=== PATIENT | male | born 1965 | race Caucasian/White ===

== ENCOUNTER → 2016-07-10 | Day surgery (SDC) | payer OTHER ==
[2016-07-04 08:53] VITALS: BMI 28.0
[~2016-07-10] VITALS: Ht 172.7 cm; Wt 84.1 kg
[~2016-07-10] MED LIST: ALBUAER2 INH; ALPR-411 PO; ATOR-22 PO; ATROPINE SULFATE 0.1 MG/ML 5ML SYR IV ONE; BACL10TA PO; BUPIVACAINE 0.5 % 5 MG/1 ML PF 10ML VIAL ONE; BUPIVACAINE/EPINEPHRINE 0.5% MPF 1:200,000 30 ML VIAL ONE; DEXAMETHASONE SOD INJ 4 MG/ML VIAL ONE; DROPERIDOL 2.5 MG/ML 2**ORM CHARTING ONLY ONE; EpHEDrine SULFATE INJ 50 MG/ML **ORM CHARTING ONLY ONE; FENTANYL CITRATE INJ 50 MCG**ORM CHARTING ONLY ONE; FENTANYL CITRATE INJ 50 MCG/1 ML 2 ML VIAL ONE; HYDROmorphone HCL 2 MG/ML **ORM CHARTING ONLY ONE; HydrALAZINE HCL **ORM CHARTING ONLY ONE; INSDGI SC; INSU100I SC; KETOROLAC 30 MG/ML **ORM CHARTING ONLY ONE; KPP/750 PO; LABETALOL HCL IV **ORM CHARTING ONLY IV ONE; LIDOCAINE 2% 20 MG/ML SYRINGE***ORM CHARTING ONLY IV ONE; LIDOCAINE HCL 2% 2 ML VIAL (20MG/ML) ONE; LISI-725 PO; MEPERIDINE HCL 50 MG/ML CARP**ORM CHARTING ONLY ONE; METOCLOPRAMIDE HCL INJ **ORM CHARTING ONLY ONE; MIDAZOLAM HCL 1 MG/ML 2ML VIAL ONE; MIDAZOLAM HCL 1 MG/ML 2ML**ORM CHARTING ONLY ONE; MoRPHine SULFATE 10 MG/ML **ORM CHARTING ONLY ONE; NALOXONE HCL 0.4 MG/1 ML **ORM CHARTING ONLY ONE; ONDANSETRON INJ 2 MG/ML **ORM CHARTING ONLY ONE; PROPOFOL IV EMULSION 10 MG/ML 20 ML VIAL IV ONE; PROPOFOL IV EMULSION 10 MG/ML 20 ML VIAL ONE; RANI150T3 PO; ROPIVACAINE 0.5% 5 MG/ML 30 ML VIAL ONE; SERT-234 PO; SODIUM CHLORIDE 0.9% 10ML **ORM CHARTING ONLY ONE; VITAMIN B12 SC
[2016-07-10 10:19] VITALS: Ht 172.7 cm; Wt 84.1 kg
== END | disposition home or self-care (01) ==
LOC: C.GI 09:50
PROVIDERS: ATTEND Internal Medicine Gastroenterology
DX: Z53.8 Procedure and treatment not carried out for other reasons (principal)

== ENCOUNTER 2017-06-19 06:31 | Inpatient (IN) | payer OTHER ==
[~2017-06-19] VITALS: Ht 172.7 cm; Wt 79.5 kg
[~2017-06-19 06:31] MED LIST changes: -ATROPINE SULFATE 0.1 MG/ML 5ML SYR IV ONE; -BUPIVACAINE 0.5 % 5 MG/1 ML PF 10ML VIAL ONE; -BUPIVACAINE/EPINEPHRINE 0.5% MPF 1:200,000 30 ML VIAL ONE; -DEXAMETHASONE SOD INJ 4 MG/ML VIAL ONE; -DROPERIDOL 2.5 MG/ML 2**ORM CHARTING ONLY ONE; -EpHEDrine SULFATE INJ 50 MG/ML **ORM CHARTING ONLY ONE; -FENTANYL CITRATE INJ 50 MCG**ORM CHARTING ONLY ONE; -FENTANYL CITRATE INJ 50 MCG/1 ML 2 ML VIAL ONE; -HYDROmorphone HCL 2 MG/ML **ORM CHARTING ONLY ONE; -HydrALAZINE HCL **ORM CHARTING ONLY ONE; -KETOROLAC 30 MG/ML **ORM CHARTING ONLY ONE; -LABETALOL HCL IV **ORM CHARTING ONLY IV ONE; -LIDOCAINE 2% 20 MG/ML SYRINGE***ORM CHARTING ONLY IV ONE; -LIDOCAINE HCL 2% 2 ML VIAL (20MG/ML) ONE; -MEPERIDINE HCL 50 MG/ML CARP**ORM CHARTING ONLY ONE; -METOCLOPRAMIDE HCL INJ **ORM CHARTING ONLY ONE; -MIDAZOLAM HCL 1 MG/ML 2ML VIAL ONE; -MIDAZOLAM HCL 1 MG/ML 2ML**ORM CHARTING ONLY ONE; -MoRPHine SULFATE 10 MG/ML **ORM CHARTING ONLY ONE; -NALOXONE HCL 0.4 MG/1 ML **ORM CHARTING ONLY ONE; -ONDANSETRON INJ 2 MG/ML **ORM CHARTING ONLY ONE; -PROPOFOL IV EMULSION 10 MG/ML 20 ML VIAL IV ONE; -PROPOFOL IV EMULSION 10 MG/ML 20 ML VIAL ONE; -ROPIVACAINE 0.5% 5 MG/ML 30 ML VIAL ONE; -SODIUM CHLORIDE 0.9% 10ML **ORM CHARTING ONLY ONE
[2017-06-19] MEDS ORDERED: SODIUM CHLORIDE 0.9% 1000ML 1,000 ML IV ONE (06:43)
[2017-06-19 06:52] LABS: BASO % 0.1 %; BASO ABS # 0.01 K/uL (0-0.2); EOS % 0.3 %; EOS ABS # 0.03 K/uL (0-0.5); HEMATOCRIT 37.7 % (42-52); HEMOGLOBIN 12.7 g/dL (14.0-18.0); IG# 0.06 K/uL (0.00-0.02); LYMPH % 8.1 %; LYMPH ABS # 0.83 K/uL (1.2-3.4); MEAN CELL VOLUME 90.6 fL (80-100); MEAN CORPUSCULAR HEMOGLOBIN 30.5 pg (25-34); MEAN CORPUSCULAR HGB CONC 33.7 g/dl (32-36); MEAN PLATELET VOLUME 10.1 fL (7.4-10.4); MONO % 7.9 %; MONO ABS # 0.81 K/uL (0.11-0.59); NEUT ABS # 8.55 K/uL (1.4-6.5); PLATELET COUNT 344 K/uL (130-400); RED CELL DISTRIBUTION WIDTH CV 13.5 % (11.5-14.5); RED CELL DISTRIBUTION WIDTH SD 44.4 fL (36.4-46.3); WHITE BLOOD COUNT 10.29 K/uL (4.8-10.8)
[2017-06-19] MEDS ORDERED: LPT40 PO (06:55)
[2017-06-19] MEDS ORDERED: INSU100I23 SQ (06:55)
[2017-06-19] MEDS ORDERED: ASPEC81 PO (06:57)
[2017-06-19] MEDS ORDERED: VNTHFA/IN INH (06:57)
[2017-06-19] MEDS ORDERED: CYNI1000 INJ (06:58)
--- NOTE | 2017-06-19 07:02 | EMERGENCY ROOM VISIT NOTE ---
History Report prepared by Janene: Don Oneal Under the Supervision of: Dr. Justin Tovar D.O. First contact with patient: 06:35 Stated Complaint: CARDIAC ASSESSMENT/HIP AND ELBOW PAIN History of Present Illness The patient is a 52 year old male who presents to the Emergency Room via [facility] with concerns over a rapid heart rate that began immediately prior to arrival. Per EMS, they were originally called to the patient's home for right hip pain and left arm pain. While en route to the hospital the patient went into rapid atrial flutter. EMS placed the patient on a critical care nurse practitioner and administered Cardizem at 0620, 15 minutes prior to arrival. He denies any chest pain. The patient is a diabetic and has a diabetic wound on the right foot. He follows with a wound clinic for the right foot. EMS states the patient's blood sugar was 512 on their testing. The patient has a history of CVAs, but denies any were the result of an irregular cardiac rhythm. Source of History: patient Onset: Immediately prior to arrival Position: other (Cardiac ) Quality: other (Rapid heart beat) Associated Symptoms: No chest pain Note: shoulder and hip pain Review of Systems See HPI for pertinent positives & negatives. A total of 10 systems reviewed and were otherwise negative. Past Medical & Surgical Medical Problems: (1) Asthma (2) Coronary artery disease (3) Depressive disorder (4) Diabetes mellitus type 2 (5) Hemiparesis (6) History of - deep vein thrombosis (7) Seizure (8) TBI (traumatic brain injury) Surgical Problems: (1) H/O hernia repair (2) History of appendectomy (3) Status post below knee amputation of left lower extremity Family History Cancer Diabetes mellitus Heart disease Hypertension Lung disease Seizures Social History Smoking Status: Former Smoker Drug Use: none Marital Status: single Housing Status: lives alone Occupation Status: disabled Current/Historical Medications Scheduled Alprazolam (Xanax), 0.5 MG PO BID Aspirin (Aspirin EC Low Dose), 81 MG PO DAILY Atorvastatin (Lipitor), 40 MG PO DAILY Cyanocobalamin (Cyanocobalamin), 1,000 MCG INJ q 3 months Insulin Glargine (Basaglar Kwikpen), 1 DOSE SQ DAILY Insulin Lispro (Human) (Humalog), SC TID Levetiracetam (Keppra), 2 TAB PO BID Ranitidine Hcl (Zantac), 150 MG PO BID Sertraline (Zoloft), 1.5 TAB PO QAM Scheduled PRN Albuterol Hfa (Ventolin Hfa), 2 PUFFS INH Q6H PRN for SOB/Wheezing Baclofen (Lioresal), 10 MG PO TID PRN for Pain Allergies Coded Allergies: No Known Allergies (Verified , 06/19/17) Physical Exam Vital Signs Date Time Temp Pulse Resp B/P (MAP) Pulse Ox O2 Delivery O2 Flow Rate FiO2 06/19/17 08:32 95 Room Air 06/19/17 08:20 143 16 128/80 99 Room Air 06/19/17 07:43 95 Room Air 06/19/17 07:42 147 20 104/77 98 Room Air 06/19/17 06:41 148 06/19/17 06:39 36.4 145 16 125/86 100 Room Air 06/19/17 06:39 100 Room Air Physical Exam GENERAL: Patient is awake, alert, anxious and uncomfortable appearing. EYES: The conjunctivae are clear. The pupils are round and reactive. EARS, NOSE, MOUTH AND THROAT: The nose is without any evidence of any deformity. Mucous membranes are dry. Tongue is midline NECK: The neck is nontender and supple. RESPIRATORY: Normal respiratory effort is noted there is no evidence of wheezing rhonchi or rales CARDIOVASCULAR: Tachycardic rate and normal rhythm noted there no murmurs rubs or gallops normal S1 normal S2 GASTROINTESTINAL: The abdomen is soft. Bowel sounds are present in all quadrants. Abdomen is nontender PELVIS: The Pelvis is stable. No tenderness to palpation is noted. BACK: No midline tenderness or or step-off noted range of motion in flexion extension as well as rotation no signs of muscle spasm noted MUSCULOSKELETAL/EXTREMITIES: There is pain present with ROM of the left elbow. There is no erythema or deformity appreciated. There is no pain with ROM of either hip. There was a left lower extremity amputation noted. SKIN: There is significant bread down and a pressure ulceration of the right greater trochanter. There is significant erythema and skin changes to the right foot. There are no petechiae, pallor or cyanosis noted. Skin was warm and dry. NEUROLOGIC: Patient is awake alert and oriented x3 Medical Decision & Procedures ER Provider Diagnostic Interpretation: Radiology results as stated below per my review and radiologist interpretation: CHEST ONE VIEW PORTABLE CLINICAL HISTORY: Sepsis dyspnea COMPARISON STUDY: 12/06/2015 FINDINGS: The bones soft tissues and hemidiaphragms are normal. The cardiomediastinal silhouette is normal. The lungs are clear. The pulmonary vasculature is normal. IMPRESSION: Negative chest. The above report was generated using voice recognition software. It may contain grammatical, syntax or spelling errors. Electronically signed by: Quinn Gray M.D. 06/19/2017 7:25 AM Dictated Date/Time: 06/19/2017 7:24 AM L ELBOW MIN 3 VIEWS ROUTINE CLINICAL HISTORY: pain pain COMPARISON: None. DISCUSSION: The bones and joint spaces appear intact. There is no evidence of fracture, dislocation or bony disease. Small joint effusion. Cortical margins are intact. IMPRESSION: Small joint effusion. Otherwise negative study. The above report was generated using voice recognition software. It may contain grammatical, syntax or spelling errors. Electronically signed by: Quinn Gray M.D. 06/19/2017 7:27 AM Dictated Date/Time: 06/19/2017 7:26 AM R HIP UNILATERAL 2 VIEWS CLINICAL HISTORY: pain and infection pain COMPARISON: None. DISCUSSION: Mild degenerative narrowing right hip joint space. No evidence for acetabular protrusion. Cortical margins are intact. There is no evidence for soft tissue swelling. IMPRESSION: Mild degenerative change. No acute process. The above report was generated using voice recognition software. It may contain grammatical, syntax or spelling errors. Electronically signed by: Quinn Gray M.D. 06/19/2017 7:26 AM Dictated Date/Time: 06/19/2017 7:25 AM Laboratory Results 06/19/17 06:00 Red Blood Count 4.16, Mean Corpuscular Volume 90.6, Mean Corpuscular Hemoglobin 30.5, Mean Corpuscular Hemoglobin Concent 33.7, Mean Platelet Volume 10.1, Neutrophils (%) (Auto) 83.0, Lymphocytes (%) (Auto) 8.1, Monocytes (%) (Auto) 7.9, Eosinophils (%) (Auto) 0.3, Basophils (%) (Auto) 0.1, Neutrophils # (Auto) 8.55, Lymphocytes # (Auto) 0.83, Monocytes # (Auto) 0.81, Eosinophils # (Auto) 0.03, Basophils # (Auto) 0.01 06/19/17 06:00 Test 06/19/17 06:00 06/19/17 07:00 06/19/17 07:01 06/19/17 07:45 White Blood Count 10.29 K/uL (4.8-10.8) Red Blood Count 4.16 M/uL (4.7-6.1) Hemoglobin 12.7 g/dL (14.0-18.0) Hematocrit 37.7 % (42-52) Mean Corpuscular Volume 90.6 fL (80-100) Mean Corpuscular Hemoglobin 30.5 pg (25-34) Mean Corpuscular Hemoglobin Concent 33.7 g/dl (32-36) Platelet Count 344 K/uL (130-400) Mean Platelet Volume 10.1 fL (7.4-10.4) Neutrophils (%) (Auto) 83.0 % Lymphocytes (%) (Auto) 8.1 % Monocytes (%) (Auto) 7.9 % Eosinophils (%) (Auto) 0.3 % Basophils (%) (Auto) 0.1 % Neutrophils # (Auto) 8.55 K/uL (1.4-6.5) Lymphocytes # (Auto) 0.83 K/uL (1.2-3.4) Monocytes # (Auto) 0.81 K/uL (0.11-0.59) Eosinophils # (Auto) 0.03 K/uL (0-0.5) Basophils # (Auto) 0.01 K/uL (0-0.2) RDW Standard Deviation 44.4 fL (36.4-46.3) RDW Coefficient of Variation 13.5 % (11.5-14.5) Immature Granulocyte % (Auto) 0.6 % Immature Granulocyte # (Auto) 0.06 K/uL (0.00-0.02) Erythrocyte Sedimentation Rate > 90 mm/hr (0-14) Prothrombin Time 12.4 SECONDS (9.0-12.0) Prothromb Time International Ratio 1.2 (0.9-1.1) Activated Partial Thromboplast Time 27.6 SECONDS (21.0-31.0) Partial Thromboplastin Ratio 1.1 Anion Gap 8.0 mmol/L (3-11) Est Creatinine Clear Calc Drug Dose 105.9 ml/min Estimated GFR () 119.4 Estimated GFR (Non- 103.1 BUN/Creatinine Ratio 14.7 (10-20) Calcium Level 9.1 mg/dl (8.5-10.1) Phosphorus Level 1.7 mg/dl (2.5-4.9) Magnesium Level 1.5 mg/dl (1.8-2.4) Total Bilirubin 0.5 mg/dl (0.2-1) Aspartate Amino Transf (AST/SGOT) 9 U/L (15-37) Alanine Aminotransferase (ALT/SGPT) 10 U/L (12-78) Alkaline Phosphatase 123 U/L (45-117) C-Reactive Protein 24.30 mg/dl (0-0.29) Total Protein 7.7 gm/dl (6.4-8.2) Albumin 2.4 gm/dl (3.4-5.0) Globulin 5.3 gm/dl (2.5-4.0) Albumin/Globulin Ratio 0.5 (0.9-2) Lipase 73 U/L (73-393) Beta-Hydroxybutyric Acid 17.67 mg/dL (0.2-2.81) Hepatitis C Antibody Screen NEG (NEG) Venous Blood pH 7.46 (7.36-7.41) Venous Blood Partial Pressure CO2 37 mmHg (38.0-50.0) Venous Blood Partial Pressure O2 24 mmHg Venous Blood HCO3 26 mmol/L Venous Blood Oxygen Saturation < 60.0 % Venous Blood Base Excess 1.8 mEq/L Bedside Lactic Acid Venous 1.38 mmol/L (0.90-1.70) Urine Color YELLOW Urine Appearance CLEAR (CLEAR) Urine pH 5.5 (4.5-7.5) Urine Specific [place] 1.034 (1.000-1.030) Urine Protein TRACE (NEG) Urine Glucose (UA) 3+ (NEG) Urine Ketones 2+ (NEG) Urine Occult Blood TRACE (NEG) Urine Nitrite NEG (NEG) Urine Bilirubin NEG (NEG) Urine Urobilinogen NEG (NEG) Urine Leukocyte Esterase TRACE (NEG) Urine WBC (Auto) >30 /hpf (0-5) Urine RBC (Auto) 0-4 /hpf (0-4) Urine Hyaline Casts (Auto) 0 /lpf (0-5) Urine Epithelial Cells (Auto) 5-10 /lpf (0-5) Urine Bacteria (Auto) NEG (NEG) Laboratory results per my review. Medications Administered Medications (Trade) Dose Ordered Sig/Niharika Route Start Time Stop Time Status Last Admin Dose Admin Sodium Chloride 1,000 ml @ 999 mls/hr Q1H1M ONCE IV 06/19/17 06:43 06/19/17 07:43 DC 06/19/17 07:39 999 MLS/HR Magnesium Sulfate (Magnesium Sulfate) 2 gm NOW STAT IV 06/19/17 07:30 06/19/17 07:31 DC 06/19/17 07:40 2 GM Sodium Chloride 1,000 ml @ 999 mls/hr Q1H1M STAT IV 06/19/17 07:30 06/19/17 08:30 DC 06/19/17 07:40 999 MLS/HR Diltiazem HCl (Cardizem Bolus / Drip) 1 ea NOW STAT IV 06/19/17 07:43 06/19/17 07:46 DC 06/19/17 08:17 1 EA Ceftriaxone Sodium (Rocephin Inj) 1 gm NOW STAT IV 06/19/17 07:43 06/19/17 07:46 DC 06/19/17 09:24 1 GM Diltiazem HCl (Cardizem Inj) 5 mg TODAY@0800 ONCE IV 06/19/17 08:00 06/19/17 08:01 DC 06/19/17 08:16 5 MG Diltiazem HCl 125 mg/Dextrose 125 ml @ 0 mls/hr Q0M PRN IV 06/19/17 08:00 06/19/17 13:50 DC 06/19/17 08:17 5 MLS/HR ECG Indication: tachycardia Rate (beats per minute): 147 Rhythm: atrial flutter Findings: no acute ischemic change, no ectopy Comparison ECG Date: 11/19/2015 Change: Atrial flutter is new. Patient's electrocardiogram per my interpretation. ED Course 0636: The patient was evaluated in room A2. A complete history and physical examination were performed. 0643: Ordered Sodium Chloride 1000 mL @ 999 mL/hr IV. 0729: The nursing staff has informed me that the patient's glucose level is 400+ . 0730: Ordered Sodium Chloride 1000 mL @ 999 mL/hr IV, Magnesium Sulfate 2 gm IV. 0743: Ordered Rocephin 1 gm IV, Diltiazem HCl 5 mg IV. 0752: I checked on the patient at this time. He is doing well. 0809: I discussed the case with Dr. Rachid Munson. He will evaluate the patient for further treatment. Medical Decision Differential diagnosis: Etiologies such as premature contractions, electrolyte abnormality, cardiac dysrhythmia, thyroid dysfunction, pulmonary embolism, infection, gastrointestinal, as well as others were entertained. Nursing notes reviewed. The patient is a 52-year-old male who presented to the emergency department for an evaluation of right hip pain and left elbow pain. I received a medical command phone call about this patient because he was in rapid atrial fibrillation. He was treated with IV fluids and IV Cardizem prior to arrival. He was also given IV Cardizem in the emergency department. He was further treated with IV antibiotics for presumed diabetic ulcers. I discussed the patient's laboratory and radiographic studies with him. I also discussed his case with the on-call [facility]. They have agreed to evaluate the patient in the emergency department for further management and disposition. Blood Pressure Screening Patient's blood pressure: Normal blood pressure rapid pulse. Consults Time Called: 08 Consulting Physician: Dr. Meenakshi Munson Returned Call: 08 I discussed the case with Dr. Rachid Munson. He will evaluate the patient for further treatment. Impression Primary Impression: Hyperglycemia Additional Impressions: Atrial fibrillation with RVR Pressure ulcer diabetic ulcer Cellulitis Hypomagnesemia Critical Care I have personally spent greater than 45 minutes of critical care time in the direct management of this patient. This includes bedside care, interpretation of diagnostic studies, and testing, discussion with consultants, patient, and family members, and other required patient management activities. This 45 minutes is in excess of all separately billable procedures. Scribe Attestation The scribe's documentation has been prepared under my direction and personally reviewed by me in its entirety. I confirm that the note above accurately reflects all work, treatment, procedures, and medical decision making performed by me. Departure Information Dispostion Being Evaluated By Hospitalist Frankie Becerra M.D. (PCP) Problem Qualifiers Additional Impressions: Pressure ulcer Pressure ulcer location: hip Pressure ulcer stage: unspecified pressure ulcer stage Laterality: right Qualified Codes: L89.219 - Pressure ulcer of right hip, unspecified stage Cellulitis Site of cellulitis: unspecified site Qualified Codes: L03.90 - Cellulitis, unspecified
[2017-06-19 07:03] LABS: INR 1.2 (0.9-1.1); PTT PATIENT 27.6 SECONDS (21.0-31.0)
--- NOTE | 2017-06-19 07:26 | DIAGNOSTIC IMAGING REPORT ---
CHEST ONE VIEW PORTABLE CLINICAL HISTORY: Sepsis dyspnea COMPARISON STUDY: 12/06/2015 FINDINGS: The bones soft tissues and hemidiaphragms are normal. The cardiomediastinal silhouette is normal. The lungs are clear. The pulmonary vasculature is normal. IMPRESSION: Negative chest. The above report was generated using voice recognition software. It may contain grammatical, syntax or spelling errors. Electronically signed by: Quinn Gray M.D. 06/19/2017 7:25 AM Dictated Date/Time: 06/19/2017 7:24 AM
--- NOTE | 2017-06-19 07:27 | DIAGNOSTIC IMAGING REPORT ---
R HIP UNILATERAL 2 VIEWS CLINICAL HISTORY: pain and infection pain COMPARISON: None. DISCUSSION: Mild degenerative narrowing right hip joint space. No evidence for acetabular protrusion. Cortical margins are intact. There is no evidence for soft tissue swelling. IMPRESSION: Mild degenerative change. No acute process. The above report was generated using voice recognition software. It may contain grammatical, syntax or spelling errors. Electronically signed by: Quinn Gray M.D. 06/19/2017 7:26 AM Dictated Date/Time: 06/19/2017 7:25 AM
[2017-06-19 07:29] LABS: ALBUMIN 2.4 gm/dl (3.4-5.0); ALKALINE PHOSPHATASE 123 U/L (45-117); ALT/SGPT 10 U/L (12-78); AST/SGOT 9 U/L (15-37); BLOOD UREA NITROGEN 11 mg/dl (7-18); CALCIUM 9.1 mg/dl (8.5-10.1); CARBON DIOXIDE 27 mmol/L (21-32); CKMB 0.8 ng/ml (0.5-3.6); CREATININE 0.78 mg/dl (0.60-1.40); GLUCOSE 404 mg/dl (70-99); LIPASE 73 U/L (73-393); PHOSPHORUS 1.7 mg/dl (2.5-4.9); SODIUM 126 mmol/L (136-145); TOTAL PROTEIN 7.7 gm/dl (6.4-8.2)
--- NOTE | 2017-06-19 07:29 | DIAGNOSTIC IMAGING REPORT ---
L ELBOW MIN 3 VIEWS ROUTINE CLINICAL HISTORY: pain pain COMPARISON: None. DISCUSSION: The bones and joint spaces appear intact. There is no evidence of fracture, dislocation or bony disease. Small joint effusion. Cortical margins are intact. IMPRESSION: Small joint effusion. Otherwise negative study. The above report was generated using voice recognition software. It may contain grammatical, syntax or spelling errors. Electronically signed by: Quinn Gray M.D. 06/19/2017 7:27 AM Dictated Date/Time: 06/19/2017 7:26 AM
[2017-06-19] MEDS ORDERED: MAGNESIUM SULFATE 1GM / D5W 1 GM BAG IV STA (07:30)
[2017-06-19] MEDS ORDERED: SODIUM CHLORIDE 0.9% 1000ML 1,000 ML IV STA (07:30)
[2017-06-19] MEDS ORDERED: CEFTRIAXONE SOD INJ 1 GM ADDVIAL IV STA (07:43)
[2017-06-19] MEDS ORDERED: DILTIAZEM BOLUS / DRIP IV STA ×2 (07:43→09:34)
[2017-06-19] MEDS ORDERED: DILTIAZEM HCL 5 MG/ML 5 ML VIAL BOLUS/OMNI IV ONE (08:00)
[2017-06-19] MEDS ORDERED: DILTIAZEM HCL INJ 125 MG in DEXTROSE 5% 100ML IV PRN ×2 (08:00→10:15)
[2017-06-19 08:32] VITALS: O2SAT 95; BMI 25.5
[2017-06-19] MEDS ORDERED: ACETAMINOPHEN 325 MG TAB PO PRN (09:30)
[2017-06-19] MEDS ORDERED: CONSULT PHARMACY STA (09:43)
[2017-06-19] MEDS ORDERED: LORAZEPAM 2 MG/ML 1 ML VIAL IV SCH (09:45)
[2017-06-19] MEDS ORDERED: OPTIRAY 320 IV PRN (10:00)
[2017-06-19 10:30] LABS: CKMB 0.7 ng/ml (0.5-3.6); URIC ACID 3.4 mg/dl (2.6-7.2)
[2017-06-19] MEDS ORDERED: PIPERACILL/TAZOBAC CONSULT ACTIVE PRN (10:30)
[2017-06-19] MEDS ORDERED: VANCOMYCIN INJ 2,000 MG in SODIUM CHLORIDE 0.9% 500ML 500 ML IV SCH (10:30)
[2017-06-19] MEDS ORDERED: VANCOMYCIN CONSULT ACTIVE PRN (10:30)
[2017-06-19] MEDS ORDERED: PIPERACILL/TAZOBAC IV 4.5 GM in DEXTROSE 5% 100ML IV SCH (10:45)
--- NOTE | 2017-06-19 11:32 | History and Physical ---
History & Physical Date & Time of Service: Jun 19, 2017 at 09:00 Chief Complaint: Cardiac Assessment/Hip And Elbow Pain Primary Care Physician: Frankie Garcia M.D. History of Present Illness Source: patient, clinic records, hospital records This is a 52yo M with uncontrolled DM II (hgb a1c of 13), CAD, ICH following injury in 2014, R hemiparesis 2/2 remote CVAs, 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 Patient states that he was lying on elbow watching football and believes to have injured it. States that pain is improved but that ROM is reduced 2/2 pain. Also has pain in R hip 2/2 chronic wound for which he has followed with [place] wound [facility] in the past. Also has presence of chronic wounds on R foot but denies any pain 2/2 diabetic neuropathy. Patient is a poor historian and it is unclear whether or not he is still receiving wound care. Was found to be in rapid A Flutter by EMS en route to hospital and was given cardizem prior to arrival. Patient is asymptomatic and denies any history of arrhythmias. Denies any lightheadedness, chest pain, palpitations or SOB. Per chart review, patient had fall in 2011 resulting in a TBI and hemorrhagic stroke with residual R leg weakness. Was on coumadin at that time and it was discontinued until 2014 when he was restarted on it for treatment of an upper DVT. Fell a few months later, while on coumadin, and had an ICH following and was hospitalized at [facility] but no additional intervention was required. Coumadin was stopped at this time. Had a CT head performed in 2016 that was normal, without evidence of bleeding. Patient lives alone but sister checks on him. States that he did have a home health service recently but due to insurance changes, they are no longer providing services. Is able to ambulate by wheelchair and has improved ability to transfer in recent months following L BKA 2/[address] Amezcua in 2016. Admits to using insulin infrequently. Past Medical/Surgical History Medical Problems: (1) Asthma Status: Chronic (2) Coronary artery disease Status: Chronic (3) Depressive disorder Status: Chronic (4) Diabetes mellitus type 2 Status: Chronic (5) Hemiparesis Permanent Comment: from TBI Status: Chronic (6) History of - deep vein thrombosis Status: Chronic (7) Seizure Status: Chronic (8) TBI (traumatic brain injury) Permanent Comment: left frontal lobe hematoma 2011 Status: Chronic Surgical Problems: (1) H/O hernia repair Status: Chronic (2) History of appendectomy Status: Chronic Family History Cancer Diabetes mellitus Heart disease Hypertension Lung disease Seizures Social History Smoking Status: Former Smoker Smokeless Tobacco Use: Yes (chewing tobacco daily ) Alcohol Use: socially Drug Use: none Marital Status: single Housing status: lives alone Occupational Status: disabled Immunizations History of Influenza Vaccine: Yes History of Tetanus Vaccine?: Yes History of Pneumococcal: Yes History of Hepatitis B Vaccine: No Multi-Drug Resistant Organisms History of MDRO: No Allergies Coded Allergies: No Known Allergies (Verified , 06/19/17) Home Medications Scheduled Alprazolam (Xanax), 0.5 MG PO BID Aspirin (Aspirin EC Low Dose), 81 MG PO DAILY Atorvastatin (Lipitor), 40 MG PO DAILY Cyanocobalamin (Cyanocobalamin), 1,000 MCG INJ q 3 months Insulin Glargine (Basaglar Kwikpen), 1 DOSE SQ DAILY Insulin Lispro (Human) (Humalog), SC TID Levetiracetam (Keppra), 2 TAB PO BID Ranitidine Hcl (Zantac), 150 MG PO BID Sertraline (Zoloft), 1.5 TAB PO QAM Scheduled PRN Albuterol Hfa (Ventolin Hfa), 2 PUFFS INH Q6H PRN for SOB/Wheezing Baclofen (Lioresal), 10 MG PO TID PRN for Pain Review of Systems Ten systems reviewed and negative except as noted in the HPI. Physical Exam Vital Signs Date Time Temp Pulse Resp B/P (MAP) Pulse Ox O2 Delivery O2 Flow Rate FiO2 06/19/17 11:29 123 16 126/90 97 Room Air 06/19/17 09:34 124 06/19/17 09:32 132 16 131/96 100 Room Air 06/19/17 09:01 137 16 122/89 100 Room Air 06/19/17 08:32 95 Room Air 06/19/17 08:20 143 16 128/80 99 Room Air 06/19/17 07:43 95 Room Air 06/19/17 07:42 147 20 104/77 98 Room Air 06/19/17 06:41 148 06/19/17 06:39 36.4 145 16 125/86 100 Room Air 06/19/17 06:39 100 Room Air General Appearance: no apparent distress, + pertinent finding ( Appears older than stated age. ) Head: normocephalic, atraumatic Eyes: normal inspection, PERRL, sclerae normal ENT: normal ENT inspection, hearing grossly normal, pharynx normal (moist mucous membranes ) Neck: supple, thyroid normal, trachea midline Respiratory/Chest: chest non-tender, lungs clear, normal breath sounds, no respiratory distress, no accessory muscle use Cardiovascular: no murmur, normal peripheral pulses, + tachycardia Abdomen/GI: non tender, soft, no organomegaly Extremities/Musculoskelatal: + pertinent finding (+ chronic wound on lateral R hip. + chronic R foot wound on great toe with erythema and edema extending to ankle. Limited sensation 2/2 neuropathy. Limited mobility 2/2 remote CVA deficits. L BKA ) Neurologic/Psych: no motor/sensory deficits (no acute changes), alert, normal mood/affect, oriented x 3, + pertinent finding (poor insight/judgement ) Skin: normal color, warm/dry Diagnostics Laboratory Results Results Past 24 Hours Test 06/19/17 06:00 06/19/17 07:00 06/19/17 07:01 06/19/17 07:45 Range/Units White Blood Count 10.29 4.8-10.8 K/uL Red Blood Count 4.16 4.7-6.1 M/uL Hemoglobin 12.7 14.0-18.0 g/dL Hematocrit 37.7 42-52 % Mean Corpuscular Volume 90.6 80-100 fL Mean Corpuscular Hemoglobin 30.5 25-34 pg Mean Corpuscular Hemoglobin Concent 33.7 32-36 g/dl Platelet Count 344 130-400 K/uL Mean Platelet Volume 10.1 7.4-10.4 fL Neutrophils (%) (Auto) 83.0 % Lymphocytes (%) (Auto) 8.1 % Monocytes (%) (Auto) 7.9 % Eosinophils (%) (Auto) 0.3 % Basophils (%) (Auto) 0.1 % Neutrophils # (Auto) 8.55 1.4-6.5 K/uL Lymphocytes # (Auto) 0.83 1.2-3.4 K/uL Monocytes # (Auto) 0.81 0.11-0.59 K/uL Eosinophils # (Auto) 0.03 0-0.5 K/uL Basophils # (Auto) 0.01 0-0.2 K/uL RDW Standard Deviation 44.4 36.4-46.3 fL RDW Coefficient of Variation 13.5 11.5-14.5 % Immature Granulocyte % (Auto) 0.6 % Immature Granulocyte # (Auto) 0.06 0.00-0.02 K/uL Erythrocyte Sedimentation Rate > 90 0-14 mm/hr Prothrombin Time 12.4 9.0-12.0 SECONDS Prothromb Time International Ratio 1.2 0.9-1.1 Activated Partial Thromboplast Time 27.6 21.0-31.0 SECONDS Partial Thromboplastin Ratio 1.1 Sodium Level 126 136-145 mmol/L Potassium Level 4.0 3.5-5.1 mmol/L Chloride Level 91 98-107 mmol/L Carbon Dioxide Level 27 21-32 mmol/L Anion Gap 8.0 3-11 mmol/L Blood Urea Nitrogen 11 7-18 mg/dl Creatinine 0.78 0.60-1.40 mg/dl Est Creatinine Clear Calc Drug Dose 105.9 ml/min Estimated GFR () 119.4 Estimated GFR (Non- 103.1 BUN/Creatinine Ratio 14.7 10-20 Random Glucose 404 70-99 mg/dl Calcium Level 9.1 8.5-10.1 mg/dl Phosphorus Level 1.7 2.5-4.9 mg/dl Magnesium Level 1.5 1.8-2.4 mg/dl Total Bilirubin 0.5 0.2-1 mg/dl Aspartate Amino Transf (AST/SGOT) 9 15-37 U/L Alanine Aminotransferase (ALT/SGPT) 10 12-78 U/L Alkaline Phosphatase 123 45-117 U/L Total Creatine Kinase 59 39-308 U/L Creatine Kinase MB 0.8 0.5-3.6 ng/ml Creatine Kinase MB Ratio 1.4 0-3.0 Troponin I < 0.015 0-0.045 ng/ml C-Reactive Protein 24.30 0-0.29 mg/dl Total Protein 7.7 6.4-8.2 gm/dl Albumin 2.4 3.4-5.0 gm/dl Globulin 5.3 2.5-4.0 gm/dl Albumin/Globulin Ratio 0.5 0.9-2 Lipase 73 73-393 U/L Beta-Hydroxybutyric Acid 17.67 0.2-2.81 mg/dL Hepatitis C Antibody Screen NEG NEG Venous Blood pH 7.46 7.36-7.41 Venous Blood Partial Pressure CO2 37 38.0-50.0 mmHg Venous Blood Partial Pressure O2 24 mmHg Venous Blood HCO3 26 mmol/L Venous Blood Oxygen Saturation < 60.0 % Venous Blood Base Excess 1.8 mEq/L Bedside Lactic Acid Venous 1.38 0.90-1.70 mmol/L Urine Color YELLOW Urine Appearance CLEAR CLEAR Urine pH 5.5 4.5-7.5 Urine Specific [place] 1.034 1.000-1.030 Urine Protein TRACE NEG Urine Glucose (UA) 3+ NEG Urine Ketones 2+ NEG Urine Occult Blood TRACE NEG Urine Nitrite NEG NEG Urine Bilirubin NEG NEG Urine Urobilinogen NEG NEG Urine Leukocyte Esterase TRACE NEG Urine WBC (Auto) >30 0-5 /hpf Urine RBC (Auto) 0-4 0-4 /hpf Urine Hyaline Casts (Auto) 0 0-5 /lpf Urine Epithelial Cells (Auto) 5-10 0-5 /lpf Urine Bacteria (Auto) NEG NEG Test 06/19/17 10:00 Range/Units Uric Acid 3.4 2.6-7.2 mg/dl Total Creatine Kinase 49 39-308 U/L Creatine Kinase MB 0.7 0.5-3.6 ng/ml Creatine Kinase MB Ratio 1.4 0-3.0 Troponin I < 0.015 0-0.045 ng/ml Microbiology Results 06/19/17 Blood Culture, Received Pending 06/19/17 Blood Culture, Received Pending 06/19/17 Urine Culture, Received Pending Diagnostic Radiology L elbow XR: IMPRESSION: Small joint effusion. Otherwise negative study. R hip XR: IMPRESSION: Mild degenerative change. No acute process. CXR normal EKG Sinus tachycardia at 147 bpm. Impression Assessment and Plan This is a 52yo M with uncontrolled DM II (hgb a1c of 13), CAD, ICH following injury in 2014, R hemiparesis 2/2 remote CVAs, TBI in 2011, seizure disorder, depression, s/p L BKA (in 2015) and h/o DVT (in 2011) who presents with elbow pain x 3 days and was incidentally found to have rapid A Flutter as well as R foot cellulitis. Rapid A Flutter: -New onset atrial flutter with 2:1 conduction -Cardizem bolus and drip initiated in ED -Continue drip and titrate until rate is controlled -CTA chest/thorax to r/o PE -Cardio consulted -Continue cardizem drip -Metoprolol tartrate 25mg PO Q6H -Discuss initiation of heparin with neuro in setting of previous ICH ICH following injuries: -Occurred in 2011 following fall while on coumadin -Residual R leg weakness -Happened again in 2014 following fall, admitted to [facility] -No further intervention was required. Coumadin discontinued -CT head in 2015 without evidence of bleed -Discussed with neuro. Recommend repeating CT head and if normal, okay to start heparin Hyperglycemia 2/2 DM II: uncontrolled -Historically non-compliant with medication, active infection -Last hgb a1c in Apr 2017 was 13 -BG 404 on arrival -Hold home agents -Glycemic control consult Pseudohyponatremia: -Corrected Na of 131-133 -Glycemic control -IVF resuscitation -Recheck Na this evening R foot cellulitis: -Presence of chronic wound of great toe -S/p L BKA in 2016 2/2 osteomyelitis -Significant diabetic neuropathy -Ceftriaxone given in ED -Initiated broader coverage with Zosyn, vanc due to concern for osteo -Blood cultures pending -MRI of R foot pending -Ortho consulted -Wound care consulted L elbow pain: -XR with small joint effusion -Without erythema, edema on exam -Ortho consulted for evaluation, possible joint aspiration Seizure disorder: -Stable -Cont home dose keppra Asthma: -Stable -Cont home meds Depression/anxiety: -Cont zoloft, xanax PRN DVT Ppx: Code status: FULL PCP: Radha Dispo: Admitted to telemetry. Discharge planning ordered for discharge (patient will need home health services). Patient seen in collaboration with Dr. Ricardo. Please see addendum. Dr. Ricardo, Attending Physician: I have seen and examined the patient at bedside with LUCAS Carbajal and agree with the assessment an plan and would like to add the following that the patient came in for left elbow pain and found to be in atrial fibrillation with RVR - on my exam in the emergency patient's heart rate in the 140s. The heart rate decreased to 70s with the diltiazem drip running. However repeat EKG still shows flutter. Patient has history of head injuries in the past. CT head on this admission is negative for bleed, and since arrhythmia still present will start heparin drip. Appreciate cardiology involvement in the case on further assistance with managing tachycardia and arrhythmia. There is no evidence of central pulmonary embolus in the main, lobar, or proximal segmental pulmonary arteries by CTA. Additional scan to be done for lower right extremity which has erythema and stages of healing from previous wounds/ulcers to rule out osteomyelitis. Patient has left below knee amputation in the past with clean stump. Patient has diabetes and hyperglycemia and require pharmacy glycemic control. Also appreciate orthopedic evaluation of right elbow whether there is effusion to aspirated for diagnostic purposes - rule out septic joint - as well as lower extremity evaluation Level of Care Telemetry Advanced Directives Existing Living Will: No Existing Power of Byproducts Maker: No Resuscitation Status FULL RESUSCITATION VTE Prophylaxis VTE Risk Assessment Done? Y/N: Yes Risk Level: Moderate Given or contraindicated: Other Anticoagulation Social Service Consult Receiving Home Health
--- NOTE | 2017-06-19 11:54 | CARDIOLOGY CONSULTATION ---
DATE OF CONSULTATION: 06/19/2017 INPATIENT CONSULTATION CONSULTATION REQUESTED BY: Phoenix Carbajal PA-C. REASON FOR CONSULTATION: New onset atrial flutter. HISTORY OF PRESENT ILLNESS: Mr. Hidalgo is a very pleasant, yet very medically complex 52-year-old gentleman who appears much older than his stated age. He presented to [facility] Emergency Department on 06/19/2017, via EMS with report of elbow pain and hip pain at the site of chronic wounds. When EMS arrived, he was placed on telemetry monitoring, he was found to be in atrial flutter with rapid ventricular response in the 150s. He was transported to [facility] Emergency Department, he was given a dose of IV Cardizem with transient improvement of rates; however, he then went back to the 150s. He also received IV antibiotics and IV fluids and decision was made to admit him to telemetry. Currently, the patient states that his only complaint is that of pain at his ulcer sites. He denies any cardiac complaints, specifically denying any chest pain, shortness of breath, palpitations, lightheadedness, dizziness, or syncope. He states that he has been compliant with his medications at home; however, his blood sugars are rarely uncontrolled and he does have a chart history of medication noncompliance. PAST SURGICAL HISTORY: 1. Left BKA secondary to osteomyelitis. 2. Wound debridements. 3. Appendectomy. 4. Hernia repair. MEDICAL ILLNESSES: 1. History of traumatic brain injury with left frontal lobe hematoma. 2. History of intracranial hemorrhage after an injury seen at [facility]. 3. Diabetes. 4. Chronic stasis wounds. 5. Depression. 6. History of medical noncompliance. FAMILY HISTORY: Noncontributory. SOCIAL HISTORY: Denies any cigarette use, but chews smokeless tobacco daily. Denies any alcohol or recreational drug use. He is not , no children. He lives at home by himself. He is on disability. He has a sister that visits him occasionally. REVIEW OF SYSTEMS: As per HPI, all other review of systems reviewed and negative at this time. ALLERGIES: No known drug allergies. MEDICATIONS AN OUTPATIENT: 1. Aspirin 81 mg daily. 2. Atorvastatin 40 mg daily. 3. Lisinopril 20 mg daily. 4. Insulin sliding scale. 5. Vitamin B12 shots. 6. Ranitidine b.i.d. 7. Baclofen as needed. 8. Zoloft daily. 9. Lantus insulin. PHYSICAL EXAMINATION: VITAL SIGNS: Temperature 36.4, pulse 133, respiratory rate 12, blood pressure 131/96. GENERAL: Awake, alert, oriented x3, no acute distress, appears older than stated age. HEENT: Normocephalic, atraumatic. Pupils equal, round, and reactive to light and accommodation. Extraocular muscles intact. Anicteric sclerae. Moist mucous membranes. Poor dentition. NECK: No JVD, no bruit. CARDIOVASCULAR: Irregularly irregular and fast. Unable to appreciate murmurs, rubs or gallops. PULMONARY: Poor air movement at bilateral bases, otherwise clear. ABDOMEN: Bowel sounds x4, soft. No rebound, guarding, tenderness. No organomegaly. EXTREMITIES: Left BKA. Significant erythema across the right mid foot. SKIN: Diffuse venous stasis ulcers. TEST RESULTS: A 12-lead EKG performed in the Emergency Department independently reviewed at this time shows atrial flutter at 2:1 conduction, poor R-wave progression across the precordium. IMPRESSION: 1. New onset asymptomatic atrial flutter with 2:1 conduction. 2. History of traumatic intracranial hemorrhage. 3. Chronic ulcers with concerns for osteomyelitis. 4. History of medical noncompliance. RECOMMENDATIONS: It was my pleasure to see Mr. Hidalgo in consultation today. From a cardiac standpoint, he does appear to be in atrial flutter with 2:1 conduction. So, I would advise that a Cardizem drip has been started and will up titrate for further rate control. At the same time, I will start him on metoprolol tartrate 25 mg p.o. q. 6 hours. Obviously, given the fact we do not know the duration of his arrhythmia, we do not want to attempt to cardiovert him immediately. Will follow him during his hospital stay and further recommendations will be made in regards to rate versus rhythm control strategies. Otherwise, I am a little concerned about his history of intracranial hemorrhage and will last for a neurologic opinion whether or not it is okay to anticoagulate this time. Heparin has been started, but will hold it for now.
[2017-06-19 13:00] VITALS: BP 124/68; PULSE 120; TEMP 36.5; O2SAT 99
[2017-06-19] MEDS ORDERED: PHARMACY GLYCEMIC MGMT CONSULT SCH (13:15)
[2017-06-19] MEDS: SODIUM CHLORIDE 0.9% 1000ML 1,000 ML IV SCH ×2 (13:17→17:17)
[2017-06-19] MEDS ORDERED: ALBUTEROL HFA 8 GM INHALER INH PRN (13:45)
[2017-06-19] MEDS ORDERED: BACLOFEN 10 MG TAB PO PRN (13:45)
[2017-06-19] MEDS: METOPROLOL TARTRATE 25 MG TAB PO SCH ×3 (14:26→23:47)
[2017-06-19] MEDS ORDERED: GLUCAGON FOR INJ 1 MG VIAL SQ PRN (14:30)
[2017-06-19] MEDS ORDERED: DEXTROSE 50% 50 ML SYR IV PRN (14:30)
[2017-06-19] MEDS ORDERED: GLUCOSE 10 TABS/TUBE PO PRN (14:30)
[2017-06-19] MEDS ORDERED: GLUCOSE 40% GEL 15 GM TUBE PO PRN (14:30)
[2017-06-19] MEDS ORDERED: INSULIN GLARGINE SOLOSTAR 100 UNITS/ML 3 ML PEN SC ONE (14:45)
--- NOTE | 2017-06-19 14:58 | Pharmacy Progress Note ---
Pharmacy Abx Dose Short Note Date of Service Jun 19, 2017. Assessment & Plan Pharmacy has been consulted for: * Glycemic Control * Vancomycin IV dosing * Zosyn IV dosing Assessment/Plan * 52 year old male admitted yesterday for R foot cellulitis r/o osteomyelitis, atrial flutter and c/o elbow pain * He does have a h/o R hemiparesis and L BKA secondary to osteo, current estimates of CrCl ~100-110cc/min Glycemic control * Patient has a h/o poor control, last A1c 13 per provider's note * Home regimen * Basaglar 50 units Q HS * Novolog TID w/ meals per scale (usually 10-15 units per dose) * Patient states he is compliant with his home regimen however he does fear hypoglycemia as he states he fell in his kitchen in the past secondary to hypoglycemia and this lead to a hemorrhagic stroke with R hemiparesis * Glu 404 on admission chemistry. Patient claims he took his Basaglar 50 units yesterday at 6 PM. He also claims he did not eat this AM prior to labs. BSG down to 262 just now. Will attempt control with basal/bolus SQ regimen. * He is currently NPO * The Glycemic Service has followed this patient in the past - last followed 2015. Will begin insulin doses similar to what was used during that admission. He is currently NPO, so will use a scale on the basal insulin order to provide a buffer against hypoglycemia. * Plan for insulin orders: * Lantus 22 units SQ x 1 now, then BID per the following scale: 11 units if BSG less than 120, 22 units if BSG 120 or greater * Novolog SQ Q 4 hrs * CF 18mg/dL/unit * CR 1:6gm CHO consumed when permitted to eat Vancomycin * Loading dose: 2000mg (~26mg/kg) x 1 * Maintenance dose: 1250mg (16.4mg/kg) IV Q 10 hours * Goal trough level for possible osteomyelitis : 15 to 20 mcg/mL * Trough level ordered for: 06/21/17 w/ 4th maintenance dose * [place] estimates: Vd 0.7L/kg; half-life ~8-10 hours Zosyn * eCrCl > 20cc/min, BMI 25.5; 3.375gm ext-infusion Q 8 hours indicated. Pharmacy will continue to follow and will adjust dose/frequency as necessary. Thank you.
--- NOTE | 2017-06-19 15:13 | Orthopedic Consultation ---
Orthopedic Consultation Date of Consultation: Jun 19, 2017. Attending Physician: Mynor Ricardo M.D. History of Present Illness C/o left elbow pain for 3 days, patient was watching the recent football playoffs and began to have the pain. Denies any injury/ trauma. Xrays show no fractures, no dislocation. Joint spaces in tact and preserved well. Small joint effusion. Past Medical/Surgical History Medical Problems: (1) Acute renal failure Status: Acute (2) Dehydration Status: Acute (3) Hyperglycemia Status: Acute (4) Hyponatremia Status: Acute (5) Hypotension Status: Acute (6) Left leg cellulitis Status: Acute (7) Pressure ulcer Permanent Comment: R hip Status: Acute Family History Cancer Diabetes mellitus Heart disease Hypertension Lung disease Seizures Social History Smoking Status: Former Smoker Smokeless Tobacco Use: Yes (chewing tobacco daily ) Alcohol Use: socially Drug Use: none Marital Status: single Housing Status: lives alone Occupation Status: disabled Allergies Coded Allergies: No Known Allergies (Verified , 06/19/17) Home Medications Scheduled Alprazolam (Xanax), 0.5 MG PO BID Aspirin (Aspirin EC Low Dose), 81 MG PO DAILY Atorvastatin (Lipitor), 40 MG PO DAILY Cyanocobalamin (Cyanocobalamin), 1,000 MCG INJ q 3 months Insulin Glargine (Basaglar Kwikpen), 1 DOSE SQ DAILY Insulin Lispro (Human) (Humalog), SC TID Levetiracetam (Keppra), 2 TAB PO BID Ranitidine Hcl (Zantac), 150 MG PO BID Sertraline (Zoloft), 1.5 TAB PO QAM Scheduled PRN Albuterol Hfa (Ventolin Hfa), 2 PUFFS INH Q6H PRN for SOB/Wheezing Baclofen (Lioresal), 10 MG PO TID PRN for Pain Current Inpatient Medications Current Inpatient Medications Medications (Trade) Dose Ordered Sig/Niharika Route Start Time Stop Time Status Last Admin Dose Admin Acetaminophen (Tylenol Tab) 650 mg Q4H PRN PO 06/19/17 09:30 07/19/17 09:29 Miscellaneous Information (Consult Glycemic Management Pharmacy) 1 ea UD N/A 06/19/17 13:15 07/19/17 13:14 Heparin Sodium/ Dextrose 1 ea Q10M N/A 06/19/17 10:02 2/23/18 10:01 Future Hold Lorazepam (Ativan Inj) 0.5 mg ONE IV 06/19/17 09:45 06/19/17 18:00 Sodium Chloride 1,000 ml @ 125 mls/hr Q8H IV 06/19/17 10:00 07/19/17 09:59 06/19/17 13:17 125 MLS/HR Ioversol (Optiray 320) 100 ml UD PRN IV 06/19/17 10:00 06/23/17 09:59 Diltiazem HCl 125 mg/Dextrose 125 ml @ 0 mls/hr Q0M PRN IV 06/19/17 10:15 07/19/17 10:14 Miscellaneous Information (Consult) 1 ea UD PRN N/A 06/19/17 10:30 07/19/17 10:29 Miscellaneous Information (Consult) 1 ea UD PRN N/A 06/19/17 10:30 07/19/17 10:29 Metoprolol Tartrate (Lopressor Tab) 25 mg Q6 PO 06/19/17 13:15 07/19/17 13:14 06/19/17 14:26 25 MG Piperacillin Sod/ Tazobactam Sod 3.375 gm/Dextrose 115 ml @ 28.75 mls/ hr Q8H IV 06/19/17 18:00 06/29/17 17:59 Albuterol (Ventolin Hfa Inhaler) 2 puffs Q6H PRN INH 06/19/17 13:45 07/19/17 13:44 Alprazolam (Xanax Tab) 0.5 mg BID PO 06/19/17 21:00 07/19/17 20:59 Aspirin (Ecotrin Tab) 81 mg DAILY PO 06/20/17 09:00 07/20/17 08:59 Atorvastatin Calcium (Lipitor Tab) 40 mg DAILY PO 06/20/17 09:00 07/20/17 08:59 Baclofen (Lioresal Tab) 10 mg TID PRN PO 06/19/17 13:45 07/19/17 13:44 Levetiracetam (Keppra Tab) 1,500 mg BID PO 06/19/17 21:00 07/19/17 20:59 Ranitidine HCl (zANTac TAB) 150 mg BID PO 06/19/17 21:00 07/19/17 20:59 Sertraline HCl (Zoloft Tab) 150 mg QAM PO 06/20/17 09:00 07/20/17 08:59 Glucose (Glucose 40% Gel) 15-30 GRAMS 15 GRAMS... UD PRN PO 06/19/17 14:30 07/19/17 14:29 Glucose (Glucose Chew Tab) 4-8 Tablets 4 Tabl... UD PRN PO 06/19/17 14:30 07/19/17 14:29 Dextrose (Dextrose 50% 50ML Syringe) 25-50ML OF 50% DW IV FOR... UD PRN IV 06/19/17 14:30 07/19/17 14:29 Glucagon (Glucagon Inj) 1 mg UD PRN SQ 06/19/17 14:30 07/19/17 14:29 Insulin Glargine (Lantus Solostar Pen) 22 units BID SC 06/19/17 21:00 07/19/17 20:59 Insulin Aspart (novoLOG ASPART) SLIDING SCALE Q4 SC 06/19/17 16:00 07/19/17 15:59 Vancomycin HCl 1250 mg/Sodium Chloride 275 ml @ 125 mls/hr Q10H IV 06/20/17 00:00 06/30/17 00:00 Review of Systems Musculoskeletal: + joint pain, + swelling (Left elbow) Physical Exam Date Time Temp Pulse Resp B/P (MAP) Pulse Ox O2 Delivery O2 Flow Rate FiO2 06/19/17 13:00 36.5 120 18 124/68 (86) 99 Room Air 06/19/17 12:01 115 16 121/92 96 Room Air 06/19/17 11:29 123 16 126/90 97 Room Air 06/19/17 09:34 124 06/19/17 09:32 132 16 131/96 100 Room Air 06/19/17 09:01 137 16 122/89 100 Room Air 06/19/17 08:32 95 Room Air 06/19/17 08:20 143 16 128/80 99 Room Air 06/19/17 07:43 95 Room Air 06/19/17 07:42 147 20 104/77 98 Room Air 06/19/17 06:41 148 06/19/17 06:39 36.4 145 16 125/86 100 Room Air 06/19/17 06:39 100 Room Air General Appearance: WD/WN, no apparent distress Head: normocephalic, atraumatic Extremities/Musculoskelatal: + swelling (Left elbow with mild swelling and tenderness lateral epicondyle area and towards olecranon process area. Non tender olecranon. Decreased ROM due to pain, no erythema, no drainage, skin in tact. Painful PROM.) Laboratory Results Last 24 Hours Test 06/19/17 06:00 06/19/17 07:00 06/19/17 07:01 06/19/17 07:45 White Blood Count 10.29 K/uL Red Blood Count 4.16 M/uL Hemoglobin 12.7 g/dL Hematocrit 37.7 % Mean Corpuscular Volume 90.6 fL Mean Corpuscular Hemoglobin 30.5 pg Mean Corpuscular Hemoglobin Concent 33.7 g/dl Platelet Count 344 K/uL Mean Platelet Volume 10.1 fL Neutrophils (%) (Auto) 83.0 % Lymphocytes (%) (Auto) 8.1 % Monocytes (%) (Auto) 7.9 % Eosinophils (%) (Auto) 0.3 % Basophils (%) (Auto) 0.1 % Neutrophils # (Auto) 8.55 K/uL Lymphocytes # (Auto) 0.83 K/uL Monocytes # (Auto) 0.81 K/uL Eosinophils # (Auto) 0.03 K/uL Basophils # (Auto) 0.01 K/uL RDW Standard Deviation 44.4 fL RDW Coefficient of Variation 13.5 % Immature Granulocyte % (Auto) 0.6 % Immature Granulocyte # (Auto) 0.06 K/uL Erythrocyte Sedimentation Rate > 90 mm/hr Prothrombin Time 12.4 SECONDS Prothromb Time International Ratio 1.2 Activated Partial Thromboplast Time 27.6 SECONDS Partial Thromboplastin Ratio 1.1 Sodium Level 126 mmol/L Potassium Level 4.0 mmol/L Chloride Level 91 mmol/L Carbon Dioxide Level 27 mmol/L Anion Gap 8.0 mmol/L Blood Urea Nitrogen 11 mg/dl Creatinine 0.78 mg/dl Est Creatinine Clear Calc Drug Dose 105.9 ml/min Estimated GFR () 119.4 Estimated GFR (Non- 103.1 BUN/Creatinine Ratio 14.7 Random Glucose 404 mg/dl Calcium Level 9.1 mg/dl Phosphorus Level 1.7 mg/dl Magnesium Level 1.5 mg/dl Total Bilirubin 0.5 mg/dl Aspartate Amino Transf (AST/SGOT) 9 U/L Alanine Aminotransferase (ALT/SGPT) 10 U/L Alkaline Phosphatase 123 U/L Total Creatine Kinase 59 U/L Creatine Kinase MB 0.8 ng/ml Creatine Kinase MB Ratio 1.4 Troponin I < 0.015 ng/ml C-Reactive Protein 24.30 mg/dl Total Protein 7.7 gm/dl Albumin 2.4 gm/dl Globulin 5.3 gm/dl Albumin/Globulin Ratio 0.5 Lipase 73 U/L Beta-Hydroxybutyric Acid 17.67 mg/dL Hepatitis C Antibody Screen NEG Venous Blood pH 7.46 Venous Blood Partial Pressure CO2 37 mmHg Venous Blood Partial Pressure O2 24 mmHg Venous Blood HCO3 26 mmol/L Venous Blood Oxygen Saturation < 60.0 % Venous Blood Base Excess 1.8 mEq/L Bedside Lactic Acid Venous 1.38 mmol/L Urine Color YELLOW Urine Appearance CLEAR Urine pH 5.5 Urine Specific [place] 1.034 Urine Protein TRACE Urine Glucose (UA) 3+ Urine Ketones 2+ Urine Occult Blood TRACE Urine Nitrite NEG Urine Bilirubin NEG Urine Urobilinogen NEG Urine Leukocyte Esterase TRACE Urine WBC (Auto) >30 /hpf Urine RBC (Auto) 0-4 /hpf Urine Hyaline Casts (Auto) 0 /lpf Urine Epithelial Cells (Auto) 5-10 /lpf Urine Bacteria (Auto) NEG Test 06/19/17 10:00 Uric Acid 3.4 mg/dl Total Creatine Kinase 49 U/L Creatine Kinase MB 0.7 ng/ml Creatine Kinase MB Ratio 1.4 Troponin I < 0.015 ng/ml Assessment & Plan Acute Left elbow pain with small effusion with no apparent injury. Will set up for joint aspiration per Dr. Soto, although minimal fluid appreciated. MRI may be useful to evaluate pain cause. Dr Soto to eval today.
[2017-06-19 16:00] VITALS: O2SAT 99
--- NOTE | 2017-06-19 16:01 | DIAGNOSTIC IMAGING REPORT ---
CT SCAN OF THE BRAIN WITHOUT IV CONTRAST CLINICAL HISTORY: Atrial fibrillation. History of intracranial hemorrhage. COMPARISON STUDY: CT of the brain dated 12/06/2015. TECHNIQUE: Unenhanced axial CT scan of the brain is performed from the vertex to the skull base. A dose lowering technique was utilized adhering to the principles of ALARA. CT DOSE: 638.56 mGycm FINDINGS: Brain parenchyma: There are age-related involutional changes noting mild subcortical and periventricular microangiopathic change. Left frontal encephalomalacia is consistent with a remote infarct. There is no hemorrhage, mass effect, or evidence of acute territorial ischemia by CT criteria. Orellana-white matter is preserved. No extra-axial fluid collection is seen. Ventricles, sulci, cisterns: Prominent secondary to involutional change. Intracranial vasculature: There is atherosclerotic calcification of the cavernous carotid and vertebral arteries. Calvarium: Unremarkable. Sinuses and mastoids: A retention cyst is seen in the right sphenoid sinus. The remaining visualized paranasal sinuses are clear. The mastoid air cells are well pneumatized. Orbits: The bony orbits are grossly intact. There is evidence of bilateral ocular lens surgery. IMPRESSION: There is no hemorrhage, mass effect, or evidence of acute territorial ischemia by CT criteria. Electronically signed by: Steve Wilks M.D. 06/19/2017 3:59 PM Dictated Date/Time: 06/19/2017 3:55 PM
[2017-06-19 16:02] VITALS: BP 110/71; PULSE 70; TEMP 36.8; O2SAT 100
--- NOTE | 2017-06-19 16:09 | DIAGNOSTIC IMAGING REPORT ---
CT ANGIOGRAM OF THE CHEST CLINICAL HISTORY: Atrial fibrillation. Sepsis. COMPARISON STUDY: Chest x-ray dated 06/19/2017. TECHNIQUE: Following the IV administration of 94 cc of Optiray 320, CT angiogram of the chest was performed from the upper abdomen to the thoracic inlet utilizing the pulmonary embolus protocol. Images are reviewed in the axial, sagittal, and coronal planes. 3-D MIPS images are created and assessed. IV contrast was administered without complication. A dose lowering technique was utilized adhering to the principles of ALARA. The examination is degraded by streak artifact from the patient's arms which could not be elevated above the chest. The examination is also degraded by motion artifact. CT DOSE: 881.56 mGycm FINDINGS: Thyroid: Imaged portions of the thyroid gland are normal in size and attenuation. Thoracic aorta: The thoracic aorta is normal in caliber and demonstrates standard 3-vessel arch anatomy. No dissection is seen. Pulmonary vasculature: The pulmonary trunk is dilated, measuring 4.2 cm in transverse diameter. This suggests pulmonary artery hypertension. There are no central filling defects identified in main, lobar, or proximal segmental pulmonary branches to suggest pulmonary embolus. Evaluation of the peripheral branches is degraded by streak and motion artifact. Heart: The heart is mildly enlarged and without pericardial effusion. The coronary arteries are densely calcified. Mild pericardial thickening is suggested. Lungs and pleural spaces: Evaluation of the lung parenchyma is degraded by motion artifact. No airspace consolidation or pleural effusion is identified. The trachea and central airways are clear. Mediastinum: There is no mediastinal lymphadenopathy. Sherron: Clear. Axillae: There is no axillary lymphadenopathy. Upper abdomen: There is a tiny hiatal hernia. The tip of an IVC filter is partially imaged in the upper abdomen. There is mild gynecomastia. Skeletal structures: There is moderate S-shaped thoracolumbar scoliosis. This distorts the thoracic cage. Arthritic change is seen in the shoulders. No lytic or blastic bony lesions are seen. IMPRESSION: 1. Streak and motion degraded examination. 2. There is no evidence of central pulmonary embolus in the main, lobar, or proximal segmental pulmonary arteries. Evaluation of the peripheral branches is degraded by streak and motion artifact. 3. There is no airspace consolidation or pleural effusion. 4. Cardiomegaly with evidence of pulmonary artery hypertension. 5. Additional findings as above. Electronically signed by: Steve Wilks M.D. 06/19/2017 4:07 PM Dictated Date/Time: 06/19/2017 3:59 PM
[2017-06-19] MEDS: INSULIN ASPART 100 UNITS/ML 3 ML PEN SC SCH ×2 (17:00→19:55)
[2017-06-19] MEDS: PIPERACILL/TAZOBAC IV 3.375 GM in DEXTROSE 5% 100ML IV SCH (17:23)
[2017-06-19 19:09] VITALS: BP 114/70; PULSE 72; TEMP 36.4; O2SAT 97
[2017-06-19] MEDS: INSULIN GLARGINE SOLOSTAR 100 UNITS/ML 3 ML PEN SC SCH (19:55)
[2017-06-19] MEDS: RANITIDINE HCL 150 MG TAB PO SCH (19:57)
[2017-06-19] MEDS: LEVETIRACETAM 500 MG TAB PO SCH (19:57)
[2017-06-19] MEDS: ALPRAZOLAM 0.5 MG TAB PO SCH (20:04)
[2017-06-19] MEDS ORDERED: INSULIN GLARGINE SOLOSTAR 100 UNITS/ML 3 ML PEN SC SCH (21:00)
--- NOTE | 2017-06-19 21:02 | ORTHOPEDIC CONSULTATION ---
DATE OF CONSULTATION: 06/19/2017 HISTORY OF PRESENT ILLNESS: This is a 51-year-old gentleman seen at the request of Dr. Ricardo and Dr. Garcia regarding left elbow cellulitis and right foot abscesses and ischemic ulcers. 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 The patient has had elbow pain x3 days in the left upper extremity. He was lying in his elbow watching football in his bed at home. He said that right hip has chronic pressure ulcer that he has been treated by [facility]. He has had ischemic ulcers on his right foot for anywhere from 4-6 weeks. The patient is a poor historian and he is unclear on the timeline. The patient was admitted to the hospital for multiple medical issues, please see the medical record. PAST MEDICAL HISTORY: Asthma, coronary artery disease, depressive disorder, diabetes mellitus type 2, hemiparesis, DVT, seizure, traumatic brain injury. SURGICAL HISTORY: Appendectomy, left below knee amputation in 2016, history of hernia repair. ALLERGIES: No known drug allergies. MEDICATIONS: Please note the list provided in the medical record. SOCIAL HISTORY: Former smoker, uses chewing tobacco daily. He drinks alcohol socially. No drug use. He is single, lives alone. He is disabled. PHYSICAL EXAMINATION: GENERAL: This is a 52-year-old gentleman who appears much older than stated age. HEENT: Normocephalic, atraumatic. He is wearing glasses. He has some difficulty hearing with normal conversational speech. NEUROLOGIC: The affect is appropriate. EXTREMITIES: Examination of the left elbow demonstrates erythema localized to the left elbow and olecranon bursal region. There is no obvious fluctuance or abscess present. He is markedly tender to palpation consistent with a contusion and possible inflammatory bursitis, no evidence of sepsis. Range of motion is spontaneous, 0-120 degrees of flexion. Examination of the right foot demonstrates what appears to be abscess of his great toe with partial skin slough. There is a small punctate ischemic ulcer of the great toe. He also has erythema surrounding the first MTP and extending into the mid foot. They fifth toe has ischemic ulcer laterally with purulence present. No significant fluctuance. Consistent with ischemic ulcer with central necrosis and a superficial abscess. Dorsalis pedis and posterior tip pulses are 2/4, palpable. Sensation is consistent with neuropathic changes. He is status post left below knee amputation. He has ulceration on the lateral right hip. This is covered with dressing. There are areas of wound breakdown into the dermis. LABORATORY DATA: Reviewed. Radiographs available for the right foot. Elbow radiographs reviewed, mild effusion, no fracture. IMPRESSION: 1. Right great toe superficial abscess, ischemic ulcer 2. Right fifth toe superficial abscess, ischemic ulcer. 3. Left elbow contusion and local bursitis without evidence of significant cellulitis or abscess. RECOMMENDATIONS: The patient will be scheduled for debridement of his right great toe and fifth toe ischemic ulcers and evacuation of any local abscesses present. Continue on IV antibiotics. Regarding the elbow, recommend an elbow pad 2 years for transfers and protect the bursa. Continue IV antibiotics. Regarding the lateral decubitus ulcer on the hip, would recommend wound care services. We will follow with you. Thank you for the opportunity to consult in the care of this patient.
[2017-06-19] MEDS: HEPARIN 25,000 UNIT/500ML D5W 500 ML IV PRN (21:05)
[2017-06-19] MEDS: VANCOMYCIN INJ 1,250 MG in SODIUM CHLORIDE 0.9% 250ML 250 ML IV SCH (23:51)
[2017-06-20] VITALS (10 sets, daily range): BP systolic 93–118; BP diastolic 58–75; PULSE 70–98; TEMP 36.5–37.5; O2SAT 95–100; BMI 24.5
[2017-06-20] MEDS: INSULIN ASPART 100 UNITS/ML 3 ML PEN SC SCH ×6 (00:12→20:19)
[2017-06-20] MEDS: PIPERACILL/TAZOBAC IV 3.375 GM in DEXTROSE 5% 100ML IV SCH ×3 (02:31→17:46)
[2017-06-20] MEDS: SODIUM CHLORIDE 0.9% 1000ML 1,000 ML IV SCH ×3 (02:32→14:57)
[2017-06-20 03:13] LABS: HEMATOCRIT 32.2 % (42-52); HEMOGLOBIN 10.7 g/dL (14.0-18.0); MEAN CELL VOLUME 90.2 fL (80-100); MEAN CORPUSCULAR HGB CONC 33.2 g/dl (32-36); MEAN PLATELET VOLUME 9.3 fL (7.4-10.4); PLATELET COUNT 272 K/uL (130-400); RED CELL DISTRIBUTION WIDTH CV 13.4 % (11.5-14.5); RED CELL DISTRIBUTION WIDTH SD 44.7 fL (36.4-46.3); WHITE BLOOD COUNT 7.94 K/uL (4.8-10.8)
[2017-06-20 03:32] LABS: CREATININE 0.53 mg/dl (0.60-1.40); POTASSIUM 3.4 mmol/L (3.5-5.1)
[2017-06-20] MEDS ORDERED: HEPARIN IV BOLUS 3,000 UNIT in SYRINGE 0 ML IV ONE (05:00)
[2017-06-20] MEDS: HEPARIN 25,000 UNIT/500ML D5W 500 ML IV PRN ×3 (05:06→16:20)
[2017-06-20] MEDS: METOPROLOL TARTRATE 25 MG TAB PO SCH ×3 (05:08→17:43)
[2017-06-20] MEDS ORDERED: POTASSIUM CHLORIDE 20 MEQ TABCR PO ONE (07:45)
[2017-06-20] MEDS: VANCOMYCIN INJ 1,250 MG in SODIUM CHLORIDE 0.9% 250ML 250 ML IV SCH ×2 (07:57→20:18)
[2017-06-20] MEDS: RANITIDINE HCL 150 MG TAB PO SCH ×2 (07:59→20:19)
[2017-06-20] MEDS: ASPIRIN 81 MG ECTAB PO SCH (07:59)
[2017-06-20] MEDS: ATORVASTATIN 40 MG TAB PO SCH (07:59)
[2017-06-20] MEDS: LEVETIRACETAM 500 MG TAB PO SCH ×2 (08:00→20:19)
[2017-06-20] MEDS: ALPRAZOLAM 0.5 MG TAB PO SCH ×2 (08:02→20:19)
[2017-06-20] MEDS: INSULIN GLARGINE SOLOSTAR 100 UNITS/ML 3 ML PEN SC SCH ×2 (08:11→20:22)
--- NOTE | 2017-06-20 08:53 | DIAGNOSTIC IMAGING REPORT ---
HEAD CT NONCONTRAST CT DOSE: 655.73 mGy.cm HISTORY: Stroke symptoms. TECHNIQUE: Multiaxial CT images of the head were performed without the use of intravenous contrast. Automated exposure control was utilized for this study. A dose lowering technique was utilized adhering to the principles of ALARA. Comparison: Head CT 06/19/2017. Findings: Small retention cyst within the right maxillary sinus. Soft tissue gas at the skull base is likely due to prior intravenous line insertion. The mastoid air cells are clear. The calvarium and skull base are intact. There is no mass, hematoma, midline shift, acute infarct. White matter hypodensity is nonspecific but suggestive of microvascular ischemic change. The ventricles and sulci demonstrate mild age-related involutional changes. Old small infarct within the left high convexity. Impression: No significant change compared to the prior study. No acute intracranial abnormality. Electronically signed by: Surjit Pizarro M.D. 06/20/2017 8:52 AM Dictated Date/Time: 06/20/2017 8:33 AM
[2017-06-20] MEDS ORDERED: SERTRALINE HCL 100 MG TAB PO SCH (09:00)
[2017-06-20 09:20] LABS: BASO % 0.1 %; BASO ABS # 0.01 K/uL (0-0.2); EOS % 0.5 %; EOS ABS # 0.04 K/uL (0-0.5); HEMATOCRIT 31.5 % (42-52); HEMOGLOBIN 10.5 g/dL (14.0-18.0); IG# 0.05 K/uL (0.00-0.02); LYMPH % 11.7 %; LYMPH ABS # 0.88 K/uL (1.2-3.4); MEAN CELL VOLUME 90.3 fL (80-100); MEAN CORPUSCULAR HEMOGLOBIN 30.1 pg (25-34); MEAN PLATELET VOLUME 9.7 fL (7.4-10.4); MONO % 7.7 %; MONO ABS # 0.58 K/uL (0.11-0.59); NEUT % 79.3 %; NEUT ABS # 5.94 K/uL (1.4-6.5); PLATELET COUNT 303 K/uL (130-400); RED CELL DISTRIBUTION WIDTH CV 13.4 % (11.5-14.5); RED CELL DISTRIBUTION WIDTH SD 44.4 fL (36.4-46.3)
[2017-06-20 09:22] LABS: MEAN CORPUSCULAR HGB CONC 33.3 g/dl (32-36)
[2017-06-20 09:26] LABS: INR 1.1 (0.9-1.1)
[2017-06-20 09:29] LABS: ALBUMIN 1.8 gm/dl (3.4-5.0); ALT/SGPT 8 U/L (12-78); BLOOD UREA NITROGEN 9 mg/dl (7-18); CALCIUM 8.1 mg/dl (8.5-10.1); CARBON DIOXIDE 26 mmol/L (21-32); CREATININE 0.47 mg/dl (0.60-1.40); GLUCOSE 163 mg/dl (70-99); POTASSIUM 3.1 mmol/L (3.5-5.1); SODIUM 133 mmol/L (136-145)
[2017-06-20 09:34] LABS: ALKALINE PHOSPHATASE 87 U/L (45-117); AST/SGOT 9 U/L (15-37)
--- NOTE | 2017-06-20 09:44 | DIAGNOSTIC IMAGING REPORT ---
ORBIT RADIOGRAPHS 3 VIEWS HISTORY: pre-MRI screening. COMPARISON: Head CT performed earlier today. FINDINGS: There are no radiopaque foreign bodies identified within the orbits. IMPRESSION: No radiopaque foreign bodies identified within the orbits. Electronically signed by: Amor Thornton M.D. 06/20/2017 9:43 AM Dictated Date/Time: 06/20/2017 9:42 AM
--- NOTE | 2017-06-20 09:59 | Pharmacy Progress Note ---
Glycemic Control Progress Note Date of Service Jun 20, 2017. Scope Glycemic Pharmacist consulted for glycemic control to write orders per [facility], [facility] within [facility] inpatient glycemic control protocol. Objective Accuchecks BSG (last 24hrs): Test 06/19/17 14:10 06/19/17 16:05 06/19/17 19:39 06/20/17 00:04 Bedside Glucose 262 mg/dl (70-99) 261 mg/dl (70-99) 194 mg/dl (70-99) 182 mg/dl (70-99) Test 06/20/17 03:03 06/20/17 03:49 06/20/17 08:40 06/20/17 08:52 Random Glucose 168 mg/dl (70-99) 163 mg/dl (70-99) Bedside Glucose 159 mg/dl (70-99) 158 mg/dl (70-99) HbA1c: 13% per provider's note Recent Pertinent Medications The patient is currently receiving: * Basal insulin: Lantus SQ BID; 11 units if BSG less than 120, 22 units if BSG 120 or greater * Correctional Insulin: Novolog Correction per scale Q 4 hours Goal Range: Low 120 mg/dL - High 160 mg/dL Correction Factor: 18 mg/dL/unit * Prandial insulin: Per carb ratio of 1 unit per 6 grams CHO consumed Outpatient Anti-Diabetic Meds Basaglar 50 units Q HS Humalog TID w/ meals per scale (reports using ~10-15 units per meal) Assessment & Plan ASSESSMENT: 06/20/17 * BSGs have trended down to goal range w/ current orders * Patient developed speech difficulties and trouble following commands this AM. A stroke alert was called and he was transferred to ICU * Fasting BSG 158 this AM w/ 44 units of Lantus on board - will continue the same for now as his fasting BSG may improve w/ repeat dosing, also there is uncertainty with his PO intake today * CF and CR have performed well - no change PLAN FOR INPATIENT GLYCEMIC CONTROL: * Continuing Lantus SQ BID: 11 units if BSG less than 120, 22 units if BSG above 120 * Continuing correction factor 18 mg/dl/unit * Continuing carb ratio 1 unit per 6 grams CHO consumed * Continuing goal range Low 120 mg/dL - High 160 mg/dL * Continue Q 4 hrs coverage with Novolog today given change in clinic status * Please note that the plan above was derived based on current level of insulin resistance and hospital stress. These recommendations are appropriate for inpatient admission only. Plan of care upon discharge will need to be reassessed to avoid potential outpatient hypo/hyperglycemia. Thank you.
[2017-06-20] MEDS ORDERED: NURSING VERBAL MED ORDER ONE (12:15)
[2017-06-20 12:20] LABS: PTT PATIENT 35.2 SECONDS (21.0-31.0)
[2017-06-20] MEDS ORDERED: DILTIAZEM HCL 120 MG CAPCR PO ONE (13:30)
[2017-06-20] MEDS ORDERED: HEPARIN IV BOLUS 6,000 UNIT in SYRINGE 0 ML IV ONE (13:30)
--- NOTE | 2017-06-20 14:15 | DIAGNOSTIC IMAGING REPORT ---
MRI OF THE BRAIN COMBO CLINICAL HISTORY: Strokelike symptoms. COMPARISON STUDY: CT of the brain dated 06/20/2017. TECHNIQUE: MRI of the brain was performed utilizing various T1 and T2-weighted sequences in the axial, sagittal, and coronal planes. Contrast-enhanced sequences were acquired following the administration of 7.5 cc of Gadavist. FINDINGS: Brain parenchyma: There are age-related involutional changes noting moderate subcortical and periventricular microangiopathic disease. There are punctate foci of restricted diffusion identified in the posterior left frontal lobe on image #18 and in the left occipital lobe on image #10. These likely represent acute to subacute infarcts. No additional foci of restricted diffusion are identified. There is no hemorrhage or mass effect. High left frontal encephalomalacia is consistent with a remote infarct. Small chronic lacunar infarcts are identified within both cerebellar hemispheres. No enhancing mass lesion is identified on the postcontrast images. Orellana-white matter differentiation is preserved. No extra-axial fluid collection is seen. The cerebellar tonsils are normal in configuration. Ventricles, sulci, and cisterns: Prominent secondary to involutional change. Pituitary and sella: Unremarkable. Intracranial vasculature: Normal flow voids are maintained at the skull base. Orbits: The bony orbits are grossly intact. Orbital contents are normal in appearance noting bilateral ocular lens implants. Sinuses and mastoids: There is fluid within the right sphenoid sinus. A tiny retention cyst is noted within a posterior ethmoid sinus. Remaining paranasal sinuses are clear. There are small bilateral mastoid effusions. Calvarium: Unremarkable. Cervical cord: Partially visualized cervical spinal cord is normal in morphology and signal intensity. IMPRESSION: 1. There are punctate foci of restricted diffusion identified in the left frontal and left parietal lobes consistent with acute to subacute infarcts. 2. No additional foci of acute ischemia are identified. There is no hemorrhage or mass effect. 3. Senescent changes and remote infarcts as above. Electronically signed by: Steve Wilks M.D. 06/20/2017 2:14 PM Dictated Date/Time: 06/20/2017 1:53 PM
--- NOTE | 2017-06-20 16:19 | Neurology Consultation ---
Neurology Consultation Date of Consultation: Jun 20, 2017. Attending Physician: Mynor Ricardo M.D. Primary Care Physician: Frankie Garcia M.D. Reason for Consultation: hx stroke, MRI with acute vs subacute findings History of Present Illness Source: patient, hospital records Kamron is a 52 year old male with uncontrolled DM II (hgb a1c of 13), CAD, ICH following injury in 2014, R hemiparesis 2/2 remote CVAs, TBI in 2011 with bleed , seizure disorder, depression, s/p L BKA in 2015 and h/o DVT (2011) who presents with elbow pain x 3 days. He states that he was lying on elbow watching football and believes to have injured it. Also has pain in R hip 2/2 chronic wound for which he has followed with [facility] in the past. He also has chronic wounds on R foot but denies any pain 2/2 diabetic neuropathy. He is a poor historian and the history is obtained from the chart. On route to the hospital he was found to have A flutter and was given cardizem prior to arriving at the ED. He lives alone but his sister checks on him. He no longer had home health services due to insurance issues. He ambulates with a wheelchair at baseline. His L BKA due to osteomyelitis was done [place] [address] Amezcua. denies headache, CP, SOB, abdominal pain, N, V, +hip pain Past Medical/Surgical History Medical Problems: (1) Acute renal failure Status: Acute (2) Dehydration Status: Acute (3) Hyperglycemia Status: Acute (4) Hyponatremia Status: Acute (5) Hypotension Status: Acute (6) Left leg cellulitis Status: Acute (7) Pressure ulcer Permanent Comment: R hip Status: Acute Social History Smoking Status: Former smoker Smokeless Tobacco Use: Yes (chewing tobacco daily ) Alcohol Use: socially Drug Use: none Marital Status: single Housing Status: lives alone Occupation Status: disabled Allergies Coded Allergies: No Known Allergies (Verified , 06/19/17) Current Inpatient Medications Current Inpatient Medications Medications (Trade) Dose Ordered Sig/Niharika Route Start Time Stop Time Status Last Admin Dose Admin Acetaminophen (Tylenol Tab) 650 mg Q4H PRN PO 06/19/17 09:30 07/19/17 09:29 Miscellaneous Information (Consult Glycemic Management Pharmacy) 1 ea UD N/A 06/19/17 13:15 07/19/17 13:14 Sodium Chloride 1,000 ml @ 125 mls/hr Q8H IV 06/19/17 10:00 07/19/17 09:59 06/20/17 14:57 125 MLS/HR Ioversol (Optiray 320) 100 ml UD PRN IV 06/19/17 10:00 06/23/17 09:59 Diltiazem HCl 125 mg/Dextrose 125 ml @ 0 mls/hr Q0M PRN IV 06/19/17 10:15 07/19/17 10:14 06/20/17 02:26 5 MLS/HR Miscellaneous Information (Consult) 1 ea UD PRN N/A 06/19/17 10:30 07/19/17 10:29 Miscellaneous Information (Consult) 1 ea UD PRN N/A 06/19/17 10:30 07/19/17 10:29 Metoprolol Tartrate (Lopressor Tab) 25 mg Q6 PO 06/19/17 13:15 07/19/17 13:14 06/20/17 12:37 25 MG Piperacillin Sod/ Tazobactam Sod 3.375 gm/Dextrose 115 ml @ 28.75 mls/ hr Q8H IV 06/19/17 18:00 06/29/17 17:59 06/20/17 11:38 28.75 MLS/HR Albuterol (Ventolin Hfa Inhaler) 2 puffs Q6H PRN INH 06/19/17 13:45 07/19/17 13:44 Alprazolam (Xanax Tab) 0.5 mg BID PO 06/19/17 21:00 07/19/17 20:59 06/20/17 08:02 0.5 MG Aspirin (Ecotrin Tab) 81 mg DAILY PO 06/20/17 09:00 07/20/17 08:59 06/20/17 07:59 81 MG Atorvastatin Calcium (Lipitor Tab) 40 mg DAILY PO 06/20/17 09:00 07/20/17 08:59 06/20/17 07:59 40 MG Baclofen (Lioresal Tab) 10 mg TID PRN PO 06/19/17 13:45 07/19/17 13:44 06/20/17 07:59 10 MG Levetiracetam (Keppra Tab) 1,500 mg BID PO 06/19/17 21:00 07/19/17 20:59 06/20/17 08:00 1,500 MG Ranitidine HCl (zANTac TAB) 150 mg BID PO 06/19/17 21:00 07/19/17 20:59 06/20/17 07:59 150 MG Sertraline HCl (Zoloft Tab) 150 mg QAM PO 06/20/17 09:00 07/20/17 08:59 06/20/17 08:00 150 MG Glucose (Glucose 40% Gel) 15-30 GRAMS 15 GRAMS... UD PRN PO 06/19/17 14:30 07/19/17 14:29 Glucose (Glucose Chew Tab) 4-8 Tablets 4 Tabl... UD PRN PO 06/19/17 14:30 07/19/17 14:29 Dextrose (Dextrose 50% 50ML Syringe) 25-50ML OF 50% DW IV FOR... UD PRN IV 06/19/17 14:30 07/19/17 14:29 Glucagon (Glucagon Inj) 1 mg UD PRN SQ 06/19/17 14:30 07/19/17 14:29 Vancomycin HCl 1250 mg/Sodium Chloride 275 ml @ 125 mls/hr Q10H IV 06/20/17 00:00 06/30/17 00:00 06/20/17 07:57 125 MLS/HR Insulin Glargine (Lantus Solostar Pen) SEE PROTOCOL TEXT BID SC 06/19/17 21:00 07/19/17 20:59 06/20/17 08:11 22 UNITS Heparin Sodium/ Dextrose 500 ml @ 35 mls/hr [id number] PRN IV 06/19/17 20:15 07/19/17 20:14 06/20/17 13:58 35 MLS/HR Insulin Aspart (novoLOG ASPART) SLIDING SCALE ACHS SC 06/20/17 16:15 07/20/17 16:14 Insulin Aspart (novoLOG ASPART) SLIDING SCALE TODAY@0200 ONCE SC 06/21/17 02:00 06/21/17 02:01 Physical Exam Vital Signs (Past 24 Hrs): Date Time Temp Pulse Resp B/P (MAP) Pulse Ox O2 Delivery O2 Flow Rate FiO2 06/20/17 14:29 95 06/20/17 12:00 36.5 80 20 98/72 (81) 98 Room Air 06/20/17 12:00 95 Room Air 06/20/17 12:00 37.0 72 14 96/67 (77) 98 Room Air 06/20/17 08:00 95 Room Air 06/20/17 07:58 36.6 70 14 118/75 (89) 95 06/20/17 07:58 36.9 72 22 112/68 (83) 96 Room Air 06/20/17 04:00 Room Air 06/20/17 03:51 37.3 73 17 112/71 (85) 96 Room Air 06/20/17 00:06 36.8 72 17 100/58 (72) 96 Room Air 06/20/17 00:01 Room Air 06/19/17 20:00 Room Air 06/19/17 19:09 36.4 72 20 114/70 (85) 97 Room Air 06/19/17 16:02 36.8 70 20 110/71 (84) 100 Room Air 06/19/17 16:00 99 Room Air Physical Exam: Constitutional: appearance ill appearing Ears, Nose, Mouth and Throat: mucous membranes moist, no injection and skin normal, eyes normal Cardiovascular: irregular Respiratory: course breath sounds Musculoskeletal: decreased distal pulses Skin: multiple areas of open wounds with erythema Eyes: extraocular muscles intact (EOMI) and pupils equal, round and reactive to light (PERRL), not clear gross vision field exam NEUROLOGIC EXAMINATION: Mental status: Alert and interactive Oriented hospital but does not know which one. Oriented to person Speech does not appear to understand some questions, verbalized need to use urinal Cranial Nerves asked to smile states he can't, structural asymmetric of face. Reflexes: decreased Sensory: intact to light touch Coordination: will not cooperate Gait/Stance: Posture lying in bed Strength: hand strength biceps triceps 5/5 bilaterally, hip flex 5/5 bilaterally LLE BKA Laboratory Results Past 24 Hours: 06/20/17 08:52 Red Blood Count 3.49, Mean Corpuscular Volume 90.3, Mean Corpuscular Hemoglobin 30.1, Mean Corpuscular Hemoglobin Concent 33.3, Mean Platelet Volume 9.7, Neutrophils (%) (Auto) 79.3, Lymphocytes (%) (Auto) 11.7, Monocytes (%) (Auto) 7.7, Eosinophils (%) (Auto) 0.5, Basophils (%) (Auto) 0.1, Neutrophils # (Auto) 5.94, Lymphocytes # (Auto) 0.88, Monocytes # (Auto) 0.58, Eosinophils # (Auto) 0.04, Basophils # (Auto) 0.01 06/20/17 08:52 Test 06/20/17 03:03 06/20/17 08:52 06/20/17 11:10 06/20/17 11:54 Erythrocyte Sedimentation Rate 86 mm/hr (0-14) C-Reactive Protein 18.30 mg/dl (0-0.29) White Blood Count 7.50 K/uL (4.8-10.8) Red Blood Count 3.49 M/uL (4.7-6.1) Hemoglobin 10.5 g/dL (14.0-18.0) Hematocrit 31.5 % (42-52) Mean Corpuscular Volume 90.3 fL (80-100) Mean Corpuscular Hemoglobin 30.1 pg (25-34) Mean Corpuscular Hemoglobin Concent 33.3 g/dl (32-36) Platelet Count 303 K/uL (130-400) Mean Platelet Volume 9.7 fL (7.4-10.4) Neutrophils (%) (Auto) 79.3 % Lymphocytes (%) (Auto) 11.7 % Monocytes (%) (Auto) 7.7 % Eosinophils (%) (Auto) 0.5 % Basophils (%) (Auto) 0.1 % Neutrophils # (Auto) 5.94 K/uL (1.4-6.5) Lymphocytes # (Auto) 0.88 K/uL (1.2-3.4) Monocytes # (Auto) 0.58 K/uL (0.11-0.59) Eosinophils # (Auto) 0.04 K/uL (0-0.5) Basophils # (Auto) 0.01 K/uL (0-0.2) RDW Standard Deviation 44.4 fL (36.4-46.3) RDW Coefficient of Variation 13.4 % (11.5-14.5) Immature Granulocyte % (Auto) 0.7 % Immature Granulocyte # (Auto) 0.05 K/uL (0.00-0.02) Prothrombin Time 12.0 SECONDS (9.0-12.0) Prothromb Time International Ratio 1.1 (0.9-1.1) Anion Gap 6.0 mmol/L (3-11) Est Creatinine Clear Calc Drug Dose 175.8 ml/min Estimated GFR () 147.1 Estimated GFR (Non- 126.9 BUN/Creatinine Ratio 19.0 (10-20) Calcium Level 8.1 mg/dl (8.5-10.1) Magnesium Level 1.7 mg/dl (1.8-2.4) Total Bilirubin 0.4 mg/dl (0.2-1) Aspartate Amino Transf (AST/SGOT) 9 U/L (15-37) Alanine Aminotransferase (ALT/SGPT) 8 U/L (12-78) Alkaline Phosphatase 87 U/L (45-117) Troponin I < 0.015 ng/ml (0-0.045) Total Protein 6.0 gm/dl (6.4-8.2) Albumin 1.8 gm/dl (3.4-5.0) Globulin 4.2 gm/dl (2.5-4.0) Albumin/Globulin Ratio 0.4 (0.9-2) Bedside Glucose 98 mg/dl (70-99) Activated Partial Thromboplast Time 35.2 SECONDS (21.0-31.0) Partial Thromboplastin Ratio 1.4 Imaging 06/19/2017- CT head- There is no hemorrhage, mass effect, or evidence of acute territorial ischemia by CT criteria. 06/20/2017 - CT head- No significant change compared to the prior study. No acute intracranial abnormality. MRI brain with and without contrast- There are punctate foci of restricted diffusion identified in the left frontal and left parietal lobes consistent with acute to subacute infarcts. No additional foci of acute ischemia are identified. There is no hemorrhage or mass effect. Senescent changes and remote infarcts as above. Impression 52 year old male with uncontrolled DM and multiple DM ulcers, remote history of TBI, and ICH found to have a flutter Plan 1. MRI with punctate areas of acute infarct 2. cardiology - started metoprolol and diltiazem for rate control and heparin for anticoag 3. wound management for open lesions 4. antibiotics - vanco and Zosyn currently given IV 5. history seizures currently on 1500 mg BID Keppra 6. aspirin 81 mg home medication 7. CT head with no acute bleed 8. carotid doppler ordered 9. TTE r/o septic emboli 10. neurology has no objection to heparin gtt 11. blood cultures if not done I have seen and discussed above patient with Dr Kamille Mills, neurology Discussed with LUCAS Bass. Did not examine today as pt was being attended to by multiple nurses for coughing up thick phlegm from mouth and nose. Hx reviewed. MRI done bc of pt hx of head injury, intracranial hem in anticipation of anticoagulation with heparin for atrial flutter. Tiny diffusion- weighted abnl in L parieto-occipital region. No evidence of acute hemorrhage on CT or MRI. Per LUCAS Bass exam nonfocal but pt confused, but not focal. No objection to AC with heparin. Echo rec to exclude vegetations. BC rec. Rec Carotid us, TONY Mills MD
--- NOTE | 2017-06-20 16:41 | Cardiology Follow-Up ---
Subjective Subjective Date of Service: Jun 20, 2017. Pt evaluation today including: conversation w/ patient, physical exam, chart review, lab review, review of studies, review of inpatient medication list Additional Details: Pt seen and examined, stroke alert called this AM but work up negative. Pt does seem a little lethargic during interview, still with hip and elbow pain. Denies cp, sob, palpitations, lightheadedness or dizziness. Tele reviewed: atrial flutter with 4:1 conduction at 75 bpm. Problem List Medical Problems: (1) Acute renal failure Status: Acute (2) Dehydration Status: Acute (3) Hyperglycemia Status: Acute (4) Hyponatremia Status: Acute (5) Hypotension Status: Acute (6) Left leg cellulitis Status: Acute (7) Pressure ulcer Permanent Comment: R hip Status: Acute Review of Systems Respiratory: No see HPI, No cough, No sputum, No wheezing, No shortness of breath, No dyspnea on exertion, No dyspnea at rest, No hemoptysis, No problem reported Cardiac: No see HPI, No chest pain, No orthopnea, No PND, No edema, No claudication, No palpitations, No problem reported Musculoskeletal: + joint pain Objective Vital Signs Last Vital Signs Documentation Date Time Temp Pulse Resp B/P (MAP) Pulse Ox O2 Delivery O2 Flow Rate FiO2 06/20/17 16:07 36.9 72 18 96/64 (75) 95 06/20/17 12:00 Room Air Physical Exam: General Appearance: WD/WN, no apparent distress Eyes: bilateral eyes normal inspection, bilateral eyes PERRL, bilateral eyes EOMI ENT: normal ENT inspection, hearing grossly normal, pharynx normal Neck: supple, no adenopathy, thyroid normal, no JVD, no carotid bruits, trachea midline Respiratory/Chest: chest non-tender, lungs clear, normal breath sounds, no respiratory distress, no accessory muscle use Cardiovascular: regular rate, rhythm, no edema, no JVD Abdomen: normal bowel sounds, non tender, soft, no organomegaly Extremities: + swelling, + pertinent finding (Left bka) Neurologic/Psychiatric: 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 atrial flutter new onset presumably asymptomatic and no clear timeline of duration given comorbidities not an ideal candidate for VITOR/CV asymptomatic so will pursue and rate control strategy rates improved with cardizem gtt, will transition to po will give cardizem cd 120 po daily and attempt to wean gtt also, does not appear to be a good anticoagulation candidate with medication noncompliance, falls and chronic ulcers would not be comfortable giving patient oral anticoagulants unless discharged to a skilled nursing setting
[2017-06-20] MEDS ORDERED: ONDANSETRON INJ 2 MG/ML 2 ML VIAL ONE (17:04)
[2017-06-20] MEDS ORDERED: ONDANSETRON INJ 2 MG/ML 2 ML VIAL IV PRN (17:15)
--- NOTE | 2017-06-20 17:52 | DIAGNOSTIC IMAGING REPORT ---
SINGLE VIEW CHEST CLINICAL HISTORY: Fluid overload. FINDINGS: 2 AP, portable, upright chest radiographs are compared to chest x-ray and chest CT dated 06/19/2017. The examination is degraded by portable technique and patient rotation. The heart is enlarged. The pulmonary vasculature is noncongested. There are increasing airspace opacities in the left lower lung. The right lung is grossly clear. No large pleural effusion or pneumothorax is seen. The bony thorax is grossly intact. There is moderate thoracic scoliosis. IMPRESSION: 1. Cardiomegaly without radiographic evidence of congestive failure. 2. Patchy airspace opacities are now seen in the left lower lung. Correlate clinically for evidence of developing pneumonia/aspiration pneumonitis. Electronically signed by: Steve Wilks M.D. 06/20/2017 5:51 PM Dictated Date/Time: 06/20/2017 5:49 PM
[2017-06-20] MEDS ORDERED: MAGNESIUM SULFATE 1GM / D5W 1 GM in PREMIXED IN D5W 100 ML IV ONE (18:45)
--- NOTE | 2017-06-20 19:33 | Progress Note ---
Progress Note Date of Service Jun 20, 2017. Progress Note Subjective: Patient has been seen multiple times today: in the morning when stroke code was called as patient's nursing staff concerned that patient appeared to be more confused with complaints of arm pain. Patient did not have focal deficits and eventually patient clarified that pain was of left arm and not of having extremity weakness. CT head obtained this AM was negative. Subsequently in the stroke consultation with teleconference with neurologist from [facility], brain MRI was recommended and pertinent for punctate foci of restricted diffusion identified in the left frontal and left parietal lobes consistent with acute to subacute infarcts. Later in evening, patient had vomiting episode. Could be from nausea on diltiazem drip. Chest X ray appears to show evidence of new infiltrates and aspiration pneumonia is another new concern at this time Physical Exam: General Appearance: verbal Head: normocephalic, atraumatic Eyes: normal inspection, EOMI Neck: supple, thyroid normal, trachea midline Respiratory/Chest: chest non-tender, lungs clear, normal breath sounds, no respiratory distress, no accessory muscle use Cardiovascular: no murmur, normal peripheral pulses, heart rate in the 70s Abdomen/GI: non tender, soft, no organomegaly Extremities/Musculoskelatal/Neuro: chronic wound on lateral R hip.chronic R foot wound on great toe with erythema and edema extending to ankle, able to move upper and lower extremities Plans Neuro -history of head injury/stroke in the past -06/20/17 Brain MRI was recommended and pertinent for punctate foci of restricted diffusion identified in the left frontal and left parietal lobes consistent with acute to subacute infarcts -continue heparin IV -as per further neurology service recommendations, have ordered carotid ultrasound and transthoracic echo -speech and swallow evaluation -PT/OT -Seizure disorder: Stable, continue home dose keppra -Depression/anxiety: continue zoloft, xanax PRN Heart -evaluated in the ED for afib RVR which improved with IV diltiazem -Hold Diltiazem drip for now as this could have exacerbated nausea/vomiting and patient has already received oral diltiazem today from cardiology service -resume IV diltiazem if tachycardic -continue telemetry Infectious Sources -Right foot cellulitis, started on vancomycin and Zosyn -MRI of right leg has not been performed yet, but there is possibility of osteomyelitis -Blood culture with gram positive cocci -Urine culture with Staph aureus -possible aspiration pneumonia as seen on CXR on 06/20/17 -wound care for ulcers, culture from right hip drainage pending results -for all these reasons, continue broad spectrum antibiotics Respiratory -Asthma:Stable , continue home meds -possible aspiration pneumonia Diabetes Type 2 -Pharmacy Glycemic control consult following , insulin Electrolytes -Hypokalemia - replete with IV potassium -Hypomagnesemia - replete with IV magnesium -Serum sodium corrected after hyperglycemia improved is normal limits L elbow pain: -XR with small joint effusion -Orthomedics recommending elbow pad -there is also left elbow MRI ordered to be competed
[2017-06-20] MEDS: POTASSIUM CHLR 10 MEQ / WTR 10 MEQ in PREMIXED WATER 100 ML IV SCH ×4 (20:18→22:29)
[2017-06-20 20:35] LABS: PTT PATIENT 59.2 SECONDS (21.0-31.0)
--- NOTE | 2017-06-20 23:05 | DIAGNOSTIC IMAGING REPORT ---
CAROTID DOPPLER NECK ART CLINICAL HISTORY: 52 years-old Male with history of stroke. Acute strokelike symptoms COMPARISON: Brain MRI 06/20/2017 TECHNIQUE: Multiple real time sonographic images of the carotid bifurcations were obtained assessing gar scale, color Doppler and spectral wave form appearance FINDINGS: RIGHT INTERNAL CAROTID: The peak systolic velocity measured 44 cm/sec. The end diastolic velocity measured 18 cm/sec. The ICA to CCA ratio measured 0.83 which correlates with a stenosis of 0-50%. Mild atherosclerosis of the carotid bulb and proximal right ICA. LEFT INTERNAL CAROTID: The peak systolic velocity measured 60 cm/sec. The end diastolic velocity measured 21 cm/sec. The ICA to CCA ratio measured 1.02 which correlates with a stenosis of 0-50%. Moderate mixed plaquing of the carotid bulb and proximal ICA. There is normal antegrade vertebral flow bilaterally. IMPRESSION: 1. Mild right and moderate left atherosclerotic plaquing of the carotid bulbs and proximal internal carotid arteries without hemodynamically significant stenosis identified. 2. Normal antegrade vertebral flow bilaterally. The above report was generated using voice recognition software. It may contain grammatical, syntax or spelling errors. Electronically signed by: Miguel Brooks M.D. 06/20/2017 11:04 PM Dictated Date/Time: 06/20/2017 11:01 PM
[2017-06-20] MEDS ORDERED: NURSING DECISION MEDICATION ORDER SCH (23:45)
[2017-06-21] MEDS: METOPROLOL TARTRATE 1 MG/ML VIAL IV. SCH ×5 (00:33→23:46)
[2017-06-21] MEDS ORDERED: INSULIN ASPART 100 UNITS/ML 3 ML PEN SC ONE (02:00)
[2017-06-21 02:07] LABS: BASO % 0.1 %; BASO ABS # 0.01 K/uL (0-0.2); HEMATOCRIT 33.2 % (42-52); HEMOGLOBIN 11.1 g/dL (14.0-18.0); IG# 0.04 K/uL (0.00-0.02); LYMPH % 7.1 %; LYMPH ABS # 0.74 K/uL (1.2-3.4); MEAN CELL VOLUME 91.5 fL (80-100); MEAN CORPUSCULAR HEMOGLOBIN 30.6 pg (25-34); MEAN CORPUSCULAR HGB CONC 33.4 g/dl (32-36); MEAN PLATELET VOLUME 9.8 fL (7.4-10.4); MONO % 4.9 %; MONO ABS # 0.51 K/uL (0.11-0.59); NEUT % 87.5 %; PLATELET COUNT 284 K/uL (130-400); RED CELL DISTRIBUTION WIDTH CV 13.6 % (11.5-14.5); RED CELL DISTRIBUTION WIDTH SD 45.9 fL (36.4-46.3)
[2017-06-21 02:33] LABS: ALBUMIN 1.8 gm/dl (3.4-5.0); CREATININE 0.65 mg/dl (0.60-1.40); POTASSIUM 4.2 mmol/L (3.5-5.1)
[2017-06-21 02:41] LABS: TOTAL PROTEIN 6.1 gm/dl (6.4-8.2)
[2017-06-21] MEDS ORDERED: GADAVIST IV PRN ×2 (04:10→17:15)
[2017-06-21] MEDS: PIPERACILL/TAZOBAC IV 3.375 GM in DEXTROSE 5% 100ML IV SCH ×2 (04:39→10:18)
[2017-06-21 04:42] VITALS: BP 107/54; PULSE 73; TEMP 36.8; O2SAT 95
[2017-06-21 05:20] LABS: PTT PATIENT 57.2 SECONDS (21.0-31.0)
[2017-06-21] MEDS ORDERED: VANCOMYCIN TROUGH ONE (05:30)
[2017-06-21] MEDS: VANCOMYCIN INJ 1,250 MG in SODIUM CHLORIDE 0.9% 250ML 250 ML IV SCH (06:02)
[2017-06-21] MEDS: HEPARIN 25,000 UNIT/500ML D5W 500 ML IV PRN ×2 (06:37→22:20)
[2017-06-21 06:40] LABS: HEMOGLOBIN A1C 14.5 % (4.5-5.6)
--- NOTE | 2017-06-21 07:29 | DIAGNOSTIC IMAGING REPORT ---
R LOWER EXTREMITY JOINT COM CLINICAL HISTORY: R/o osteomyelitis infection. Ulcer. TECHNIQUE: Multiaxial MRI acquisition COMPARISON STUDY: None FINDINGS: Signal characteristics of all major osseous structures are unremarkable. All major ligamentous and tendinous structures are intact. There is no evidence for abscess or collection. There is no bone marrow replacing process. There is no evidence for abnormal postcontrast enhancement. IMPRESSION: Normal study. No evidence for abscess, collection, or osteomyelitis. The above report was generated using voice recognition software. It may contain grammatical, syntax or spelling errors. Electronically signed by: Quinn Gray M.D. 06/21/2017 7:28 AM Dictated Date/Time: 06/21/2017 7:25 AM
--- NOTE | 2017-06-21 08:08 | Wound Consultation: Inpatient ---
Wound Consultation Date of Consultation: Jun 20, 2017. Attending Physician: Mynor Ricardo M.D. Reason for Consultation: Wound right hip History of Present Illness Patient was seen today for reevaluation of a wound/ulcer to the right hip region. Patient was recently admitted to [facility] for reevaluation treatment of atrial flutter with a rapid ventricular response. Patient currently is unable to give any active history due to his confusion. Patient is also being evaluated by Dr. Walters for ulcerations to the right foot and toe region. Further history is deferred at this time. Family History Cancer Diabetes mellitus Heart disease Hypertension Lung disease Seizures Social History Smoking Status: Former Smoker Smokeless Tobacco Use: Yes (chewing tobacco daily ) Alcohol Use: socially Drug Use: none Marital Status: single Housing Status: lives alone Occupation Status: disabled Allergies Coded Allergies: No Known Allergies (Verified , 06/19/17) Home Medications Scheduled Alprazolam (Xanax), 0.5 MG PO BID Aspirin (Aspirin EC Low Dose), 81 MG PO DAILY Atorvastatin (Lipitor), 40 MG PO DAILY Cyanocobalamin (Cyanocobalamin), 1,000 MCG INJ q 3 months Insulin Glargine (Basaglar Kwikpen), 1 DOSE SQ DAILY Insulin Lispro (Human) (Humalog), SC TID Levetiracetam (Keppra), 2 TAB PO BID Ranitidine Hcl (Zantac), 150 MG PO BID Sertraline (Zoloft), 1.5 TAB PO QAM Scheduled PRN Albuterol Hfa (Ventolin Hfa), 2 PUFFS INH Q6H PRN for SOB/Wheezing Baclofen (Lioresal), 10 MG PO TID PRN for Pain Inpatient Medications Current Inpatient Medications Medications (Trade) Dose Ordered Sig/Niharika Route Start Time Stop Time Status Last Admin Dose Admin Acetaminophen (Tylenol Tab) 650 mg Q4H PRN PO 06/19/17 09:30 07/19/17 09:29 Miscellaneous Information (Consult Glycemic Management Pharmacy) 1 ea UD N/A 06/19/17 13:15 07/19/17 13:14 Ioversol (Optiray 320) 100 ml UD PRN IV 06/19/17 10:00 06/23/17 09:59 Diltiazem HCl 125 mg/Dextrose 125 ml @ 0 mls/hr Q0M PRN IV 06/19/17 10:15 07/19/17 10:14 Future Hold 06/20/17 02:26 5 MLS/HR Miscellaneous Information (Consult) 1 ea UD PRN N/A 06/19/17 10:30 07/19/17 10:29 Miscellaneous Information (Consult) 1 ea UD PRN N/A 06/19/17 10:30 07/19/17 10:29 Piperacillin Sod/ Tazobactam Sod 3.375 gm/Dextrose 115 ml @ 28.75 mls/ hr Q8H IV 06/19/17 18:00 06/29/17 17:59 06/21/17 04:39 28.75 MLS/HR Albuterol (Ventolin Hfa Inhaler) 2 puffs Q6H PRN INH 06/19/17 13:45 07/19/17 13:44 Alprazolam (Xanax Tab) 0.5 mg BID PO 06/19/17 21:00 07/19/17 20:59 06/20/17 20:19 0.5 MG Aspirin (Ecotrin Tab) 81 mg DAILY PO 06/20/17 09:00 07/20/17 08:59 06/20/17 07:59 81 MG Atorvastatin Calcium (Lipitor Tab) 40 mg DAILY PO 06/20/17 09:00 07/20/17 08:59 06/20/17 07:59 40 MG Baclofen (Lioresal Tab) 10 mg TID PRN PO 06/19/17 13:45 07/19/17 13:44 06/20/17 07:59 10 MG Levetiracetam (Keppra Tab) 1,500 mg BID PO 06/19/17 21:00 07/19/17 20:59 06/20/17 20:19 1,500 MG Ranitidine HCl (zANTac TAB) 150 mg BID PO 06/19/17 21:00 07/19/17 20:59 06/20/17 20:19 150 MG Sertraline HCl (Zoloft Tab) 150 mg QAM PO 06/20/17 09:00 07/20/17 08:59 06/20/17 08:00 150 MG Glucose (Glucose 40% Gel) 15-30 GRAMS 15 GRAMS... UD PRN PO 06/19/17 14:30 07/19/17 14:29 Glucose (Glucose Chew Tab) 4-8 Tablets 4 Tabl... UD PRN PO 06/19/17 14:30 07/19/17 14:29 Dextrose (Dextrose 50% 50ML Syringe) 25-50ML OF 50% DW IV FOR... UD PRN IV 06/19/17 14:30 07/19/17 14:29 Glucagon (Glucagon Inj) 1 mg UD PRN SQ 06/19/17 14:30 07/19/17 14:29 Vancomycin HCl 1250 mg/Sodium Chloride 275 ml @ 125 mls/hr Q10H IV 06/20/17 00:00 06/30/17 00:00 06/21/17 06:02 125 MLS/HR Insulin Glargine (Lantus Solostar Pen) SEE PROTOCOL TEXT BID SC 06/19/17 21:00 07/19/17 20:59 06/20/17 20:22 22 UNITS Heparin Sodium/ Dextrose 500 ml @ 35 mls/hr [id number] PRN IV 06/19/17 20:15 07/19/17 20:14 06/21/17 06:37 35 MLS/HR Insulin Aspart (novoLOG ASPART) SLIDING SCALE ACHS SC 06/20/17 16:15 07/20/17 16:14 Diltiazem HCl (Cardizem Cd Cap) 120 mg QAM PO 06/21/17 09:00 07/21/17 08:59 Ondansetron HCl (Zofran Inj) 4 mg Q4H PRN IV 06/20/17 17:15 07/20/17 17:14 Metoprolol Tartrate (Lopressor Iv) 5 mg Q6 IV. 06/21/17 00:00 07/21/17 00:00 06/21/17 00:33 5 MG Gadobutrol (Gadavist) 7.2 mmol UD PRN IV 06/21/17 04:10 06/25/17 04:09 Physical Exam Date Time Temp Pulse Resp B/P (MAP) Pulse Ox O2 Delivery O2 Flow Rate FiO2 06/21/17 06:00 88/62 06/21/17 04:45 Room Air 06/21/17 04:42 36.8 73 17 107/54 (71) 95 Room Air 06/21/17 00:33 98 103/67 06/21/17 00:00 Room Air 06/20/17 23:01 36.9 98 18 101/65 (77) 100 Room Air 06/20/17 20:00 37.5 70 19 93/70 (78) 97 Room Air 06/20/17 20:00 95 Room Air 06/20/17 20:00 37.1 73 18 99/71 (80) 99 Room Air 06/20/17 16:37 95 Room Air 06/20/17 16:07 36.9 72 18 96/64 (75) 95 06/20/17 14:29 95 06/20/17 12:00 36.5 80 20 98/72 (81) 98 Room Air 06/20/17 12:00 95 Room Air 06/20/17 12:00 37.0 72 14 96/67 (77) 98 Room Air General: The patient is lying in a hospital bed in apparent distress. Alert with difficulty following commands. Neck: Supple, No JVD noted Chest: CTA in all reeves. No deformity Heart: RRR without murmurs, S3, S4, thrills, rubs or heaves Extremities: Large fluctuant mass with central necrosis is noted to the lateral aspect of the right hip. Fluctuance is present. There is drainage with palpation noted. Periwound erythema is present. Tenderness noted. No odor present. The site measures approximately 6 x 7 cm. Dressings are in place over the right foot region Neurological: Alert and confused. No apparent focal deficits noted. Skin: No rashes, papules, vesicles, excoriations Laboratory Results Last 24 Hours Test 06/20/17 08:40 06/20/17 08:52 06/20/17 11:10 06/20/17 11:54 Bedside Glucose 158 mg/dl 98 mg/dl White Blood Count 7.50 K/uL Red Blood Count 3.49 M/uL Hemoglobin 10.5 g/dL Hematocrit 31.5 % Mean Corpuscular Volume 90.3 fL Mean Corpuscular Hemoglobin 30.1 pg Mean Corpuscular Hemoglobin Concent 33.3 g/dl Platelet Count 303 K/uL Mean Platelet Volume 9.7 fL Neutrophils (%) (Auto) 79.3 % Lymphocytes (%) (Auto) 11.7 % Monocytes (%) (Auto) 7.7 % Eosinophils (%) (Auto) 0.5 % Basophils (%) (Auto) 0.1 % Neutrophils # (Auto) 5.94 K/uL Lymphocytes # (Auto) 0.88 K/uL Monocytes # (Auto) 0.58 K/uL Eosinophils # (Auto) 0.04 K/uL Basophils # (Auto) 0.01 K/uL RDW Standard Deviation 44.4 fL RDW Coefficient of Variation 13.4 % Immature Granulocyte % (Auto) 0.7 % Immature Granulocyte # (Auto) 0.05 K/uL Prothrombin Time 12.0 SECONDS Prothromb Time International Ratio 1.1 Sodium Level 133 mmol/L Potassium Level 3.1 mmol/L Chloride Level 100 mmol/L Carbon Dioxide Level 26 mmol/L Anion Gap 6.0 mmol/L Blood Urea Nitrogen 9 mg/dl Creatinine 0.47 mg/dl Est Creatinine Clear Calc Drug Dose 175.8 ml/min Estimated GFR () 147.1 Estimated GFR (Non- 126.9 BUN/Creatinine Ratio 19.0 Random Glucose 163 mg/dl Calcium Level 8.1 mg/dl Magnesium Level 1.7 mg/dl Total Bilirubin 0.4 mg/dl Aspartate Amino Transf (AST/SGOT) 9 U/L Alanine Aminotransferase (ALT/SGPT) 8 U/L Alkaline Phosphatase 87 U/L Troponin I < 0.015 ng/ml Total Protein 6.0 gm/dl Albumin 1.8 gm/dl Globulin 4.2 gm/dl Albumin/Globulin Ratio 0.4 Activated Partial Thromboplast Time 35.2 SECONDS Partial Thromboplastin Ratio 1.4 Test 06/20/17 16:03 06/20/17 20:01 06/20/17 20:11 06/21/17 01:49 Bedside Glucose 123 mg/dl 151 mg/dl Activated Partial Thromboplast Time 59.2 SECONDS Partial Thromboplastin Ratio 2.3 White Blood Count 10.40 K/uL Red Blood Count 3.63 M/uL Hemoglobin 11.1 g/dL Hematocrit 33.2 % Mean Corpuscular Volume 91.5 fL Mean Corpuscular Hemoglobin 30.6 pg Mean Corpuscular Hemoglobin Concent 33.4 g/dl Platelet Count 284 K/uL Mean Platelet Volume 9.8 fL Neutrophils (%) (Auto) 87.5 % Lymphocytes (%) (Auto) 7.1 % Monocytes (%) (Auto) 4.9 % Eosinophils (%) (Auto) 0.0 % Basophils (%) (Auto) 0.1 % Neutrophils # (Auto) 9.10 K/uL Lymphocytes # (Auto) 0.74 K/uL Monocytes # (Auto) 0.51 K/uL Eosinophils # (Auto) 0.00 K/uL Basophils # (Auto) 0.01 K/uL RDW Standard Deviation 45.9 fL RDW Coefficient of Variation 13.6 % Immature Granulocyte % (Auto) 0.4 % Immature Granulocyte # (Auto) 0.04 K/uL Sodium Level 134 mmol/L Potassium Level 4.2 mmol/L Chloride Level 103 mmol/L Carbon Dioxide Level 27 mmol/L Anion Gap 4.0 mmol/L Blood Urea Nitrogen 11 mg/dl Creatinine 0.65 mg/dl Est Creatinine Clear Calc Drug Dose 127.1 ml/min Estimated GFR () 128.7 Estimated GFR (Non- 111.1 BUN/Creatinine Ratio 17.1 Random Glucose 204 mg/dl Calcium Level 8.0 mg/dl Magnesium Level 1.9 mg/dl Total Bilirubin 0.3 mg/dl Aspartate Amino Transf (AST/SGOT) 7 U/L Alanine Aminotransferase (ALT/SGPT) 9 U/L Alkaline Phosphatase 84 U/L Total Protein 6.1 gm/dl Albumin 1.8 gm/dl Globulin 4.3 gm/dl Albumin/Globulin Ratio 0.4 Test 06/21/17 01:56 06/21/17 04:45 06/21/17 07:09 Bedside Glucose 195 mg/dl 199 mg/dl Activated Partial Thromboplast Time 57.2 SECONDS Partial Thromboplastin Ratio 2.2 Estimated Average Glucose 369 mg/dl Hemoglobin A1c 14.5 % Vancomycin Level Trough 4.7 mcg/ml Assessment & Plan Assessment: Abscess lateral aspect right hip Plan: The site did require incision and drainage. The area was prepped with Betadine. Local infiltration of lidocaine 1% was performed. Incision was made with a #11 blade. The area was opened with blunt dissection using a hemostat. Approximately 50 mL of light gar purulent odorous drainage was expressed. Minimal bleeding occurred which was easily controlled with direct pressure. The wound site was then packed with iodoform gauze. Culture was obtained even though the patient is currently on antibiotic therapy. Dressings applied. Patient tolerated the procedure without difficulty. Final measurements was 6 x 7 x 1.5 cm with undermining circumferentially of 4 cm. The site will be repacked tomorrow and daily thereafter. Probable wound VAC therapy will be initiated. This represented an incision and drainage of an abscess right hip region. Patient will continue to be monitored during his hospital course and followed up in the outpatient department as needed.
[2017-06-21 08:14] VITALS: BP 101/69; PULSE 72; TEMP 36.9; O2SAT 94
--- NOTE | 2017-06-21 08:31 | DIAGNOSTIC IMAGING REPORT ---
MRI OF THE RIGHT FOREFOOT WITH AND WITHOUT CONTRAST CLINICAL HISTORY: Right foot cellulitis. Evaluate for osteomyelitis. COMPARISON STUDY: Right foot radiographs June 10, 2015. TECHNIQUE: Utilizing 1.5 Kathrin magnet and dedicated coil, multiplanar, multi echo imaging of the right forefoot was performed pre and postcontrast administration. Injection of 7.2 cc of Gadavist IV was uneventful. Please note that the MRI of the right hindfoot/ankle will be reported separate. FINDINGS: There is marked marrow edema on the T2-weighted sequence with diminished T1 signal within the proximal phalanx and middle phalanx of the right fifth toe consistent with osteomyelitis. There is extensive bony destruction of the proximal phalanx with possible abnormal alignment which could reflect a pathologic fracture related to osteomyelitis. There is marrow edema within the distal phalanx of the right fifth toe as well as marrow edema within the right fifth metatarsal head as well as the right fourth metatarsal head. However, T1 signal is preserved within these osseous structures. No additional sites of marrow replacement are present. There is extensive edema and enhancement of the right fifth toe consistent with cellulitis. Ulcer is noted. A few tiny rim enhancing fluid collections along the dorsal aspect of the base of the right fifth toe reflect abscesses which measure up to 5 mm. There is mild edema within the musculature of the plantar aspect of the right foot. IMPRESSION: 1. Findings consistent with osteomyelitis of the proximal and middle phalanges of the right fifth toe. Possible associated pathologic fracture of the proximal phalanx which could be correlated with radiographs. Associated cellulitis with tiny abscesses along the dorsal aspect of the right fifth toe. Discussed with Dr. Ricardo at time of dictation. 2. Marrow edema with preserved T1 marrow signal signal within the distal phalanx of the right fifth toe and the fourth and fifth metatarsal heads. This favors osteitis however developing osteomyelitis could appear similar. Electronically signed by: Amor Thornton M.D. 06/21/2017 8:29 AM Dictated Date/Time: 06/21/2017 7:32 AM
[2017-06-21] MEDS: INSULIN GLARGINE SOLOSTAR 100 UNITS/ML 3 ML PEN SC SCH ×2 (10:06→21:44)
[2017-06-21] MEDS: INSULIN ASPART 100 UNITS/ML 3 ML PEN SC SCH ×4 (10:06→20:24)
--- NOTE | 2017-06-21 11:13 | Progress Note ---
Progress Note Date of Service Jun 21, 2017. Progress Note ID Consult Dictated #[id number] A/P: 1. S. aureus Septicemia 2. Right hip abscess - S. aureus 3. Right foot osteomyelitis with abscess 4. Uncontrolled DM -Will change to dapto -Repeat blood cultures, follow final sensitivities, suspect MRSA due to MRSA in urine (doubt uti, likely related to bsi) -Needs echo r/o veg -Would benefit from debridement multiple sites, pt reportedly refusing, palliative care and psych consults pending -Will follow, thank you
[2017-06-21] MEDS ORDERED: DAPTOmycin IV 400 MG in SODIUM CHLORIDE 0.9% 50ML 50 ML IV SCH (11:15)
--- NOTE | 2017-06-21 11:21 | ECHOCARDIOGRAM REPORT ---
*NOTICE TO RECEIVING REPUBLICAN AGENCY This information is strictly Confidential and protected under [place] law. [place] law prohibits you from making any further disclosure of this information unless further disclosure is expressly permitted by the written consent of the person to whom it pertains or is authorized by law. A general authorization for the release of medical or other information is not sufficient for this purpose. Hospital accepts no responsibility if the information is made available to any other person, INCLUDING THE PATIENT. Interpretation Summary * Name: LASHONDA PHELPS Study Date: 06/21/2017 07:13 AM BP: 88/62 mmHg * Patient Location: C.2E\S\E210\S\1 HR: 72 * : 1965 (M/d/yyyy) Gender: Male Height: 68 in * Age: 52 yrs Ethnicity: CA Weight: 161 lb * Ordering Physician: Kamille Dias * Referring Physician: Self, Referred * Performed By: Melani Hill RCS * * Reason For Study: A-FIB WITH RVR * BSA: 1.9 m2 * -- Conclusions -- * Normal LV chamber size with mild concentric LVH. * Normal LV systolic function, EF 55-60%. * No segmental left ventricular wall motion abnormalities are noted. * Trace mitral regurgitation. * Mild left atrial enlargement. Procedure Details * A complete two-dimensional transthoracic echocardiogram was performed (2D, M-mode, Doppler and color flow Doppler). Left Ventricle * The left ventricle is normal in size. * There is mild concentric left ventricular hypertrophy. * Left ventricular systolic function is normal. * No segmental left ventricular wall motion abnormalities are noted. * Ejection Fraction = 55-60%. * The left ventricular wall motion is normal. Right Ventricle * The right ventricular cavity size is normal (basal dimension <4.2 cm in right ventricular apical 4-chamber view). * The right ventricular systolic function is normal as assessed by tricuspid annular plane systolic excursion (TAPSE) (normal >1.5 cm). Atria * The left atrium is mildly dilated. * Right atrial size is normal. * No ASD detected; PFO is not assessed. Mitral Valve * The mitral valve anatomy is normal. * There is no mitral valve stenosis. * There is trace mitral regurgitation. Tricuspid Valve * The tricuspid valve is normal in structure and function. Aortic Valve * The aortic valve is normal in structure and function. Pulmonic Valve * The pulmonary valve is not well seen, but the Doppler examination is normal without significant regurgitation or stenosis. Great Vessels * The aortic root is normal size. Pericardium/Pleural * There is no pericardial effusion. MMode 2D Measurements and Calculations IVSd 1.3 cm IVSs 1.6 cm LVIDd 4.5 cm LVIDs 3.3 cm LVPWd 1.3 cm LVPWs 1.4 cm IVS/LVPW 1.0 FS 25.9 % EDV(Teich) 92.2 ml ESV(Teich) 45.2 ml EF(Teich) 51.0 % EDV(cubed) 90.8 ml ESV(cubed) 37.0 ml EF(cubed) 59.2 % % IVS thick 18.5 % % LVPW thick 3.3 % LV mass(C)d 229.0 grams LV mass(C)dI 122.9 grams/m\S\2 LV mass(C)s 175.5 grams LV mass(C)sI 94.2 grams/m\S\2 SV(Teich) 47.0 ml SI(Teich) 25.2 ml/m\S\2 SV(cubed) 53.8 ml SI(cubed) 28.9 ml/m\S\2 Ao root diam 3.1 cm Ao root area 7.5 cm\S\2 ACS 2.1 cm LA dimension 4.0 cm LA/Ao 1.3 LVOT diam 2.0 cm LVOT area 3.3 cm\S\2 LVAd ap4 28.5 cm\S\2 LVLd ap4 7.8 cm EDV(MOD-sp4) 87.1 ml EDV(sp4-el) 88.9 ml LVAs ap4 22.5 cm\S\2 LVLs ap4 7.9 cm ESV(MOD-sp4) 55.5 ml ESV(sp4-el) 54.4 ml EF(MOD-sp4) 36.3 % EF(sp4-el) 38.8 % LVAd ap2 34.9 cm\S\2 LVLd ap2 9.0 cm EDV(MOD-sp2) 111.8 ml EDV(sp2-el) 114.7 ml LVAs ap2 23.2 cm\S\2 LVLs ap2 7.6 cm ESV(MOD-sp2) 60.2 ml ESV(sp2-el) 60.3 ml EF(MOD-sp2) 46.2 % EF(sp2-el) 47.4 % LVLd %diff 13.7 % EDV(MOD-bp) 102.0 ml LVLs %diff -4.59 % ESV(MOD-bp) 59.1 ml EF(MOD-bp) 42.1 % SV(MOD-sp4) 31.6 ml SI(MOD-sp4) 17.0 ml/m\S\2 SV(MOD-sp2) 51.6 ml SI(MOD-sp2) 27.7 ml/m\S\2 SV(MOD-bp) 42.9 ml SI(MOD-bp) 23.0 ml/m\S\2 SV(sp4-el) 34.5 ml SI(sp4-el) 18.5 ml/m\S\2 SV(sp2-el) 54.4 ml SI(sp2-el) 29.2 ml/m\S\2 Doppler Measurements and Calculations MV E max greg 137.0 cm/sec MV P1/2t max greg 129.4 cm/sec MV P1/2t 88.0 msec MVA(P1/2t) 2.5 cm\S\2 MV dec slope 431.0 cm/sec\S\2 MV dec time 0.14 sec Ao V2 max 93.7 cm/sec Ao max PG 3.5 mmHg Ao max PG (full) 1.6 mmHg MONIKA(V,A) 2.4 cm\S\2 MONIKA(V,D) 2.4 cm\S\2 LV V1 max PG 1.9 mmHg LV V1 max 69.1 cm/sec MR max greg 396.8 cm/sec MR max PG 63.0 mmHg
--- NOTE | 2017-06-21 11:43 | INFECT. DISEASE CONSULTATION ---
DATE OF CONSULTATION: 06/21/2017 HISTORY OF PRESENT ILLNESS: This is a 52-year-old gentleman who was admitted secondary to elbow pain. He is being followed by orthopedic surgery for this. He was also noted to have uncontrolled diabetes with an A1c of 14.5. He was found to have a blood sugar of over 400 on admission to the hospital. His initial white blood cell count was normal, but his sed rate was elevated at greater than 90 and a CRP was elevated at 24. As part of his initial workup, blood cultures were obtained and are growing Staph aureus. Urine culture was also obtained, although his UA was negative and this is growing MRSA with a vanco OZZIE of 2. He has been afebrile since admission. He was started empirically on vancomycin and Zosyn and is tolerating antibiotics well. 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 He was found to have wounds on his foot for which he reportedly follows at a wound care center in [place] for treatment of this per the H&P. The patient cannot tell me if he has recently been on antibiotics. He did undergo an MRI of his right foot which showed osteomyelitis at the fifth toe with a 5 mm abscess. He is being followed by foot surgery for this. It was also noted that he had a large abscess and wound on the right hip. He believes this has been present for 2 weeks. Cultures were obtained from this and are pending. He did have a wound care evaluation earlier this morning and the wound was I&D'd at the bedside and packing was placed. He denies any fevers or chills at home. Per nursing, he is refusing additional surgical care at this time. A palliative care consult as well as a psych consult are pending. On my exam, he states he is feeling better. He denies any chest pain, cough or shortness of breath. He has no nausea, vomiting or diarrhea. He is tolerating his antibiotics well. His remaining review of systems is unremarkable. PAST MEDICAL HISTORY: Significant for asthma, coronary artery disease, depression, type 2 diabetes poorly controlled with an A1c of 14.5, traumatic brain injury with hemiparesis, intracerebral hemorrhage, seizure disorder, and history of DVT. PAST SURGICAL HISTORY: Significant for appendectomy, hernia repair and left BKA. FAMILY HISTORY: Noncontributory. SOCIAL HISTORY: Significant for history of tobacco use; however, a history of cigarette use. He does chew tobacco daily. He drinks on occasion. He lives alone, but does have family in the area. ALLERGIES: He denies any allergies to medication. CURRENT MEDICATIONS: Include Cardizem, Lopressor, Zofran, insulin, aspirin, Lipitor, Zoloft, vancomycin, Xanax, Keppra, Zantac, subQ heparin, Zosyn, albuterol and Tylenol. PHYSICAL EXAMINATION: VITAL SIGNS: He is afebrile, pulse 72, respiratory rate is 20, blood pressure is 101/69, oxygen saturation is 94-95% on room air. GENERAL: He is awake, alert and oriented. He is in no acute distress. HEENT: Mucous membranes are moist. Extraocular muscles are intact. HEART: Regular. I do not auscultate a murmur. LUNGS: Clear bilaterally. ABDOMEN: Soft and nondistended. EXTREMITIES: There is no right lower extremity edema, boot is in place. The left BKA stump is well healed. Examination of the right hip reveals a large abscess which is fluctuant, indurated, erythematous and warm. There is some necrotic tissue with packing in place. There is purulent drainage on the dressing. LABORATORY STUDIES: CBC today reveals a white blood cell count of 10.4, hemoglobin 11.1, and platelets are 284. Sed rate yesterday morning was 86. Chemistry panel today reveals a sodium of 134, potassium 4.2, chloride 103, bicarbonate 27, BUN 11, creatinine 0.6, glucose is 199. A1c is 14.5. LFTs are normal. Vancomycin level today is 15.4. His UA had no bacteria, hepatitis C screen is negative. Blood cultures from the 05/28 sets are growing Staph aureus. A right hip culture from the is also growing Staph aureus. Final sensitivities are pending. A urine culture from the is growing MRSA with resistance to oxacillin only. IMAGING DATA: MRI of the foot again, shows osteomyelitis of the fifth toe with a 5 mm abscess. He did have an MRI of the hip, which did not show any osteomyelitis. He did have a CTA in the Emergency Room, which was negative for PE or consolidation. ASSESSMENT AND PLAN: Staphylococcal aureus septicemia, likely methicillin-resistant staphylococcus aureus, related to either foot osteomyelitis or right hip abscess. He will be transitioned to daptomycin. His Zosyn will be discontinued. Repeat blood cultures will be obtained and echocardiogram should be obtained to rule out osteomyelitis. He currently is reportedly refusing any surgical intervention; however, he would greatly benefit from debridement and/or amputation of his toe and also debridement of the hip. I will follow along with you. Thank you for this consultation.
[2017-06-21 12:05] VITALS: BP 121/78; PULSE 73; TEMP 36.5; O2SAT 96
[2017-06-21] MEDS: ALPRAZOLAM 0.5 MG TAB PO SCH ×2 (12:27→20:19)
[2017-06-21] MEDS: DAPTOmycin IV 450 MG in SYRINGE 0 ML IV SCH (12:27)
[2017-06-21] MEDS: DILTIAZEM HCL 120 MG CAPCR PO SCH (12:27)
[2017-06-21] MEDS: ATORVASTATIN 40 MG TAB PO SCH (12:28)
[2017-06-21] MEDS: ASPIRIN 81 MG ECTAB PO SCH (12:28)
[2017-06-21] MEDS: RANITIDINE HCL 150 MG TAB PO SCH ×2 (12:28→20:14)
[2017-06-21] MEDS: LEVETIRACETAM 500 MG TAB PO SCH ×2 (12:28→20:14)
--- NOTE | 2017-06-21 12:37 | Psychiatric Consultation ---
Consultation Date of Consultation Jun 21, 2017. Identifying Data A 52-year-old gentleman with multiple chronic medical conditions as listed below , who presented to the emergency room by EMS due to complaints of persistent elbow pain. He was found to be in atrial flutter by EMS during transport. He is admitted medically. We are consulted to evaluate depression and refusing treatment. Information is gathered from the electronic medical record, and the patient, and considered to be reliable. Chief Complaint "Nobody cares about me since my parents .". 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 He presented to the emergency department via EMS with complaints of elbow pain that began 3 days prior to admission after leaning on it while watching football. He was found to be in atrial flutter with 4-1 ratio and has been admitted medically. Medical recommendations have been made including having a PICC line placed which the patient has refused resulting in a palliative care consult with Cathryn RENDON. At the time I presented to see the patient , Ms. Boothe is exiting the room and we collaborate. She indicates that the patient has been feeling extremely depressed since his parents and feels that no one cares about him. During her discussion she did manage to get him to agree to the medically recommended treatments and even to consider a personal mcfp placement. During my interview, the patient is quite talkative and forthcoming. He admits that he has been depressed at least since the of his parents 4 years ago. He has always lived with them, never having worked independently or lived on his own. Since there his sister Suma has looked in on him but with less and less frequency. He says that over the last 4-6 months she hasn't been checking on him very much. He does not drive, never has and relies on his [id number] and other people to drive him to appointments or the grocery store. He does his own cooking and says it varies wildly from cooking himself 3 hot dogs to cooking a meal including meat and vegetable and potato. He endorses depressed mood rated 4 out of 10 with 10 being the best mood ever. He denies any suicidal thinking. He reports generally good sleep although has had several bad nights of sleep in the last few weeks. His appetite is good and he denies any recent weight loss. He denies anxiety. He denies any auditory or visual hallucinations. He denies any discrete episodes of euphoric mood, sleeplessness or pleasure seeking behaviors that would be congruent with a bipolar disorder. Past Psychiatric History Current OP Treatment: no current treatment Prior OP Treatment: no prior treatment Prior Psych Hospitalizations: none Access to a Gun: No Suicide Attempts: No Past Medical/Surgical History History of Concussion/Seizure: Yes (1) History of - deep vein thrombosis (2) Diabetes mellitus type 2 (3) Coronary artery disease (4) Asthma (5) Seizure (6) TBI (traumatic brain injury) (7) Hemiparesis (8) Cellulitis of right foot (9) Status post below knee amputation of left lower extremity Allergies Allergies: Coded Allergies: No Known Allergies (Verified , 06/19/17) Home Medications Scheduled Alprazolam (Xanax), 0.5 MG PO BID Aspirin (Aspirin EC Low Dose), 81 MG PO DAILY Atorvastatin (Lipitor), 40 MG PO DAILY Cyanocobalamin (Cyanocobalamin), 1,000 MCG INJ q 3 months Insulin Glargine (Basaglar Kwikpen), 1 DOSE SQ DAILY Insulin Lispro (Human) (Humalog), SC TID Levetiracetam (Keppra), 2 TAB PO BID Ranitidine Hcl (Zantac), 150 MG PO BID Sertraline (Zoloft), 1.5 TAB PO QAM Scheduled PRN Albuterol Hfa (Ventolin Hfa), 2 PUFFS INH Q6H PRN for SOB/Wheezing Baclofen (Lioresal), 10 MG PO TID PRN for Pain Family History Cancer Diabetes mellitus Heart disease Hypertension Lung disease Seizures Smoking Use Smoking Status: Former Smoker Chews snuff Substance History Denies Personal History Lives in: the [place] area in an apartment by himself Childhood: Raised by both parents until their 4 years ago Education: started high school (dropped out of high school in 11th grade saying that he was unable to pass the requirements for physical education) Work History: Has never held a job Relationship History: never Children: none Legal History: none Psychological Trauma History: Denies Hx Traumatic Event Review of Systems Constitutional: denies no symptoms reported, denies see HPI, denies chills, denies diaphoresis, denies fever, denies malaise, denies weakness, denies other Eyes: denies: no symptoms, as stated in HPI, eye pain, tearing, itching, redness, discharge, double vision, visual changes, blurred vision, photophobia, other ENT: denies: no symptoms reported, see HPI, ear pain, ear discharge, loss of hearing, tinnitus, nasal pain, nasal congestion, rhinorrhea, epistaxis, sore throat, stidor, throat swelling, mouth pain, mouth swelling, dental pain, gum swelling, other Cardiovascular: denies: no symptoms reported, see HPI, chest pain, chest tightness, chest pressure, diaphoresis, palpitations, syncope, other Respiratory: denies: no symptoms reported, see HPI, cough, orthopnea, short of breath, stridor, wheezing, sputum production, cyanosis, MANCILLA, PND, other Gastrointestinal: other (hungry) Genitourinary - Male: denies: no symptoms, see HPI, rash, amenorrhea, penile itching, penile discharge, testicular pain, testicular swelling, impotence, other Musculoskeletal: other (pain in right foot) Integumentary: denies no symptoms reported, denies see HPI, denies change in color, denies change in hair/nails, denies dryness, denies lesions, denies lumps , denies rash, denies other Endocrine: denies: no symptoms, as stated in HPI, cold intolerance, heat intolerance, hair changes, goiter, polydipsia, polyuria, skin changes, other Hematologic / Lymphatic: denies: no symptoms, as stated in HPI, abnormal clotting, adenopathy, anemia, easy bleeding, easy bruising, gums bleeding, petechiae, other Examination Vital Signs Vital Signs Past 12 Hours Date Time Temp Pulse Resp B/P (MAP) Pulse Ox O2 Delivery O2 Flow Rate FiO2 06/21/17 12:05 36.5 73 20 121/78 (92) 96 Room Air 06/21/17 08:14 36.9 72 20 101/69 (80) 94 Room Air 06/21/17 08:00 Room Air 06/21/17 06:00 88/62 06/21/17 04:45 Room Air 06/21/17 04:42 36.8 73 17 107/54 (71) 95 Room Air 06/21/17 00:33 98 103/67 Laboratory Results Last 24 Hours Test 06/20/17 16:03 06/20/17 20:01 06/20/17 20:11 06/21/17 01:49 Bedside Glucose 123 mg/dl 151 mg/dl Activated Partial Thromboplast Time 59.2 SECONDS Partial Thromboplastin Ratio 2.3 White Blood Count 10.40 K/uL Red Blood Count 3.63 M/uL Hemoglobin 11.1 g/dL Hematocrit 33.2 % Mean Corpuscular Volume 91.5 fL Mean Corpuscular Hemoglobin 30.6 pg Mean Corpuscular Hemoglobin Concent 33.4 g/dl Platelet Count 284 K/uL Mean Platelet Volume 9.8 fL Neutrophils (%) (Auto) 87.5 % Lymphocytes (%) (Auto) 7.1 % Monocytes (%) (Auto) 4.9 % Eosinophils (%) (Auto) 0.0 % Basophils (%) (Auto) 0.1 % Neutrophils # (Auto) 9.10 K/uL Lymphocytes # (Auto) 0.74 K/uL Monocytes # (Auto) 0.51 K/uL Eosinophils # (Auto) 0.00 K/uL Basophils # (Auto) 0.01 K/uL RDW Standard Deviation 45.9 fL RDW Coefficient of Variation 13.6 % Immature Granulocyte % (Auto) 0.4 % Immature Granulocyte # (Auto) 0.04 K/uL Sodium Level 134 mmol/L Potassium Level 4.2 mmol/L Chloride Level 103 mmol/L Carbon Dioxide Level 27 mmol/L Anion Gap 4.0 mmol/L Blood Urea Nitrogen 11 mg/dl Creatinine 0.65 mg/dl Est Creatinine Clear Calc Drug Dose 127.1 ml/min Estimated GFR () 128.7 Estimated GFR (Non- 111.1 BUN/Creatinine Ratio 17.1 Random Glucose 204 mg/dl Calcium Level 8.0 mg/dl Magnesium Level 1.9 mg/dl Total Bilirubin 0.3 mg/dl Aspartate Amino Transf (AST/SGOT) 7 U/L Alanine Aminotransferase (ALT/SGPT) 9 U/L Alkaline Phosphatase 84 U/L Total Protein 6.1 gm/dl Albumin 1.8 gm/dl Globulin 4.3 gm/dl Albumin/Globulin Ratio 0.4 Test 06/21/17 01:56 06/21/17 04:45 06/21/17 07:09 06/21/17 09:19 Bedside Glucose 195 mg/dl 199 mg/dl Activated Partial Thromboplast Time 57.2 SECONDS Partial Thromboplastin Ratio 2.2 Estimated Average Glucose 369 mg/dl Hemoglobin A1c 14.5 % Vancomycin Level Trough 4.7 mcg/ml Random Vancomycin Level 15.4 mcg/ml Test 06/21/17 10:48 06/21/17 11:28 Bedside Glucose 196 mg/dl Total Creatine Kinase 29 U/L Mental Examination During interview pt is: alert and oriented, cooperative Appearance: disheveled (long unkept hair) Eye contact is: fair Motor behavior is: no abnormal motor movements Speech: normal in rate, rhythm & volume Affect: depressed, flat Mood is: depressed Thought process: circumstantial Thought content: reality based without delusions Suicidal thought are: denied Homicidal thoughts are: denied Hallucinations: denies auditory, denies visual Intelligence estimated to be: below average Insight: limited Judgement: limited Impression / Recommendations Impression 52-year-old gentleman with multiple chronic medical conditions, admitted to the hospital medically with atrial flutter. He had been refusing some medical recommendations and so we have been requested to evaluate depression. Palliative care saw him prior to my meeting and they got him to agree to proceed with the recommended treatments and even to consider a personal mcfp which I think would be a wonderful intervention. His primary complaint is that he lives alone, feels that nobody cares about him and in a personal mcfp he will have the opportunity to be with others. He was at [facility] in 2016 and although he enjoyed being around others, most of the people were quite elderly and he had nothing in common with them. He is as I said however willing to give it another try. He has some odd beliefs about medications and initially did not want me to increase his antidepressant, Zoloft , fearing he would become addicted but after some discussion did agree and so I will increase this to 200 mg daily. He is not suicidal, therefore not in need of one-to-one nor is he in need of inpatient mental health treatment at this time. Risk Factors Assessment Male: Yes : Yes /single/: Yes Higher / Fall in social status: No Access to guns: No Health problems: Yes Mental Health Diagnoses: Yes Substance use disorders: No Previous attempt: No Previous psychiatric stay: No Hopelessness: No Smoker: Yes (chews snuff) Protective Factors Assessment : No Responsible for young children: No Employed: No Stable relationships: No Recommendations (1) Major depressive disorder, single episode, moderate 06/21 - Will increase Zoloft to 200 mg daily. He did have a low sodium on admission but is trending upward. Would continue to monitor - Agree with Cathryn Boothe the personal care placement would be appropriate and patient is in agreement at this time - The patient meets no criteria for inpatient mental health treatment Dr. Tiffany Kidd has personally been involved in the review of this case and the development of the above recommendations.
--- NOTE | 2017-06-21 14:15 | Neurology Progress Notes ---
Neurology Progress Note Date of Service Jun 21, 2017. 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 He states that he was lying on elbow watching football and believes to have injured it. Also has pain in R hip 2/2 chronic wound for which he has followed with [facility] wound care in the past. He also has chronic wounds on R foot but denies any pain 2/2 diabetic neuropathy. He is a poor historian and the history is obtained from the chart. On route to the hospital he was found to have A flutter and was given cardizem prior to arriving at the ED. He lives alone but his sister checks on him. He no longer had home health services due to insurance issues. He ambulates with a wheelchair at baseline. His L BKA due to osteomyelitis [place] [address] Amezcua. He is much more alert today states he is feeling better today and not as confused. denies headache, CP, SOB, abdominal pain, N, V, +hip pain Objective Date Time Temp Pulse Resp B/P (MAP) Pulse Ox O2 Delivery O2 Flow Rate FiO2 06/21/17 12:29 141 121/78 06/21/17 12:05 36.5 73 20 121/78 (92) 96 Room Air 06/21/17 12:00 Room Air 06/21/17 08:14 36.9 72 20 101/69 (80) 94 Room Air 06/21/17 08:00 Room Air 06/21/17 06:00 88/62 06/21/17 04:45 Room Air 06/21/17 04:42 36.8 73 17 107/54 (71) 95 Room Air 06/21/17 00:33 98 103/67 06/21/17 00:00 Room Air 06/20/17 23:01 36.9 98 18 101/65 (77) 100 Room Air 06/20/17 20:00 37.5 70 19 93/70 (78) 97 Room Air 06/20/17 20:00 95 Room Air 06/20/17 20:00 37.1 73 18 99/71 (80) 99 Room Air 06/20/17 16:37 95 Room Air 06/20/17 16:07 36.9 72 18 96/64 (75) 95 06/20/17 14:29 95 Last 24 Hours Test 06/20/17 16:03 06/20/17 20:01 06/20/17 20:11 06/21/17 01:49 Bedside Glucose 123 mg/dl 151 mg/dl Activated Partial Thromboplast Time 59.2 SECONDS Partial Thromboplastin Ratio 2.3 White Blood Count 10.40 K/uL Red Blood Count 3.63 M/uL Hemoglobin 11.1 g/dL Hematocrit 33.2 % Mean Corpuscular Volume 91.5 fL Mean Corpuscular Hemoglobin 30.6 pg Mean Corpuscular Hemoglobin Concent 33.4 g/dl Platelet Count 284 K/uL Mean Platelet Volume 9.8 fL Neutrophils (%) (Auto) 87.5 % Lymphocytes (%) (Auto) 7.1 % Monocytes (%) (Auto) 4.9 % Eosinophils (%) (Auto) 0.0 % Basophils (%) (Auto) 0.1 % Neutrophils # (Auto) 9.10 K/uL Lymphocytes # (Auto) 0.74 K/uL Monocytes # (Auto) 0.51 K/uL Eosinophils # (Auto) 0.00 K/uL Basophils # (Auto) 0.01 K/uL RDW Standard Deviation 45.9 fL RDW Coefficient of Variation 13.6 % Immature Granulocyte % (Auto) 0.4 % Immature Granulocyte # (Auto) 0.04 K/uL Sodium Level 134 mmol/L Potassium Level 4.2 mmol/L Chloride Level 103 mmol/L Carbon Dioxide Level 27 mmol/L Anion Gap 4.0 mmol/L Blood Urea Nitrogen 11 mg/dl Creatinine 0.65 mg/dl Est Creatinine Clear Calc Drug Dose 127.1 ml/min Estimated GFR () 128.7 Estimated GFR (Non- 111.1 BUN/Creatinine Ratio 17.1 Random Glucose 204 mg/dl Calcium Level 8.0 mg/dl Magnesium Level 1.9 mg/dl Total Bilirubin 0.3 mg/dl Aspartate Amino Transf (AST/SGOT) 7 U/L Alanine Aminotransferase (ALT/SGPT) 9 U/L Alkaline Phosphatase 84 U/L Total Protein 6.1 gm/dl Albumin 1.8 gm/dl Globulin 4.3 gm/dl Albumin/Globulin Ratio 0.4 Test 06/21/17 01:56 06/21/17 04:45 06/21/17 07:09 06/21/17 09:19 Bedside Glucose 195 mg/dl 199 mg/dl Activated Partial Thromboplast Time 57.2 SECONDS Partial Thromboplastin Ratio 2.2 Estimated Average Glucose 369 mg/dl Hemoglobin A1c 14.5 % Vancomycin Level Trough 4.7 mcg/ml Random Vancomycin Level 15.4 mcg/ml Test 06/21/17 10:48 06/21/17 11:28 06/21/17 13:51 Bedside Glucose 196 mg/dl Total Creatine Kinase 29 U/L Imaging: carotid doppler- Mild right and moderate left atherosclerotic plaquing of the carotid bulbs and proximal internal carotid arteries without hemodynamically significant stenosis identified. Normal antegrade vertebral flow bilaterally. TTE- Normal LV chamber size with mild concentric LVH. * Normal LV systolic function, EF 55-60%. * No segmental left ventricular wall motion abnormalities are noted. * Trace mitral regurgitation. * Mild left atrial enlargement. * no ASD Exam: Physical Exam: Constitutional: appearance ill appearing Ears, Nose, Mouth and Throat: mucous membranes moist, no injection and skin normal, eyes normal Cardiovascular: normal S-1 and S-2 and regular rate and rhythm Respiratory: clear to auscultation (CTA) and no rales, rhonchi or wheeze Musculoskeletal: no peripheral edema decreased pulse in RLE Skin: multiple open wounds and right foot is wrapped, left elbow erythema Eyes: extraocular muscles intact (EOMI) and pupils equal, round and reactive to light (PERRL) NEUROLOGIC EXAMINATION: Mental status: Alert and interactive Oriented [facility], 2018, president Edd Oriented to person Speech fluent with no evidence of aphasia Cranial Nerves some structural asymmetry eye brow raise intact Reflexes: Deep tendon reflexes were symmetrical and graded 2/5 Sensory: intact to light touch Coordination: finger to nose no bipass Gait/Stance: biceps triceps 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 Strength: Normal - 5/5 all extremities Current Inpatient Medications Medications (Trade) Dose Ordered Sig/Niharika Route Start Time Stop Time Status Last Admin Dose Admin Acetaminophen (Tylenol Tab) 650 mg Q4H PRN PO 06/19/17 09:30 07/19/17 09:29 Miscellaneous Information (Consult Glycemic Management Pharmacy) 1 ea UD N/A 06/19/17 13:15 07/19/17 13:14 Ioversol (Optiray 320) 100 ml UD PRN IV 06/19/17 10:00 06/23/17 09:59 Diltiazem HCl 125 mg/Dextrose 125 ml @ 0 mls/hr Q0M PRN IV 06/19/17 10:15 07/19/17 10:14 Future Hold 06/20/17 02:26 5 MLS/HR Albuterol (Ventolin Hfa Inhaler) 2 puffs Q6H PRN INH 06/19/17 13:45 07/19/17 13:44 Alprazolam (Xanax Tab) 0.5 mg BID PO 06/19/17 21:00 07/19/17 20:59 06/21/17 12:27 0.5 MG Aspirin (Ecotrin Tab) 81 mg DAILY PO 06/20/17 09:00 07/20/17 08:59 06/21/17 12:28 81 MG Atorvastatin Calcium (Lipitor Tab) 40 mg DAILY PO 06/20/17 09:00 07/20/17 08:59 06/21/17 12:28 40 MG Baclofen (Lioresal Tab) 10 mg TID PRN PO 06/19/17 13:45 07/19/17 13:44 06/20/17 07:59 10 MG Levetiracetam (Keppra Tab) 1,500 mg BID PO 06/19/17 21:00 07/19/17 20:59 06/21/17 12:28 1,500 MG Ranitidine HCl (zANTac TAB) 150 mg BID PO 06/19/17 21:00 07/19/17 20:59 06/21/17 12:28 150 MG Glucose (Glucose 40% Gel) 15-30 GRAMS 15 GRAMS... UD PRN PO 06/19/17 14:30 07/19/17 14:29 Glucose (Glucose Chew Tab) 4-8 Tablets 4 Tabl... UD PRN PO 06/19/17 14:30 07/19/17 14:29 Dextrose (Dextrose 50% 50ML Syringe) 25-50ML OF 50% DW IV FOR... UD PRN IV 06/19/17 14:30 07/19/17 14:29 Glucagon (Glucagon Inj) 1 mg UD PRN SQ 06/19/17 14:30 07/19/17 14:29 Insulin Glargine (Lantus Solostar Pen) SEE PROTOCOL TEXT BID SC 06/19/17 21:00 07/19/17 20:59 06/21/17 10:06 22 UNITS Heparin Sodium/ Dextrose 500 ml @ 35 mls/hr [id number] PRN IV 06/19/17 20:15 07/19/17 20:14 06/21/17 06:37 35 MLS/HR Insulin Aspart (novoLOG ASPART) SLIDING SCALE ACHS SC 06/20/17 16:15 07/20/17 16:14 06/21/17 12:24 15 UNITS Diltiazem HCl (Cardizem Cd Cap) 120 mg QAM PO 06/21/17 09:00 07/21/17 08:59 06/21/17 12:27 120 MG Ondansetron HCl (Zofran Inj) 4 mg Q4H PRN IV 06/20/17 17:15 07/20/17 17:14 Metoprolol Tartrate (Lopressor Iv) 5 mg Q6 IV. 06/21/17 00:00 07/21/17 00:00 06/21/17 12:29 5 MG Gadobutrol (Gadavist) 7.2 mmol UD PRN IV 06/21/17 04:10 06/25/17 04:09 Daptomycin 450 mg/ Syringe 9 ml @ 4.5 mls/min Q24H IV 06/21/17 12:00 08/02/17 11:59 06/21/17 12:27 4.5 MLS/MIN Sertraline HCl (Zoloft Tab) 200 mg QAM PO 06/21/17 14:15 07/21/17 14:14 Impression 52 year old male with uncontrolled DM and multiple DM ulcers, remote history of TBI, and ICH found to have a flutter Plan 1. MRI with punctate areas of acute infarct 2. cardiology - started metoprolol and diltiazem for rate control and heparin for anti coag 3. wound management for open lesions 4. antibiotics - vanco and Zosyn currently given IV 5. history seizures currently on 1500 mg BID Keppra 6. aspirin 81 mg home medication 7. CT head with no acute bleed 8. carotid doppler no significant stenosis 9. TTE r/o septic emboli- no ASD 10. neurology has no objection to heparin gtt 11. blood cultures if not done I have seen and discussed above patient with Dr Kamille Mills, neurology PT not seen, down in MRI. Per Oziel Dias pt is much less confused today and without deficit. Carotid US, no gih grade stenosis. I have no objection to AC with heparin. Will see pt tomorrow. TONY Mills MD
--- NOTE | 2017-06-21 14:23 | Palliative Care Consultation ---
Consultation Date of Consultation: Jun 21, 2017. Requesting Physician: Dr. Ricardo Attending Physician: Dr. Ricardo Reason for Consultation: Goals of care History of Present Illness This 52 year old male patient with extensive PMH including uncontrolled DM with complications, left BKA, osteomyelitis, non-healing wound to right hip, CAD, CVA , TBI 2012 with hemorrhage, seizure disorder, depression, DVT, and others listed below, presented to the hospital two days ago with c/o left elbow and right hip pain, found to be in rapid Aflutter by EMS en route. Patient follows with wound center for his multiple issues, lives alone in an apartment and his sister looks after him. Patient was previously on Coumadin for DVT but this was stopped due to a fall with intracranial hemorrhage. He is being followed by cardiology and now infectious disease for his multiple complex medical issues. Patient has been refusing some treatments, being quite cantankerous with medical team and nursing staff, and stating that he just wants to . He aspirated yesterday, so was being kept NPO until speech eval which he was quite upset about. He was refusing to have PICC line placed this morning for abx for newly found site of osteomyelitis in right fifth toe; was also getting upset with lab techs for drawing his blood so much. Hospitalist has asked psych and palliative care to see patient and establish goals of care. I saw patient in room 210. He is awake, alert and oriented x4, sitting at side of bed eating lunch. Patient was quite talkative and cooperative during our conversation. Patient states he is quite depressed since the passing of his parents about 4-5 years ago; and feels that since then his brother and sister "don't want to help me out at all." He feels abandoned and feels he has poor quality of life. He was upset that we weren't allowing him to eat because he says he does not care if he aspirates. He is tired of being in the hospital and having so many needle sticks. As we delved deeper into patient's concerns, he does not truly want to right now. He is willing to do PICC line and receive abx. We even discussed him moving to a personal long term after SNF stay so he is with a community of people where there are also trained professionals who can help him with some healthcare needs. Patient is agreeable to this. We did discuss code status and patient stated, "If it's my time to go, it's my time to go," and confirmed that he wants to be DNR. He wants to continue with medical treatment at this time with a goal of getting well enough to do some of the things he used to do-- even just be able to go to the grocery store or enjoy some time outside. Past Medical/Surgical History Medical History: DM type 2, uncontrolled CAD ICH 2/2 fall CVA with residual right hemiparesis TBI 2011 with ICH Seizure disorder Depression DVT Osteomyelitis Non-healing wound Asthma Surgical History: Appendectomy Hernia repair Left BKA Family History Cancer DM heart disease htn Lung disease Seizures Social History Smoking Status: Former Smoker Drug Use: none Marital Status: single Housing Status: lives alone Occupation Status: disabled chews smokeless-tobacco Review of Systems Constitutional: No fever, No chills, No weakness ENT: No trouble swallowing (but did have aspiration event yesterday) Respiratory: No shortness of breath, No dyspnea on exertion Cardiac: No chest pain, No edema Abdomen: No pain, No nausea, No vomiting Male : No problem reported Psychiatric: + depression symptoms, + anxiety (sometimes) Allergies Coded Allergies: No Known Allergies (Verified , 06/19/17) Medications Current Inpatient Medications Medications (Trade) Dose Ordered Sig/Niharika Route Start Time Stop Time Status Last Admin Dose Admin Acetaminophen (Tylenol Tab) 650 mg Q4H PRN PO 06/19/17 09:30 07/19/17 09:29 Miscellaneous Information (Consult Glycemic Management Pharmacy) 1 ea UD N/A 06/19/17 13:15 07/19/17 13:14 Ioversol (Optiray 320) 100 ml UD PRN IV 06/19/17 10:00 06/23/17 09:59 Diltiazem HCl 125 mg/Dextrose 125 ml @ 0 mls/hr Q0M PRN IV 06/19/17 10:15 07/19/17 10:14 Future Hold 06/20/17 02:26 5 MLS/HR Albuterol (Ventolin Hfa Inhaler) 2 puffs Q6H PRN INH 06/19/17 13:45 07/19/17 13:44 Alprazolam (Xanax Tab) 0.5 mg BID PO 06/19/17 21:00 07/19/17 20:59 06/21/17 12:27 0.5 MG Aspirin (Ecotrin Tab) 81 mg DAILY PO 06/20/17 09:00 07/20/17 08:59 06/21/17 12:28 81 MG Atorvastatin Calcium (Lipitor Tab) 40 mg DAILY PO 06/20/17 09:00 07/20/17 08:59 06/21/17 12:28 40 MG Baclofen (Lioresal Tab) 10 mg TID PRN PO 06/19/17 13:45 07/19/17 13:44 06/20/17 07:59 10 MG Levetiracetam (Keppra Tab) 1,500 mg BID PO 06/19/17 21:00 07/19/17 20:59 06/21/17 12:28 1,500 MG Ranitidine HCl (zANTac TAB) 150 mg BID PO 06/19/17 21:00 07/19/17 20:59 06/21/17 12:28 150 MG Sertraline HCl (Zoloft Tab) 150 mg QAM PO 06/20/17 09:00 07/20/17 08:59 06/20/17 08:00 150 MG Glucose (Glucose 40% Gel) 15-30 GRAMS 15 GRAMS... UD PRN PO 06/19/17 14:30 07/19/17 14:29 Glucose (Glucose Chew Tab) 4-8 Tablets 4 Tabl... UD PRN PO 06/19/17 14:30 07/19/17 14:29 Dextrose (Dextrose 50% 50ML Syringe) 25-50ML OF 50% DW IV FOR... UD PRN IV 06/19/17 14:30 07/19/17 14:29 Glucagon (Glucagon Inj) 1 mg UD PRN SQ 06/19/17 14:30 07/19/17 14:29 Insulin Glargine (Lantus Solostar Pen) SEE PROTOCOL TEXT BID SC 06/19/17 21:00 07/19/17 20:59 06/21/17 10:06 22 UNITS Heparin Sodium/ Dextrose 500 ml @ 35 mls/hr [id number] PRN IV 06/19/17 20:15 07/19/17 20:14 06/21/17 06:37 35 MLS/HR Insulin Aspart (novoLOG ASPART) SLIDING SCALE ACHS SC 06/20/17 16:15 07/20/17 16:14 06/21/17 12:24 15 UNITS Diltiazem HCl (Cardizem Cd Cap) 120 mg QAM PO 06/21/17 09:00 07/21/17 08:59 06/21/17 12:27 120 MG Ondansetron HCl (Zofran Inj) 4 mg Q4H PRN IV 06/20/17 17:15 07/20/17 17:14 Metoprolol Tartrate (Lopressor Iv) 5 mg Q6 IV. 06/21/17 00:00 07/21/17 00:00 06/21/17 12:29 5 MG Gadobutrol (Gadavist) 7.2 mmol UD PRN IV 06/21/17 04:10 06/25/17 04:09 Daptomycin 450 mg/ Syringe 9 ml @ 4.5 mls/min Q24H IV 06/21/17 12:00 08/02/17 11:59 06/21/17 12:27 4.5 MLS/MIN Physical Exam Date Time Temp Pulse Resp B/P (MAP) Pulse Ox O2 Delivery O2 Flow Rate FiO2 06/21/17 12:29 141 121/78 06/21/17 12:05 36.5 73 20 121/78 (92) 96 Room Air 06/21/17 08:14 36.9 72 20 101/69 (80) 94 Room Air 06/21/17 08:00 Room Air 06/21/17 06:00 88/62 06/21/17 04:45 Room Air 06/21/17 04:42 36.8 73 17 107/54 (71) 95 Room Air 06/21/17 00:33 98 103/67 06/21/17 00:00 Room Air 06/20/17 23:01 36.9 98 18 101/65 (77) 100 Room Air 06/20/17 20:00 37.5 70 19 93/70 (78) 97 Room Air 06/20/17 20:00 95 Room Air 06/20/17 20:00 37.1 73 18 99/71 (80) 99 Room Air 06/20/17 16:37 95 Room Air 06/20/17 16:07 36.9 72 18 96/64 (75) 95 06/20/17 14:29 95 General Appearance: no apparent distress, + pertinent finding (chronically ill appearing. appears much older than stated age) ENT: hearing grossly normal Neck: supple, no JVD Respiratory: no respiratory distress, no accessory muscle use, + pertinent finding (nasal cannula) Cardiovascular: + tachycardia, + irregularly irregular Abdomen: normal bowel sounds, non tender, soft Neurologic/Psychiatric: alert, normal mood/affect Laboratory Results Last 24 Hours Test 06/20/17 16:03 06/20/17 20:01 06/20/17 20:11 06/21/17 01:49 Bedside Glucose 123 mg/dl 151 mg/dl Activated Partial Thromboplast Time 59.2 SECONDS Partial Thromboplastin Ratio 2.3 White Blood Count 10.40 K/uL Red Blood Count 3.63 M/uL Hemoglobin 11.1 g/dL Hematocrit 33.2 % Mean Corpuscular Volume 91.5 fL Mean Corpuscular Hemoglobin 30.6 pg Mean Corpuscular Hemoglobin Concent 33.4 g/dl Platelet Count 284 K/uL Mean Platelet Volume 9.8 fL Neutrophils (%) (Auto) 87.5 % Lymphocytes (%) (Auto) 7.1 % Monocytes (%) (Auto) 4.9 % Eosinophils (%) (Auto) 0.0 % Basophils (%) (Auto) 0.1 % Neutrophils # (Auto) 9.10 K/uL Lymphocytes # (Auto) 0.74 K/uL Monocytes # (Auto) 0.51 K/uL Eosinophils # (Auto) 0.00 K/uL Basophils # (Auto) 0.01 K/uL RDW Standard Deviation 45.9 fL RDW Coefficient of Variation 13.6 % Immature Granulocyte % (Auto) 0.4 % Immature Granulocyte # (Auto) 0.04 K/uL Sodium Level 134 mmol/L Potassium Level 4.2 mmol/L Chloride Level 103 mmol/L Carbon Dioxide Level 27 mmol/L Anion Gap 4.0 mmol/L Blood Urea Nitrogen 11 mg/dl Creatinine 0.65 mg/dl Est Creatinine Clear Calc Drug Dose 127.1 ml/min Estimated GFR () 128.7 Estimated GFR (Non- 111.1 BUN/Creatinine Ratio 17.1 Random Glucose 204 mg/dl Calcium Level 8.0 mg/dl Magnesium Level 1.9 mg/dl Total Bilirubin 0.3 mg/dl Aspartate Amino Transf (AST/SGOT) 7 U/L Alanine Aminotransferase (ALT/SGPT) 9 U/L Alkaline Phosphatase 84 U/L Total Protein 6.1 gm/dl Albumin 1.8 gm/dl Globulin 4.3 gm/dl Albumin/Globulin Ratio 0.4 Test 06/21/17 01:56 06/21/17 04:45 06/21/17 07:09 06/21/17 09:19 Bedside Glucose 195 mg/dl 199 mg/dl Activated Partial Thromboplast Time 57.2 SECONDS Partial Thromboplastin Ratio 2.2 Estimated Average Glucose 369 mg/dl Hemoglobin A1c 14.5 % Vancomycin Level Trough 4.7 mcg/ml Random Vancomycin Level 15.4 mcg/ml Test 06/21/17 10:48 06/21/17 11:28 Bedside Glucose 196 mg/dl Total Creatine Kinase 29 U/L Assessment & Plan Problem list: Depression Left elbow pain Non-healing right hip wound- cultured Afib/Aflutter with RVR Right foot cellulitis and osteomyelitis Ambulatory dysfunction S/P left BKA Asthma- stable Aspiration risk- speech eval Hx CVA and ICH- not oral anticoagulation candidate Goals of care Palliative care recs: discussed with patient, Dr. Ricardo and Kezia España, psychiatric INVESTOR RELATIONS ASSOCIATE. -Patient does want to be level 5/DNR. States, "When it's my time to go, it's my time." However, does still want full treatment otherwise. -After discussion, patient is frustrated and depressed, which is driving him to make poor decisions about his healthcare. He is not suicidal, he is competent to make decisions. He does not want to right now. -Patient would like to eat despite aspiration risk. -Patient is now agreeable to PICC line and abx treatment for osteomyelitis. -Patient will likely need skilled care following hospitalization for as long as he is on IV abx. After that, I recommended personal long term given that patient feels very alone. He would have a community of people possibly closer to his age than at a intermediate. He would also have some help, but not too much, with his healthcare needs. Patient was agreeable to this and I asked nurse case manager to follow up. -Renu España, psych INVESTOR RELATIONS ASSOCIATE, saw patient immediately following me and will be increasing antidepressant medication (Zoloft), which should hopefully be quite helpful. Thank you kindly for this consult. I will follow peripherally for now. Please contact me with any further palliative care needs.
[2017-06-21] MEDS ORDERED: NURSING VERBAL MED ORDER ONE (14:45)
--- NOTE | 2017-06-21 15:58 | Cardiology Follow-Up ---
Subjective Subjective Date of Service: Jun 21, 2017. Pt evaluation today including: conversation w/ patient, physical exam, chart review, lab review, review of studies, review of inpatient medication list Additional Details: Pt seen and examined, upset today that he is not able to eat after aspiration episode last PM. Otherwise, denies cp, sob, palpitations, lightheadedness or dizziness. Tele reviewed: atrial flutter rate controlled. Problem List Medical Problems: (1) Acute renal failure Status: Acute (2) Dehydration Status: Acute (3) Hyperglycemia Status: Acute (4) Hyponatremia Status: Acute (5) Hypotension Status: Acute (6) Left leg cellulitis Status: Acute (7) Pressure ulcer Permanent Comment: R hip Status: Acute Review of Systems Constitutional: No fever, No chills, No weakness ENT: No trouble swallowing (but did have aspiration event yesterday) Respiratory: No see HPI, No cough, No sputum, No wheezing, No shortness of breath, No dyspnea on exertion, No dyspnea at rest, No hemoptysis, No problem reported Cardiac: No see HPI, No chest pain, No orthopnea, No PND, No edema, No claudication, No palpitations, No problem reported Abdomen: No pain, No nausea, No vomiting Musculoskeletal: + joint pain Male : No problem reported Psychiatric: + depression symptoms, + anxiety (sometimes) Objective Vital Signs Last Vital Signs Documentation Date Time Temp Pulse Resp B/P (MAP) Pulse Ox O2 Delivery O2 Flow Rate FiO2 06/21/17 12:29 141 121/78 06/21/17 12:05 36.5 20 96 Room Air Physical Exam: General Appearance: no apparent distress, + pertinent finding (chronically ill appearing. appears much older than stated age) Eyes: bilateral eyes normal inspection, bilateral eyes PERRL, bilateral eyes EOMI ENT: normal ENT inspection, hearing grossly normal, pharynx normal Neck: supple, no JVD Respiratory/Chest: no respiratory distress, no accessory muscle use, + pertinent finding (nasal cannula) Cardiovascular: + irregularly irregular Abdomen: normal bowel sounds, non tender, soft Extremities: + swelling, + pertinent finding (Left bka) Neurologic/Psychiatric: alert, normal mood/affect Skin: normal color, no rash, + pertinent finding (multiple stasis ulcerations) Lymphatic: no adenopathy Assessment and Plan 1. 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
[2017-06-21 16:05] VITALS: Ht 172.7 cm; Wt 79.5 kg
[2017-06-21 17:13] VITALS: BP 92/58; PULSE 77; TEMP 36.4; O2SAT 97
[2017-06-21] MEDS: SERTRALINE HCL 100 MG TAB PO SCH (17:23)
--- NOTE | 2017-06-21 18:44 | Progress Note ---
Progress Note Date of Service Jun 21, 2017. Progress Note Physical Exam: General Appearance: verbal Head: normocephalic, atraumatic Eyes: normal inspection, EOMI Neck: supple, trachea midline Respiratory/Chest: chest non-tender, lungs clear, normal breath sounds, no respiratory distress, no accessory muscle use Cardiovascular: no murmur, normal peripheral pulses, heart rate in the 70s, telemetry/EKG still showing flutter Abdomen/GI: non tender, soft, no organomegaly Extremities/Musculoskelatal/Neuro: chronic wound on lateral R hip with dressing .chronic R foot wound on great toe with erythema and edema extending to ankle, able to move upper and lower extremities Hospitalist Progress Note This is a 52 year old patient who presented to the ED for left elbow pain - found to have multiple active medical problems - was in atrial fibrillation with RVR to the 140s which was controlled by diltiazem drip, was hyperglycemic to 400 secondary to uncontrolled diabetes with hbA1c of 14.5 with blood sugars now better controlled, history of left below knee amputation, chronic right leg cellulitis and skin ulcers subsequently with subsequent lower extremity MRI confirming as osteomyelitis, right hip ulcer/draiange, history of head inquiry in the past vs stroke and brain MRI was recommended and pertinent for punctate foci of restricted diffusion identified in the left frontal and left parietal lobes consistent with acute to subacute infarcts which was performed after patient had stroke code called as he was thought to have new onset confusion, and then evaluated for depression by psychiatry and palliative care consult with code status changed as per those discussions with the patient from Full code to DNR/DNI (Level 5) Plans Neuro -history of head injury/stroke in the past -06/20/17 Brain MRI was recommended and pertinent for punctate foci of restricted diffusion identified in the left frontal and left parietal lobes consistent with acute to subacute infarcts -continue heparin IV -Carotid Ultrasound 06/20/17 Mild right and moderate left atherosclerotic plaquing of the carotid bulbs and proximal internal carotid arteries without hemodynamically significant stenosis identified. Normal antegrade vertebral flow bilaterally. -Echocardiogram 06/21/17 without evidence of cardiac thrombus -speech and swallow evaluation -PT/OT evaluations -Seizure disorder: Stable, continue home dose keppra -Depression/anxiety: continue zoloft, xanax PRN Heart -evaluated in the ED for afib RVR which improved with IV diltiazem, also on IV heparin for anticoagulation -Echocardiogram 06/21/17: Normal LV chamber size with mild concentric LVH. Normal LV systolic function, EF 55-60%. No segmental left ventricular wall motion abnormalities are noted.Trace mitral regurgitation. Mild left atrial enlargement. -Cardiology service continues to recommend IV heparin and diltiazem Respiratory -Asthma:Stable , continue home meds -possible aspiration pneumonia as seen on CXR on 06/20/17 -patient breathing on room air -speech and swallow evaluation Infectious Sources -started on vancomycin and Zosyn empirically when admitted on 06/19/17 for right foot cellulitis vs osteomyelitis -possible aspiration pneumonia as seen on CXR on 06/20/17 -MRI of right lower extremity 06/21/17: Findings consistent with osteomyelitis of the proximal and middle phalanges of the right fifth toe. Possible associated pathologic fracture of the proximal phalanx which could be correlated with radiographs. Associated cellulitis with tiny abscesses along the dorsal aspect of the right fifth toe. Marrow edema with preserved T1 marrow signal signal within the distal phalanx of the right fifth toe and the fourth and fifth metatarsal heads. This favors osteitis however developing osteomyelitis could appear similar. -Vancomycin and Zosyn stopped on 06/21/17 and switched to Daptomycin for: Right foot osteomyelitis with abscess Abscess lateral aspect right hip with Staph - wound care physician then performed incision and drainage on 06/21/17 Staph septicemia MRSA in urine -scheduled for debridement of his right great toe and fifth toe ischemic ulcers by Orthopedic service Left elbow pain: -XR with small joint effusion -Orthopedics recommending elbow pad Diabetes Type 2 -Pharmacy Glycemic control consult following , insulin Electrolytes -Serum sodium corrected after hyperglycemia improved is normal limits -Hypokalemia / Hypomagnesemia on this admission has been repleted Depression Psychiatry consulted 06/21/17: increase Zoloft to 200 mg daily Palliative Care following patient Code Status: Level 5 (DNR/DNI)
--- NOTE | 2017-06-21 19:18 | DIAGNOSTIC IMAGING REPORT ---
LEFT ELBOW MRI HISTORY: Left elbow pain and effusion TECHNIQUE: Multiplanar multisequence MRI of the left elbow was performed both before and after the intravenous ministration of contrast. COMPARISON STUDY: None. FINDINGS: Suboptimal study due to motion artifact and decreased [id number] ratio. There is mild subcutaneous edema within the elbow posteriorly. There is a small elbow effusion with mild thickening and enhancement within the synovium. This is most pronounced within the posterior lateral aspect of the joint space adjacent to the olecranon. This is best seen on the axial T1 postcontrast sequences images 14 through 19. This focal area of joint fluid demonstrates thickened and irregular synovial lining. There is also trace fluid identified within the anterior joint space. Overall, this is represents a small elbow effusion. Intrinsic structures of the elbow are suboptimally evaluated due to the artifact but appear to be grossly intact. No fracture or dislocation. Small area of subchondral cystic change at the capitellum and olecranon which are likely due to degenerative change. Otherwise, there is normal marrow signal intensity seen throughout the visualized osseous structures. No definite areas of erosion to suggest osteomyelitis. No fracture or dislocation. IMPRESSION: 1. Small joint effusion with the majority of the fluid located within the posterior lateral aspect of the joint space adjacent to the olecranon. There is also thickening and enhancement of the synovium consistent with a nonspecific synovitis. This could be due to an inflammatory or infectious process. Clinical correlation recommended. 2. There is no abnormal marrow signal to suggest an osteomyelitis at this time. Electronically signed by: Surjit Pizarro M.D. 06/21/2017 7:16 PM Dictated Date/Time: 06/21/2017 7:08 PM
[2017-06-21 20:21] VITALS: BP 83/49; PULSE 72; TEMP 36.4; O2SAT 98
[2017-06-21 23:44] VITALS: BP 99/63; PULSE 71; TEMP 36.4; O2SAT 96
[2017-06-22] VITALS (8 sets, daily range): BP systolic 82–110; BP diastolic 59–73; PULSE 71–108; TEMP 36.3–36.8; O2SAT 90–97
[2017-06-22] MEDS: METOPROLOL TARTRATE 1 MG/ML VIAL IV. SCH ×3 (06:00→17:11)
[2017-06-22 06:14] LABS: HEMATOCRIT 32.7 % (42-52); HEMOGLOBIN 10.5 g/dL (14.0-18.0); MEAN CELL VOLUME 92.6 fL (80-100); MEAN CORPUSCULAR HEMOGLOBIN 29.7 pg (25-34); MEAN CORPUSCULAR HGB CONC 32.1 g/dl (32-36); MEAN PLATELET VOLUME 9.5 fL (7.4-10.4); PLATELET COUNT 312 K/uL (130-400); RED CELL DISTRIBUTION WIDTH CV 13.7 % (11.5-14.5); RED CELL DISTRIBUTION WIDTH SD 46.2 fL (36.4-46.3); WHITE BLOOD COUNT 6.79 K/uL (4.8-10.8)
[2017-06-22 06:24] LABS: PTT PATIENT 36.2 SECONDS (21.0-31.0)
[2017-06-22 07:07] LABS: ALBUMIN 1.7 gm/dl (3.4-5.0); CALCIUM 8.7 mg/dl (8.5-10.1); CREATININE 0.5 mg/dl (0.60-1.40); POTASSIUM 3.6 mmol/L (3.5-5.1)
[2017-06-22 07:10] LABS: TOTAL PROTEIN 6.2 gm/dl (6.4-8.2)
[2017-06-22] MEDS ORDERED: MIDAZOLAM HCL 1 MG/ML 2ML VIAL ONE (07:22)
[2017-06-22] MEDS ORDERED: FENTANYL CITRATE INJ 50 MCG/1 ML 2 ML VIAL ONE (07:22)
[2017-06-22] MEDS ORDERED: ONDANSETRON INJ 2 MG/ML 2 ML VIAL IV PRN (07:30)
[2017-06-22] MEDS ORDERED: EpHEDrine SULFATE INJ 50 MG/ML AMP IV PRN (07:30)
[2017-06-22] MEDS ORDERED: ATROPINE SULFATE 0.1 MG/ML 5ML SYR IV PRN (07:30)
[2017-06-22] MEDS ORDERED: FENTANYL CITRATE INJ 50 MCG/1 ML 2 ML VIAL IV PRN (07:30)
[2017-06-22] MEDS ORDERED: BUPIVACAINE 0.5 % 5 MG/1 ML MPF 30ML VIAL ONE (07:38)
[2017-06-22] MEDS ORDERED: BACITRACIN 50000 UNIT VIAL ONE (07:38)
--- NOTE | 2017-06-22 08:00 | History & Physical Bridge Note ---
H&P Re-Evaluation Bridge Note: I have examined the patient, reviewed the History & Physical and in the interval since the performance of the History & Physical I have noted the following changes of clinical significance: To OR for surgery right foot.
[2017-06-22] MEDS ORDERED: PROPOFOL IV EMULSION 10 MG/ML 20 ML VIAL IV ONE (09:03)
[2017-06-22] MEDS ORDERED: LIDOCAINE 2% 20 MG/ML 5ML SYR IV ONE (09:03)
--- NOTE | 2017-06-22 09:04 | [facility] Post Operative Brief Note ---
Immediate Operative Summary Operative Date Jun 22, 2017. Pre-Operative Diagnosis Right foot Osteomyelitis proximal phalanx fifth toe, Ischemic ulcers: first, third and fifth toes, Suppurative extensor tenosynovitis fifth toe, Abcesses fifth toe and first metatarsophalangeal joint Post-Operative Diagnosis Right foot Osteomyelitis proximal phalanx fifth toe, Ischemic ulcers: first, third and fifth toes, Suppurative extensor tenosynovitis fifth toe, Abcesses fifth toe and first metatarsophalangeal joint Procedure(s) Performed 1. Right foot Evacuation abscesses first metatarsophalangeal and fifth toe. 2. Right foot Debridement Extensor Tendon Right Fifth Toe, 3. Right foot Debridement Ischemic Ulcers: Fisrt, Third and Fifth Toes, 4. Right foot Debridement/ Excision Osteomyelitis of Bone Fifth Proximal Phalanx Surgeon Dr. Amezcua Greenhouse Florist Surgeon(s) None Estimated Blood Loss 1 ml Findings Consistent with Post-Op Diagnosis Specimens Microbiology 1. Right 5th Toe abcess, culture and sensitivity, gram stain, anerobic and aerobic Drains 1/2" iodoform gauze 1st and 5th toes Anesthesia Type General Regional Complication(s) none Disposition Accompanied Pt To Recover: no Disposition: Recovery Room / PACU
--- NOTE | 2017-06-22 09:42 | PROGRESS NOTE ---
DATE: 06/22/2017 SUBJECTIVE: Once again, Mr. Hidalgo is off the floor having an orthopedic surgery. My understanding from speaking to the nurses is that he has been doing well, that he was awake and alert without neurologic deficits. We have been asked to see him because of the history of a prior post-traumatic intracranial hemorrhage and a small radiographic infarct, and atrial fibrillation of unclear duration. We weighed in that the patient could be on anticoagulants at this point based on his imaging. I continued to think that is the case. The patient sounds like he is doing well. I will continue to try to see the patient. Please consult me urgently if there are any concerns. BLAIR
[2017-06-22] MEDS: SERTRALINE HCL 100 MG TAB PO SCH (10:16)
[2017-06-22] MEDS: RANITIDINE HCL 150 MG TAB PO SCH ×2 (10:17→22:03)
[2017-06-22] MEDS: ASPIRIN 81 MG ECTAB PO SCH (10:17)
[2017-06-22] MEDS: ATORVASTATIN 40 MG TAB PO SCH (10:17)
[2017-06-22] MEDS: LEVETIRACETAM 500 MG TAB PO SCH ×2 (10:17→22:03)
[2017-06-22] MEDS: ALPRAZOLAM 0.5 MG TAB PO SCH ×2 (10:17→22:03)
[2017-06-22] MEDS: DILTIAZEM HCL 120 MG CAPCR PO SCH (10:17)
[2017-06-22] MEDS: INSULIN GLARGINE SOLOSTAR 100 UNITS/ML 3 ML PEN SC SCH ×2 (10:19→22:04)
[2017-06-22] MEDS: INSULIN ASPART 100 UNITS/ML 3 ML PEN SC SCH ×4 (10:21→20:23)
--- NOTE | 2017-06-22 10:27 | Anesthesiology Progress Note ---
Anesthesia Post Op Note Date & Time Jun 22, 2017 at 10:26 Vital Signs Pain Intensity: 0 Vital Signs Past 12 Hours Date Time Temp Pulse Resp B/P (MAP) Pulse Ox O2 Delivery O2 Flow Rate FiO2 06/22/17 09:35 36.1 71 16 97/73 99 Nasal Cannula 2 06/22/17 09:25 72 16 109/73 100 Oxymask 10 06/22/17 09:15 71 16 106/76 100 Oxymask 10 06/22/17 09:08 36.1 71 16 92/71 100 Oxymask 10 06/22/17 08:00 Room Air 06/22/17 07:35 36.5 72 18 93/61 (72) 97 06/22/17 06:00 72 100/63 06/22/17 04:00 Room Air 06/22/17 04:00 36.3 71 20 97/69 (78) 95 Room Air 06/22/17 00:00 Room Air 06/21/17 23:46 72 99/63 06/21/17 23:44 36.4 71 20 99/63 (75) 96 Room Air Notes Mental Status: alert / awake / arousable, participated in evaluation Pt Amnestic to Procedure: Yes Nausea / Vomiting: adequately controlled Pain: adequately controlled Airway Patency, RR, SpO2: stable & adequate BP & HR: stable & adequate Hydration State: stable & adequate Anesthetic Complications: no major complications apparent
[2017-06-22] MEDS: DAPTOmycin IV 450 MG in SYRINGE 0 ML IV SCH (13:04)
--- NOTE | 2017-06-22 14:29 | Progress Note ---
Internal Med Progress Note Date of Service: Jun 22, 2017. Provider Documentation: SUBJECTIVE: Patient has declined anticoagulation. OBJECTIVE: Physical Exam: General Appearance: verbal Head: normocephalic, atraumatic Eyes: normal inspection, EOMI Neck: supple, trachea midline Respiratory/Chest: chest non-tender, lungs clear, normal breath sounds, no respiratory distress, no accessory muscle use Cardiovascular: heart rate in the 70s Abdomen/GI: non tender, soft, no organomegaly Extremities/Musculoskelatal/Neuro: chronic wound on lateral R hip with dressing , s/p debridement of areas of right foot ulcers ASSESSMENT & PLAN: Hospitalist Progress Note This is a 52 year old patient who presented to the ED for left elbow pain - found to have multiple active medical problems - was in atrial fibrillation with RVR to the 140s which was controlled by diltiazem drip, was hyperglycemic to 400 secondary to uncontrolled diabetes with hbA1c of 14.5 with blood sugars now better controlled, history of left below knee amputation, chronic right leg cellulitis and skin ulcers subsequently with subsequent lower extremity MRI confirming as osteomyelitis, right hip ulcer/draiange, history of head inquiry in the past vs stroke and brain MRI was recommended and pertinent for punctate foci of restricted diffusion identified in the left frontal and left parietal lobes consistent with acute to subacute infarcts which was performed after patient had stroke code called as he was thought to have new onset confusion, and then evaluated for depression by psychiatry and palliative care consult with code status changed as per those discussions with the patient from Full code to DNR/DNI (Level 5) Plans Neuro -history of head injury/stroke in the past -06/20/17 Brain MRI was recommended and pertinent for punctate foci of restricted diffusion identified in the left frontal and left parietal lobes consistent with acute to subacute infarcts -Carotid Ultrasound 06/20/17 Mild right and moderate left atherosclerotic plaquing of the carotid bulbs and proximal internal carotid arteries without hemodynamically significant stenosis identified. Normal antegrade vertebral flow bilaterally. -Echocardiogram 06/21/17 without evidence of cardiac thrombus -speech and swallow evaluation -PT/OT evaluations -Seizure disorder: Stable, continue home dose keppra -As of 06/22/17 patient has decline further anticoagulation at this time Heart -evaluated in the ED for afib RVR which improved with IV diltiazem, also had been on IV heparin for anticoagulation -Echocardiogram 06/21/17: Normal LV chamber size with mild concentric LVH. Normal LV systolic function, EF 55-60%. No segmental left ventricular wall motion abnormalities are noted.Trace mitral regurgitation. Mild left atrial enlargement. -As of 06/22/17 patient has decline further anticoagulation at this time Respiratory -Asthma:Stable , continue home meds -possible aspiration pneumonia as seen on CXR on 06/20/17 -patient breathing on room air -speech and swallow evaluation Infectious Sources -started on vancomycin and Zosyn empirically when admitted on 06/19/17 for right foot cellulitis vs osteomyelitis -possible aspiration pneumonia as seen on CXR on 06/20/17 -MRI of right lower extremity 06/21/17: Findings consistent with osteomyelitis of the proximal and middle phalanges of the right fifth toe. Possible associated pathologic fracture of the proximal phalanx which could be correlated with radiographs. Associated cellulitis with tiny abscesses along the dorsal aspect of the right fifth toe. Marrow edema with preserved T1 marrow signal signal within the distal phalanx of the right fifth toe and the fourth and fifth metatarsal heads. This favors osteitis however developing osteomyelitis could appear similar. -Vancomycin and Zosyn stopped on 06/21/17 and switched to Daptomycin for: Right foot osteomyelitis with abscess Abscess lateral aspect right hip with MRSA - wound care physician then performed incision and drainage on 06/21/17 MRSA septicemia MRSA in urine - Orthopedic service performed following procedures on 06/22/17 1. Right foot Evacuation abscesses first metatarsophalangeal and fifth toe. 2. Right foot Debridement Extensor Tendon Right Fifth Toe, 3. Right foot Debridement Ischemic Ulcers: Fisrt, Third and Fifth Toes, 4. Right foot Debridement/ Excision Osteomyelitis of Bone Fifth Proximal Phalanx -Patient is agreeable to PICC line for outpatient antibiotics for Osteomyelitis or MRSA bacteremia if indicated. Will need to discuss with case management about logistics for future discharge with PICC line Left elbow pain: -XR with small joint effusion -Orthopedics recommending elbow pad Diabetes Type 2 -Pharmacy Glycemic control consult following , insulin Electrolytes -Serum sodium corrected after hyperglycemia improved is normal limits -Hypokalemia / Hypomagnesemia on this admission has been repleted Depression Psychiatry consulted 06/21/17: increase Zoloft to 200 mg daily Palliative Care following patient Code Status: Level 5 (DNR/DNI) Vital Signs: Date Time Temp Pulse Resp B/P (MAP) Pulse Ox O2 Delivery O2 Flow Rate FiO2 06/22/17 16:02 36.6 72 17 96 Nasal Cannula 2.0 06/22/17 16:00 Room Air 06/22/17 12:00 Room Air 06/22/17 12:00 76 90/66 06/22/17 11:33 36.6 73 18 82/59 (67) 90 06/22/17 10:30 36.3 76 16 96/66 (76) 96 Nasal Cannula 2.0 06/22/17 10:00 36.3 77 16 93/62 (72) 96 Nasal Cannula 2.0 06/22/17 09:35 36.1 71 16 97/73 99 Nasal Cannula 2 06/22/17 09:25 72 16 109/73 100 Oxymask 10 06/22/17 09:15 71 16 106/76 100 Oxymask 10 06/22/17 09:08 36.1 71 16 92/71 100 Oxymask 10 06/22/17 08:00 Room Air 06/22/17 08:00 Room Air 06/22/17 07:35 36.5 72 18 93/61 (72) 97 06/22/17 06:00 72 100/63 06/22/17 04:00 Room Air 06/22/17 04:00 36.3 71 20 97/69 (78) 95 Room Air 06/22/17 00:00 Room Air 06/21/17 23:46 72 99/63 06/21/17 23:44 36.4 71 20 99/63 (75) 96 Room Air 06/21/17 20:21 36.4 72 20 83/49 (60) 98 Room Air 06/21/17 20:00 Room Air 06/21/17 17:26 Room Air 06/21/17 17:13 36.4 77 20 92/58 (69) 97 Room Air Lab Results: Results Past 24 Hours Test 06/21/17 17:14 06/21/17 20:24 06/22/17 06:00 06/22/17 07:11 Range/Units Bedside Glucose 178 127 79 70-99 mg/dl White Blood Count 6.79 4.8-10.8 K/uL Red Blood Count 3.53 4.7-6.1 M/uL Hemoglobin 10.5 14.0-18.0 g/dL Hematocrit 32.7 42-52 % Mean Corpuscular Volume 92.6 80-100 fL Mean Corpuscular Hemoglobin 29.7 25-34 pg Mean Corpuscular Hemoglobin Concent 32.1 32-36 g/dl RDW Standard Deviation 46.2 36.4-46.3 fL RDW Coefficient of Variation 13.7 11.5-14.5 % Platelet Count 312 130-400 K/uL Mean Platelet Volume 9.5 7.4-10.4 fL Activated Partial Thromboplast Time 36.2 21.0-31.0 SECONDS Partial Thromboplastin Ratio 1.4 Sodium Level 139 136-145 mmol/L Potassium Level 3.6 3.5-5.1 mmol/L Chloride Level 103 98-107 mmol/L Carbon Dioxide Level 31 21-32 mmol/L Anion Gap 4.0 3-11 mmol/L Blood Urea Nitrogen 9 7-18 mg/dl Creatinine 0.50 0.60-1.40 mg/dl Est Creatinine Clear Calc Drug Dose 165.3 ml/min Estimated GFR () 143.4 Estimated GFR (Non- 123.7 BUN/Creatinine Ratio 18.8 10-20 Random Glucose 84 70-99 mg/dl Calcium Level 8.7 8.5-10.1 mg/dl Total Bilirubin 0.3 0.2-1 mg/dl Aspartate Amino Transf (AST/SGOT) 10 15-37 U/L Alanine Aminotransferase (ALT/SGPT) 10 12-78 U/L Alkaline Phosphatase 77 45-117 U/L Total Creatine Kinase 21 39-308 U/L Total Protein 6.2 6.4-8.2 gm/dl Albumin 1.7 3.4-5.0 gm/dl Globulin 4.5 2.5-4.0 gm/dl Albumin/Globulin Ratio 0.4 0.9-2 Vitamin B12 Level 196 211-911 pg/mL Folate 12.64 >5.38 ng/mL Rapid Plasma Reagin NONREACTIVE NONREACT Test 06/22/17 09:12 06/22/17 11:22 Range/Units Bedside Glucose 74 116 70-99 mg/dl Microbiology Results 06/22/17 Gram Stain - Final, Resulted 06/22/17 Bacterial Culture, Resulted Pending
--- NOTE | 2017-06-22 15:21 | OPERATIVE REPORT ---
DATE OF OPERATION: 06/22/2017 PREOPERATIVE DIAGNOSES: 1. Right foot osteomyelitis of the proximal phalanx of the fifth toe. 2. Ischemic ulcers of the first, third, and fifth toes. 3. Suppurative extensor tenosynovitis of the fifth toe. 4. Abscess the first metatarsophalangeal joint. 5. Abscess of the fifth toe. POSTOPERATIVE DIAGNOSES: Same as noted above. PROCEDURES PERFORMED: 1. Right foot evacuation abscess, first metatarsophalangeal joint. 2. Right foot evacuation abscess, fifth toe. 3. Right foot debridement, extensor tendon of the fifth toe. 4. Debridement, ischemic ulcer of the first toe including skin, fascia, and subcutaneous tissue. 5. Debridement, ischemic ulcer of the third toe including skin, fascia, and subcutaneous tissue. 6. Debridement, ischemic ulcer of the fifth toe including skin, fascia, and subcutaneous tissue. 7. Debridement and excision osteomyelitis of the proximal phalanx of the fifth toe. SURGEON: Colt Amezcua DO. MARINE FIREMAN: None. ANESTHESIA: General LMA with local. SPECIMENS: 1. Aerobic, anaerobic, Gram stain from the 5th toe abscess. 2. Osteomyelitic bone from the proximal phalanx of the fifth toe. DRAINS: 1. A 1/2-inch iodoform gauze in the first metatarsophalangeal joint. 2. A 1/2-inch iodoform gauze in the fifth toe. COMPLICATIONS: None. BLOOD LOSS: 1 mL. PERTINENT HISTORY: This is a 52-year-old gentleman, who has had a complex medical history and developed ischemic changes of his distal right lower extremity. He had a prior left below-knee amputation for ulceration and ischemic changes approximately 2 years ago. The patient noted worsening ulcerations and redness and swelling of his right foot. He actually presented to the hospital for multiple issues including a right lateral decubitus ulcer of the hip region and then bursitis, possible cellulitis of the left elbow. The patient was seen in consultation at the request of the medical service and he was then scheduled for surgery as indicated for his right lower extremity issues including abscess, ischemic ulcers, suppurative tenosynovitis and presumed osteomyelitis of the fifth toe. The patient was scheduled for surgery as indicated. All potential risks, benefits, complications, alternatives, rehab, potential for incomplete relief of symptoms, need for further surgery, DVT, PE, , persistent pain, swelling, scarring, weakness, neurovascular injury, wound complications, need for further amputation was discussed with the patient. The patient decided to proceed with the procedure as indicated. DESCRIPTION OF PROCEDURE: The patient was taken to the operative suite, placed supine on the operating table. After review of the consent and identification of the proper operative site, the patient was then anesthetized. LMA was placed. Right lower extremity was then sterilely prepped and draped in the usual sterile fashion, elevated and partially exsanguinated with an Esmarch bandage placed at the level of the hindfoot and then Esmarch bandage was applied over a sterile surgical towel at the level of the ankle for tourniquet. Next, a 15 blade scalpel was then used to sharply debride the ischemic ulcer of the fifth toe including the skin, fascia, and subcutaneous tissue. After this was completed, there was noted to be exposed suppurative tenosynovitis of the fifth toe and an associated abscess. This abscess fluid collection was then cultured and sent for specimen, aerobic, anaerobic, and Gram stain. Next, the tendon was then carefully debrided with a 15 blade scalpel and then irrigated with sterile normal saline with bacitracin. Next, the remainder of the tendon which was severely macerated and partially attritionally ruptured was then retracted and protected. A 15 blade scalpel was then used to probe the distal aspect of the exposed fifth toe distal aspect of the proximal phalanx. The blade met very little resistance in the distal aspect of the proximal phalanx confirming osteomyelitis. Next, the rongeur was used to remove debride and resect the distal aspect of the proximal phalanx of the fifth toe. This markedly soft bone was then sent for pathological specimen. Next, the fifth toe was then carefully and gently debrided with the rongeur, and then attention was then directed to the third toe dorsal aspect at the DIP joint. There was noted to be an ischemic ulcer measuring approximately 4 mm in diameter. This was then sharply incised and debrided with a 15 blade scalpel. This included debridement of skin, fascia, and subQ tissue. There was a thin layer of interstitial tissue over the extensor protecting the extensor tendon. Next, this was irrigated with saline with bacitracin. Next, attention was then directed toward the first metatarsophalangeal joint region and the ischemic ulcer on the dorsal and dorsal medial aspect of the first toe. This ischemic ulcer was then sharply debrided with a 15 blade scalpel including skin, subcutaneous tissue, and fascia. After the necrotic tissue was then sharply debrided, the first metatarsophalangeal joint was then incised with a 15 blade scalpel along the medial aspect. There was noted to be a small abscess, which was then evacuated. After all abscess fluid was evacuated from the region, bulb syringe lavage was then performed along the fifth toe, the third toe, and the first MTP region with bacitracin and saline. After this was completed, 1/2-inch iodoform gauze packing was placed in the fifth toe and the first metatarsophalangeal region. New top gloves and top sheet were then applied to the operative field and then the first metatarsophalangeal region incision was then loosely closed with interrupted 4-0 nylon sutures. Two simple sutures were placed proximal and distal in the fifth toe to close the space and a sterile compressive forefoot dressing was then applied consisting of Xeroform gauze, sterile 4 x 4's, sterile cast padding, and an Rio wrap. The tourniquet was released. Local anesthetic was injected along the forefoot with 20 mL of 0.5% Marcaine plain. The patient was then awakened and taken to recovery in stable condition. I attest to the content of the Intraoperative Record and any orders documented therein. Any exception s are noted below.
[2017-06-23] VITALS (9 sets, daily range): BP systolic 99–118; BP diastolic 61–76; PULSE 69–94; TEMP 36.5–37; O2SAT 93–98
[2017-06-23] MEDS: METOPROLOL TARTRATE 1 MG/ML VIAL IV. SCH ×4 (00:06→18:29)
[2017-06-23 05:15] LABS: PTT PATIENT 27.3 SECONDS (21.0-31.0)
[2017-06-23 05:32] LABS: CREATININE 0.55 mg/dl (0.60-1.40)
[2017-06-23] MEDS: INSULIN ASPART 100 UNITS/ML 3 ML PEN SC SCH ×4 (09:14→20:36)
[2017-06-23] MEDS: INSULIN GLARGINE SOLOSTAR 100 UNITS/ML 3 ML PEN SC SCH ×2 (09:15→20:39)
[2017-06-23] MEDS: SERTRALINE HCL 100 MG TAB PO SCH (09:17)
[2017-06-23] MEDS: DILTIAZEM HCL 120 MG CAPCR PO SCH (09:17)
[2017-06-23] MEDS: ATORVASTATIN 40 MG TAB PO SCH (09:18)
[2017-06-23] MEDS: RANITIDINE HCL 150 MG TAB PO SCH ×2 (09:18→20:23)
[2017-06-23] MEDS: ASPIRIN 81 MG ECTAB PO SCH (09:18)
[2017-06-23] MEDS: LEVETIRACETAM 500 MG TAB PO SCH ×2 (09:18→20:23)
[2017-06-23] MEDS: ALPRAZOLAM 0.5 MG TAB PO SCH ×2 (09:18→20:34)
--- NOTE | 2017-06-23 09:55 | Orthopedic Progress Note ---
Orthopedic Progress Note Date of Service Jun 23, 2017. Subjective Post OP Day: 1 Reports: feeling well, pain controlled w PO medications, Denies: chest pain, SOB , nausea / vomiting, calf pain Objective calves soft nontender, N/V intact, capillary refill less than 2 sec., incision C /D/I, A&O x3, toes mobile Date Time Temp Pulse Resp B/P (MAP) Pulse Ox O2 Delivery O2 Flow Rate FiO2 06/23/17 07:49 37.0 94 20 118/73 (88) 96 06/23/17 06:20 94 100/64 06/23/17 03:55 Room Air 06/23/17 03:45 36.7 86 18 100/64 (76) 96 Room Air 06/23/17 00:06 116 110/73 06/22/17 23:55 Room Air 06/22/17 23:30 36.8 108 20 110/73 (85) 96 Room Air 06/22/17 20:30 Room Air 06/22/17 20:25 36.4 95 22 104/64 (77) 97 Room Air 06/22/17 17:11 75 89/61 06/22/17 16:02 36.6 72 17 89/69 (76) 96 Nasal Cannula 2.0 06/22/17 16:00 Room Air 06/22/17 12:00 Room Air 06/22/17 12:00 76 90/66 06/22/17 11:33 36.6 73 18 82/59 (67) 90 06/22/17 10:30 36.3 76 16 96/66 (76) 96 Nasal Cannula 2.0 06/22/17 10:00 36.3 77 16 93/62 (72) 96 Nasal Cannula 2.0 Assessment & Plan Assessment: POD #1 I&D right foot Plan: some packing pulled today. will plan to pull the rest tomorrow. continue abx Inhouse Planning Pain Management: PO Tylenol DVT Prophylaxis: ASA Discharge Planning Discharge Planning: uncertain
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
[2017-06-23] MEDS: DAPTOmycin IV 450 MG in SYRINGE 0 ML IV SCH (12:18)
--- NOTE | 2017-06-23 14:35 | Progress Note ---
Internal Med Progress Note Date of Service: Jun 23, 2017. Provider Documentation: SUBJECTIVE: Patient is verbal and cooperative on exam. He reports that his sister came to visit yesterday. Potato chips at bedside. Patient denies new concerns. OBJECTIVE: Physical Exam: General Appearance: verbal Head: normocephalic, atraumatic Eyes: normal inspection, EOMI Neck: supple, trachea midline Respiratory/Chest: chest non-tender, lungs clear, normal breath sounds, no respiratory distress, no accessory muscle use Cardiovascular: heart rate in the 70s, still in flutter Abdomen/GI: non tender, soft, no organomegaly Extremities/Musculoskelatal/Neuro: chronic wound on lateral R hip with dressing , s/p debridement of areas of right foot ulcers ASSESSMENT & PLAN: Hospitalist Progress Note This is a 52 year old patient who presented to the ED for left elbow pain - found to have multiple active medical problems - was in atrial fibrillation with RVR to the 140s which was controlled by diltiazem drip, was hyperglycemic to 400 secondary to uncontrolled diabetes with hbA1c of 14.5 with blood sugars now better controlled, history of left below knee amputation, chronic right leg cellulitis and skin ulcers subsequently with subsequent lower extremity MRI confirming as osteomyelitis, right hip ulcer/drainage, history of head injury in the past vs stroke and brain MRI was recommended and pertinent for punctate foci of restricted diffusion identified in the left frontal and left parietal lobes consistent with acute to subacute infarcts which was performed after patient had stroke code called as he was thought to have new onset confusion, and then evaluated for depression by psychiatry and palliative care consult with code status changed as per those discussions with the patient from Full code to DNR/DNI (Level 5) Plans Neuro -history of head injury/stroke in the past -06/20/17 Brain MRI was recommended and pertinent for punctate foci of restricted diffusion identified in the left frontal and left parietal lobes consistent with acute to subacute infarcts -Carotid Ultrasound 06/20/17 Mild right and moderate left atherosclerotic plaquing of the carotid bulbs and proximal internal carotid arteries without hemodynamically significant stenosis identified. Normal antegrade vertebral flow bilaterally. -Echocardiogram 06/21/17 without evidence of cardiac thrombus -speech and swallow evaluation -PT/OT evaluations -Seizure disorder: Stable, continue home dose keppra -As of 06/22/17 patient has decline further anticoagulation at this time -will continue aspirin Heart -evaluated in the ED for afib RVR which improved with IV diltiazem, also had been on IV heparin for anticoagulation -Echocardiogram 06/21/17: Normal LV chamber size with mild concentric LVH. Normal LV systolic function, EF 55-60%. No segmental left ventricular wall motion abnormalities are noted.Trace mitral regurgitation. Mild left atrial enlargement. -As of 06/22/17 patient has decline further anticoagulation at this time -will continue aspirin, heart rate in recent days consistent in the 70s but still atrial flutter seen on telemetry Respiratory -Asthma:Stable , continue home meds -possible aspiration pneumonia as seen on CXR on 06/20/17 -patient breathing on room air - no distress and is eating -follow up Chest X ray ordered Infectious Sources -started on vancomycin and Zosyn empirically when admitted on 06/19/17 for right foot cellulitis vs osteomyelitis -possible aspiration pneumonia as seen on CXR on 06/20/17 -MRI of right lower extremity 06/21/17: Findings consistent with osteomyelitis of the proximal and middle phalanges of the right fifth toe. Possible associated pathologic fracture of the proximal phalanx which could be correlated with radiographs. Associated cellulitis with tiny abscesses along the dorsal aspect of the right fifth toe. Marrow edema with preserved T1 marrow signal signal within the distal phalanx of the right fifth toe and the fourth and fifth metatarsal heads. This favors osteitis however developing osteomyelitis could appear similar. -Vancomycin and Zosyn stopped on 06/21/17 and switched to Daptomycin for: Right foot osteomyelitis with abscess Abscess lateral aspect right hip with MRSA - wound care physician then performed incision and drainage on 06/21/17 MRSA septicemia - positive MRSA blood culture on 06/19/17 MRSA in urine - Orthopedic service performed following procedures on 06/22/17 1. Right foot Evacuation abscesses first metatarsophalangeal and fifth toe. 2. Right foot Debridement Extensor Tendon Right Fifth Toe, 3. Right foot Debridement Ischemic Ulcers: Fisrt, Third and Fifth Toes, 4. Right foot Debridement/ Excision Osteomyelitis of Bone Fifth Proximal Phalanx -Patient is agreeable to PICC line for outpatient antibiotics for Osteomyelitis or MRSA bacteremia if indicated. Will need to discuss with case management about logistics for future discharge with PICC line -the blood cultures from 06/21/17 has shown no cultures to date, will send repeat blood cultures and repeat UA to see whether MRSA has cleared Left elbow pain: -XR with small joint effusion -Orthopedics recommending elbow pad Diabetes Type 2 -Pharmacy Glycemic control consult following , insulin Electrolytes -Serum sodium corrected after hyperglycemia improved is normal limits -Hypokalemia / Hypomagnesemia on this admission has been repleted Depression Psychiatry consulted 06/21/17: increase Zoloft to 200 mg daily Palliative Care following patient Code Status: Level 5 (DNR/DNI) Vital Signs: Date Time Temp Pulse Resp B/P (MAP) Pulse Ox O2 Delivery O2 Flow Rate FiO2 06/23/17 12:00 Room Air 06/23/17 12:00 70 97/63 06/23/17 11:46 36.5 69 18 99/66 (77) 98 06/23/17 07:49 37.0 94 20 118/73 (88) 96 06/23/17 07:30 Room Air 06/23/17 06:20 94 100/64 06/23/17 03:55 Room Air 06/23/17 03:45 36.7 86 18 100/64 (76) 96 Room Air 06/23/17 00:06 116 110/73 06/22/17 23:55 Room Air 06/22/17 23:30 36.8 108 20 110/73 (85) 96 Room Air 06/22/17 20:30 Room Air 06/22/17 20:25 36.4 95 22 104/64 (77) 97 Room Air 06/22/17 17:11 75 89/61 06/22/17 16:02 36.6 72 17 89/69 (76) 96 Nasal Cannula 2.0 06/22/17 16:00 Room Air Lab Results: Results Past 24 Hours Test 06/22/17 16:14 06/22/17 19:54 06/23/17 04:39 06/23/17 06:52 Range/Units Bedside Glucose 148 74 245 70-99 mg/dl Activated Partial Thromboplast Time 27.3 21.0-31.0 SECONDS Partial Thromboplastin Ratio 1.1 Creatinine 0.55 0.60-1.40 mg/dl Est Creatinine Clear Calc Drug Dose 150.2 ml/min Estimated GFR () 137.9 Estimated GFR (Non- 119.0 Test 06/23/17 11:25 Range/Units Bedside Glucose 242 70-99 mg/dl
--- NOTE | 2017-06-23 15:21 | Pharmacy Progress Note ---
Pharmacy Glycemic Short Note 2 Date of Service Jun 23, 2017. OUTPATIENT ANTIDIABETIC REGIMEN: * Basaglar 50 units Q HS * Humalog TID w/ meals per scale (reports using ~10-15 units per meal) ASSESSMENT: * Mr Hidalgo received a total of 51 units of insulin yesterday. This was decreased from 71 units on 06/21. * BSGs over the past 24 hours: 79 (fasting), 116, 148, 74, 245 (fasting) * Elevated fasting BSG of 245 mg/dL this am is due to 50% reduction in basal insulin yesterday (pt was NPO for a period of time for R foot debridement). I anticipate improvement in fasting with resumption of Lantus 22 units BID. * No change in bolus insulin per prandial BSGs at goal over the past 24 hours. PLAN FOR INPATIENT GLYCEMIC CONTROL: * Basal insulin * Lantus 22 units SQ BID (11 units if BSG is less than 110 mg/dL) * Bolus insulin * NovoLog per scale ACHS or Q6hrs while NPO * Goal Range: Low 120 mg/dL - High 160 mg/dL * Correction Factor: 18 mg/dL/unit * Nutritional / Prandial insulin per carb ratio of 1 unit per 6 grams CHO consumed thank you.
--- NOTE | 2017-06-23 21:44 | DIAGNOSTIC IMAGING REPORT ---
CHEST 2 VIEWS ROUTINE HISTORY: follow wu CXR to that of 06/20/17 COMPARISON: Chest 06/20/2017. FINDINGS: No pneumothorax. No pleural effusions. The heart remains stable in size. Dextroscoliosis of the thoracic spine. Old, healed right lower rib fractures. The right lung remains clear. Hazy appearance the left mid to lower lung zone. This remains unchanged. Question of a nodular density within the left upper lobe was not present on the prior study. This is likely due to the overlapping rib. IMPRESSION: No change in the hazy opacities within the left mid to lower lung zone. Continued one month chest x-ray follow-up is recommended to ensure complete resolution. Electronically signed by: Surjit Pizarro M.D. 06/23/2017 9:43 PM Dictated Date/Time: 06/23/2017 9:41 PM
[2017-06-24] VITALS (10 sets, daily range): BP systolic 91–120; BP diastolic 61–79; PULSE 71–82; TEMP 36.4–37; O2SAT 95–98
[2017-06-24] MEDS: METOPROLOL TARTRATE 1 MG/ML VIAL IV. SCH ×3 (00:58→13:42)
[2017-06-24 04:42] LABS: HEMATOCRIT 31.3 % (42-52); HEMOGLOBIN 10.2 g/dL (14.0-18.0); MEAN CELL VOLUME 92.9 fL (80-100); MEAN CORPUSCULAR HEMOGLOBIN 30.3 pg (25-34); MEAN CORPUSCULAR HGB CONC 32.6 g/dl (32-36); MEAN PLATELET VOLUME 9.4 fL (7.4-10.4); PLATELET COUNT 331 K/uL (130-400); RED CELL DISTRIBUTION WIDTH CV 13.7 % (11.5-14.5); RED CELL DISTRIBUTION WIDTH SD 45.8 fL (36.4-46.3); WHITE BLOOD COUNT 7.56 K/uL (4.8-10.8)
[2017-06-24 05:05] LABS: ALBUMIN 1.9 gm/dl (3.4-5.0); CALCIUM 8.5 mg/dl (8.5-10.1); CREATININE 0.53 mg/dl (0.60-1.40)
[2017-06-24 05:08] LABS: TOTAL PROTEIN 6.4 gm/dl (6.4-8.2)
--- NOTE | 2017-06-24 07:43 | Anesthesiology Progress Note ---
Anesthesia Post Op Note Date & Time Jun 24, 2017 at 07:42 Vital Signs Pain Intensity: 2.0 Vital Signs Past 12 Hours Date Time Temp Pulse Resp B/P (MAP) Pulse Ox O2 Delivery O2 Flow Rate FiO2 06/24/17 06:27 98/61 (73) 06/24/17 06:00 82 98/61 06/24/17 04:00 Room Air 06/24/17 03:48 36.4 82 17 91/62 (72) 98 Nasal Cannula 2.0 06/24/17 00:58 78 110/68 06/24/17 00:05 Room Air 06/23/17 23:43 36.7 78 16 110/68 (82) 97 Room Air 06/23/17 20:00 Room Air 06/23/17 19:50 36.9 70 20 102/66 (78) 93 Room Air Notes Mental Status: alert / awake / arousable, participated in evaluation Pt Amnestic to Procedure: Yes Nausea / Vomiting: adequately controlled Pain: adequately controlled Airway Patency, RR, SpO2: stable & adequate BP & HR: stable & adequate Hydration State: stable & adequate Anesthetic Complications: no major complications apparent
[2017-06-24] MEDS: ASPIRIN 81 MG ECTAB PO SCH (08:30)
[2017-06-24] MEDS: SERTRALINE HCL 100 MG TAB PO SCH (08:30)
[2017-06-24] MEDS: ATORVASTATIN 40 MG TAB PO SCH (08:30)
[2017-06-24] MEDS: DILTIAZEM HCL 120 MG CAPCR PO SCH (08:30)
[2017-06-24] MEDS: RANITIDINE HCL 150 MG TAB PO SCH ×2 (08:30→21:05)
[2017-06-24] MEDS: LEVETIRACETAM 500 MG TAB PO SCH ×2 (08:31→21:04)
[2017-06-24] MEDS: INSULIN ASPART 100 UNITS/ML 3 ML PEN SC SCH ×4 (08:38→21:00)
[2017-06-24] MEDS: INSULIN GLARGINE SOLOSTAR 100 UNITS/ML 3 ML PEN SC SCH ×2 (08:39→21:07)
[2017-06-24] MEDS: ALPRAZOLAM 0.5 MG TAB PO SCH ×2 (09:00→21:09)
--- NOTE | 2017-06-24 09:15 | Orthopedic Progress Note ---
Orthopedic Progress Note Date of Service Jun 24, 2017. Subjective Post OP Day: 2 Additional Notes: Pt lying in bed. No complaints currently with his right foot. Objective dressing removed. packing pulled from great toe and 5th toe. Erythema noted on great toe more than 5th toe. No purulent drainage note from either wound site. Redressed with adaptic, 4x4's, kerlix and ruchi wrap. Date Time Temp Pulse Resp B/P (MAP) Pulse Ox O2 Delivery O2 Flow Rate FiO2 06/24/17 07:52 36.8 71 18 109/65 (80) 95 06/24/17 06:27 98/61 (73) 06/24/17 06:00 82 98/61 06/24/17 04:00 Room Air 06/24/17 03:48 36.4 82 17 91/62 (72) 98 Nasal Cannula 2.0 06/24/17 00:58 78 110/68 06/24/17 00:05 Room Air 06/23/17 23:43 36.7 78 16 110/68 (82) 97 Room Air 06/23/17 20:00 Room Air 06/23/17 19:50 36.9 70 20 102/66 (78) 93 Room Air 06/23/17 18:29 70 100/61 06/23/17 18:25 70 100/61 (74) 06/23/17 16:00 98 Room Air 06/23/17 15:45 36.6 71 22 100/66 (77) 98 Room Air 06/23/17 14:08 73 98 06/23/17 12:00 Room Air 06/23/17 12:00 70 97/63 06/23/17 11:46 36.5 69 18 99/66 (77) 98 Laboratory Results 24 Hours: Test 06/24/17 04:32 Hematocrit 31.3 % Hemoglobin 10.2 g/dL Additional Notes: RUN DATE: 06/24/17 [facility] LAB PAGE 1 RUN TIME: 823 Specimen Inquiry PATIENT: LASHONDA PHELPS LOC: [place] # : [id number] AGE/SX: 52/M ROOM: E210 REG : 06/19/[address]: Mynor Ricardo M.D. : 1965 BED: 1 DIS : STATUS: ADM IN TLOC: SPEC #: [id number] MARY: 06/22/17-UNK STATUS: RES REQ #: [id number] RECD: 06/22/[address] [facility] [address]: Mynor Ricardo M.D. SOURCE: ABSCESS ENTR: 06/22/[address] [facility] [address]: Avtar Villanueva D.O. SPDESC: TOE R5 Colt Amezcua D.O. Hopkins, Jane E.,Frankie Conway M.D., Robin A., MD Patterson, Jennifer., D.O. Schaefer, Kathleen A., M.D. Shaw, Mark R., DO ORDERED: AER/JIMBO CULTSMR Procedure Result Verified Site GRAM STAIN Final 06/22/17-1039 RESULT MANY WBCs SEEN RARE GRAM POSITIVE COCCI OR AER/JIMBO CULT Preliminary 06/24/17-823 Organism 1 STAPH. AUREUS MRSA QUANITY MODERATE SENS SENSITIVITY TO FOLLOW Organism 2 GROUP B BETA STREP QUANITY MODERATE SENS SENSITIVITY TO FOLLOW SENSITIVITY RESULT INDICATES A METHICILLIN RESISTANT STAPH. AUREUS. PHONED TO CADE HODGSON ON 06/24/17 AT 0702 BY Meghna Ji. Results were verbalized back to [facility]. RESULTS WERE ALSO CALLED TO [facility] CONTROL ANSWERING MACHINE ON 06/24/17 BY [employer]. 1. STAPH. AUREUS MRSA Target Route Dose RX AB Cost M.I.C. IQ ------ ----- ------ -- ------ -------- - ------ TRIMET/SULFA S <=0.5/ 9.5 * OXACILLIN R >2 VANCOMYCIN S 2 ERYTHROMYCIN S <=0.5 TETRACYCLINE S <=4 CLINDAMYCIN S <=0.5 DAPTOMYCIN S 1 RIFAMPIN S <=1 CONTINUED ON NEXT PAGE --- Assessment & Plan Assessment: POD #2 I&D right great toe and 5th toe Plan: Continue daily dressing changes Continue IV antibx Inhouse Planning Pain Management: PO Tylenol DVT Prophylaxis: ASA Discharge Planning Discharge Planning: uncertain
--- NOTE | 2017-06-24 10:28 | Progress Note ---
Subjective Date of Service: Jun 24, 2017. Subjective Pt evaluation today including: conversation w/ patient, physical exam, chart review, lab review pt seen in followup, tolerating dapto. blood cultures on 06/19 + MRSA, 06/21 negative to date, 06/24 pending. 06/20 hip culture with MRSA and GBS. Foot culture with MRSA and GBS. s/p debridement foot in OR over weekend. MRI elbow, with fluid collection. hip with collection on MRI as well. wound care following for hip wound management. Denies pain, denies f/c. Echo negative for veg. Pt states he is to be d/c to snf but is currently refusing this as it will take money from his paycheck. He is focused on this and is difficult to redirect. refuses much of his exam. remaining ros is limited but negative. Problem List Medical Problems: (1) Acute renal failure Status: Acute (2) Dehydration Status: Acute (3) Hyperglycemia Status: Acute (4) Hyponatremia Status: Acute (5) Hypotension Status: Acute (6) Left leg cellulitis Status: Acute (7) Pressure ulcer Permanent Comment: R hip Status: Acute Objective Vital Signs Date Time Temp Pulse Resp B/P (MAP) Pulse Ox O2 Delivery O2 Flow Rate FiO2 06/24/17 07:52 36.8 71 18 109/65 (80) 95 06/24/17 06:27 98/61 (73) 06/24/17 06:00 82 98/61 06/24/17 04:00 Room Air 06/24/17 03:48 36.4 82 17 91/62 (72) 98 Nasal Cannula 2.0 06/24/17 00:58 78 110/68 06/24/17 00:05 Room Air 06/23/17 23:43 36.7 78 16 110/68 (82) 97 Room Air 06/23/17 20:00 Room Air 06/23/17 19:50 36.9 70 20 102/66 (78) 93 Room Air 06/23/17 18:29 70 100/61 06/23/17 18:25 70 100/61 (74) 06/23/17 16:00 98 Room Air 06/23/17 15:45 36.6 71 22 100/66 (77) 98 Room Air 06/23/17 14:08 73 98 06/23/17 12:00 Room Air 06/23/17 12:00 70 97/63 06/23/17 11:46 36.5 69 18 99/66 (59) 98 Physical Exam General Appearance: WD/WN, no apparent distress Eyes: normal inspection, EOMI Neck: supple Respiratory/Chest: lungs clear, normal breath sounds, no respiratory distress, + decreased breath sounds Cardiovascular: regular rate, rhythm Abdomen: soft Extremities: + pertinent finding (refuses exam of b/l le and left elbow) Neurologic/Psychiatric: alert Skin: normal color Comments: right hip essentially unchanged from last week. + induration, + fluctuance, + drainage, packing in place Laboratory Results Item Value Date Time Gram Stain - Final Resulted 06/22/17 0000 Abscess Toe Right 5 Blood Culture - Preliminary Resulted 06/21/17 1136 Blood NO GROWTH TO DATE. Blood Culture - Preliminary Resulted 06/21/17 1128 Blood NO GROWTH TO DATE. Gram Stain - Final Complete 06/20/17 1145 Drainage-Deep Hip , Right Blood Culture - Preliminary Resulted 06/19/17 0700 Blood Staph. Aureus Mrsa Last 24 Hours Test 06/23/17 11:25 06/23/17 15:57 06/23/17 20:35 06/24/17 04:07 Bedside Glucose 242 mg/dl 93 mg/dl 286 mg/dl 147 mg/dl Urine Color YELLOW Urine Appearance CLEAR Urine pH 7.5 Urine Specific [place] 1.005 Urine Protein NEG Urine Glucose (UA) NEG Urine Ketones NEG Urine Occult Blood NEG Urine Nitrite NEG Urine Bilirubin NEG Urine Urobilinogen NEG Urine Leukocyte Esterase LARGE Urine WBC (Auto) 10-30 /hpf Urine RBC (Auto) 0-4 /hpf Urine Hyaline Casts (Auto) 0 /lpf Urine Epithelial Cells (Auto) >30 /lpf Urine Bacteria (Auto) NEG Urine Renal Epithelial Cells /lpf Test 06/24/17 04:32 White Blood Count 7.56 K/uL Red Blood Count 3.37 M/uL Hemoglobin 10.2 g/dL Hematocrit 31.3 % Mean Corpuscular Volume 92.9 fL Mean Corpuscular Hemoglobin 30.3 pg Mean Corpuscular Hemoglobin Concent 32.6 g/dl RDW Standard Deviation 45.8 fL RDW Coefficient of Variation 13.7 % Platelet Count 331 K/uL Mean Platelet Volume 9.4 fL Sodium Level 137 mmol/L Potassium Level 4.0 mmol/L Chloride Level 102 mmol/L Carbon Dioxide Level 33 mmol/L Anion Gap 2.0 mmol/L Blood Urea Nitrogen 10 mg/dl Creatinine 0.53 mg/dl Est Creatinine Clear Calc Drug Dose 155.9 ml/min Estimated GFR () 140.0 Estimated GFR (Non- 120.8 BUN/Creatinine Ratio 18.7 Random Glucose 171 mg/dl Calcium Level 8.5 mg/dl Magnesium Level 1.8 mg/dl Total Bilirubin 0.3 mg/dl Aspartate Amino Transf (AST/SGOT) 11 U/L Alanine Aminotransferase (ALT/SGPT) 16 U/L Alkaline Phosphatase 99 U/L Total Protein 6.4 gm/dl Albumin 1.9 gm/dl Globulin 4.5 gm/dl Albumin/Globulin Ratio 0.4 Assessment and Plan (1) MRSA (methicillin resistant Staphylococcus aureus) septicemia Assessment & Plan: will need prolonged course of IV abx. min 6 weeks, suspect he will need additional debridement foot/hip/elbow. will follow. (2) Abscess of right hip (3) Cellulitis of right foot
[2017-06-24] MEDS: DAPTOmycin IV 450 MG in SYRINGE 0 ML IV SCH (13:40)
--- NOTE | 2017-06-24 13:42 | Pharmacy Progress Note ---
Glycemic: Assessment & Plan Date of Service Jun 24, 2017. Assessment & Plan The patient is currently receiving 78 units of insulin per day. BSGs ranging 93 - 286 mg/dl over the past 24hrs. * Basal insulin: Lantus 22 units every 12 hours (unless <110) * Correctional Insulin: Novolog Correction per scale ACHS Goal Range: Low 120 mg/dL - High 160 mg/dL Correction Factor: 18 mg/dL/unit * Prandial insulin: Per carb ratio of 1 unit per 6 grams CHO consumed BSGs continue to improve, no changes needed to inpatient regimen at this time. Pharmacy will continue to monitor patient daily and write orders per [facility] inpatient glycemic control protocol. Thanks. * Please note that the plan above was derived based on current level of insulin resistance and hospital stress. These recommendations are appropriate for inpatient admission only. Plan of care upon discharge will need to be reassessed to avoid potential outpatient hypo/hyperglycemia.
--- NOTE | 2017-06-24 14:57 | Progress Note ---
Internal Med Progress Note Date of Service: Jun 24, 2017. Provider Documentation: SUBJECTIVE: Patient denies acute pain. He agrees to PICC line placement today. Telemetry with heart rate continues to be in 70s with flutter OBJECTIVE: Physical Exam: General Appearance: verbal Head: normocephalic, atraumatic Eyes: normal inspection, EOMI Neck: supple, trachea midline Respiratory/Chest: chest non-tender, lungs clear, normal breath sounds, no respiratory distress, no accessory muscle use Cardiovascular: heart rate in the 70s, still in flutter Abdomen/GI: non tender, soft, no organomegaly Extremities/Musculoskelatal/Neuro: chronic wound on lateral R hip with dressing , s/p debridement of areas of right foot ulcers with right foot in dressing ASSESSMENT & PLAN: Hospitalist Progress Note This is a 52 year old patient who presented to the ED for left elbow pain - found to have multiple active medical problems - was in atrial fibrillation with RVR to the 140s which was controlled by diltiazem drip, was hyperglycemic to 400 secondary to uncontrolled diabetes with hbA1c of 14.5 with blood sugars now better controlled, history of left below knee amputation, chronic right leg cellulitis and skin ulcers subsequently with subsequent lower extremity MRI confirming as osteomyelitis, right hip ulcer/drainage, history of head injury in the past vs stroke and brain MRI was recommended and pertinent for punctate foci of restricted diffusion identified in the left frontal and left parietal lobes consistent with acute to subacute infarcts which was performed after patient had stroke code called as he was thought to have new onset confusion, and then evaluated for depression by psychiatry and palliative care consult with code status changed as per those discussions with the patient from Full code to DNR/DNI (Level 5) Plans Neuro -history of head injury/stroke in the past -06/20/17 Brain MRI was recommended and pertinent for punctate foci of restricted diffusion identified in the left frontal and left parietal lobes consistent with acute to subacute infarcts -Carotid Ultrasound 06/20/17 Mild right and moderate left atherosclerotic plaquing of the carotid bulbs and proximal internal carotid arteries without hemodynamically significant stenosis identified. Normal antegrade vertebral flow bilaterally. -Echocardiogram 06/21/17 without evidence of cardiac thrombus -speech and swallow evaluation -PT/OT evaluations -Seizure disorder: Stable, continue home dose keppra -As of 06/22/17 patient has decline further anticoagulation at this time -will continue aspirin Heart -evaluated in the ED for afib RVR which improved with IV diltiazem, also had been on IV heparin for anticoagulation -Echocardiogram 06/21/17: Normal LV chamber size with mild concentric LVH. Normal LV systolic function, EF 55-60%. No segmental left ventricular wall motion abnormalities are noted.Trace mitral regurgitation. Mild left atrial enlargement. -As of 06/22/17 patient has decline further anticoagulation at this time -will continue aspirin, heart rate in recent days consistent in the 70s but still atrial flutter seen on telemetry Respiratory -Asthma:Stable , continue home meds -possible aspiration pneumonia as seen on CXR on 06/20/17 -patient breathing on room air - no distress and is eating -follow up Chest X ray ordered Infectious Sources -started on vancomycin and Zosyn empirically when admitted on 06/19/17 for right foot cellulitis vs osteomyelitis -possible aspiration pneumonia as seen on CXR on 06/20/17 -MRI of right lower extremity 06/21/17: Findings consistent with osteomyelitis of the proximal and middle phalanges of the right fifth toe. Possible associated pathologic fracture of the proximal phalanx which could be correlated with radiographs. Associated cellulitis with tiny abscesses along the dorsal aspect of the right fifth toe. Marrow edema with preserved T1 marrow signal signal within the distal phalanx of the right fifth toe and the fourth and fifth metatarsal heads. This favors osteitis however developing osteomyelitis could appear similar. -Vancomycin and Zosyn stopped on 06/21/17 and switched to Daptomycin for: Right foot osteomyelitis with abscess Abscess lateral aspect right hip with MRSA - wound care physician then performed incision and drainage on 06/21/17 MRSA septicemia - positive MRSA blood culture on 06/19/17 MRSA in urine - Orthopedic service performed following procedures on 06/22/17 and cultures grew MRSA 1. Right foot Evacuation abscesses first metatarsophalangeal and fifth toe. 2. Right foot Debridement Extensor Tendon Right Fifth Toe, 3. Right foot Debridement Ischemic Ulcers: First, Third and Fifth Toes, 4. Right foot Debridement/ Excision Osteomyelitis of Bone Fifth Proximal Phalanx -Patient is agreeable to PICC line for outpatient antibiotics for Osteomyelitis or MRSA bacteremia if indicated. Will need to discuss with case management about logistics for future discharge with PICC line -the blood cultures from 06/21/17 has shown no cultures to date, will send repeat blood cultures and repeat UA and blood cultures repeat o 06/24/17 -as per Infectious disease consult 06/24/17: will need prolonged course of IV abx. min 6 weeks, suspect he will need additional debridement -patient agrees to PICC line 06/24/17 Left elbow pain: -XR with small joint effusion -Orthopedics recommending elbow pad Diabetes Type 2 -Pharmacy Glycemic control consult following , insulin Electrolytes -Serum sodium corrected after hyperglycemia improved is normal limits -Hypokalemia / Hypomagnesemia on this admission has been repleted Depression Psychiatry consulted 06/21/17: increase Zoloft to 200 mg daily Palliative Care following patient Code Status: Level 5 (DNR/DNI) Disposition: OT indicates rehab is needed. PT indicates pt is not safe to return home and requires rehab/ SNF. Vital Signs: Date Time Temp Pulse Resp B/P (MAP) Pulse Ox O2 Delivery O2 Flow Rate FiO2 06/24/17 13:42 71 06/24/17 12:00 Room Air 06/24/17 11:20 36.6 74 17 120/79 (93) 98 Room Air 06/24/17 08:00 Room Air 06/24/17 07:52 36.8 71 18 109/65 (80) 95 06/24/17 06:27 98/61 (73) 06/24/17 06:00 82 98/61 06/24/17 04:00 Room Air 06/24/17 03:48 36.4 82 17 91/62 (72) 98 Nasal Cannula 2.0 06/24/17 00:58 78 110/68 06/24/17 00:05 Room Air 06/23/17 23:43 36.7 78 16 110/68 (82) 97 Room Air 06/23/17 20:00 Room Air 06/23/17 19:50 36.9 70 20 102/66 (78) 93 Room Air 06/23/17 18:29 70 100/61 06/23/17 18:25 70 100/61 (74) 06/23/17 16:00 98 Room Air 06/23/17 15:45 36.6 71 22 100/66 (77) 98 Room Air Lab Results: Results Past 24 Hours Test 06/23/17 15:57 06/23/17 20:35 06/24/17 04:07 06/24/17 04:32 Range/Units Bedside Glucose 93 286 147 70-99 mg/dl Urine Color YELLOW Urine Appearance CLEAR CLEAR Urine pH 7.5 4.5-7.5 Urine Specific [place] 1.005 1.000-1.030 Urine Protein NEG NEG Urine Glucose (UA) NEG NEG Urine Ketones NEG NEG Urine Occult Blood NEG NEG Urine Nitrite NEG NEG Urine Bilirubin NEG NEG Urine Urobilinogen NEG NEG Urine Leukocyte Esterase LARGE NEG Urine WBC (Auto) 10-30 0-5 /hpf Urine RBC (Auto) 0-4 0-4 /hpf Urine Hyaline Casts (Auto) 0 0-5 /lpf Urine Epithelial Cells (Auto) >30 0-5 /lpf Urine Bacteria (Auto) NEG NEG Urine Renal Epithelial Cells 0-5 /lpf White Blood Count 7.56 4.8-10.8 K/uL Red Blood Count 3.37 4.7-6.1 M/uL Hemoglobin 10.2 14.0-18.0 g/dL Hematocrit 31.3 42-52 % Mean Corpuscular Volume 92.9 80-100 fL Mean Corpuscular Hemoglobin 30.3 25-34 pg Mean Corpuscular Hemoglobin Concent 32.6 32-36 g/dl RDW Standard Deviation 45.8 36.4-46.3 fL RDW Coefficient of Variation 13.7 11.5-14.5 % Platelet Count 331 130-400 K/uL Mean Platelet Volume 9.4 7.4-10.4 fL Sodium Level 137 136-145 mmol/L Potassium Level 4.0 3.5-5.1 mmol/L Chloride Level 102 98-107 mmol/L Carbon Dioxide Level 33 21-32 mmol/L Anion Gap 2.0 3-11 mmol/L Blood Urea Nitrogen 10 7-18 mg/dl Creatinine 0.53 0.60-1.40 mg/dl Est Creatinine Clear Calc Drug Dose 155.9 ml/min Estimated GFR () 140.0 Estimated GFR (Non- 120.8 BUN/Creatinine Ratio 18.7 10-20 Random Glucose 171 70-99 mg/dl Calcium Level 8.5 8.5-10.1 mg/dl Magnesium Level 1.8 1.8-2.4 mg/dl Total Bilirubin 0.3 0.2-1 mg/dl Aspartate Amino Transf (AST/SGOT) 11 15-37 U/L Alanine Aminotransferase (ALT/SGPT) 16 12-78 U/L Alkaline Phosphatase 99 45-117 U/L Total Protein 6.4 6.4-8.2 gm/dl Albumin 1.9 3.4-5.0 gm/dl Globulin 4.5 2.5-4.0 gm/dl Albumin/Globulin Ratio 0.4 0.9-2 Test 06/24/17 07:05 06/24/17 11:22 Range/Units Bedside Glucose 173 179 70-99 mg/dl Microbiology Results 06/24/17 Blood Culture, Received Pending 06/24/17 Blood Culture, Received Pending
--- NOTE | 2017-06-24 15:08 | Neurology Progress Notes ---
Neurology Progress Note Date of Service Jun 24, 2017. 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 He states that he was lying on elbow watching football and believes to have injured it. Also has pain in R hip 2/2 chronic wound for which he has followed with [place] wound care in the past. He also has chronic wounds on R foot but denies any pain 2/2 diabetic neuropathy. He is a poor historian and the history is obtained from the chart. On route to the hospital he was found to have A flutter and was given cardizem prior to arriving at the ED. He lives alone but his sister checks on him. He no longer had home health services due to insurance issues. He ambulates with a wheelchair at baseline. His L BKA due to osteomyelitis [place] [address] Amezcua. Currently he is getting a PICC line to go home to finish the antibiotics ordered. He states he was shown how to administer the last time and he states he can do it again. he is hoping he can get some home nursing to help. denies CP , SOB, abdominal pain weakness, numbness tingling N, V. Objective Date Time Temp Pulse Resp B/P (MAP) Pulse Ox O2 Delivery O2 Flow Rate FiO2 06/24/17 13:42 71 06/24/17 12:00 Room Air 06/24/17 11:20 36.6 74 17 120/79 (93) 98 Room Air 06/24/17 08:00 Room Air 06/24/17 07:52 36.8 71 18 109/65 (80) 95 06/24/17 06:27 98/61 (73) 06/24/17 06:00 82 98/61 06/24/17 04:00 Room Air 06/24/17 03:48 36.4 82 17 91/62 (72) 98 Nasal Cannula 2.0 06/24/17 00:58 78 110/68 06/24/17 00:05 Room Air 06/23/17 23:43 36.7 78 16 110/68 (82) 97 Room Air 06/23/17 20:00 Room Air 06/23/17 19:50 36.9 70 20 102/66 (78) 93 Room Air 06/23/17 18:29 70 100/61 06/23/17 18:25 70 100/61 (74) 06/23/17 16:00 98 Room Air 06/23/17 15:45 36.6 71 22 100/66 (77) 98 Room Air Last 24 Hours Test 06/23/17 15:57 06/23/17 20:35 06/24/17 04:07 06/24/17 04:32 Bedside Glucose 93 mg/dl 286 mg/dl 147 mg/dl Urine Color YELLOW Urine Appearance CLEAR Urine pH 7.5 Urine Specific [place] 1.005 Urine Protein NEG Urine Glucose (UA) NEG Urine Ketones NEG Urine Occult Blood NEG Urine Nitrite NEG Urine Bilirubin NEG Urine Urobilinogen NEG Urine Leukocyte Esterase LARGE Urine WBC (Auto) 10-30 /hpf Urine RBC (Auto) 0-4 /hpf Urine Hyaline Casts (Auto) 0 /lpf Urine Epithelial Cells (Auto) >30 /lpf Urine Bacteria (Auto) NEG Urine Renal Epithelial Cells /lpf White Blood Count 7.56 K/uL Red Blood Count 3.37 M/uL Hemoglobin 10.2 g/dL Hematocrit 31.3 % Mean Corpuscular Volume 92.9 fL Mean Corpuscular Hemoglobin 30.3 pg Mean Corpuscular Hemoglobin Concent 32.6 g/dl RDW Standard Deviation 45.8 fL RDW Coefficient of Variation 13.7 % Platelet Count 331 K/uL Mean Platelet Volume 9.4 fL Sodium Level 137 mmol/L Potassium Level 4.0 mmol/L Chloride Level 102 mmol/L Carbon Dioxide Level 33 mmol/L Anion Gap 2.0 mmol/L Blood Urea Nitrogen 10 mg/dl Creatinine 0.53 mg/dl Est Creatinine Clear Calc Drug Dose 155.9 ml/min Estimated GFR () 140.0 Estimated GFR (Non- 120.8 BUN/Creatinine Ratio 18.7 Random Glucose 171 mg/dl Calcium Level 8.5 mg/dl Magnesium Level 1.8 mg/dl Total Bilirubin 0.3 mg/dl Aspartate Amino Transf (AST/SGOT) 11 U/L Alanine Aminotransferase (ALT/SGPT) 16 U/L Alkaline Phosphatase 99 U/L Total Protein 6.4 gm/dl Albumin 1.9 gm/dl Globulin 4.5 gm/dl Albumin/Globulin Ratio 0.4 Test 06/24/17 07:05 06/24/17 11:22 Bedside Glucose 173 mg/dl 179 mg/dl Imaging: wound image in chart Exam: Physical Exam: Constitutional:appearance, older than stated age, pale Ears, Nose, Mouth and Throat: mucous membranes moist, no injection and skin normal, eyes normal Cardiovascular: irregular Respiratory: course breath sounds Musculoskeletal: no peripheral edema and decreased distal pulses in right Skin: right LE wrapped due to ulcerated wound Eyes: extraocular muscles intact (EOMI) and pupils equal, round and reactive to light (PERRL) NEUROLOGIC EXAMINATION: Mental status: Alert and interactive Oriented to [facility], president Edd, year 2017 Oriented to person Speech fluent with no evidence of aphasia Cranial Nerves some asymmetry with facial structures Sensory: intact to light touch Coordination: finger to nose no bipass Gait/Stance: Posture lying in bed 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 hip flex left 5/5, hip flex right 4/5 Current Inpatient Medications Medications (Trade) Dose Ordered Sig/Niharika Route Start Time Stop Time Status Last Admin Dose Admin Acetaminophen (Tylenol Tab) 650 mg Q4H PRN PO 06/19/17 09:30 07/19/17 09:29 Miscellaneous Information (Consult Glycemic Management Pharmacy) 1 ea UD N/A 06/19/17 13:15 07/19/17 13:14 Diltiazem HCl 125 mg/Dextrose 125 ml @ 0 mls/hr Q0M PRN IV 06/19/17 10:15 07/19/17 10:14 Future Hold 06/20/17 02:26 5 MLS/HR Albuterol (Ventolin Hfa Inhaler) 2 puffs Q6H PRN INH 06/19/17 13:45 07/19/17 13:44 Alprazolam (Xanax Tab) 0.5 mg BID PO 06/19/17 21:00 07/19/17 20:59 06/23/17 20:34 0.5 MG Aspirin (Ecotrin Tab) 81 mg DAILY PO 06/20/17 09:00 07/20/17 08:59 06/24/17 08:30 81 MG Atorvastatin Calcium (Lipitor Tab) 40 mg DAILY PO 06/20/17 09:00 07/20/17 08:59 06/24/17 08:30 40 MG Baclofen (Lioresal Tab) 10 mg TID PRN PO 06/19/17 13:45 07/19/17 13:44 06/20/17 07:59 10 MG Levetiracetam (Keppra Tab) 1,500 mg BID PO 06/19/17 21:00 07/19/17 20:59 06/24/17 08:31 1,500 MG Ranitidine HCl (zANTac TAB) 150 mg BID PO 06/19/17 21:00 07/19/17 20:59 06/24/17 08:30 150 MG Glucose (Glucose 40% Gel) 15-30 GRAMS 15 GRAMS... UD PRN PO 06/19/17 14:30 07/19/17 14:29 Glucose (Glucose Chew Tab) 4-8 Tablets 4 Tabl... UD PRN PO 06/19/17 14:30 07/19/17 14:29 Dextrose (Dextrose 50% 50ML Syringe) 25-50ML OF 50% DW IV FOR... UD PRN IV 06/19/17 14:30 07/19/17 14:29 Glucagon (Glucagon Inj) 1 mg UD PRN SQ 06/19/17 14:30 07/19/17 14:29 Insulin Glargine (Lantus Solostar Pen) SEE PROTOCOL TEXT BID SC 06/19/17 21:00 07/19/17 20:59 Future hold 06/24/17 08:39 22 UNITS Insulin Aspart (novoLOG ASPART) SLIDING SCALE ACHS SC 06/20/17 16:15 07/20/17 16:14 06/24/17 13:39 9 UNITS Diltiazem HCl (Cardizem Cd Cap) 120 mg QAM PO 06/21/17 09:00 07/21/17 08:59 06/24/17 08:30 120 MG Ondansetron HCl (Zofran Inj) 4 mg Q4H PRN IV 06/20/17 17:15 07/20/17 17:14 Metoprolol Tartrate (Lopressor Iv) 5 mg Q6 IV. 06/21/17 00:00 07/21/17 00:00 06/24/17 13:42 5 MG Gadobutrol (Gadavist) 7.2 mmol UD PRN IV 06/21/17 04:10 06/25/17 04:09 Daptomycin 450 mg/ Syringe 9 ml @ 4.5 mls/min Q24H IV 06/21/17 12:00 08/02/17 11:59 06/24/17 13:40 4.5 MLS/MIN Sertraline HCl (Zoloft Tab) 200 mg QAM PO 06/21/17 14:15 07/21/17 14:14 06/24/17 08:30 200 MG Gadobutrol (Gadavist) 7.5 mmol UD PRN IV 06/21/17 17:15 06/25/17 17:14 Impression 52 year old male with uncontrolled DM and multiple DM ulcers, remote history of TBI, and ICH found to have a flutter Plan 1. MRI with punctate areas of acute infarct 2. cardiology - started metoprolol and diltiazem for rate control and heparin for anti coag 3. wound management for open lesions 4. antibiotics - ID managing 5. history seizures currently on 1500 mg BID Keppra level 23.3 6. aspirin 81 mg home medication 7. CT head with no acute bleed 8. carotid doppler no significant stenosis 9. TTE r/o septic emboli- no ASD 10. neurology has no objection to heparin gtt 11. home eval for safety if goes home instead of nursing facility we will sign off at this time. He is not interested in anticoagulation due the risk benefits explained to him. call with questions concerns. PT not seen, but discussed. Will sign off. TONY Mills MD I have discussed above patient with Dr Kamille Mills, neurology
[2017-06-24] MEDS ORDERED: METOPROLOL SUCC 25MG EXT REL TAB PO ONE (16:00)
[2017-06-24] MEDS ORDERED: METOPROLOL TARTRATE 1 MG/ML VIAL IV PRN (18:00)
[2017-06-25] VITALS (8 sets, daily range): BP systolic 87–124; BP diastolic 48–75; PULSE 70–145; TEMP 36.4–36.8; O2SAT 93–98
[2017-06-25] MEDS: ASPIRIN 81 MG ECTAB PO SCH (08:25)
[2017-06-25] MEDS: LEVETIRACETAM 500 MG TAB PO SCH ×2 (08:27→21:04)
[2017-06-25] MEDS: ALPRAZOLAM 0.5 MG TAB PO SCH ×2 (08:28→21:03)
[2017-06-25] MEDS: ATORVASTATIN 40 MG TAB PO SCH (08:28)
[2017-06-25] MEDS: RANITIDINE HCL 150 MG TAB PO SCH ×2 (08:29→21:04)
[2017-06-25] MEDS: SERTRALINE HCL 100 MG TAB PO SCH (08:30)
[2017-06-25] MEDS: INSULIN GLARGINE SOLOSTAR 100 UNITS/ML 3 ML PEN SC SCH (08:32)
[2017-06-25] MEDS: INSULIN ASPART 100 UNITS/ML 3 ML PEN SC SCH ×4 (08:36→21:11)
[2017-06-25] MEDS: METOPROLOL SUCC 25MG EXT REL TAB PO SCH (08:37)
[2017-06-25] MEDS ORDERED: INSULIN GLARGINE SOLOSTAR 100 UNITS/ML 3 ML PEN SC SCH ×3 (09:00→17:00)
--- NOTE | 2017-06-25 09:38 | Orthopedic Progress Note ---
Orthopedic Progress Note Date of Service Jun 25, 2017. Subjective Post OP Day: 3 Reports: feeling well, Denies: complaints Objective dressings removed. Minimal to no drainage noted on great toe dressing. Scant drainage noted on 5th toe dressing. Great toe with mild erythema. No purulence noted. 5 toe with very small amount of sterling discharge at one corner of wound where packing was removed. No foul odor. Less erythema on the 5th toe. Redressed with adaptic and 4x4's. Date Time Temp Pulse Resp B/P (MAP) Pulse Ox O2 Delivery O2 Flow Rate FiO2 06/25/17 08:00 Room Air 06/25/17 07:53 36.4 102 24 91/48 (62) 97 Room Air 06/25/17 04:00 Room Air 06/25/17 03:30 36.6 71 20 107/71 (83) 93 Room Air 06/24/17 23:59 Room Air 06/24/17 22:48 37.0 71 21 100/63 (75) 97 Room Air 06/24/17 20:10 36.7 71 25 106/71 (83) 96 Room Air 06/24/17 20:00 96 Room Air 06/24/17 18:05 37.0 72 20 109/72 (84) 97 06/24/17 16:00 97 Room Air 06/24/17 13:42 71 06/24/17 12:00 Room Air 06/24/17 11:20 36.6 74 17 120/79 (93) 98 Room Air Assessment & Plan Assessment: POD #3 I&D right great toe and 5th toe Plan: Looking a bit better today. Continue daily dressing changes Continue IV antibx Inhouse Planning Pain Management: PO Tylenol DVT Prophylaxis: ASA Discharge Planning Discharge Planning: uncertain
[2017-06-25] MEDS: DILTIAZEM HCL 120 MG CAPCR PO SCH (10:00)
--- NOTE | 2017-06-25 11:51 | DIAGNOSTIC IMAGING REPORT ---
CHEST ONE VIEW PORTABLE CLINICAL HISTORY: PICC placement RIGHT COMPARISON STUDY: Chest radiograph June 23, 2017. FINDINGS: The tip of the right PICC projects over the distal SVC. Scoliosis is again noted. No pneumothorax or pleural effusion is present. There is no consolidation to suggest pneumonia. IMPRESSION: Tip of right PICC projects over the distal SVC. Electronically signed by: Amor Thornton M.D. 06/25/2017 11:50 AM Dictated Date/Time: 06/25/2017 11:49 AM
[2017-06-25] MEDS: DAPTOmycin IV 450 MG in SYRINGE 0 ML IV SCH (12:34)
--- NOTE | 2017-06-25 13:53 | Pharmacy Progress Note ---
Glycemic: Assessment & Plan Date of Service Jun 25, 2017. Assessment & Plan The patient is currently receiving 72 units of insulin per day. BSGs ranging 84 - 242 mg/dl over the past 24hrs. Given fluctuating levels, I will transition the patient closer to their outpatient regimen of lantus once nightly over the next two days. CF/CR was adjusted this morning, but was changed back after lunch blood sugar results. * Basal insulin: Lantus 13 units this morning, followed by 28 units at dinner time. * Correctional Insulin: Novolog Correction per scale ACHS Goal Range: Low 120 mg/dL - High 160 mg/dL Correction Factor: 18 mg/dL/unit * Prandial insulin: Per carb ratio of 1 unit per 6 grams CHO consumed Pharmacy will continue to monitor patient daily and write orders per [facility] inpatient glycemic control protocol. Thanks. * Please note that the plan above was derived based on current level of insulin resistance and hospital stress. These recommendations are appropriate for inpatient admission only. Plan of care upon discharge will need to be reassessed to avoid potential outpatient hypo/hyperglycemia.
--- NOTE | 2017-06-25 14:00 | Wound Progress Note: Inpatient ---
Wound Progress Note Date of Service Jun 25, 2017. Subjective Pt evaluation today including: conversation w/ patient, physical exam, chart review Patient seen today for follow-up evaluation of a right hip abscess which was incision and drained 2 days prior. Patient has no specific complaints today. Patient does state that the pain in the hip area has improved. Objective Vital Signs Date Time Temp Pulse Resp B/P (MAP) Pulse Ox O2 Delivery O2 Flow Rate FiO2 06/25/17 12:56 92/68 (76) 06/25/17 12:37 Room Air 06/25/17 12:04 145 15 87/70 (76) 93 Room Air 06/25/17 10:00 100 112/75 (87) 06/25/17 08:00 Room Air 06/25/17 07:53 36.4 102 24 91/48 (62) 97 Room Air 06/25/17 04:00 Room Air 06/25/17 03:30 36.6 71 20 107/71 (83) 93 Room Air 06/24/17 23:59 Room Air 06/24/17 22:48 37.0 71 21 100/63 (75) 97 Room Air 06/24/17 20:10 36.7 71 25 106/71 (83) 96 Room Air 06/24/17 20:00 96 Room Air 06/24/17 18:05 37.0 72 20 109/72 (84) 97 06/24/17 16:00 97 Room Air Physical Exam Notes: Patients vital signs were reviewed and found to be unremarkable patient is afebrile. The site today shows some Central slough and surrounding eschar and necrotic tissue in the periphery. The site following debridement of this area measures 4.8 x 4 x 1.5 cm with undermining present between 7 and 9:00 2.5 cm. There is beginning of the base of granulation tissue noted. Decreased periwound erythema is noted. No tenderness to palpation or additional fluctuance is present. Some drainage was noted which was yellowish nonodorous in character. Laboratory Results Last 24 Hours Test 06/24/17 16:26 06/24/17 21:01 06/25/17 06:37 06/25/17 11:26 Bedside Glucose 159 mg/dl 150 mg/dl 84 mg/dl 242 mg/dl Assessment and Plan Assessment: Abscess lateral aspect right hip Plan: The abscess site did require further debridement. With patient's permission the area was prepped with Betadine and infiltrated with lidocaine 2% N topical Xylocaine 4%. The surrounding margins necrotic skin and eschar as well as central slough and some subcutaneous tissue was removed with scissors and forceps. Bleeding did occur but was controlled with direct pressure. The site will now be maintained with an irrigating wound VAC set at 10 minutes of irrigation with normal saline followed by 2 hours with VAC therapy black foam 125 mm of negative pressure. This will be continued for the next 48 hours with consideration at that time conversion to a routine VAC for home therapy. Patient tolerated the procedure well. This represented an excisional debridement of less than 20 cm..
--- NOTE | 2017-06-25 17:01 | Progress Note ---
Internal Med Progress Note Date of Service: Jun 25, 2017. Provider Documentation: SUBJECTIVE: resting comfortably eating breakfast denies any pain no sob or chest pain afebrile failed picc line attempt yesterday OBJECTIVE: Vital Signs-as noted below Exam: General-alert and oriented. Not in distress ENT-Normal hearing Neck-no neck masses Lungs-cta b/l no wheezing or crackles Heart-S1 and S2 heard regular rate and rhythm, no murmurs Abdomen-soft bowel sounds present no tenderness no distension Extremities-rt hip dressing, right foot ulcers s/p debridement-in dressing Neuro-alert and awake moves extremities Lab data as noted below. ASSESSMENT & PLAN: As per :"This is a 52 year old patient who presented to the ED for left elbow pain - found to have multiple active medical problems - was in atrial fibrillation with RVR to the 140s which was controlled by diltiazem drip, was hyperglycemic to 400 secondary to uncontrolled diabetes with hbA1c of 14.5 with blood sugars now better controlled, history of left below knee amputation, chronic right leg cellulitis and skin ulcers subsequently with subsequent lower extremity MRI confirming as osteomyelitis, right hip ulcer/drainage, history of head injury in the past vs stroke and brain MRI was recommended and pertinent for punctate foci of restricted diffusion identified in the left frontal and left parietal lobes consistent with acute to subacute infarcts which was performed after patient had stroke alert code called as he was thought to have new onset confusion, and then evaluated for depression by psychiatry and palliative care consult with code status changed as per those discussions with the patient from Full code to DNR/DNI (Level 5)" Plans CVA history of head injury/stroke in the past 06/20/17 Brain MRI - Left frontal and parietal lobe acute/subacute infarcts Carotid Ultrasound 06/20/17 unremarkable Echocardiogram 06/21/17 un remarkable speech and swallow evaluation PT/OT evaluations As per patient decline further anticoagulation at this time On aspirin A fib Initially was on IV diltiazem, also had been on IV heparin for anticoagulation Echocardiogram 06/21/17:unremarkable currently rates controlled with Toprol xl and Diltiazem to continue aspirin Asthma stable on home emds. Infectious Sources right foot cellulitis and abscess and osteomyelitis MRI of right lower extremity 06/21/17: Findings consistent with osteomyelitis of the proximal and middle phalanges of the right fifth toe. Possible associated pathologic fracture of the proximal phalanx which could be correlated with radiographs. Associated cellulitis with tiny abscesses along the dorsal aspect of the right fifth toe. Marrow edema with preserved T1 marrow signal signal within the distal phalanx of the right fifth toe and the fourth and fifth metatarsal heads. This favors osteitis however Initially was on Vancomycin and Zosyn later switched to Daptomycin by ID: Right foot osteomyelitis with abscess s/p I and D by ortho. Abscess lateral aspect right hip with MRSA - wound care physician then performed incision and drainage on 06/21/17 MRSA septicemia - positive MRSA blood culture on 06/19/17 MRSA in urine s/p picc line plan for iv abx for 6 weeks Left elbow pain: XR with small joint effusion -Orthopedics recommending elbow pad Diabetes Type 2 Pharmacy Glycemic control consult following , insulin Will monitor Electrolytes will monitor. Depression Psychiatry consulted 06/21/17: increase Zoloft to 200 mg daily Palliative Care following patient Code Status: Level 5 (DNR/DNI) Disposition: OT indicates rehab is needed. PT indicates pt is not safe to return home and requires rehab/ SNF. Social service for d/c planning Vital Signs: Date Time Temp Pulse Resp B/P (MAP) Pulse Ox O2 Delivery O2 Flow Rate FiO2 06/25/17 16:38 36.7 97 23 124/67 (86) 98 Room Air 06/25/17 16:17 Room Air 06/25/17 12:56 92/68 (76) 06/25/17 12:37 Room Air 06/25/17 12:04 145 15 87/70 (76) 93 Room Air 06/25/17 10:00 100 112/75 (87) 06/25/17 08:00 Room Air 06/25/17 07:53 36.4 102 24 91/48 (62) 97 Room Air 06/25/17 04:00 Room Air 06/25/17 03:30 36.6 71 20 107/71 (83) 93 Room Air 06/24/17 23:59 Room Air 06/24/17 22:48 37.0 71 21 100/63 (75) 97 Room Air 06/24/17 20:10 36.7 71 25 106/71 (83) 96 Room Air 06/24/17 20:00 96 Room Air 06/24/17 18:05 37.0 72 20 109/72 (84) 97 Lab Results: Results Past 24 Hours Test 06/24/17 21:01 06/25/17 06:37 06/25/17 11:26 06/25/17 16:11 Range/Units Bedside Glucose 150 84 242 218 70-99 mg/dl
[2017-06-26 03:45] VITALS: BP 104/70; PULSE 71; TEMP 36.9; O2SAT 95
[2017-06-26] MEDS: INSULIN ASPART 100 UNITS/ML 3 ML PEN SC SCH ×6 (04:00→21:10)
[2017-06-26] MEDS: LEVETIRACETAM 500 MG TAB PO SCH ×2 (08:18→20:23)
[2017-06-26] MEDS: METOPROLOL SUCC 25MG EXT REL TAB PO SCH (08:18)
[2017-06-26] MEDS: ATORVASTATIN 40 MG TAB PO SCH (08:18)
[2017-06-26] MEDS: ASPIRIN 81 MG ECTAB PO SCH (08:18)
[2017-06-26] MEDS: RANITIDINE HCL 150 MG TAB PO SCH ×2 (08:18→20:22)
[2017-06-26] MEDS: SERTRALINE HCL 100 MG TAB PO SCH (08:19)
[2017-06-26] MEDS: DILTIAZEM HCL 120 MG CAPCR PO SCH (08:19)
[2017-06-26] MEDS: ALPRAZOLAM 0.5 MG TAB PO SCH ×2 (10:20→20:27)
[2017-06-26 10:45] VITALS: BP 102/62; PULSE 97; TEMP 36.6; O2SAT 99
[2017-06-26] MEDS: DAPTOmycin IV 450 MG in SYRINGE 0 ML IV SCH (13:03)
--- NOTE | 2017-06-26 15:20 | Progress Note ---
Subjective Date of Service: Jun 26, 2017. Subjective pt for wound vac to be continued post d/c. no plan for additional debridement hip, foot, elbow. repeat cutlures negative, remains on abx. no overnight events. Problem List Medical Problems: (1) Acute renal failure Status: Acute (2) Dehydration Status: Acute (3) Hyperglycemia Status: Acute (4) Hyponatremia Status: Acute (5) Hypotension Status: Acute (6) Left leg cellulitis Status: Acute (7) Pressure ulcer Permanent Comment: R hip Status: Acute Objective Vital Signs Date Time Temp Pulse Resp B/P (MAP) Pulse Ox O2 Delivery O2 Flow Rate FiO2 06/26/17 12:32 Room Air 06/26/17 10:45 36.6 97 20 102/62 (75) 99 Room Air 06/26/17 08:00 Room Air 06/26/17 04:00 Room Air 06/26/17 03:45 36.9 71 16 104/70 (81) 95 Room Air 06/25/17 23:59 Room Air 06/25/17 23:48 36.6 70 17 98/67 (77) 97 Room Air 06/25/17 20:18 36.8 70 20 100/66 (77) 95 Room Air 06/25/17 20:00 Room Air 06/25/17 16:38 36.7 97 23 124/67 (86) 98 Room Air 06/25/17 16:17 Room Air Laboratory Results Item Value Date Time Blood Culture - Preliminary Resulted 06/24/17 0432 Blood NO GROWTH TO DATE. Blood Culture - Preliminary Resulted 06/24/17 0432 Blood NO GROWTH TO DATE. Gram Stain - Final Resulted 06/22/17 0000 Abscess Toe Right 5 Blood Culture - Preliminary Resulted 06/21/17 1136 Blood NO GROWTH TO DATE. Blood Culture - Preliminary Resulted 06/21/17 1128 Blood NO GROWTH TO DATE. Gram Stain - Final Complete 06/20/17 1145 Drainage-Deep Hip , Right Blood Culture - Final Complete 06/19/17 0700 Blood Staph. Aureus Mrsa Gram Stain - Final Resulted 06/22/17 0000 Abscess Toe Right 5 Urine Culture - Final Complete 06/19/17 0745 Urine , Clean Catch Staph. Aureus Mrsa Last 24 Hours Test 06/25/17 16:11 06/25/17 21:01 06/25/17 23:59 06/26/17 03:57 Bedside Glucose 218 mg/dl 235 mg/dl 123 mg/dl 113 mg/dl Test 06/26/17 06:42 Bedside Glucose 154 mg/dl Assessment and Plan (1) MRSA (methicillin resistant Staphylococcus aureus) septicemia Assessment & Plan: will need prolonged course of IV abx. min 6 weeks, suspect he will need additional debridement foot/hip/elbow. will follow. will need weekly cbc,cmp, esr, cpk while on dapto. can follow with ID at wound center (2) Abscess of right hip (3) Cellulitis of right foot
--- NOTE | 2017-06-26 15:28 | Pharmacy Progress Note ---
Glycemic: Assessment & Plan Date of Service Jun 26, 2017. Assessment & Plan The patient is currently receiving 83 units of insulin per day. BSGs ranging 113 - 245 mg/dl over the past 24hrs. I will transition closer to patient's home dose of 50 units HS and slightly tighten carb ratio and lower goal range. * Basal insulin: Lantus 40 units every 24 hours * Correctional Insulin: Novolog Correction per scale ACHS Goal Range: Low 110 mg/dL - High 150 mg/dL Correction Factor: 18 mg/dL/unit * Prandial insulin: Per carb ratio of 1 unit per 5 grams CHO consumed BSGs continue to improve, no changes needed to inpatient regimen at this time. Pharmacy will continue to monitor patient daily and write orders per [facility] inpatient glycemic control protocol. Thanks. * Please note that the plan above was derived based on current level of insulin resistance and hospital stress. These recommendations are appropriate for inpatient admission only. Plan of care upon discharge will need to be reassessed to avoid potential outpatient hypo/hyperglycemia.
[2017-06-26 16:28] VITALS: BP 100/72; PULSE 70; TEMP 36.3; O2SAT 99
--- NOTE | 2017-06-26 16:53 | Progress Note ---
Internal Med Progress Note Date of Service: Jun 26, 2017. Provider Documentation: SUBJECTIVE: resting comfortably s/p wound vac on right hip afebrile no pain eating fine ok for rehab OBJECTIVE: Vital Signs-as noted below Exam: General-alert and oriented. Not in distress ENT-Normal hearing Neck-no neck masses Lungs-cta b/l no wheezing or crackles Heart-S1 and S2 heard regular rate and rhythm, no murmurs Abdomen-soft bowel sounds present no tenderness no distension Extremities-rt hip s/p wound vac, right foot ulcers s/p debridement-in dressing Neuro-alert and awake moves extremities Lab data as noted below. ASSESSMENT & PLAN: As per :"This is a 52 year old patient who presented to the ED for left elbow pain - found to have multiple active medical problems - was in atrial fibrillation with RVR to the 140s which was controlled by diltiazem drip, was hyperglycemic to 400 secondary to uncontrolled diabetes with hbA1c of 14.5 with blood sugars now better controlled, history of left below knee amputation, chronic right leg cellulitis and skin ulcers subsequently with subsequent lower extremity MRI confirming as osteomyelitis, right hip ulcer/drainage, history of head injury in the past vs stroke and brain MRI was recommended and pertinent for punctate foci of restricted diffusion identified in the left frontal and left parietal lobes consistent with acute to subacute infarcts which was performed after patient had stroke alert code called as he was thought to have new onset confusion, and then evaluated for depression by psychiatry and palliative care consult with code status changed as per those discussions with the patient from Full code to DNR/DNI (Level 5)" Plans CVA history of head injury/stroke in the past 06/20/17 Brain MRI - Left frontal and parietal lobe acute/subacute infarcts Carotid Ultrasound 06/20/17 unremarkable Echocardiogram 06/21/17 un remarkable speech and swallow evaluation PT/OT evaluations As per patient decline further anticoagulation at this time On aspirin stable A fib Initially was on IV diltiazem, also had been on IV heparin for anticoagulation Echocardiogram 06/21/17:unremarkable currently rates controlled with Toprol xl and Diltiazem to continue aspirin stable Asthma stable on home emds. Infectious Sources right foot cellulitis and abscess and osteomyelitis MRI of right lower extremity 06/21/17: Findings consistent with osteomyelitis of the proximal and middle phalanges of the right fifth toe. Possible associated pathologic fracture of the proximal phalanx which could be correlated with radiographs. Associated cellulitis with tiny abscesses along the dorsal aspect of the right fifth toe. Marrow edema with preserved T1 marrow signal signal within the distal phalanx of the right fifth toe and the fourth and fifth metatarsal heads. This favors osteitis however Initially was on Vancomycin and Zosyn later switched to Daptomycin by ID: Right foot osteomyelitis with abscess s/p I and D by ortho. Abscess lateral aspect right hip with MRSA - wound care physician then performed incision and drainage on 06/21/17 MRSA septicemia - positive MRSA blood culture on 06/19/17 MRSA in urine s/p picc line plan for iv abx for 6 weeks and followup with wound care Left elbow pain: XR with small joint effusion -Orthopedics recommending elbow pad Diabetes Type 2 Pharmacy Glycemic control consult following , insulin Will monitor Electrolytes will monitor. Depression Psychiatry consulted 06/21/17: increase Zoloft to 200 mg daily Palliative Care following patient Code Status: Level 5 (DNR/DNI) Disposition: OT indicates rehab is needed. PT indicates pt is not safe to return home and requires rehab/ SNF. Social service for d/c planning patient likes to go to [place] rehab Vital Signs: Date Time Temp Pulse Resp B/P (MAP) Pulse Ox O2 Delivery O2 Flow Rate FiO2 06/26/17 16:28 36.3 70 16 100/72 (81) 99 Room Air 06/26/17 16:00 Room Air 06/26/17 12:32 Room Air 06/26/17 10:45 36.6 97 20 102/62 (75) 99 Room Air 06/26/17 08:00 Room Air 06/26/17 04:00 Room Air 06/26/17 03:45 36.9 71 16 104/70 (81) 95 Room Air 06/25/17 23:59 Room Air 06/25/17 23:48 36.6 70 17 98/67 (77) 97 Room Air 06/25/17 20:18 36.8 70 20 100/66 (77) 95 Room Air 06/25/17 20:00 Room Air Lab Results: Results Past 24 Hours Test 06/25/17 21:01 06/25/17 23:59 06/26/17 03:57 06/26/17 06:42 Range/Units Bedside Glucose 235 123 113 154 70-99 mg/dl Test 06/26/17 10:51 06/26/17 16:14 Range/Units Bedside Glucose 232 222 70-99 mg/dl
[2017-06-26] MEDS ORDERED: INSULIN GLARGINE SOLOSTAR 100 UNITS/ML 3 ML PEN SC SCH (17:00)
[2017-06-26 20:54] VITALS: BP 93/69; PULSE 70; TEMP 36.6; O2SAT 99
[2017-06-27] VITALS (10 sets, daily range): BP systolic 75–118; BP diastolic 52–79; PULSE 60–115; TEMP 36.1–36.9; O2SAT 92–100
[2017-06-27] MEDS: INSULIN ASPART 100 UNITS/ML 3 ML PEN SC SCH ×6 (00:52→21:00)
[2017-06-27] MEDS: METOPROLOL SUCC 25MG EXT REL TAB PO SCH (08:47)
[2017-06-27] MEDS: ASPIRIN 81 MG ECTAB PO SCH (08:47)
[2017-06-27] MEDS: RANITIDINE HCL 150 MG TAB PO SCH ×2 (08:47→21:31)
[2017-06-27] MEDS: ATORVASTATIN 40 MG TAB PO SCH (08:47)
[2017-06-27] MEDS: SERTRALINE HCL 100 MG TAB PO SCH (08:47)
[2017-06-27] MEDS: DILTIAZEM HCL 120 MG CAPCR PO SCH (08:48)
[2017-06-27] MEDS: LEVETIRACETAM 500 MG TAB PO SCH ×2 (08:48→21:31)
[2017-06-27] MEDS: ALPRAZOLAM 0.5 MG TAB PO SCH ×2 (08:56→21:29)
[2017-06-27] MEDS: DAPTOmycin IV 450 MG in SYRINGE 0 ML IV SCH (12:08)
--- NOTE | 2017-06-27 12:51 | DIAGNOSTIC IMAGING REPORT ---
CT HEAD WITHOUT CONTRAST (CT) CLINICAL HISTORY: Stroke like symptoms COMPARISON STUDY: 06/20/2017 TECHNIQUE: Axial CT of the brain is performed from the vertex to the skull base. IV contrast was not administered for this examination. A dose lowering technique was utilized adhering to the principles of ALARA. CT DOSE: 614.27 mGy.cm FINDINGS: No intra or extra-axial mass lesions are visualized. There is no CT evidence of acute cortical infarction. There is no evidence of midline shift. There is no acute hemorrhage. No calvarial fractures are visualized. There are patchy white matter hypodensities likely on a small vessel basis. There is an old cortical infarct involving the high left parietal convexity There is no evidence of pathologic ventricular dilatation. There is no evidence of acute sinusitis IMPRESSION: No acute intracranial findings Electronically signed by: Rickey Dimas M.D. 06/27/2017 12:49 PM Dictated Date/Time: 06/27/2017 12:48 PM
--- NOTE | 2017-06-27 14:28 | Pharmacy Progress Note ---
Glycemic: Assessment & Plan Date of Service Jun 27, 2017. Assessment & Plan The patient is currently receiving 78 units of insulin per day. BSGs ranging 153 - 222 mg/dl over the past 24hrs. Blood sugars improving after transition to once daily regimen, with tighter carb ratio and lower goal range. I will slightly increase basal insulin from 40 to 42 units to improve fasting levels. * Basal insulin: Lantus 42 units every 24 hours at bedtime * Correctional Insulin: Novolog Correction per scale ACHS Goal Range: Low 110 mg/dL - High 150 mg/dL Correction Factor: 18 mg/dL/unit * Prandial insulin: Per carb ratio of 1 unit per 5 grams CHO consumed Pharmacy will continue to monitor patient daily and write orders per [facility] inpatient glycemic control protocol. Thanks. * Please note that the plan above was derived based on current level of insulin resistance and hospital stress. These recommendations are appropriate for inpatient admission only. Plan of care upon discharge will need to be reassessed to avoid potential outpatient hypo/hyperglycemia.
--- NOTE | 2017-06-27 17:21 | Progress Note ---
Internal Med Progress Note Date of Service: Jun 27, 2017. Provider Documentation: SUBJECTIVE: resting comfortably denies any pain eating fine moving bowels ok no complaints later there was question of slurred speech but patyinet did fine with neuro exam and ct head was negative OBJECTIVE: Vital Signs-as noted below Exam: General-alert and oriented. Not in distress ENT-Normal hearing Neck-no neck masses Lungs-cta b/l no wheezing or crackles Heart-S1 and S2 heard regular rate and rhythm, no murmurs Abdomen-soft bowel sounds present no tenderness no distension Extremities-rt hip s/p wound vac, right foot ulcers s/p debridement-in dressing Neuro-alert and awake and oriented x 3 non focal moves extremities Lab data as noted below. ASSESSMENT & PLAN: As per :"This is a 52 year old patient who presented to the ED for left elbow pain - found to have multiple active medical problems - was in atrial fibrillation with RVR to the 140s which was controlled by diltiazem drip, was hyperglycemic to 400 secondary to uncontrolled diabetes with hbA1c of 14.5 with blood sugars now better controlled, history of left below knee amputation, chronic right leg cellulitis and skin ulcers subsequently with subsequent lower extremity MRI confirming as osteomyelitis, right hip ulcer/drainage, history of head injury in the past vs stroke and brain MRI was recommended and pertinent for punctate foci of restricted diffusion identified in the left frontal and left parietal lobes consistent with acute to subacute infarcts which was performed after patient had stroke alert code called as he was thought to have new onset confusion, and then evaluated for depression by psychiatry and palliative care consult with code status changed as per those discussions with the patient from Full code to DNR/DNI (Level 5)" Plans CVA history of head injury/stroke in the past 06/20/17 Brain MRI - Left frontal and parietal lobe acute/subacute infarcts Carotid Ultrasound 06/20/17 unremarkable Echocardiogram 06/21/17 un remarkable speech and swallow evaluation PT/OT evaluations As per patient decline further anticoagulation at this time also discussed about anticoagulation today as there was question of slurred speech but exam and ct scan was unremarkable and he declines On aspirin A fib Initially was on IV diltiazem, also had been on IV heparin for anticoagulation Echocardiogram 06/21/17:unremarkable currently rates controlled with Toprol xl and Diltiazem declines anticoagulation to continue aspirin stable Asthma stable on home emds. Stable conditions: Infectious Sources right foot cellulitis and abscess and osteomyelitis MRI of right lower extremity 06/21/17: Findings consistent with osteomyelitis of the proximal and middle phalanges of the right fifth toe. Possible associated pathologic fracture of the proximal phalanx which could be correlated with radiographs. Associated cellulitis with tiny abscesses along the dorsal aspect of the right fifth toe. Marrow edema with preserved T1 marrow signal signal within the distal phalanx of the right fifth toe and the fourth and fifth metatarsal heads. This favors osteitis however Initially was on Vancomycin and Zosyn later switched to Daptomycin by ID: Right foot osteomyelitis with abscess s/p I and D by ortho. Abscess lateral aspect right hip with MRSA - wound care physician then performed incision and drainage on 06/21/17 MRSA septicemia - positive MRSA blood culture on 06/19/17 MRSA in urine s/p picc line plan for iv abx for 6 weeks and followup with wound care Left elbow pain: XR with small joint effusion -Orthopedics recommending elbow pad Diabetes Type 2 Pharmacy Glycemic control consult following , insulin Will monitor Electrolytes will monitor. Depression Psychiatry consulted 06/21/17: increase Zoloft to 200 mg daily Palliative Care following patient Code Status: Level 5 (DNR/DNI) Disposition: OT indicates rehab is needed. PT indicates pt is not safe to return home and requires rehab/ SNF. Social service for d/c planning patient likes to go to [place] rehab Vital Signs: Date Time Temp Pulse Resp B/P (MAP) Pulse Ox O2 Delivery O2 Flow Rate FiO2 06/27/17 16:00 Room Air 06/27/17 15:50 98 Room Air 06/27/17 15:40 36.6 75 15 98/65 (76) 98 Room Air 06/27/17 13:31 Room Air 06/27/17 12:00 36.3 72 20 99/77 (84) 100 Room Air 06/27/17 11:10 36.1 115 20 86/69 (75) 97 Room Air 06/27/17 07:30 36.7 70 20 103/72 (82) 98 Room Air 06/27/17 03:39 36.9 69 28 117/79 (92) 98 Room Air 06/27/17 00:00 36.9 70 14 118/72 (87) 96 Room Air 06/26/17 20:54 36.6 70 18 93/69 (77) 99 Room Air 06/26/17 19:25 Room Air Lab Results: Results Past 24 Hours Test 06/26/17 20:37 06/27/17 00:49 06/27/17 04:09 06/27/17 06:53 Range/Units Bedside Glucose 153 205 195 186 70-99 mg/dl Test 06/27/17 11:05 06/27/17 16:10 Range/Units Bedside Glucose 158 199 70-99 mg/dl
[2017-06-27] MEDS: SODIUM CHLORIDE 0.9% 1000ML 1,000 ML IV SCH (17:45)
[2017-06-27] MEDS: APIXABAN 2.5 MG TAB PO SCH (21:30)
[2017-06-27] MEDS: INSULIN GLARGINE SOLOSTAR 100 UNITS/ML 3 ML PEN SC SCH (21:51)
[2017-06-28] MEDS: INSULIN ASPART 100 UNITS/ML 3 ML PEN SC SCH ×6 (00:40→21:54)
[2017-06-28 04:35] VITALS: BP 96/62; PULSE 71; TEMP 36.8; O2SAT 98
[2017-06-28] MEDS: SODIUM CHLORIDE 0.9% 1000ML 1,000 ML IV SCH ×2 (06:15→19:46)
[2017-06-28 06:27] LABS: BASO % 0.3 %; BASO ABS # 0.02 K/uL (0-0.2); EOS % 1.8 %; EOS ABS # 0.14 K/uL (0-0.5); HEMATOCRIT 31.4 % (42-52); HEMOGLOBIN 10.2 g/dL (14.0-18.0); LYMPH % 20.4 %; LYMPH ABS # 1.56 K/uL (1.2-3.4); MEAN CELL VOLUME 93.5 fL (80-100); MEAN CORPUSCULAR HEMOGLOBIN 30.4 pg (25-34); MEAN CORPUSCULAR HGB CONC 32.5 g/dl (32-36); MEAN PLATELET VOLUME 8.9 fL (7.4-10.4); MONO % 5.7 %; MONO ABS # 0.44 K/uL (0.11-0.59); NEUT % 70.5 %; PLATELET COUNT 457 K/uL (130-400); RED CELL DISTRIBUTION WIDTH CV 13.7 % (11.5-14.5); RED CELL DISTRIBUTION WIDTH SD 46.6 fL (36.4-46.3); WHITE BLOOD COUNT 7.66 K/uL (4.8-10.8)
[2017-06-28 07:03] LABS: CALCIUM 8.2 mg/dl (8.5-10.1); CREATININE 0.61 mg/dl (0.60-1.40); POTASSIUM 3.5 mmol/L (3.5-5.1)
[2017-06-28 07:24] VITALS: BP 103/70; PULSE 104; TEMP 36.8; O2SAT 96
[2017-06-28] MEDS: DILTIAZEM HCL 120 MG CAPCR PO SCH (08:35)
[2017-06-28] MEDS: LEVETIRACETAM 500 MG TAB PO SCH ×2 (08:36→21:52)
[2017-06-28] MEDS: ASPIRIN 81 MG ECTAB PO SCH (08:36)
[2017-06-28] MEDS: APIXABAN 2.5 MG TAB PO SCH ×2 (08:36→21:52)
[2017-06-28] MEDS: METOPROLOL SUCC 25MG EXT REL TAB PO SCH (08:37)
[2017-06-28] MEDS: ATORVASTATIN 40 MG TAB PO SCH (08:37)
[2017-06-28] MEDS: ALPRAZOLAM 0.5 MG TAB PO SCH ×2 (08:37→21:52)
[2017-06-28] MEDS: RANITIDINE HCL 150 MG TAB PO SCH ×2 (08:38→21:52)
[2017-06-28] MEDS: SERTRALINE HCL 100 MG TAB PO SCH (08:39)
--- NOTE | 2017-06-28 11:17 | Orthopedic Progress Note ---
Orthopedic Progress Note Date of Service Jun 28, 2017. Subjective Post OP Day: 6 Reports: feeling well, Denies: complaints (No pain within the right foot. ) Objective calves soft nontender, N/V intact, capillary refill less than 2 sec., A&O x3, toes mobile Right foot: 5th toe without drainage. Sutures intact. Minimal erythema. Mild sloughing. The great toe sutures are intact and the incision is well approximated. Minimal erythema. No drainage. Date Time Temp Pulse Resp B/P (MAP) Pulse Ox O2 Delivery O2 Flow Rate FiO2 06/28/17 08:00 Room Air 06/28/17 07:24 36.8 104 20 103/70 (81) 96 Room Air 06/28/17 04:40 Room Air 06/28/17 04:35 36.8 71 15 96/62 (73) 98 Nasal Cannula 06/28/17 00:16 Room Air 06/27/17 23:56 36.8 69 15 112/69 (83) 98 Room Air 06/27/17 21:15 Room Air 06/27/17 20:43 36.9 69 15 109/74 (86) 99 Room Air 06/27/17 16:00 Room Air 06/27/17 15:50 98 Room Air 06/27/17 15:40 36.6 75 15 98/65 (76) 98 Room Air 06/27/17 13:31 Room Air 06/27/17 12:00 36.3 72 20 99/77 (84) 100 Room Air Laboratory Results 24 Hours: Test 06/28/17 05:38 White Blood Count 7.66 K/uL Red Blood Count 3.36 M/uL Hemoglobin 10.2 g/dL Hematocrit 31.4 % Mean Corpuscular Volume 93.5 fL Mean Corpuscular Hemoglobin 30.4 pg Mean Corpuscular Hemoglobin Concent 32.5 g/dl Platelet Count 457 K/uL Mean Platelet Volume 8.9 fL Neutrophils (%) (Auto) 70.5 % Lymphocytes (%) (Auto) 20.4 % Monocytes (%) (Auto) 5.7 % Eosinophils (%) (Auto) 1.8 % Basophils (%) (Auto) 0.3 % Neutrophils # (Auto) 5.40 K/uL Lymphocytes # (Auto) 1.56 K/uL Monocytes # (Auto) 0.44 K/uL Eosinophils # (Auto) 0.14 K/uL Basophils # (Auto) 0.02 K/uL Assessment & Plan Assessment: POD #6 1. Right foot evacuation abscess, first metatarsophalangeal joint. 2. Right foot evacuation abscess, fifth toe. 3. Right foot debridement, extensor tendon of the fifth toe. 4. Debridement, ischemic ulcer of the first toe including skin, fascia, and subcutaneous tissue. 5. Debridement, ischemic ulcer of the third toe including skin, fascia, and subcutaneous tissue. 6. Debridement, ischemic ulcer of the fifth toe including skin, fascia, and subcutaneous tissue. 7. Debridement and excision osteomyelitis of the proximal phalanx of the fifth toe. Plan: Doing well. Continue daily dressing changes--update to order to cut adaptic to prevent maceration around wounds. Continue IV antibx Ortho to sign off. Will follow up with Dr. Amezcua's clinic 1 week after discharge. Inhouse Planning Pain Management: PO Tylenol DVT Prophylaxis: ASA Discharge Planning Discharge Planning: uncertain
--- NOTE | 2017-06-28 11:18 | Consultant Recommendations ---
Canoe Maker Recommendations Date of Service Jun 28, 2017. Canoe Maker Recommendations ACTIVITY RECOMMENDATIONS: Limitations: Heel weight bearing only if able to tolerate. SPECIAL CARE INSTRUCTIONS: * Some drainage onto the dressing is normal and is no cause for alarm. * Some swelling is natural especially after walking. * When resting, keep your foot elevated above the level of your heart. * Call [facility] if you notice: -Increased drainage -Fever over 101 degrees F -Severe constant pain BANDAGE: * Daily dressing changes with adaptic cut to the size of the wounds. Gauze and kerlix wrap. * Keep bandage/cast dry at all times. FOLLOW UP VISIT WITH DR. MATSON If appointment is not already scheduled: Please call [facility] after you get home today to schedule a follow-up appointment for [address] Matson at .
[2017-06-28] MEDS: DAPTOmycin IV 450 MG in SYRINGE 0 ML IV SCH (11:55)
[2017-06-28 11:56] VITALS: BP 91/69; PULSE 116; TEMP 36.8; O2SAT 96
--- NOTE | 2017-06-28 12:39 | Pharmacy Progress Note ---
Glycemic: Assessment & Plan Date of Service Jun 28, 2017. Assessment & Plan The patient is currently receiving 81 units of insulin per day. BSGs ranging 148 - 212 mg/dl over the past 24hrs. * Basal insulin: Lantus 42 units every 24 hours at bedtime * Correctional Insulin: Novolog Correction per scale ACHS Goal Range: Low 110 mg/dL - High 150 mg/dL Correction Factor: 18 mg/dL/unit * Prandial insulin: Per carb ratio of 1 unit per 5 grams CHO consumed I will slightly tighten goal range for 0000,0400 checks. BSGs continue to improve, no other changes needed to inpatient regimen at this time. Pharmacy will continue to monitor patient daily and write orders per [facility] inpatient glycemic control protocol. Thanks. * Please note that the plan above was derived based on current level of insulin resistance and hospital stress. These recommendations are appropriate for inpatient admission only. Plan of care upon discharge will need to be reassessed to avoid potential outpatient hypo/hyperglycemia.
[2017-06-28 16:11] VITALS: BP 100/68; PULSE 70; TEMP 36.9; O2SAT 97
--- NOTE | 2017-06-28 17:12 | Progress Note ---
Internal Med Progress Note Date of Service: Jun 28, 2017. Provider Documentation: SUBJECTIVE: resting comfortably denies any pain afebrile eating fine moved bowels waiting for placement OBJECTIVE: Vital Signs-as noted below Exam: General-alert and oriented. Not in distress ENT-Normal hearing Neck-no neck masses Lungs-cta b/l no wheezing or crackles Heart-S1 and S2 heard regular rate and rhythm, no murmurs Abdomen-soft bowel sounds present no tenderness no distension Extremities-rt hip s/p wound vac, right foot ulcers s/p debridement-in dressing Neuro-alert and awake and oriented x 3 non focal moves extremities Lab data as noted below. ASSESSMENT & PLAN: As per :"This is a 52 year old patient who presented to the ED for left elbow pain - found to have multiple active medical problems - was in atrial fibrillation with RVR to the 140s which was controlled by diltiazem drip, was hyperglycemic to 400 secondary to uncontrolled diabetes with hbA1c of 14.5 with blood sugars now better controlled, history of left below knee amputation, chronic right leg cellulitis and skin ulcers subsequently with subsequent lower extremity MRI confirming as osteomyelitis, right hip ulcer/drainage, history of head injury in the past vs stroke and brain MRI was recommended and pertinent for punctate foci of restricted diffusion identified in the left frontal and left parietal lobes consistent with acute to subacute infarcts which was performed after patient had stroke alert code called as he was thought to have new onset confusion, and then evaluated for depression by psychiatry and palliative care consult with code status changed as per those discussions with the patient from Full code to DNR/DNI (Level 5)" Plans CVA history of head injury/stroke in the past 06/20/17 Brain MRI - Left frontal and parietal lobe acute/subacute infarcts Carotid Ultrasound 06/20/17 unremarkable Echocardiogram 06/21/17 un remarkable speech and swallow evaluation PT/OT evaluations As per patient decline further anticoagulation at this time also discussed about anticoagulation on jun 27 2017 as there was question of slurred speech but exam and ct scan was unremarkable and he is ow agreeable for eliquis but does not want to be on coumadin On aspirin and eliquis now A fib Initially was on IV diltiazem, also had been on IV heparin for anticoagulation Echocardiogram 06/21/17:unremarkable currently rates controlled with Toprol xl and Diltiazem declines anticoagulation to continue aspirin started on eliquis stable Asthma stable on home emds. Stable conditions: Infectious Sources right foot cellulitis and abscess and osteomyelitis MRI of right lower extremity 06/21/17: Findings consistent with osteomyelitis of the proximal and middle phalanges of the right fifth toe. Possible associated pathologic fracture of the proximal phalanx which could be correlated with radiographs. Associated cellulitis with tiny abscesses along the dorsal aspect of the right fifth toe. Marrow edema with preserved T1 marrow signal signal within the distal phalanx of the right fifth toe and the fourth and fifth metatarsal heads. This favors osteitis however Initially was on Vancomycin and Zosyn later switched to Daptomycin by ID: Right foot osteomyelitis with abscess s/p I and D by ortho. Abscess lateral aspect right hip with MRSA - wound care physician then performed incision and drainage on 06/21/17 MRSA septicemia - positive MRSA blood culture on 06/19/17 MRSA in urine s/p picc line plan for iv abx for 6 weeks and followup with wound care Left elbow pain: XR with small joint effusion -Orthopedics recommending elbow pad Diabetes Type 2 Pharmacy Glycemic control consult following , insulin Will monitor Electrolytes will monitor. Depression Psychiatry consulted 06/21/17: increase Zoloft to 200 mg daily Palliative Care following patient Code Status: Level 5 (DNR/DNI) Disposition: OT indicates rehab is needed. PT indicates pt is not safe to return home and requires rehab/ SNF. Social service for d/c planning patient likes to go to [place] rehab Await placement Vital Signs: Date Time Temp Pulse Resp B/P (MAP) Pulse Ox O2 Delivery O2 Flow Rate FiO2 06/28/17 16:11 36.9 70 20 100/68 (79) 97 Room Air 06/28/17 12:00 Room Air 06/28/17 11:56 36.8 116 20 91/69 (76) 96 Room Air 06/28/17 08:00 Room Air 06/28/17 07:24 36.8 104 20 103/70 (81) 96 Room Air 06/28/17 04:40 Room Air 06/28/17 04:35 36.8 71 15 96/62 (73) 98 Nasal Cannula 06/28/17 00:16 Room Air 06/27/17 23:56 36.8 69 15 112/69 (83) 98 Room Air 06/27/17 21:15 Room Air 06/27/17 20:43 36.9 69 15 109/74 (86) 99 Room Air Lab Results: Results Past 24 Hours Test 06/27/17 21:26 06/28/17 00:31 06/28/17 04:24 06/28/17 05:38 Range/Units Bedside Glucose 148 212 191 70-99 mg/dl White Blood Count 7.66 4.8-10.8 K/uL Red Blood Count 3.36 4.7-6.1 M/uL Hemoglobin 10.2 14.0-18.0 g/dL Hematocrit 31.4 42-52 % Mean Corpuscular Volume 93.5 80-100 fL Mean Corpuscular Hemoglobin 30.4 25-34 pg Mean Corpuscular Hemoglobin Concent 32.5 32-36 g/dl Platelet Count 457 130-400 K/uL Mean Platelet Volume 8.9 7.4-10.4 fL Neutrophils (%) (Auto) 70.5 % Lymphocytes (%) (Auto) 20.4 % Monocytes (%) (Auto) 5.7 % Eosinophils (%) (Auto) 1.8 % Basophils (%) (Auto) 0.3 % Neutrophils # (Auto) 5.40 1.4-6.5 K/uL Lymphocytes # (Auto) 1.56 1.2-3.4 K/uL Monocytes # (Auto) 0.44 0.11-0.59 K/uL Eosinophils # (Auto) 0.14 0-0.5 K/uL Basophils # (Auto) 0.02 0-0.2 K/uL RDW Standard Deviation 46.6 36.4-46.3 fL RDW Coefficient of Variation 13.7 11.5-14.5 % Immature Granulocyte % (Auto) 1.3 % Immature Granulocyte # (Auto) 0.10 0.00-0.02 K/uL Sodium Level 138 136-145 mmol/L Potassium Level 3.5 3.5-5.1 mmol/L Chloride Level 102 98-107 mmol/L Carbon Dioxide Level 32 21-32 mmol/L Anion Gap 4.0 3-11 mmol/L Blood Urea Nitrogen 13 7-18 mg/dl Creatinine 0.61 0.60-1.40 mg/dl Est Creatinine Clear Calc Drug Dose 135.5 ml/min Estimated GFR () 132.1 Estimated GFR (Non- 114.0 BUN/Creatinine Ratio 20.9 10-20 Random Glucose 207 70-99 mg/dl Calcium Level 8.2 8.5-10.1 mg/dl Magnesium Level 1.8 1.8-2.4 mg/dl Test 06/28/17 06:33 06/28/17 11:38 06/28/17 16:34 Range/Units Bedside Glucose 209 145 153 70-99 mg/dl
[2017-06-28 20:09] VITALS: BP 97/66; PULSE 70; TEMP 36.6; O2SAT 97
[2017-06-28] MEDS: INSULIN GLARGINE SOLOSTAR 100 UNITS/ML 3 ML PEN SC SCH (21:53)
[2017-06-29] VITALS: BP 111/74; PULSE 69; TEMP 36.6; O2SAT 100
[2017-06-29 03:41] VITALS: BP 107/69; PULSE 69; TEMP 36.8; O2SAT 98
[2017-06-29] MEDS: INSULIN ASPART 100 UNITS/ML 3 ML PEN SC SCH ×6 (04:00→21:42)
[2017-06-29 05:10] LABS: BASO % 0.3 %; BASO ABS # 0.02 K/uL (0-0.2); EOS % 1.5 %; EOS ABS # 0.11 K/uL (0-0.5); HEMATOCRIT 32.2 % (42-52); HEMOGLOBIN 10.3 g/dL (14.0-18.0); IG# 0.08 K/uL (0.00-0.02); LYMPH % 24.6 %; LYMPH ABS # 1.78 K/uL (1.2-3.4); MEAN CELL VOLUME 94.2 fL (80-100); MEAN CORPUSCULAR HEMOGLOBIN 30.1 pg (25-34); MEAN PLATELET VOLUME 8.5 fL (7.4-10.4); MONO % 7.5 %; MONO ABS # 0.54 K/uL (0.11-0.59); PLATELET COUNT 435 K/uL (130-400); RED CELL DISTRIBUTION WIDTH CV 13.9 % (11.5-14.5); RED CELL DISTRIBUTION WIDTH SD 47.8 fL (36.4-46.3); WHITE BLOOD COUNT 7.23 K/uL (4.8-10.8)
[2017-06-29 05:41] LABS: CALCIUM 8.4 mg/dl (8.5-10.1); CREATININE 0.6 mg/dl (0.60-1.40); POTASSIUM 3.8 mmol/L (3.5-5.1)
[2017-06-29 07:06] VITALS: BP 111/74; PULSE 68; TEMP 36.4; O2SAT 97
[2017-06-29] MEDS: SODIUM CHLORIDE 0.9% 1000ML 1,000 ML IV SCH (08:28)
[2017-06-29] MEDS: DILTIAZEM HCL 120 MG CAPCR PO SCH (08:29)
[2017-06-29] MEDS: ASPIRIN 81 MG ECTAB PO SCH (08:29)
[2017-06-29] MEDS: LEVETIRACETAM 500 MG TAB PO SCH ×2 (08:30→21:39)
[2017-06-29] MEDS: RANITIDINE HCL 150 MG TAB PO SCH ×2 (08:30→21:38)
[2017-06-29] MEDS: METOPROLOL SUCC 25MG EXT REL TAB PO SCH (08:30)
[2017-06-29] MEDS: ATORVASTATIN 40 MG TAB PO SCH (08:30)
[2017-06-29] MEDS: SERTRALINE HCL 100 MG TAB PO SCH (08:31)
[2017-06-29] MEDS: APIXABAN 2.5 MG TAB PO SCH ×2 (08:33→21:39)
[2017-06-29] MEDS: ALPRAZOLAM 0.5 MG TAB PO SCH ×2 (08:38→21:37)
[2017-06-29] MEDS ORDERED: MAGNESIUM SULFATE 1GM / D5W 1 GM in PREMIXED IN D5W 100 ML IV ONE (10:00)
[2017-06-29 11:25] VITALS: BP 110/78; PULSE 93; TEMP 36.5; O2SAT 100
[2017-06-29] MEDS: DAPTOmycin IV 450 MG in SYRINGE 0 ML IV SCH (12:23)
[2017-06-29 16:57] VITALS: BP 111/71; PULSE 69; TEMP 36.5; O2SAT 98
--- NOTE | 2017-06-29 18:33 | Progress Note ---
Internal Med Progress Note Date of Service: Jun 29, 2017. Provider Documentation: SUBJECTIVE: resting comfortably no pain moved bowels last night afebrile awaiting placement OBJECTIVE: Vital Signs-as noted below Exam: General-alert and oriented. Not in distress ENT-Normal hearing Neck-no neck masses Lungs-cta b/l no wheezing or crackles Heart-S1 and S2 heard regular rate and rhythm, no murmurs Abdomen-soft bowel sounds present no tenderness no distension Extremities-rt hip s/p wound vac, right foot ulcers s/p debridement-in dressing Neuro-alert and awake and oriented x 3 non focal moves extremities Lab data as noted below. ASSESSMENT & PLAN: As per :"This is a 52 year old patient who presented to the ED for left elbow pain - found to have multiple active medical problems - was in atrial fibrillation with RVR to the 140s which was controlled by diltiazem drip, was hyperglycemic to 400 secondary to uncontrolled diabetes with hbA1c of 14.5 with blood sugars now better controlled, history of left below knee amputation, chronic right leg cellulitis and skin ulcers subsequently with subsequent lower extremity MRI confirming as osteomyelitis, right hip ulcer/drainage, history of head injury in the past vs stroke and brain MRI was recommended and pertinent for punctate foci of restricted diffusion identified in the left frontal and left parietal lobes consistent with acute to subacute infarcts which was performed after patient had stroke alert code called as he was thought to have new onset confusion, and then evaluated for depression by psychiatry and palliative care consult with code status changed as per those discussions with the patient from Full code to DNR/DNI (Level 5)" Plans CVA history of head injury/stroke in the past 06/20/17 Brain MRI - Left frontal and parietal lobe acute/subacute infarcts Carotid Ultrasound 06/20/17 unremarkable Echocardiogram 06/21/17 un remarkable speech and swallow evaluation PT/OT evaluations As per patient decline further anticoagulation at this time also discussed about anticoagulation on jun 27 2017 as there was question of slurred speech but exam and ct scan was unremarkable and he is ow agreeable for eliquis but does not want to be on coumadin On aspirin and eliquis now stable A fib Initially was on IV diltiazem, also had been on IV heparin for anticoagulation Echocardiogram 06/21/17:unremarkable currently rates controlled with Toprol xl and Diltiazem declines anticoagulation to continue aspirin started on eliquis will monitor Asthma stable on home emds. Stable conditions: Infectious Sources right foot cellulitis and abscess and osteomyelitis MRI of right lower extremity 06/21/17: Findings consistent with osteomyelitis of the proximal and middle phalanges of the right fifth toe. Possible associated pathologic fracture of the proximal phalanx which could be correlated with radiographs. Associated cellulitis with tiny abscesses along the dorsal aspect of the right fifth toe. Marrow edema with preserved T1 marrow signal signal within the distal phalanx of the right fifth toe and the fourth and fifth metatarsal heads. This favors osteitis however Initially was on Vancomycin and Zosyn later switched to Daptomycin by ID: Right foot osteomyelitis with abscess s/p I and D by ortho. Abscess lateral aspect right hip with MRSA - wound care physician then performed incision and drainage on 06/21/17 MRSA septicemia - positive MRSA blood culture on 06/19/17 MRSA in urine s/p picc line plan for iv abx for 6 weeks and followup with wound care Left elbow pain: XR with small joint effusion -Orthopedics recommending elbow pad Diabetes Type 2 Pharmacy Glycemic control consult following , insulin Will monitor Electrolytes will monitor. Depression Psychiatry consulted 06/21/17: increase Zoloft to 200 mg daily Palliative Care following patient Code Status: Level 5 (DNR/DNI) Disposition: OT indicates rehab is needed. PT indicates pt is not safe to return home and requires rehab/ SNF. Social service for d/c planning patient likes to go to [place] rehab Await placement Vital Signs: Date Time Temp Pulse Resp B/P (MAP) Pulse Ox O2 Delivery O2 Flow Rate FiO2 06/29/17 16:57 36.5 69 20 111/71 (84) 98 Room Air 06/29/17 16:00 Room Air 06/29/17 12:00 Room Air 06/29/17 11:25 36.5 93 20 110/78 (89) 100 Room Air 06/29/17 08:00 Room Air 06/29/17 07:06 36.4 68 20 111/74 (86) 97 Room Air 06/29/17 04:00 Room Air 06/29/17 03:41 36.8 69 16 107/69 (82) 98 Room Air 06/29/17 00:00 36.6 69 17 111/74 (86) 100 Room Air 06/28/17 23:59 Room Air 06/28/17 20:09 36.6 70 15 97/66 (76) 97 Room Air 06/28/17 20:00 Room Air Lab Results: Results Past 24 Hours Test 06/28/17 20:24 06/28/17 23:56 06/29/17 04:38 06/29/17 04:50 Range/Units Bedside Glucose 160 143 92 70-99 mg/dl White Blood Count 7.23 4.8-10.8 K/uL Red Blood Count 3.42 4.7-6.1 M/uL Hemoglobin 10.3 14.0-18.0 g/dL Hematocrit 32.2 42-52 % Mean Corpuscular Volume 94.2 80-100 fL Mean Corpuscular Hemoglobin 30.1 25-34 pg Mean Corpuscular Hemoglobin Concent 32.0 32-36 g/dl Platelet Count 435 130-400 K/uL Mean Platelet Volume 8.5 7.4-10.4 fL Neutrophils (%) (Auto) 65.0 % Lymphocytes (%) (Auto) 24.6 % Monocytes (%) (Auto) 7.5 % Eosinophils (%) (Auto) 1.5 % Basophils (%) (Auto) 0.3 % Neutrophils # (Auto) 4.70 1.4-6.5 K/uL Lymphocytes # (Auto) 1.78 1.2-3.4 K/uL Monocytes # (Auto) 0.54 0.11-0.59 K/uL Eosinophils # (Auto) 0.11 0-0.5 K/uL Basophils # (Auto) 0.02 0-0.2 K/uL RDW Standard Deviation 47.8 36.4-46.3 fL RDW Coefficient of Variation 13.9 11.5-14.5 % Immature Granulocyte % (Auto) 1.1 % Immature Granulocyte # (Auto) 0.08 0.00-0.02 K/uL Sodium Level 142 136-145 mmol/L Potassium Level 3.8 3.5-5.1 mmol/L Chloride Level 107 98-107 mmol/L Carbon Dioxide Level 30 21-32 mmol/L Anion Gap 5.0 3-11 mmol/L Blood Urea Nitrogen 11 7-18 mg/dl Creatinine 0.60 0.60-1.40 mg/dl Est Creatinine Clear Calc Drug Dose 137.8 ml/min Estimated GFR () 133.0 Estimated GFR (Non- 114.8 BUN/Creatinine Ratio 18.1 10-20 Random Glucose 92 70-99 mg/dl Calcium Level 8.4 8.5-10.1 mg/dl Magnesium Level 1.6 1.8-2.4 mg/dl Total Creatine Kinase 29 39-308 U/L Test 06/29/17 06:32 06/29/17 11:21 Range/Units Bedside Glucose 103 161 70-99 mg/dl
[2017-06-29 19:52] VITALS: BP 93/64; PULSE 70; TEMP 36.6; O2SAT 97
[2017-06-29] MEDS: MAGNESIUM OXIDE 400 MG TAB PO SCH (21:37)
[2017-06-29] MEDS: INSULIN GLARGINE SOLOSTAR 100 UNITS/ML 3 ML PEN SC SCH (21:41)
[2017-06-30] VITALS (7 sets, daily range): BP systolic 88–104; BP diastolic 61–70; PULSE 68–92; TEMP 36.4–36.8; O2SAT 95–99
[2017-06-30 05:46] LABS: BASO % 0.1 %; BASO ABS # 0.01 K/uL (0-0.2); EOS % 2.1 %; EOS ABS # 0.16 K/uL (0-0.5); HEMATOCRIT 32.1 % (42-52); HEMOGLOBIN 10.3 g/dL (14.0-18.0); IG# 0.05 K/uL (0.00-0.02); LYMPH % 22.1 %; LYMPH ABS # 1.67 K/uL (1.2-3.4); MEAN CELL VOLUME 94.1 fL (80-100); MEAN CORPUSCULAR HEMOGLOBIN 30.2 pg (25-34); MEAN CORPUSCULAR HGB CONC 32.1 g/dl (32-36); MEAN PLATELET VOLUME 8.6 fL (7.4-10.4); MONO % 4.5 %; MONO ABS # 0.34 K/uL (0.11-0.59); NEUT % 70.5 %; NEUT ABS # 5.33 K/uL (1.4-6.5); PLATELET COUNT 442 K/uL (130-400); RED CELL DISTRIBUTION WIDTH CV 13.9 % (11.5-14.5); RED CELL DISTRIBUTION WIDTH SD 47.7 fL (36.4-46.3); WHITE BLOOD COUNT 7.56 K/uL (4.8-10.8)
[2017-06-30 06:12] LABS: CALCIUM 8.2 mg/dl (8.5-10.1); CREATININE 0.73 mg/dl (0.60-1.40)
[2017-06-30] MEDS ORDERED: INSULIN ASPART 100 UNITS/ML 3 ML PEN SC ONE (06:42)
[2017-06-30] MEDS ORDERED: MAGNESIUM SULFATE 1GM / D5W 1 GM in PREMIXED IN D5W 100 ML IV ONE (07:30)
[2017-06-30] MEDS: LEVETIRACETAM 500 MG TAB PO SCH ×2 (08:28→20:16)
[2017-06-30] MEDS: APIXABAN 2.5 MG TAB PO SCH ×2 (08:28→20:16)
[2017-06-30] MEDS: DILTIAZEM HCL 120 MG CAPCR PO SCH (08:28)
[2017-06-30] MEDS: ASPIRIN 81 MG ECTAB PO SCH (08:28)
[2017-06-30] MEDS: ATORVASTATIN 40 MG TAB PO SCH (08:29)
[2017-06-30] MEDS: METOPROLOL SUCC 25MG EXT REL TAB PO SCH (08:29)
[2017-06-30] MEDS: RANITIDINE HCL 150 MG TAB PO SCH ×2 (08:29→20:17)
[2017-06-30] MEDS: MAGNESIUM OXIDE 400 MG TAB PO SCH ×2 (08:29→20:17)
[2017-06-30] MEDS ORDERED: INSULIN GLARGINE SOLOSTAR 100 UNITS/ML 3 ML PEN SC ONE (08:30)
[2017-06-30] MEDS: SERTRALINE HCL 100 MG TAB PO SCH (08:30)
[2017-06-30] MEDS: ALPRAZOLAM 0.5 MG TAB PO SCH ×2 (08:32→20:17)
--- NOTE | 2017-06-30 11:15 | Pharmacy Progress Note ---
Pharmacy Glycemic Short Note 2 Date of Service Jun 30, 2017. OUTPATIENT ANTIDIABETIC REGIMEN: * Basaglar 50 units Q HS * Humalog TID w/ meals per scale (reports using ~10-15 units per meal) Test 06/29/17 11:21 06/29/17 16:39 06/29/17 20:57 06/30/17 05:28 Bedside Glucose 161 mg/dl (70-99) 90 mg/dl (70-99) 214 mg/dl (70-99) Random Glucose 276 mg/dl (70-99) Test 06/30/17 06:41 Bedside Glucose 258 mg/dl (70-99) ASSESSMENT: * Mr Hidalgo received a total of 78 units of insulin yesterday. * Blood sugar urvashi at bedtime and remained elevated this morning, despite correctional insulin last night, pt requires more Lantus and tighter CF and CR * Supplemental dose of Lantus this morning then increase TDD this evening PLAN FOR INPATIENT GLYCEMIC CONTROL: * Basal insulin * Lantus 10 units x 1 dose this morning then increase to * Lantus 50 units SQ HS * Bolus insulin - TIGHTEN * NovoLog per scale ACHS or Q6hrs while NPO * Goal Range: Low 110 mg/dL - High 140 mg/dL * Correction Factor: 15 mg/dL/unit * Nutritional / Prandial insulin per carb ratio of 1 unit per 4 grams CHO consumed thank you.
[2017-06-30] MEDS: DAPTOmycin IV 450 MG in SYRINGE 0 ML IV SCH (12:40)
[2017-06-30] MEDS: INSULIN ASPART 100 UNITS/ML 3 ML PEN SC SCH ×3 (12:43→21:26)
[2017-06-30] MEDS ORDERED: THIAMINE HCL 50 MG TAB PO ONE (14:00)
--- NOTE | 2017-06-30 15:55 | Progress Note ---
Internal Med Progress Note Date of Service: Jun 30, 2017. Provider Documentation: SUBJECTIVE: resting comfortably denies pain slept ok eating ok awaiting placement OBJECTIVE: Vital Signs-as noted below Exam: General-alert and oriented. Not in distress ENT-Normal hearing Neck-no neck masses Lungs-cta b/l no wheezing or crackles Heart-S1 and S2 heard regular rate and rhythm, no murmurs Abdomen-soft bowel sounds present no tenderness no distension Extremities-rt hip s/p wound vac, right foot ulcers s/p debridement-in dressing Neuro-alert and awake and oriented x 3 non focal moves extremities Lab data as noted below. ASSESSMENT & PLAN: As per :"This is a 52 year old patient who presented to the ED for left elbow pain - found to have multiple active medical problems - was in atrial fibrillation with RVR to the 140s which was controlled by diltiazem drip, was hyperglycemic to 400 secondary to uncontrolled diabetes with hbA1c of 14.5 with blood sugars now better controlled, history of left below knee amputation, chronic right leg cellulitis and skin ulcers subsequently with subsequent lower extremity MRI confirming as osteomyelitis, right hip ulcer/drainage, history of head injury in the past vs stroke and brain MRI was recommended and pertinent for punctate foci of restricted diffusion identified in the left frontal and left parietal lobes consistent with acute to subacute infarcts which was performed after patient had stroke alert code called as he was thought to have new onset confusion, and then evaluated for depression by psychiatry and palliative care consult with code status changed as per those discussions with the patient from Full code to DNR/DNI (Level 5)" Plans CVA history of head injury/stroke in the past 06/20/17 Brain MRI - Left frontal and parietal lobe acute/subacute infarcts Carotid Ultrasound 06/20/17 unremarkable Echocardiogram 06/21/17 un remarkable speech and swallow evaluation PT/OT evaluations As per patient decline further anticoagulation at this time also discussed about anticoagulation on jun 27 2017 as there was question of slurred speech but exam and ct scan was unremarkable and he is ow agreeable for eliquis but does not want to be on coumadin On aspirin and eliquis now stable A fib Initially was on IV diltiazem, also had been on IV heparin for anticoagulation Echocardiogram 06/21/17:unremarkable currently rates controlled with Toprol xl and Diltiazem declines anticoagulation to continue aspirin started on eliquis will monitor stable Asthma stable on home emds. Stable conditions: Infectious Sources right foot cellulitis and abscess and osteomyelitis MRI of right lower extremity 06/21/17: Findings consistent with osteomyelitis of the proximal and middle phalanges of the right fifth toe. Possible associated pathologic fracture of the proximal phalanx which could be correlated with radiographs. Associated cellulitis with tiny abscesses along the dorsal aspect of the right fifth toe. Marrow edema with preserved T1 marrow signal signal within the distal phalanx of the right fifth toe and the fourth and fifth metatarsal heads. This favors osteitis however Initially was on Vancomycin and Zosyn later switched to Daptomycin by ID: Right foot osteomyelitis with abscess s/p I and D by ortho. Abscess lateral aspect right hip with MRSA - wound care physician then performed incision and drainage on 06/21/17 MRSA septicemia - positive MRSA blood culture on 06/19/17 MRSA in urine s/p picc line plan for iv abx for 6 weeks and followup with wound care Left elbow pain: XR with small joint effusion -Orthopedics recommending elbow pad Diabetes Type 2 Pharmacy Glycemic control consult following , insulin Will monitor Electrolytes will monitor. Depression Psychiatry consulted 06/21/17: increase Zoloft to 200 mg daily Palliative Care following patient Code Status: Level 5 (DNR/DNI) Disposition: Transfer to medical floor OT indicates rehab is needed. PT indicates pt is not safe to return home and requires rehab/ SNF. Social service for d/c planning patient likes to go to [place] rehab Await placement Vital Signs: Date Time Temp Pulse Resp B/P (MAP) Pulse Ox O2 Delivery O2 Flow Rate FiO2 06/30/17 15:05 36.8 92 16 96 2.0 06/30/17 12:45 104/70 (81) 06/30/17 12:06 36.8 92 16 88/67 (74) 96 Room Air 06/30/17 12:00 Room Air 06/30/17 08:00 Room Air 06/30/17 04:00 Room Air 06/30/17 03:46 36.7 68 17 101/69 (80) 95 Room Air 06/30/17 00:21 36.6 70 18 93/61 (72) 98 Room Air 06/29/17 23:59 Room Air 06/29/17 20:00 Room Air 06/29/17 19:52 36.6 70 17 93/64 (74) 97 Room Air 06/29/17 16:57 36.5 69 20 111/71 (84) 98 Room Air 06/29/17 16:00 Room Air Lab Results: Results Past 24 Hours Test 06/29/17 16:39 06/29/17 20:57 06/30/17 05:28 06/30/17 06:41 Range/Units Bedside Glucose 90 214 258 70-99 mg/dl White Blood Count 7.56 4.8-10.8 K/uL Red Blood Count 3.41 4.7-6.1 M/uL Hemoglobin 10.3 14.0-18.0 g/dL Hematocrit 32.1 42-52 % Mean Corpuscular Volume 94.1 80-100 fL Mean Corpuscular Hemoglobin 30.2 25-34 pg Mean Corpuscular Hemoglobin Concent 32.1 32-36 g/dl Platelet Count 442 130-400 K/uL Mean Platelet Volume 8.6 7.4-10.4 fL Neutrophils (%) (Auto) 70.5 % Lymphocytes (%) (Auto) 22.1 % Monocytes (%) (Auto) 4.5 % Eosinophils (%) (Auto) 2.1 % Basophils (%) (Auto) 0.1 % Neutrophils # (Auto) 5.33 1.4-6.5 K/uL Lymphocytes # (Auto) 1.67 1.2-3.4 K/uL Monocytes # (Auto) 0.34 0.11-0.59 K/uL Eosinophils # (Auto) 0.16 0-0.5 K/uL Basophils # (Auto) 0.01 0-0.2 K/uL RDW Standard Deviation 47.7 36.4-46.3 fL RDW Coefficient of Variation 13.9 11.5-14.5 % Immature Granulocyte % (Auto) 0.7 % Immature Granulocyte # (Auto) 0.05 0.00-0.02 K/uL Sodium Level 139 136-145 mmol/L Potassium Level 4.0 3.5-5.1 mmol/L Chloride Level 103 98-107 mmol/L Carbon Dioxide Level 32 21-32 mmol/L Anion Gap 4.0 3-11 mmol/L Blood Urea Nitrogen 12 7-18 mg/dl Creatinine 0.73 0.60-1.40 mg/dl Est Creatinine Clear Calc Drug Dose 113.2 ml/min Estimated GFR () 122.7 Estimated GFR (Non- 105.9 BUN/Creatinine Ratio 16.7 10-20 Random Glucose 276 70-99 mg/dl Calcium Level 8.2 8.5-10.1 mg/dl Magnesium Level 1.7 1.8-2.4 mg/dl Test 06/30/17 11:23 Range/Units Bedside Glucose 172 70-99 mg/dl
[2017-06-30] MEDS: INSULIN GLARGINE SOLOSTAR 100 UNITS/ML 3 ML PEN SC SCH (21:27)
[2017-07-01] VITALS (7 sets, daily range): BP systolic 90–110; BP diastolic 45–82; PULSE 42–142; TEMP 36.4–36.8; O2SAT 97–99
[2017-07-01] MEDS: ALPRAZOLAM 0.5 MG TAB PO SCH ×2 (08:26→19:29)
[2017-07-01] MEDS: LEVETIRACETAM 500 MG TAB PO SCH ×2 (08:26→19:30)
[2017-07-01] MEDS: RANITIDINE HCL 150 MG TAB PO SCH ×2 (08:26→19:30)
[2017-07-01] MEDS: APIXABAN 2.5 MG TAB PO SCH ×2 (08:27→19:31)
[2017-07-01] MEDS: ATORVASTATIN 40 MG TAB PO SCH (08:27)
[2017-07-01] MEDS: ASPIRIN 81 MG ECTAB PO SCH (08:27)
[2017-07-01] MEDS: SERTRALINE HCL 100 MG TAB PO SCH (08:28)
[2017-07-01] MEDS: CEROVITE ADV FORMULA TAB PO SCH (08:29)
[2017-07-01] MEDS: THIAMINE HCL 100 MG TAB PO SCH (08:29)
[2017-07-01] MEDS: DILTIAZEM HCL 120 MG CAPCR PO SCH ×2 (08:32→18:03)
[2017-07-01] MEDS: METOPROLOL SUCC 25MG EXT REL TAB PO SCH (08:33)
[2017-07-01] MEDS: INSULIN ASPART 100 UNITS/ML 3 ML PEN SC SCH ×4 (08:43→21:00)
[2017-07-01] MEDS: MAGNESIUM OXIDE 400 MG TAB PO SCH ×2 (08:49→19:30)
[2017-07-01] MEDS: DAPTOmycin IV 450 MG in SYRINGE 0 ML IV SCH (11:46)
[2017-07-01] MEDS ORDERED: METOPROLOL SUCC 25MG EXT REL TAB PO STA (16:42)
[2017-07-01] MEDS ORDERED: NURSING VERBAL MED ORDER ONE (16:45)
[2017-07-01] MEDS ORDERED: DILTIAZEM HCL 120 MG CAPCR PO ONE (18:15)
--- NOTE | 2017-07-01 18:56 | Progress Note ---
Internal Med Progress Note Date of Service: Jul 01, 2017. Provider Documentation: SUBJECTIVE: resting comfortably says he is doing fine denies chest pain no sob eating ok sleeping fine moving bowels fine await placement OBJECTIVE: Vital Signs-as noted below Exam: General-alert and oriented. Not in distress ENT-Normal hearing Neck-no neck masses Lungs-cta b/l no wheezing or crackles Heart-S1 and S2 heard irregular rate and rhythm, no murmurs Abdomen-soft bowel sounds present no tenderness no distension Extremities-rt hip s/p wound vac, right foot ulcers s/p debridement-in dressing Neuro-alert and awake and oriented x 3 non focal moves extremities Lab data as noted below. ASSESSMENT & PLAN: As per :"This is a 52 year old patient who presented to the ED for left elbow pain - found to have multiple active medical problems - was in atrial fibrillation with RVR to the 140s which was controlled by diltiazem drip, was hyperglycemic to 400 secondary to uncontrolled diabetes with hbA1c of 14.5 with blood sugars now better controlled, history of left below knee amputation, chronic right leg cellulitis and skin ulcers subsequently with subsequent lower extremity MRI confirming as osteomyelitis, right hip ulcer/drainage, history of head injury in the past vs stroke and brain MRI was recommended and pertinent for punctate foci of restricted diffusion identified in the left frontal and left parietal lobes consistent with acute to subacute infarcts which was performed after patient had stroke alert code called as he was thought to have new onset confusion, and then evaluated for depression by psychiatry and palliative care consult with code status changed as per those discussions with the patient from Full code to DNR/DNI (Level 5)" currently s/p picc line. ID recommended 6 weeks of iv daptomycin for right foot osteomyelitis. s/p wound vac on right hip. needs to follow up with ortho Aamir.also agreed to be on eliquis for a fib ( doesnot want to be on Coumadin. Needs authorization for eliquis when getting discharged form rehab) Awaiting rehab placement Plans CVA history of head injury/stroke in the past 06/20/17 Brain MRI - Left frontal and parietal lobe acute/subacute infarcts Carotid Ultrasound 06/20/17 unremarkable Echocardiogram 06/21/17 un remarkable speech and swallow evaluation PT/OT evaluations As per patient decline further anticoagulation at that time also discussed about anticoagulation on jun 27 2017 as there was question of slurred speech but exam and ct scan was unremarkable and he is now agreeable for eliquis but does not want to be on Coumadin On aspirin and eliquis now stable A fib Initially was on IV diltiazem, also had been on IV heparin for anticoagulation Echocardiogram 06/21/17:unremarkable currently rates controlled with Toprol xl and Diltiazem declines anticoagulation to continue aspirin started on eliquis today 07/01/17 his metoprolol and diltiazem were held for bradycardia but later in day HR's were elevated his meds were given if any issues with BP may switch to digoxin Asthma stable on home meds Infectious Sources right foot cellulitis and abscess and osteomyelitis MRI of right lower extremity 06/21/17: Findings consistent with osteomyelitis of the proximal and middle phalanges of the right fifth toe. Possible associated pathologic fracture of the proximal phalanx which could be correlated with radiographs. Associated cellulitis with tiny abscesses along the dorsal aspect of the right fifth toe. Marrow edema with preserved T1 marrow signal signal within the distal phalanx of the right fifth toe and the fourth and fifth metatarsal heads. This favors osteitis however Initially was on Vancomycin and Zosyn later switched to Daptomycin by ID: Right foot osteomyelitis with abscess s/p I and D by ortho. Abscess lateral aspect right hip with MRSA - wound care physician then performed incision and drainage on 06/21/17. on wound vac now MRSA septicemia - positive MRSA blood culture on 06/19/17 MRSA in urine s/p picc line plan for iv abx for 6 weeks and followup with wound care Left elbow pain: XR with small joint effusion -Orthopedics recommending elbow pad Diabetes Type 2 Pharmacy Glycemic control consult following , insulin Will monitor Electrolytes will monitor. Depression Psychiatry consulted 06/21/17: increase Zoloft to 200 mg daily Palliative Care following patient Code Status: Level 5 (DNR/DNI) Disposition: Transfered to medical floor OT indicates rehab is needed. PT indicates pt is not safe to return home and requires rehab/ SNF. Social service for d/c planning patient likes to go to [facility] Awaiting placement Vital Signs: Date Time Temp Pulse Resp B/P (MAP) Pulse Ox O2 Delivery O2 Flow Rate FiO2 07/01/17 17:50 142 100/64 (76) 07/01/17 16:40 137 07/01/17 16:18 36.5 120 17 110/82 (91) 99 Room Air 07/01/17 16:00 Room Air 07/01/17 10:00 Room Air 07/01/17 08:35 42 94/45 (61) 07/01/17 08:30 36.4 69 16 96/55 (69) 97 Room Air 07/01/17 00:00 Room Air 06/30/17 23:00 36.7 68 18 93/63 (73) 99 Room Air 06/30/17 20:00 Room Air Lab Results: Results Past 24 Hours Test 06/30/17 20:55 07/01/17 08:09 07/01/17 11:58 07/01/17 17:04 Range/Units Bedside Glucose 203 167 127 146 70-99 mg/dl
[2017-07-01] MEDS: INSULIN GLARGINE SOLOSTAR 100 UNITS/ML 3 ML PEN SC SCH (21:34)
[2017-07-02] VITALS: O2SAT 99
[2017-07-02 07:56] VITALS: BP 96/63; PULSE 67; TEMP 36.5; O2SAT 99
[2017-07-02] MEDS: DILTIAZEM HCL 120 MG CAPCR PO SCH (08:00)
[2017-07-02] MEDS: METOPROLOL SUCC 25MG EXT REL TAB PO SCH ×2 (08:00→10:49)
[2017-07-02] MEDS: APIXABAN 2.5 MG TAB PO SCH ×2 (08:09→20:32)
[2017-07-02] MEDS: LEVETIRACETAM 500 MG TAB PO SCH ×2 (08:09→20:32)
[2017-07-02] MEDS: CEROVITE ADV FORMULA TAB PO SCH (08:09)
[2017-07-02] MEDS: ATORVASTATIN 40 MG TAB PO SCH (08:10)
[2017-07-02] MEDS: ASPIRIN 81 MG ECTAB PO SCH (08:10)
[2017-07-02] MEDS: RANITIDINE HCL 150 MG TAB PO SCH ×2 (08:11→20:31)
[2017-07-02] MEDS: MAGNESIUM OXIDE 400 MG TAB PO SCH ×2 (08:12→20:31)
[2017-07-02] MEDS: SERTRALINE HCL 100 MG TAB PO SCH (08:12)
[2017-07-02] MEDS: THIAMINE HCL 100 MG TAB PO SCH (08:13)
[2017-07-02] MEDS: ALPRAZOLAM 0.5 MG TAB PO SCH ×2 (08:18→20:30)
[2017-07-02] MEDS: INSULIN ASPART 100 UNITS/ML 3 ML PEN SC SCH ×4 (08:46→20:37)
[2017-07-02] MEDS: DAPTOmycin IV 450 MG in SYRINGE 0 ML IV SCH (11:36)
--- NOTE | 2017-07-02 14:08 | Pharmacy Progress Note ---
Pharmacy Glycemic Short Note 2 Date of Service Jul 02, 2017. OUTPATIENT ANTIDIABETIC REGIMEN: * Basaglar 50 units Q HS * Humalog TID w/ meals per scale (reports using ~10-15 units per meal) Test 06/29/17 11:21 06/29/17 16:39 06/29/17 20:57 06/30/17 05:28 Bedside Glucose 161 mg/dl (70-99) 90 mg/dl (70-99) 214 mg/dl (70-99) Random Glucose 276 mg/dl (70-99) Test 06/30/17 06:41 Bedside Glucose 258 mg/dl (70-99) ASSESSMENT: * Mr Hidalgo received a total of 108 units of insulin yesterday * BSGs have ranged from 104-146 mg/dL in the past 24 hours * No changes to stressors PLAN FOR INPATIENT GLYCEMIC CONTROL: * Basal insulin * Continue Lantus 50 units qHS * Bolus insulin * Continue NovoLog per scale ACHS or Q6hrs while NPO * Goal Range: Low 110 mg/dL - High 140 mg/dL * Correction Factor: 15 mg/dL/unit * Nutritional / Prandial insulin per carb ratio of 1 unit per 4 grams CHO consumed Outpatient recommendations: * Patient's A1c is elevated due to non-compliance as an outpatient. Currently waiting on rehab placement on discharge so that will ensure BSGs remain stable. * Okay to continue outpatient regimen upon discharge
[2017-07-02 16:00] VITALS: O2SAT 99
[2017-07-02 17:17] VITALS: BP 102/64; PULSE 48; TEMP 36.8; O2SAT 99
[2017-07-02 17:56] VITALS: PULSE 75
--- NOTE | 2017-07-02 19:07 | Progress Note ---
Medicine Progress Note Date & Time of Visit: Jul 02, 2017 at 19:02. Subjective patient seen resting in bed, comfortable states he feels fine overall denies chest pain, dyspnea, palpitations, dizziness no foot pain denies other symptoms eager for discharge Objective Last 8 Hrs Date Time Temp Pulse Resp B/P (MAP) Pulse Ox O2 Delivery O2 Flow Rate FiO2 07/02/17 17:56 75 07/02/17 17:17 36.8 48 20 102/64 (77) 99 Room Air 07/02/17 16:00 99 Room Air Physical Exam: General- oriented x 3, not in distress, speaks in sentences with no effort Head- atraumatic Eyes- PERRL, EOMI, anicteric ENT- oropharynx clear Neck- supple, no JVD, no adenopathy, no thyromegaly Lungs- clear to auscultation bilaterally Heart- normal rate, irregularly irregular rhythm Abdomen- normal bowel sounds, soft, nontender Extremities- no pretibial edema, no calf tenderness; peripheral pulses intact Neuro- alert, oriented x 3; no gross focal deficits Skin- warm & dry Laboratory Results: Last 24 Hours Test 07/01/17 20:51 07/02/17 07:43 07/02/17 11:56 07/02/17 16:54 Bedside Glucose 107 mg/dl 146 mg/dl 104 mg/dl 173 mg/dl Assessment & Plan currently s/p picc line. ID recommended 6 weeks of iv daptomycin for right foot osteomyelitis. s/p wound vac on right hip. needs to follow up with ortho Aamir.also agreed to be on eliquis for a fib ( doesnot want to be on Coumadin. Needs authorization for eliquis when getting discharged form rehab) Awaiting rehab placement Plans CVA history of head injury/stroke in the past 06/20/17 Brain MRI - Left frontal and parietal lobe acute/subacute infarcts Carotid Ultrasound 06/20/17 unremarkable Echocardiogram 06/21/17 un remarkable -- continue ASA and Eliquis A fib Initially was on IV diltiazem, also had been on IV heparin for anticoagulation Echocardiogram 06/21/17:unremarkable currently rates controlled with Toprol xl and Diltiazem declines anticoagulation -- on Diltiazem and Metoprolol on ASA and Eliquis Asthma -- stable Infectious Sources Right foot cellulitis and abscess and osteomyelitis MRSA Bacteremia s/p picc line plan for iv abx for 6 weeks and followup with wound care Left elbow pain: XR with small joint effusion -Orthopedics recommending elbow pad Diabetes Type 2 Pharmacy Glycemic control consulted Depression Psychiatry consulted 06/21/17: increase Zoloft to 200 mg daily Palliative Care following patient Code Status: Level 5 (DNR/DNI) Disposition: Transfered to medical floor OT indicates rehab is needed. PT indicates pt is not safe to return home and requires rehab/ SNF. Social service for d/c planning patient likes to go to [facility] re[facility] Awaiting placement Current Inpatient Medications: Current Inpatient Medications Medications (Trade) Dose Ordered Sig/Niharika Route Start Time Stop Time Status Last Admin Dose Admin Acetaminophen (Tylenol Tab) 650 mg Q4H PRN PO 06/19/17 09:30 07/19/17 09:29 Miscellaneous Information (Consult Glycemic Management Pharmacy) 1 ea UD N/A 06/19/17 13:15 07/19/17 13:14 Diltiazem HCl 125 mg/Dextrose 125 ml @ 0 mls/hr Q0M PRN IV 06/19/17 10:15 07/19/17 10:14 Future Hold 06/20/17 02:26 5 MLS/HR Albuterol (Ventolin Hfa Inhaler) 2 puffs Q6H PRN INH 06/19/17 13:45 07/19/17 13:44 Alprazolam (Xanax Tab) 0.5 mg BID PO 06/19/17 21:00 07/19/17 20:59 07/02/17 08:18 0.5 MG Aspirin (Ecotrin Tab) 81 mg DAILY PO 06/20/17 09:00 07/20/17 08:59 07/02/17 08:10 81 MG Atorvastatin Calcium (Lipitor Tab) 40 mg DAILY PO 06/20/17 09:00 07/20/17 08:59 07/02/17 08:10 40 MG Baclofen (Lioresal Tab) 10 mg TID PRN PO 06/19/17 13:45 07/19/17 13:44 06/20/17 07:59 10 MG Levetiracetam (Keppra Tab) 1,500 mg BID PO 06/19/17 21:00 07/19/17 20:59 07/02/17 08:09 1,500 MG Ranitidine HCl (zANTac TAB) 150 mg BID PO 06/19/17 21:00 07/19/17 20:59 07/02/17 08:11 150 MG Glucose (Glucose 40% Gel) 15-30 GRAMS 15 GRAMS... UD PRN PO 06/19/17 14:30 07/19/17 14:29 Glucose (Glucose Chew Tab) 4-8 Tablets 4 Tabl... UD PRN PO 06/19/17 14:30 07/19/17 14:29 Dextrose (Dextrose 50% 50ML Syringe) 25-50ML OF 50% DW IV FOR... UD PRN IV 06/19/17 14:30 07/19/17 14:29 Glucagon (Glucagon Inj) 1 mg UD PRN SQ 06/19/17 14:30 07/19/17 14:29 Diltiazem HCl (Cardizem Cd Cap) 120 mg QAM PO 06/21/17 09:00 07/21/17 08:59 07/01/17 18:03 120 MG Ondansetron HCl (Zofran Inj) 4 mg Q4H PRN IV 06/20/17 17:15 07/20/17 17:14 Daptomycin 450 mg/ Syringe 9 ml @ 4.5 mls/min Q24H IV 06/21/17 12:00 08/02/17 11:59 07/02/17 11:36 4.5 MLS/MIN Sertraline HCl (Zoloft Tab) 200 mg QAM PO 06/21/17 14:15 07/21/17 14:14 07/02/17 08:12 200 MG Metoprolol Tartrate (Lopressor Iv) 5 mg Q6 PRN IV 06/24/17 18:00 07/21/17 00:00 Metoprolol Succinate (Toprol Xl Tab) 25 mg QAM PO 06/25/17 09:00 07/25/17 08:59 07/02/17 10:49 25 MG Apixaban (Eliquis Tab) 5 mg BID PO 06/27/17 21:00 07/27/17 20:59 07/02/17 08:09 5 MG Magnesium Oxide (Mag-Ox Tab) 400 mg BID PO 06/29/17 21:00 07/29/17 20:59 2/6/18 08:12 400 MG Insulin Aspart (novoLOG ASPART) SLIDING SCALE ACHS SC 06/30/17 11:00 07/20/17 16:14 07/02/17 17:26 28 UNITS Insulin Glargine (Lantus Solostar Pen) 50 units HS SC 06/30/17 21:00 07/30/17 20:59 07/01/17 21:34 50 UNITS Thiamine HCl (Vitamin B-1 Tab) 100 mg QAM PO 07/01/17 08:00 07/31/17 08:59 07/02/17 08:13 100 MG Multivitamins/ Minerals (Multivitamin W/ Minerals Tab) 1 tab QAM PO 07/01/17 08:00 07/31/17 08:59 07/02/17 08:09 1 TAB Heparin Sodium (Porcine) (Heparin 10 Unit/ ml 5 ml Flush) 5 ml PRN PRN FLUSH 07/01/17 08:30 07/31/17 08:29 07/02/17 08:11 5 ML
[2017-07-02] MEDS: INSULIN GLARGINE SOLOSTAR 100 UNITS/ML 3 ML PEN SC SCH (20:37)
[2017-07-02 23:08] VITALS: BP 95/65; PULSE 115; TEMP 36.8; O2SAT 99
[2017-07-03 07:59] VITALS: BP 93/60; PULSE 111; TEMP 36.6; O2SAT 98
[2017-07-03] MEDS: METOPROLOL SUCC 25MG EXT REL TAB PO SCH (09:12)
[2017-07-03] MEDS: DILTIAZEM HCL 120 MG CAPCR PO SCH (09:12)
[2017-07-03] MEDS: LEVETIRACETAM 500 MG TAB PO SCH ×2 (09:14→20:03)
[2017-07-03] MEDS: ATORVASTATIN 40 MG TAB PO SCH (09:14)
[2017-07-03] MEDS: APIXABAN 2.5 MG TAB PO SCH ×2 (09:14→20:03)
[2017-07-03] MEDS: MAGNESIUM OXIDE 400 MG TAB PO SCH ×2 (09:14→20:05)
[2017-07-03] MEDS: ASPIRIN 81 MG ECTAB PO SCH (09:14)
[2017-07-03] MEDS: CEROVITE ADV FORMULA TAB PO SCH (09:15)
[2017-07-03] MEDS: THIAMINE HCL 100 MG TAB PO SCH (09:15)
[2017-07-03] MEDS: SERTRALINE HCL 100 MG TAB PO SCH (09:15)
[2017-07-03] MEDS: ALPRAZOLAM 0.5 MG TAB PO SCH ×2 (09:15→20:05)
[2017-07-03] MEDS: RANITIDINE HCL 150 MG TAB PO SCH ×2 (09:15→20:05)
[2017-07-03] MEDS: INSULIN ASPART 100 UNITS/ML 3 ML PEN SC SCH ×4 (09:21→19:59)
[2017-07-03] MEDS: DAPTOmycin IV 450 MG in SYRINGE 0 ML IV SCH (11:54)
[2017-07-03] MEDS ORDERED: METOPROLOL SUCC 25MG EXT REL TAB PO ONE (14:45)
--- NOTE | 2017-07-03 14:45 | Progress Note ---
Medicine Progress Note Date & Time of Visit: Jul 03, 2017 at 14:12. Subjective seen resting in bed, comfortable Metoprolol and Diltiazem held again today for marginal BP patient denies palpitations, dizziness, chest pain, dyspnea denies foot pain no other symptoms Objective Last 8 Hrs Date Time Temp Pulse Resp B/P (MAP) Pulse Ox O2 Delivery O2 Flow Rate FiO2 07/03/17 10:39 Room Air 07/03/17 07:59 36.6 111 16 93/60 (71) 98 Room Air Physical Exam: General- oriented x 3, not in distress, speaks in sentences with no effort Eyes-anicteric Neck- supple, no JVD Lungs- clear breath sounds bilaterally Heart- mild tachycardic rate, irregularly irregular rhythm Abdomen- normal bowel sounds, soft, nontender Extremities- no pretibial edema, no calf tenderness; peripheral pulses intact right foot: mild erythema on forefoot, no active discharge/tenderness/edema/ warmth Neuro- alert, oriented x 3; no gross focal deficits Skin- warm & dry Laboratory Results: Last 24 Hours Test 07/02/17 16:54 07/02/17 20:18 07/03/17 07:27 07/03/17 11:31 Bedside Glucose 173 mg/dl 155 mg/dl 105 mg/dl 115 mg/dl Assessment & Plan CVA history of head injury/stroke in the past 06/20/17 Brain MRI - Left frontal and parietal lobe acute/subacute infarcts Carotid Ultrasound 06/20/17 unremarkable Echocardiogram 06/21/17 un remarkable -- continue ASA and Eliquis A fib Initially was on IV diltiazem, also had been on IV heparin for anticoagulation Echocardiogram 06/21/17:unremarkable currently rates controlled with Toprol xl and Diltiazem declines anticoagulation -- on Diltiazem and Metoprolol BP marginal, will give IV fluids, discussed with Dr. Green, will lower stop parameter to HR < 90 on ASA and Eliquis asymptomatic, monitor Asthma -- stable Infectious Sources Right foot cellulitis and abscess and osteomyelitis MRSA Bacteremia s/p picc line plan for iv Dapto for 6 weeks and followup with wound care Left elbow pain: XR with small joint effusion -Orthopedics recommending elbow pad Diabetes Type 2 Pharmacy Glycemic control consulted on Lantus and Aspart Depression Psychiatry consulted 06/21/17: increase Zoloft to 200 mg daily mood stable Palliative Care following patient Code Status: Level 5 (DNR/DNI) Disposition: Transfered to medical floor OT indicates rehab is needed. PT indicates pt is not safe to return home and requires rehab/ SNF. Social service for d/c planning patient likes to go to [facility] Awaiting placement Current Inpatient Medications: Current Inpatient Medications Medications (Trade) Dose Ordered Sig/Niharika Route Start Time Stop Time Status Last Admin Dose Admin Acetaminophen (Tylenol Tab) 650 mg Q4H PRN PO 06/19/17 09:30 07/19/17 09:29 Miscellaneous Information (Consult Glycemic Management Pharmacy) 1 ea UD N/A 06/19/17 13:15 07/19/17 13:14 Diltiazem HCl 125 mg/Dextrose 125 ml @ 0 mls/hr Q0M PRN IV 06/19/17 10:15 07/19/17 10:14 Future Hold 06/20/17 02:26 5 MLS/HR Albuterol (Ventolin Hfa Inhaler) 2 puffs Q6H PRN INH 06/19/17 13:45 07/19/17 13:44 Alprazolam (Xanax Tab) 0.5 mg BID PO 06/19/17 21:00 07/19/17 20:59 07/03/17 09:15 0.5 MG Aspirin (Ecotrin Tab) 81 mg DAILY PO 06/20/17 09:00 07/20/17 08:59 07/03/17 09:14 81 MG Atorvastatin Calcium (Lipitor Tab) 40 mg DAILY PO 06/20/17 09:00 07/20/17 08:59 07/03/17 09:14 40 MG Baclofen (Lioresal Tab) 10 mg TID PRN PO 06/19/17 13:45 07/19/17 13:44 06/20/17 07:59 10 MG Levetiracetam (Keppra Tab) 1,500 mg BID PO 06/19/17 21:00 07/19/17 20:59 07/03/17 09:14 1,500 MG Ranitidine HCl (zANTac TAB) 150 mg BID PO 06/19/17 21:00 07/19/17 20:59 07/03/17 09:15 150 MG Glucose (Glucose 40% Gel) 15-30 GRAMS 15 GRAMS... UD PRN PO 06/19/17 14:30 07/19/17 14:29 Glucose (Glucose Chew Tab) 4-8 Tablets 4 Tabl... UD PRN PO 06/19/17 14:30 07/19/17 14:29 Dextrose (Dextrose 50% 50ML Syringe) 25-50ML OF 50% DW IV FOR... UD PRN IV 06/19/17 14:30 07/19/17 14:29 Glucagon (Glucagon Inj) 1 mg UD PRN SQ 06/19/17 14:30 07/19/17 14:29 Diltiazem HCl (Cardizem Cd Cap) 120 mg QAM PO 06/21/17 09:00 07/21/17 08:59 07/01/17 18:03 120 MG Ondansetron HCl (Zofran Inj) 4 mg Q4H PRN IV 06/20/17 17:15 07/20/17 17:14 Daptomycin 450 mg/ Syringe 9 ml @ 4.5 mls/min Q24H IV 06/21/17 12:00 08/02/17 11:59 07/03/17 11:54 4.5 MLS/MIN Sertraline HCl (Zoloft Tab) 200 mg QAM PO 06/21/17 14:15 07/21/17 14:14 07/03/17 09:15 200 MG Metoprolol Tartrate (Lopressor Iv) 5 mg Q6 PRN IV 06/24/17 18:00 07/21/17 00:00 Apixaban (Eliquis Tab) 5 mg BID PO 06/27/17 21:00 07/27/17 20:59 07/03/17 09:14 5 MG Magnesium Oxide (Mag-Ox Tab) 400 mg BID PO 06/29/17 21:00 07/29/17 20:59 07/03/17 09:14 400 MG Insulin Aspart (novoLOG ASPART) SLIDING SCALE ACHS SC 06/30/17 11:00 07/20/17 16:14 07/03/17 12:33 19 UNITS Insulin Glargine (Lantus Solostar Pen) 50 units HS SC 06/30/17 21:00 07/30/17 20:59 07/02/17 20:37 50 UNITS Thiamine HCl (Vitamin B-1 Tab) 100 mg QAM PO 07/01/17 08:00 07/31/17 08:59 07/03/17 09:15 100 MG Multivitamins/ Minerals (Multivitamin W/ Minerals Tab) 1 tab QAM PO 07/01/17 08:00 07/31/17 08:59 07/03/17 09:15 1 TAB Heparin Sodium (Porcine) (Heparin 10 Unit/ ml 5 ml Flush) 5 ml PRN PRN FLUSH 07/01/17 08:30 07/31/17 08:29 07/03/17 11:54 5 ML Metoprolol Succinate (Toprol Xl Tab) 12.5 mg QAM PO 07/04/17 08:00 07/25/17 08:59 Sodium Chloride 1,000 ml @ 100 mls/hr Q10H IV 07/03/17 14:15 08/02/17 14:14
[2017-07-03 15:09] VITALS: BP 96/70; PULSE 140; TEMP 36.8; O2SAT 100
[2017-07-03 15:12] LABS: BASO % 0.2 %; BASO ABS # 0.02 K/uL (0-0.2); EOS % 2.2 %; HEMATOCRIT 33.6 % (42-52); IG# 0.04 K/uL (0.00-0.02); LYMPH % 19.1 %; LYMPH ABS # 1.71 K/uL (1.2-3.4); MEAN CELL VOLUME 93.6 fL (80-100); MEAN CORPUSCULAR HEMOGLOBIN 30.6 pg (25-34); MEAN CORPUSCULAR HGB CONC 32.7 g/dl (32-36); MEAN PLATELET VOLUME 8.7 fL (7.4-10.4); MONO % 5.8 %; MONO ABS # 0.52 K/uL (0.11-0.59); NEUT % 72.3 %; NEUT ABS # 6.44 K/uL (1.4-6.5); PLATELET COUNT 399 K/uL (130-400); RED CELL DISTRIBUTION WIDTH CV 13.8 % (11.5-14.5); RED CELL DISTRIBUTION WIDTH SD 47.2 fL (36.4-46.3); WHITE BLOOD COUNT 8.93 K/uL (4.8-10.8)
[2017-07-03] MEDS: SODIUM CHLORIDE 0.9% 1000ML 1,000 ML IV SCH (15:23)
[2017-07-03 15:29] LABS: CALCIUM 8.7 mg/dl (8.5-10.1); CREATININE 0.75 mg/dl (0.60-1.40); POTASSIUM 4.2 mmol/L (3.5-5.1)
[2017-07-03] MEDS: INSULIN GLARGINE SOLOSTAR 100 UNITS/ML 3 ML PEN SC SCH (20:00)
[2017-07-03 23:43] VITALS: BP 90/59; PULSE 126; TEMP 36.4; O2SAT 99
[2017-07-04] MEDS: SODIUM CHLORIDE 0.9% 1000ML 1,000 ML IV SCH ×3 (01:10→21:00)
[2017-07-04 07:51] VITALS: BP 91/62; PULSE 113; TEMP 36.5; O2SAT 100
[2017-07-04] MEDS: DILTIAZEM HCL 120 MG CAPCR PO SCH ×2 (08:41→18:04)
[2017-07-04] MEDS: METOPROLOL SUCC 25MG EXT REL TAB PO SCH ×2 (08:42→18:04)
[2017-07-04] MEDS: APIXABAN 2.5 MG TAB PO SCH ×2 (08:42→20:58)
[2017-07-04] MEDS: ASPIRIN 81 MG ECTAB PO SCH (08:42)
[2017-07-04] MEDS: SERTRALINE HCL 100 MG TAB PO SCH (08:43)
[2017-07-04] MEDS: RANITIDINE HCL 150 MG TAB PO SCH ×2 (08:43→20:57)
[2017-07-04] MEDS: LEVETIRACETAM 500 MG TAB PO SCH ×2 (08:43→20:58)
[2017-07-04] MEDS: MAGNESIUM OXIDE 400 MG TAB PO SCH ×2 (08:43→20:58)
[2017-07-04] MEDS: ALPRAZOLAM 0.5 MG TAB PO SCH ×2 (08:43→21:01)
[2017-07-04] MEDS: CEROVITE ADV FORMULA TAB PO SCH (08:44)
[2017-07-04] MEDS: ATORVASTATIN 40 MG TAB PO SCH (08:44)
[2017-07-04] MEDS: THIAMINE HCL 100 MG TAB PO SCH (08:44)
[2017-07-04] MEDS: INSULIN ASPART 100 UNITS/ML 3 ML PEN SC SCH ×4 (08:52→21:04)
--- NOTE | 2017-07-04 09:44 | Pharmacy Progress Note ---
Pharmacy Glycemic Short Note 2 Date of Service Jul 04, 2017. OUTPATIENT ANTIDIABETIC REGIMEN: * Basaglar 50 units Q HS * Humalog TID w/ meals per scale (reports using ~10-15 units per meal) ASSESSMENT: * Mr Hidalgo received a total of 109 units of insulin yesterday * BSGs have ranged from 105-155 mg/dL in the past 24 hours * No changes to stressors PLAN FOR INPATIENT GLYCEMIC CONTROL: * Basal insulin * Continue Lantus 50 units qHS * Bolus insulin * Continue NovoLog per scale ACHS or Q6hrs while NPO * Goal Range: Low 110 mg/dL - High 140 mg/dL * Correction Factor: 15 mg/dL/unit * Nutritional / Prandial insulin per carb ratio of 1 unit per 4 grams CHO consumed Outpatient recommendations: * Patient's A1c is elevated due to non-compliance as an outpatient. Currently waiting on rehab placement on discharge so that will ensure BSGs remain stable. * Okay to continue outpatient regimen upon discharge
[2017-07-04] MEDS: DAPTOmycin IV 450 MG in SYRINGE 0 ML IV SCH (12:03)
[2017-07-04 15:33] VITALS: BP 105/74; PULSE 142; TEMP 36.5; O2SAT 100
[2017-07-04 16:00] VITALS: O2SAT 100
--- NOTE | 2017-07-04 19:28 | Progress Note ---
Medicine Progress Note Date & Time of Visit: Jul 04, 2017 at 19:22. Subjective seen resting in bed, talking on the phone allowed me to evaluate him states he feels fine denies chest pain, dyspnea, palpitations, dizziness no new symptoms eager for discharge Objective Last 8 Hrs Date Time Temp Pulse Resp B/P (MAP) Pulse Ox O2 Delivery O2 Flow Rate FiO2 07/04/17 15:33 36.5 142 18 105/74 (84) 100 Room Air Physical Exam: General- oriented x 3, not in distress, speaks in sentences with no effort Eyes-anicteric Neck- no JVD Lungs- clear breath sounds bilaterally, no rales,no wheezes Heart- mild tachycardic rate, irregularly irregular rhythm Abdomen- normal bowel sounds, soft, nontender Extremities- no pretibial edema, no calf tenderness; peripheral pulses intact right foot: mild erythema on forefoot, no active discharge/tenderness/edema/ warmth Neuro- alert, oriented x 3; no gross focal deficits Skin- warm & dry Laboratory Results: Last 24 Hours Test 07/03/17 19:40 07/04/17 08:04 07/04/17 11:52 07/04/17 16:15 Bedside Glucose 155 mg/dl 121 mg/dl 158 mg/dl 92 mg/dl Assessment & Plan CVA history of 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 Green, lowered stop parameter to HR < 90 on ASA and Eliquis asymptomatic, monitor Asthma -- stable Infectious Sources Right foot cellulitis and abscess and osteomyelitis MRSA Bacteremia s/p picc line plan for iv Dapto for 6 weeks and followup with wound care Left elbow pain: XR with small joint effusion -Orthopedics recommending elbow pad Diabetes Type 2 Pharmacy Glycemic control consulted on Lantus and Aspart Depression Psychiatry consulted 06/21/17: increase Zoloft to 200 mg daily mood stable Palliative Care following patient Code Status: Level 5 (DNR/DNI) Disposition: Transfered to medical floor OT indicates rehab is needed. PT indicates pt is not safe to return home and requires rehab/ SNF. Social service for d/c planning Awaiting placement Current Inpatient Medications: Current Inpatient Medications Medications (Trade) Dose Ordered Sig/Niharika Route Start Time Stop Time Status Last Admin Dose Admin Acetaminophen (Tylenol Tab) 650 mg Q4H PRN PO 06/19/17 09:30 07/19/17 09:29 Miscellaneous Information (Consult Glycemic Management Pharmacy) 1 ea UD N/A 06/19/17 13:15 07/19/17 13:14 Diltiazem HCl 125 mg/Dextrose 125 ml @ 0 mls/hr Q0M PRN IV 06/19/17 10:15 07/19/17 10:14 Future Hold 06/20/17 02:26 5 MLS/HR Albuterol (Ventolin Hfa Inhaler) 2 puffs Q6H PRN INH 06/19/17 13:45 07/19/17 13:44 Alprazolam (Xanax Tab) 0.5 mg BID PO 06/19/17 21:00 07/19/17 20:59 07/04/17 08:43 0.5 MG Aspirin (Ecotrin Tab) 81 mg DAILY PO 06/20/17 09:00 07/20/17 08:59 07/04/17 08:42 81 MG Atorvastatin Calcium (Lipitor Tab) 40 mg DAILY PO 06/20/17 09:00 07/20/17 08:59 07/04/17 08:44 40 MG Baclofen (Lioresal Tab) 10 mg TID PRN PO 06/19/17 13:45 07/19/17 13:44 06/20/17 07:59 10 MG Levetiracetam (Keppra Tab) 1,500 mg BID PO 06/19/17 21:00 07/19/17 20:59 07/04/17 08:43 1,500 MG Ranitidine HCl (zANTac TAB) 150 mg BID PO 06/19/17 21:00 07/19/17 20:59 07/04/17 08:43 150 MG Glucose (Glucose 40% Gel) 15-30 GRAMS 15 GRAMS... UD PRN PO 06/19/17 14:30 07/19/17 14:29 Glucose (Glucose Chew Tab) 4-8 Tablets 4 Tabl... UD PRN PO 06/19/17 14:30 07/19/17 14:29 Dextrose (Dextrose 50% 50ML Syringe) 25-50ML OF 50% DW IV FOR... UD PRN IV 06/19/17 14:30 07/19/17 14:29 Glucagon (Glucagon Inj) 1 mg UD PRN SQ 06/19/17 14:30 07/19/17 14:29 Diltiazem HCl (Cardizem Cd Cap) 120 mg QAM PO 06/21/17 09:00 07/21/17 08:59 07/04/17 18:04 120 MG Ondansetron HCl (Zofran Inj) 4 mg Q4H PRN IV 06/20/17 17:15 07/20/17 17:14 Daptomycin 450 mg/ Syringe 9 ml @ 4.5 mls/min Q24H IV 06/21/17 12:00 08/02/17 11:59 07/04/17 12:03 4.5 MLS/MIN Sertraline HCl (Zoloft Tab) 200 mg QAM PO 06/21/17 14:15 07/21/17 14:14 07/04/17 08:43 200 MG Apixaban (Eliquis Tab) 5 mg BID PO 06/27/17 21:00 07/27/17 20:59 07/04/17 08:42 5 MG Magnesium Oxide (Mag-Ox Tab) 400 mg BID PO 06/29/17 21:00 07/29/17 20:59 07/04/17 08:43 400 MG Insulin Aspart (novoLOG ASPART) SLIDING SCALE ACHS SC 06/30/17 11:00 07/20/17 16:14 07/04/17 18:08 12 UNITS Insulin Glargine (Lantus Solostar Pen) 50 units HS SC 06/30/17 21:00 07/30/17 20:59 07/03/17 20:00 50 UNITS Thiamine HCl (Vitamin B-1 Tab) 100 mg QAM PO 07/01/17 08:00 07/31/17 08:59 07/04/17 08:44 100 MG Multivitamins/ Minerals (Multivitamin W/ Minerals Tab) 1 tab QAM PO 07/01/17 08:00 07/31/17 08:59 07/04/17 08:44 1 TAB Heparin Sodium (Porcine) (Heparin 10 Unit/ ml 5 ml Flush) 5 ml PRN PRN FLUSH 07/01/17 08:30 07/31/17 08:29 07/03/17 11:54 5 ML Metoprolol Succinate (Toprol Xl Tab) 12.5 mg QAM PO 07/04/17 08:00 07/25/17 08:59 07/04/17 18:04 12.5 MG Sodium Chloride 1,000 ml @ 100 mls/hr Q10H IV 07/03/17 14:15 08/02/17 14:14 07/04/17 11:04 100 MLS/HR
[2017-07-04 19:43] VITALS: BP 87/60; PULSE 141; TEMP 36.7; O2SAT 99
[2017-07-04] MEDS: INSULIN GLARGINE SOLOSTAR 100 UNITS/ML 3 ML PEN SC SCH (21:05)
[2017-07-04 21:55] VITALS: PULSE 116
[2017-07-05] VITALS (8 sets, daily range): BP systolic 83–114; BP diastolic 48–80; PULSE 75–109; TEMP 36.5–36.8; O2SAT 95–98
[2017-07-05] MEDS: ASPIRIN 81 MG ECTAB PO SCH (08:12)
[2017-07-05] MEDS: APIXABAN 2.5 MG TAB PO SCH ×2 (08:13→20:36)
[2017-07-05] MEDS: LEVETIRACETAM 500 MG TAB PO SCH ×2 (08:15→20:37)
[2017-07-05] MEDS: ATORVASTATIN 40 MG TAB PO SCH (08:15)
[2017-07-05] MEDS: MAGNESIUM OXIDE 400 MG TAB PO SCH ×2 (08:16→20:38)
[2017-07-05] MEDS: CEROVITE ADV FORMULA TAB PO SCH (08:17)
[2017-07-05] MEDS: THIAMINE HCL 100 MG TAB PO SCH (08:19)
[2017-07-05] MEDS: SERTRALINE HCL 100 MG TAB PO SCH (08:20)
[2017-07-05] MEDS: RANITIDINE HCL 150 MG TAB PO SCH ×2 (08:20→20:37)
[2017-07-05] MEDS: ALPRAZOLAM 0.5 MG TAB PO SCH ×2 (08:32→20:36)
[2017-07-05] MEDS: INSULIN ASPART 100 UNITS/ML 3 ML PEN SC SCH ×4 (08:51→21:00)
[2017-07-05] MEDS: DILTIAZEM HCL 120 MG CAPCR PO SCH (09:58)
[2017-07-05] MEDS: METOPROLOL SUCC 25MG EXT REL TAB PO SCH (10:02)
[2017-07-05] MEDS: SODIUM CHLORIDE 0.9% 1000ML 1,000 ML IV SCH ×2 (10:05→23:44)
[2017-07-05] MEDS: DAPTOmycin IV 450 MG in SYRINGE 0 ML IV SCH (11:38)
--- NOTE | 2017-07-05 20:30 | Progress Note ---
Medicine Progress Note Date & Time of Visit: Jul 05, 2017 at 20:28. Subjective sitting in bed, watching TV states he feels fine overall comfortable denies chest pain, dyspnea, palpitations, dizziness no other symptoms Objective Last 8 Hrs Date Time Temp Pulse Resp B/P (MAP) Pulse Ox O2 Delivery O2 Flow Rate FiO2 07/05/17 16:00 97 Room Air 07/05/17 15:09 36.7 92 18 83/48 (60) 97 Room Air Physical Exam: General- oriented x 3, not in distress, speaks in sentences with no effort Eyes-anicteric Neck- no JVD Lungs- clear BS BL Heart-normal rate, irregularly irregular rhythm Abdomen- normal bowel sounds, soft, nontender Extremities- no pretibial edema, no calf tenderness; peripheral pulses intact right foot: mild erythema on forefoot, no active discharge/tenderness/edema/ warmth Neuro- alert, oriented x 3; no gross focal deficits Skin- warm & dry Laboratory Results: Last 24 Hours Test 07/05/17 07:52 07/05/17 11:50 07/05/17 16:51 Bedside Glucose 101 mg/dl 82 mg/dl 243 mg/dl Assessment & Plan CVA history of 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 Green, lowered stop parameter to HR < 90 on ASA and Eliquis -- HR improving monitor BP Asthma -- stable Right foot cellulitis and abscess and osteomyelitis MRSA Bacteremia s/p picc line plan for iv Dapto for 6 weeks and followup with wound care Left elbow pain: XR with small joint effusion -Orthopedics recommending elbow pad Diabetes Type 2 Pharmacy Glycemic control consulted on Lantus and Aspart Depression Psychiatry consulted 06/21/17: increase Zoloft to 200 mg daily mood stable Palliative Care following patient Code Status: Level 5 (DNR/DNI) Disposition: Transfered to medical floor OT indicates rehab is needed. PT indicates pt is not safe to return home and requires rehab/ SNF. Social service for d/c planning Awaiting placement Current Inpatient Medications: Current Inpatient Medications Medications (Trade) Dose Ordered Sig/Niharika Route Start Time Stop Time Status Last Admin Dose Admin Acetaminophen (Tylenol Tab) 650 mg Q4H PRN PO 06/19/17 09:30 07/19/17 09:29 Miscellaneous Information (Consult Glycemic Management Pharmacy) 1 ea UD N/A 06/19/17 13:15 07/19/17 13:14 Diltiazem HCl 125 mg/Dextrose 125 ml @ 0 mls/hr Q0M PRN IV 06/19/17 10:15 07/19/17 10:14 Future Hold 06/20/17 02:26 5 MLS/HR Albuterol (Ventolin Hfa Inhaler) 2 puffs Q6H PRN INH 06/19/17 13:45 07/19/17 13:44 Alprazolam (Xanax Tab) 0.5 mg BID PO 06/19/17 21:00 07/19/17 20:59 07/05/17 08:32 0.5 MG Aspirin (Ecotrin Tab) 81 mg DAILY PO 06/20/17 09:00 07/20/17 08:59 07/05/17 08:12 81 MG Atorvastatin Calcium (Lipitor Tab) 40 mg DAILY PO 06/20/17 09:00 07/20/17 08:59 07/05/17 08:15 40 MG Baclofen (Lioresal Tab) 10 mg TID PRN PO 06/19/17 13:45 07/19/17 13:44 06/20/17 07:59 10 MG Levetiracetam (Keppra Tab) 1,500 mg BID PO 06/19/17 21:00 07/19/17 20:59 07/05/17 08:15 1,500 MG Ranitidine HCl (zANTac TAB) 150 mg BID PO 06/19/17 21:00 07/19/17 20:59 07/05/17 08:20 150 MG Glucose (Glucose 40% Gel) 15-30 GRAMS 15 GRAMS... UD PRN PO 06/19/17 14:30 07/19/17 14:29 Glucose (Glucose Chew Tab) 4-8 Tablets 4 Tabl... UD PRN PO 06/19/17 14:30 07/19/17 14:29 Dextrose (Dextrose 50% 50ML Syringe) 25-50ML OF 50% DW IV FOR... UD PRN IV 06/19/17 14:30 07/19/17 14:29 Glucagon (Glucagon Inj) 1 mg UD PRN SQ 06/19/17 14:30 07/19/17 14:29 Diltiazem HCl (Cardizem Cd Cap) 120 mg QAM PO 06/21/17 09:00 07/21/17 08:59 07/05/17 09:58 120 MG Ondansetron HCl (Zofran Inj) 4 mg Q4H PRN IV 06/20/17 17:15 07/20/17 17:14 Daptomycin 450 mg/ Syringe 9 ml @ 4.5 mls/min Q24H IV 06/21/17 12:00 08/02/17 11:59 07/05/17 11:38 4.5 MLS/MIN Sertraline HCl (Zoloft Tab) 200 mg QAM PO 06/21/17 14:15 07/21/17 14:14 07/05/17 08:20 200 MG Apixaban (Eliquis Tab) 5 mg BID PO 06/27/17 21:00 07/27/17 20:59 07/05/17 08:13 5 MG Magnesium Oxide (Mag-Ox Tab) 400 mg BID PO 06/29/17 21:00 07/29/17 20:59 07/05/17 08:16 400 MG Insulin Aspart (novoLOG ASPART) SLIDING SCALE ACHS SC 06/30/17 11:00 07/20/17 16:14 07/05/17 17:36 29 UNITS Insulin Glargine (Lantus Solostar Pen) 50 units HS SC 06/30/17 21:00 07/30/17 20:59 07/04/17 21:05 50 UNITS Thiamine HCl (Vitamin B-1 Tab) 100 mg QAM PO 07/01/17 08:00 07/31/17 08:59 07/05/17 08:19 100 MG Multivitamins/ Minerals (Multivitamin W/ Minerals Tab) 1 tab QAM PO 07/01/17 08:00 07/31/17 08:59 07/05/17 08:17 1 TAB Heparin Sodium (Porcine) (Heparin 10 Unit/ ml 5 ml Flush) 5 ml PRN PRN FLUSH 07/01/17 08:30 07/31/17 08:29 07/03/17 11:54 5 ML Metoprolol Succinate (Toprol Xl Tab) 12.5 mg QAM PO 07/04/17 08:00 07/25/17 08:59 07/05/17 10:02 12.5 MG Sodium Chloride 1,000 ml @ 75 mls/hr [id number] IV 07/03/17 14:15 08/02/17 14:14 07/05/17 10:05 75 MLS/HR
[2017-07-05] MEDS ORDERED: INSULIN GLARGINE SOLOSTAR 100 UNITS/ML 3 ML PEN SC SCH (21:00)
[2017-07-06] MEDS ORDERED: INSULIN ASPART 100 UNITS/ML 3 ML PEN SC SCH (02:00)
[2017-07-06 07:23] VITALS: BP 88/55; PULSE 102; TEMP 36.5; O2SAT 99
[2017-07-06] MEDS: ATORVASTATIN 40 MG TAB PO SCH (08:46)
[2017-07-06] MEDS: ASPIRIN 81 MG ECTAB PO SCH (08:46)
[2017-07-06] MEDS: RANITIDINE HCL 150 MG TAB PO SCH ×2 (08:47→20:44)
[2017-07-06] MEDS: CEROVITE ADV FORMULA TAB PO SCH (08:47)
[2017-07-06] MEDS: METOPROLOL SUCC 25MG EXT REL TAB PO SCH (08:47)
[2017-07-06] MEDS: SERTRALINE HCL 100 MG TAB PO SCH (08:48)
[2017-07-06] MEDS: THIAMINE HCL 100 MG TAB PO SCH (08:48)
[2017-07-06] MEDS: APIXABAN 2.5 MG TAB PO SCH ×2 (08:49→20:45)
[2017-07-06] MEDS: DILTIAZEM HCL 120 MG CAPCR PO SCH (08:49)
[2017-07-06] MEDS: MAGNESIUM OXIDE 400 MG TAB PO SCH ×2 (08:49→20:45)
[2017-07-06] MEDS: LEVETIRACETAM 500 MG TAB PO SCH ×2 (08:50→20:45)
[2017-07-06] MEDS: ALPRAZOLAM 0.5 MG TAB PO SCH ×2 (08:53→20:52)
[2017-07-06] MEDS ORDERED: INSULIN GLARGINE SOLOSTAR 100 UNITS/ML 3 ML PEN SC ONE (09:00)
[2017-07-06] MEDS: INSULIN ASPART 100 UNITS/ML 3 ML PEN SC SCH ×4 (09:02→20:48)
[2017-07-06 09:06] VITALS: BP 94/61
[2017-07-06] MEDS: SODIUM CHLORIDE 0.9% 1000ML 1,000 ML IV SCH (13:12)
[2017-07-06] MEDS: DAPTOmycin IV 450 MG in SYRINGE 0 ML IV SCH (13:13)
--- NOTE | 2017-07-06 13:31 | Pharmacy Progress Note ---
Pharmacy Glycemic Short Note 2 Date of Service Jul 06, 2017. OUTPATIENT ANTIDIABETIC REGIMEN: * Basaglar 50 units Q HS * Humalog TID w/ meals per scale (reports using ~10-15 units per meal) ASSESSMENT: * Mr Hidalgo received a total of 100 units of insulin yesterday (patient only received Lantus 25 units last night due to blood sugar of 98 mg/dL. This was secondary to the 29 units of Novolog given at dinner and was artificially decreased). Since a lower Lantus dose was given last night, the patient's fasting blood sugar was 251 mg/dL this morning. A small dose of 15 units of Lantus was given at breakfast to "make up" for lower dose last night. Lantus 40 units will be given tonight (to make total dose today of 55) then the 50 units will start again tomorrow evening. * BSGs have ranged from 82-243 mg/dL in the past 24 hours * No change to Novolog. Spoke with nurse about how to make maximum dose of 20 units of Novolog visible so changed its location in the order set. PLAN FOR INPATIENT GLYCEMIC CONTROL: * Basal insulin * Continue Lantus 50 units qHS (for today utilize 15 units this morning and then 40 units this evening) * Bolus insulin * Continue NovoLog per scale ACHS or Q6hrs while NPO --> maximum of 20 units per dose * Goal Range: Low 110 mg/dL - High 140 mg/dL * Correction Factor: 15 mg/dL/unit * Nutritional / Prandial insulin per carb ratio of 1 unit per 4 grams CHO consumed Outpatient recommendations: * Patient's A1c is elevated due to non-compliance as an outpatient. Currently waiting on rehab placement on discharge so that will ensure BSGs remain stable. * Okay to continue outpatient regimen upon discharge
[2017-07-06 14:53] VITALS: BP 92/60; PULSE 90; TEMP 36.6; O2SAT 98
[2017-07-06] MEDS ORDERED: INSULIN GLARGINE SOLOSTAR 100 UNITS/ML 3 ML PEN SC SCH ×2 (17:00→21:00)
--- NOTE | 2017-07-06 18:50 | Progress Note ---
Medicine Progress Note Date & Time of Visit: Jul 06, 2017 at 18:47. Subjective patient seen resting in bed, comfortable states he feels fine no palpitations, dizziness, chest pain no leg pain denies other symptoms Objective Last 8 Hrs Date Time Temp Pulse Resp B/P (MAP) Pulse Ox O2 Delivery O2 Flow Rate FiO2 07/06/17 16:24 Room Air 07/06/17 14:53 36.6 90 18 92/60 (71) 98 Physical Exam: General- oriented x 3, not in distress, speaks in sentences with no effort Eyes-anicteric Neck- no JVD Lungs- clear BS BL Heart-normal rate, irregularly irregular rhythm Abdomen- normal bowel sounds, soft, nontender Extremities- no pretibial edema, no calf tenderness; peripheral pulses intact right foot: mild erythema on forefoot, no active discharge/tenderness/edema/ warmth Neuro- alert, oriented x 3; no gross focal deficits Skin- warm & dry Laboratory Results: Last 24 Hours Test 07/05/17 20:47 07/06/17 02:10 07/06/17 07:52 07/06/17 12:03 Bedside Glucose 98 mg/dl 208 mg/dl 251 mg/dl 101 mg/dl Test 07/06/17 16:50 07/06/17 17:13 Bedside Glucose 67 mg/dl 85 mg/dl Assessment & Plan CVA history of head injury/stroke in the past 06/20/17 Brain MRI - Left frontal and parietal lobe acute/subacute infarcts Carotid Ultrasound 06/20/17 unremarkable Echocardiogram 06/21/17 un remarkable -- no new neuro symptoms -- continue ASA and Eliquis A fib Initially was on IV diltiazem, also had been on IV heparin for anticoagulation Echocardiogram 06/21/17:unremarkable currently rates controlled with Toprol xl and Diltiazem declines anticoagulation -- on Diltiazem and Metoprolol BP marginal, IV fluids, discussed with Dr. Green, lowered stop parameter to HR < 90 on ASA and Eliquis -- HR improved monitor BP Asthma -- stable Right foot cellulitis and abscess and osteomyelitis MRSA Bacteremia s/p picc line -- iv Dapto for 6 weeks and followup with wound care Left elbow pain: XR with small joint effusion -Orthopedics recommending elbow pad Diabetes Type 2 Pharmacy Glycemic control consulted on Lantus and Aspart Depression Psychiatry consulted 06/21/17: increase Zoloft to 200 mg daily mood stable Palliative Care following patient Code Status: Level 5 (DNR/DNI) Disposition: Transfered to medical floor OT indicates rehab is needed. PT indicates pt is not safe to return home and requires rehab/ SNF. Social service for d/c planning -- patient declining placement to SNF/Rehab will have catalytic case operator speak with patient tomorrow again Current Inpatient Medications: Current Inpatient Medications Medications (Trade) Dose Ordered Sig/Niharika Route Start Time Stop Time Status Last Admin Dose Admin Acetaminophen (Tylenol Tab) 650 mg Q4H PRN PO 06/19/17 09:30 07/19/17 09:29 Miscellaneous Information (Consult Glycemic Management Pharmacy) 1 ea UD N/A 06/19/17 13:15 07/19/17 13:14 Diltiazem HCl 125 mg/Dextrose 125 ml @ 0 mls/hr Q0M PRN IV 06/19/17 10:15 07/19/17 10:14 Future Hold 06/20/17 02:26 5 MLS/HR Albuterol (Ventolin Hfa Inhaler) 2 puffs Q6H PRN INH 06/19/17 13:45 07/19/17 13:44 Alprazolam (Xanax Tab) 0.5 mg BID PO 06/19/17 21:00 07/19/17 20:59 07/06/17 08:53 0.5 MG Aspirin (Ecotrin Tab) 81 mg DAILY PO 06/20/17 09:00 07/20/17 08:59 07/06/17 08:46 81 MG Atorvastatin Calcium (Lipitor Tab) 40 mg DAILY PO 06/20/17 09:00 07/20/17 08:59 07/06/17 08:46 40 MG Baclofen (Lioresal Tab) 10 mg TID PRN PO 06/19/17 13:45 07/19/17 13:44 06/20/17 07:59 10 MG Levetiracetam (Keppra Tab) 1,500 mg BID PO 06/19/17 21:00 07/19/17 20:59 07/06/17 08:50 1,500 MG Ranitidine HCl (zANTac TAB) 150 mg BID PO 06/19/17 21:00 07/19/17 20:59 07/06/17 08:47 150 MG Glucose (Glucose 40% Gel) 15-30 GRAMS 15 GRAMS... UD PRN PO 06/19/17 14:30 07/19/17 14:29 Glucose (Glucose Chew Tab) 4-8 Tablets 4 Tabl... UD PRN PO 06/19/17 14:30 07/19/17 14:29 Dextrose (Dextrose 50% 50ML Syringe) 25-50ML OF 50% DW IV FOR... UD PRN IV 06/19/17 14:30 07/19/17 14:29 Glucagon (Glucagon Inj) 1 mg UD PRN SQ 06/19/17 14:30 07/19/17 14:29 Diltiazem HCl (Cardizem Cd Cap) 120 mg QAM PO 06/21/17 09:00 07/21/17 08:59 07/06/17 08:49 120 MG Ondansetron HCl (Zofran Inj) 4 mg Q4H PRN IV 06/20/17 17:15 07/20/17 17:14 Daptomycin 450 mg/ Syringe 9 ml @ 4.5 mls/min Q24H IV 06/21/17 12:00 08/02/17 11:59 07/06/17 13:13 4.5 MLS/MIN Sertraline HCl (Zoloft Tab) 200 mg QAM PO 06/21/17 14:15 07/21/17 14:14 07/06/17 08:48 200 MG Apixaban (Eliquis Tab) 5 mg BID PO 06/27/17 21:00 07/27/17 20:59 07/06/17 08:49 5 MG Magnesium Oxide (Mag-Ox Tab) 400 mg BID PO 06/29/17 21:00 07/29/17 20:59 07/06/17 08:49 400 MG Insulin Aspart (novoLOG ASPART) SLIDING SCALE ACHS SC 06/30/17 11:00 07/20/17 16:14 07/06/17 18:36 20 UNITS Thiamine HCl (Vitamin B-1 Tab) 100 mg QAM PO 07/01/17 08:00 07/31/17 08:59 07/06/17 08:48 100 MG Multivitamins/ Minerals (Multivitamin W/ Minerals Tab) 1 tab QAM PO 07/01/17 08:00 07/31/17 08:59 07/06/17 08:47 1 TAB Heparin Sodium (Porcine) (Heparin 10 Unit/ ml 5 ml Flush) 5 ml PRN PRN FLUSH 07/01/17 08:30 07/31/17 08:29 07/03/17 11:54 5 ML Metoprolol Succinate (Toprol Xl Tab) 12.5 mg QAM PO 07/04/17 08:00 07/25/17 08:59 07/06/17 08:47 12.5 MG Sodium Chloride 1,000 ml @ 75 mls/hr [id number] IV 07/03/17 14:15 08/02/17 14:14 07/06/17 13:12 75 MLS/HR Insulin Glargine (Lantus Solostar Pen) 40 units QPM SC 07/06/17 21:00 07/06/17 21:01 Insulin Glargine (Lantus Solostar Pen) 50 units HS SC 07/07/17 17:00 08/06/17 16:59
[2017-07-07] MEDS: SODIUM CHLORIDE 0.9% 1000ML 1,000 ML IV SCH ×2 (02:24→15:00)
[2017-07-07 06:41] VITALS: BP 120/84; PULSE 106; TEMP 36.3; O2SAT 95
[2017-07-07] MEDS: ATORVASTATIN 40 MG TAB PO SCH (08:13)
[2017-07-07] MEDS: ALPRAZOLAM 0.5 MG TAB PO SCH ×2 (08:13→20:28)
[2017-07-07] MEDS: ASPIRIN 81 MG ECTAB PO SCH (08:13)
[2017-07-07] MEDS: CEROVITE ADV FORMULA TAB PO SCH (08:14)
[2017-07-07] MEDS: APIXABAN 2.5 MG TAB PO SCH ×2 (08:14→20:29)
[2017-07-07] MEDS: METOPROLOL SUCC 25MG EXT REL TAB PO SCH (08:14)
[2017-07-07] MEDS: DILTIAZEM HCL 120 MG CAPCR PO SCH (08:15)
[2017-07-07] MEDS: LEVETIRACETAM 500 MG TAB PO SCH ×2 (08:15→20:30)
[2017-07-07] MEDS: THIAMINE HCL 100 MG TAB PO SCH (08:15)
[2017-07-07] MEDS: SERTRALINE HCL 100 MG TAB PO SCH (08:15)
[2017-07-07] MEDS: RANITIDINE HCL 150 MG TAB PO SCH ×2 (08:15→20:29)
[2017-07-07] MEDS: MAGNESIUM OXIDE 400 MG TAB PO SCH ×2 (08:15→20:29)
[2017-07-07] MEDS: INSULIN ASPART 100 UNITS/ML 3 ML PEN SC SCH ×4 (08:23→20:32)
[2017-07-07] MEDS: DAPTOmycin IV 450 MG in SYRINGE 0 ML IV SCH (12:34)
[2017-07-07 14:45] VITALS: BP_SYST 86; BP_DIAS 46; BP_DIAS 86; PULSE 108; TEMP 36.9; O2SAT 97
[2017-07-07] MEDS ORDERED: INSULIN GLARGINE SOLOSTAR 100 UNITS/ML 3 ML PEN SC SCH (17:00)
[2017-07-07 17:53] VITALS: BP 116/85
[2017-07-07] MEDS: INSULIN GLARGINE SOLOSTAR 100 UNITS/ML 3 ML PEN SC SCH (20:33)
[2017-07-07 23:42] VITALS: BP 130/86; PULSE 82; TEMP 36.8; O2SAT 96
[2017-07-08] VITALS (10 sets, daily range): BP systolic 101–122; BP diastolic 62–85; PULSE 90–135; TEMP 36.6–37.2; O2SAT 94–100
[2017-07-08] MEDS: SODIUM CHLORIDE 0.9% 1000ML 1,000 ML IV SCH ×2 (04:24→17:00)
--- NOTE | 2017-07-08 08:03 | Progress Note ---
Medicine Progress Note Date & Time of Visit: Jul 08, 2017 at 07:57. Subjective delayed entry date of service Objective Last 8 Hrs Date Time Temp Pulse Resp B/P (MAP) Pulse Ox O2 Delivery O2 Flow Rate FiO2 07/08/17 06:58 37.0 107 16 101/69 (80) 94 Room Air 07/08/17 00:10 Room Air Physical Exam: General- oriented x 3, not in distress, speaks in sentences with no effort Lungs- clear breath sounds Heart-normal rate, irregularly irregular rhythm Abdomen- normal bowel sounds, soft, nontender Extremities- no pretibial edema, no calf tenderness right foot: dressing in place, no discharge/bleeding Neuro- alert, oriented x 3; no gross focal deficits Skin- warm & dry Laboratory Results: Last 24 Hours Test 07/07/17 08:04 07/07/17 11:41 07/07/17 16:51 07/07/17 20:15 Bedside Glucose 158 mg/dl 121 mg/dl 185 mg/dl 279 mg/dl Assessment & Plan CVA history of head injury/stroke in the past 06/20/17 Brain MRI - Left frontal and parietal lobe acute/subacute infarcts Carotid Ultrasound 06/20/17 unremarkable Echocardiogram 06/21/17 un remarkable -- no new neuro symptoms -- continue ASA and Eliquis -- PT: still recommends to be transitioned to inpatient Rehab, not safe to go home A fib Initially was on IV diltiazem, also had been on IV heparin for anticoagulation Echocardiogram 06/21/17:unremarkable currently rates controlled with Toprol xl and Diltiazem declines anticoagulation -- on Diltiazem and Metoprolol on ASA and Eliquis -- HR improved monitor BP Asthma -- stable Right foot cellulitis and abscess and osteomyelitis MRSA Bacteremia s/p picc line -- iv Dapto for 6 weeks and followup with wound care -- will consult wound care if patient still needs Wound Vac Left elbow pain: XR with small joint effusion -Orthopedics recommending elbow pad Diabetes Type 2 Pharmacy Glycemic control consulted on Lantus and Aspart Depression Psychiatry consulted 06/21/17: increase Zoloft to 200 mg daily mood stable Palliative Care following patient Code Status: Level 5 (DNR/DNI) Disposition: OT indicates rehab is needed. PT not safe to return home and requires rehab/ SNF. Social service for d/c planning -- patient declining placement to SNF/Rehab states he is fully capable of managing himself at home, does not want to stay in Rehab/SNF setting, concerned about prolonged length of stay over there, concerned about costs i explained to him everyday that he is not safe to go home by himself, as he requires additional support given his multiple medical conditions patient still declined, upset that he is being advised to go to Rehab accepting of risks including worsening of medical condition, falls, injuries , paralysis, even if he goes home directly patient is oriented x 3, answers questions appropriately Current Inpatient Medications: Current Inpatient Medications Medications (Trade) Dose Ordered Sig/Niharika Route Start Time Stop Time Status Last Admin Dose Admin Acetaminophen (Tylenol Tab) 650 mg Q4H PRN PO 06/19/17 09:30 07/19/17 09:29 Miscellaneous Information (Consult Glycemic Management Pharmacy) 1 ea UD N/A 06/19/17 13:15 07/19/17 13:14 Diltiazem HCl 125 mg/Dextrose 125 ml @ 0 mls/hr Q0M PRN IV 06/19/17 10:15 07/19/17 10:14 Future Hold 06/20/17 02:26 5 MLS/HR Albuterol (Ventolin Hfa Inhaler) 2 puffs Q6H PRN INH 06/19/17 13:45 07/19/17 13:44 Alprazolam (Xanax Tab) 0.5 mg BID PO 06/19/17 21:00 07/19/17 20:59 07/07/17 20:28 0.5 MG Aspirin (Ecotrin Tab) 81 mg DAILY PO 06/20/17 09:00 07/20/17 08:59 07/07/17 08:13 81 MG Atorvastatin Calcium (Lipitor Tab) 40 mg DAILY PO 06/20/17 09:00 07/20/17 08:59 07/07/17 08:13 40 MG Baclofen (Lioresal Tab) 10 mg TID PRN PO 06/19/17 13:45 07/19/17 13:44 06/20/17 07:59 10 MG Levetiracetam (Keppra Tab) 1,500 mg BID PO 06/19/17 21:00 07/19/17 20:59 07/07/17 20:30 1,500 MG Ranitidine HCl (zANTac TAB) 150 mg BID PO 06/19/17 21:00 07/19/17 20:59 07/07/17 20:29 150 MG Glucose (Glucose 40% Gel) 15-30 GRAMS 15 GRAMS... UD PRN PO 06/19/17 14:30 07/19/17 14:29 Glucose (Glucose Chew Tab) 4-8 Tablets 4 Tabl... UD PRN PO 06/19/17 14:30 07/19/17 14:29 Dextrose (Dextrose 50% 50ML Syringe) 25-50ML OF 50% DW IV FOR... UD PRN IV 06/19/17 14:30 07/19/17 14:29 Glucagon (Glucagon Inj) 1 mg UD PRN SQ 06/19/17 14:30 07/19/17 14:29 Diltiazem HCl (Cardizem Cd Cap) 120 mg QAM PO 06/21/17 09:00 07/21/17 08:59 07/07/17 08:15 120 MG Ondansetron HCl (Zofran Inj) 4 mg Q4H PRN IV 06/20/17 17:15 07/20/17 17:14 Daptomycin 450 mg/ Syringe 9 ml @ 4.5 mls/min Q24H IV 06/21/17 12:00 08/02/17 11:59 07/07/17 12:34 4.5 MLS/MIN Sertraline HCl (Zoloft Tab) 200 mg QAM PO 06/21/17 14:15 07/21/17 14:14 07/07/17 08:15 200 MG Apixaban (Eliquis Tab) 5 mg BID PO 06/27/17 21:00 07/27/17 20:59 07/07/17 20:29 5 MG Magnesium Oxide (Mag-Ox Tab) 400 mg BID PO 06/29/17 21:00 07/29/17 20:59 07/07/17 20:29 400 MG Insulin Aspart (novoLOG ASPART) SLIDING SCALE ACHS SC 06/30/17 11:00 07/20/17 16:14 07/07/17 20:32 10 UNITS Thiamine HCl (Vitamin B-1 Tab) 100 mg QAM PO 07/01/17 08:00 07/31/17 08:59 07/07/17 08:15 100 MG Multivitamins/ Minerals (Multivitamin W/ Minerals Tab) 1 tab QAM PO 07/01/17 08:00 07/31/17 08:59 07/07/17 08:14 1 TAB Heparin Sodium (Porcine) (Heparin 10 Unit/ ml 5 ml Flush) 5 ml PRN PRN FLUSH 07/01/17 08:30 07/31/17 08:29 07/07/17 12:35 5 ML Metoprolol Succinate (Toprol Xl Tab) 12.5 mg QAM PO 07/04/17 08:00 07/25/17 08:59 07/07/17 08:14 12.5 MG Sodium Chloride 1,000 ml @ 75 mls/hr [id number] IV 07/03/17 14:15 08/02/17 14:14 07/08/17 04:24 75 MLS/HR Insulin Glargine (Lantus Solostar Pen) 50 units HS SC 07/07/17 21:00 08/06/17 20:59 07/07/17 20:33 50 UNITS
[2017-07-08] MEDS: ASPIRIN 81 MG ECTAB PO SCH (08:21)
[2017-07-08] MEDS: DILTIAZEM HCL 120 MG CAPCR PO SCH (08:21)
[2017-07-08] MEDS: APIXABAN 2.5 MG TAB PO SCH ×2 (08:22→21:07)
[2017-07-08] MEDS: ATORVASTATIN 40 MG TAB PO SCH (08:23)
[2017-07-08] MEDS: LEVETIRACETAM 500 MG TAB PO SCH ×2 (08:23→21:06)
[2017-07-08] MEDS: MAGNESIUM OXIDE 400 MG TAB PO SCH ×2 (08:24→21:07)
[2017-07-08] MEDS: CEROVITE ADV FORMULA TAB PO SCH (08:24)
[2017-07-08] MEDS: METOPROLOL SUCC 25MG EXT REL TAB PO SCH (08:25)
[2017-07-08] MEDS: THIAMINE HCL 100 MG TAB PO SCH (08:26)
[2017-07-08] MEDS: RANITIDINE HCL 150 MG TAB PO SCH ×2 (08:29→21:06)
[2017-07-08] MEDS: ALPRAZOLAM 0.5 MG TAB PO SCH ×2 (08:29→20:26)
[2017-07-08] MEDS: SERTRALINE HCL 100 MG TAB PO SCH (08:30)
[2017-07-08] MEDS: INSULIN ASPART 100 UNITS/ML 3 ML PEN SC SCH ×4 (08:51→21:00)
[2017-07-08] MEDS: DAPTOmycin IV 450 MG in SYRINGE 0 ML IV SCH (12:14)
[2017-07-08] MEDS ORDERED: METOPROLOL TARTRATE 1 MG/ML VIAL IV STA (12:33)
[2017-07-08] MEDS ORDERED: METOPROLOL TARTRATE 1 MG/ML VIAL IV. STA (12:45)
[2017-07-08 12:57] LABS: BASO % 0.2 %; BASO ABS # 0.02 K/uL (0-0.2); EOS % 2.4 %; EOS ABS # 0.23 K/uL (0-0.5); HEMATOCRIT 34.2 % (42-52); HEMOGLOBIN 11.1 g/dL (14.0-18.0); IG# 0.02 K/uL (0.00-0.02); LYMPH % 12.6 %; MEAN CELL VOLUME 93.2 fL (80-100); MEAN CORPUSCULAR HEMOGLOBIN 30.2 pg (25-34); MEAN CORPUSCULAR HGB CONC 32.5 g/dl (32-36); MEAN PLATELET VOLUME 9.2 fL (7.4-10.4); MONO % 7.3 %; NEUT % 77.3 %; NEUT ABS # 7.39 K/uL (1.4-6.5); PLATELET COUNT 253 K/uL (130-400); RED CELL DISTRIBUTION WIDTH CV 13.8 % (11.5-14.5); RED CELL DISTRIBUTION WIDTH SD 46.9 fL (36.4-46.3); WHITE BLOOD COUNT 9.56 K/uL (4.8-10.8)
[2017-07-08 13:15] LABS: CALCIUM 8.8 mg/dl (8.5-10.1); CREATININE 0.68 mg/dl (0.60-1.40); POTASSIUM 3.7 mmol/L (3.5-5.1)
[2017-07-08] MEDS ORDERED: POTASSIUM CHLORIDE 10 MEQ TABCR PO ONE (14:00)
[2017-07-08] MEDS ORDERED: METOPROLOL TARTRATE 25 MG TAB PO ONE (15:30)
[2017-07-08] MEDS: INSULIN GLARGINE SOLOSTAR 100 UNITS/ML 3 ML PEN SC SCH (21:09)
[2017-07-09] VITALS (9 sets, daily range): BP systolic 91–105; BP diastolic 60–72; PULSE 90–114; TEMP 36.6–37; O2SAT 93–99
[2017-07-09] MEDS: SODIUM CHLORIDE 0.9% 1000ML 1,000 ML IV SCH (06:32)
[2017-07-09] MEDS: INSULIN ASPART 100 UNITS/ML 3 ML PEN SC SCH ×4 (07:00→21:00)
--- NOTE | 2017-07-09 07:19 | Progress Note ---
Medicine Progress Note Date & Time of Visit: Jul 09, 2017 at 07:05. 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 manager no other symptoms Objective Last 8 Hrs Date Time Temp Pulse Resp B/P (MAP) Pulse Ox O2 Delivery O2 Flow Rate FiO2 07/09/17 04:00 Room Air 07/09/17 03:50 36.7 90 20 101/72 (82) 97 Room Air 07/08/17 23:59 98 Room Air 07/08/17 23:50 37.2 90 20 101/62 (75) 98 Room Air Physical Exam: General- oriented x 3, not in distress, speaks in sentences with no effort Lungs- clear breath sounds bilaterally, no rales/wheezes Heart- tachycardic, irregularly irregular rhythm Abdomen- normal bowel sounds, soft, nontender Extremities- no pretibial edema, no calf tenderness Right foot: dressing in place, no discharge/bleeding Neuro- alert, oriented x 3; no gross focal deficits Skin- warm & dry Laboratory Results: Last 24 Hours Test 07/08/17 07:53 07/08/17 11:16 07/08/17 12:46 07/08/17 16:31 Bedside Glucose 242 mg/dl 204 mg/dl 89 mg/dl White Blood Count 9.56 K/uL Red Blood Count 3.67 M/uL Hemoglobin 11.1 g/dL Hematocrit 34.2 % Mean Corpuscular Volume 93.2 fL Mean Corpuscular Hemoglobin 30.2 pg Mean Corpuscular Hemoglobin Concent 32.5 g/dl Platelet Count 253 K/uL Mean Platelet Volume 9.2 fL Neutrophils (%) (Auto) 77.3 % Lymphocytes (%) (Auto) 12.6 % Monocytes (%) (Auto) 7.3 % Eosinophils (%) (Auto) 2.4 % Basophils (%) (Auto) 0.2 % Neutrophils # (Auto) 7.39 K/uL Lymphocytes # (Auto) 1.20 K/uL Monocytes # (Auto) 0.70 K/uL Eosinophils # (Auto) 0.23 K/uL Basophils # (Auto) 0.02 K/uL RDW Standard Deviation 46.9 fL RDW Coefficient of Variation 13.8 % Immature Granulocyte % (Auto) 0.2 % Immature Granulocyte # (Auto) 0.02 K/uL Sodium Level 135 mmol/L Potassium Level 3.7 mmol/L Chloride Level 98 mmol/L Carbon Dioxide Level 28 mmol/L Anion Gap 8.0 mmol/L Blood Urea Nitrogen 9 mg/dl Creatinine 0.68 mg/dl Est Creatinine Clear Calc Drug Dose 121.5 ml/min Estimated GFR () 126.4 Estimated GFR (Non- 109.0 BUN/Creatinine Ratio 13.7 Random Glucose 198 mg/dl Calcium Level 8.8 mg/dl Magnesium Level 1.8 mg/dl Test 07/08/17 20:54 Bedside Glucose 86 mg/dl Assessment & Plan CVA history of head injury/stroke in the past 06/20/17 Brain MRI - Left frontal and parietal lobe acute/subacute infarcts Carotid Ultrasound 06/20/17 unremarkable Echocardiogram 06/21/17 un remarkable -- no new neuro symptoms -- continue ASA and Eliquis -- PT: still recommends to be transitioned to inpatient Rehab, not safe to go home A fib Initially was on IV diltiazem, also had been on IV heparin for anticoagulation Echocardiogram 06/21/17:unremarkable rate was controlled with Toprol xl and Diltiazem patient also agred on Eliquis -- 07/08/17: (+) RVR given IV Lopressor and additional Metoprolol XL -- increase Metoprolol XL to 25mg po daily monitor HR and BP continue Eliquis Asthma -- stable Right foot cellulitis and abscess and osteomyelitis MRSA Bacteremia s/p picc line -- iv Dapto for 6 weeks and followup with wound care -- wound care following Left elbow pain: XR with small joint effusion -Orthopedics recommending elbow pad Diabetes Type 2 Pharmacy Glycemic control consulted on Lantus and Aspart Depression Psychiatry consulted 06/21/17: increase Zoloft to 200 mg daily mood stable Palliative Care following patient Code Status: Level 5 (DNR/DNI) Disposition: OT indicates rehab is needed. PT not safe to return home and requires rehab/ SNF. Social service for d/c planning -- patient declining placement to SNF/Rehab discussed with Director of Case Mgt Guerita Correa case management working on disposition Current Inpatient Medications: Current Inpatient Medications Medications (Trade) Dose Ordered Sig/Niharika Route Start Time Stop Time Status Last Admin Dose Admin Acetaminophen (Tylenol Tab) 650 mg Q4H PRN PO 06/19/17 09:30 07/19/17 09:29 Miscellaneous Information (Consult Glycemic Management Pharmacy) 1 ea UD N/A 06/19/17 13:15 07/19/17 13:14 Diltiazem HCl 125 mg/Dextrose 125 ml @ 0 mls/hr Q0M PRN IV 06/19/17 10:15 07/19/17 10:14 Future Hold 06/20/17 02:26 5 MLS/HR Albuterol (Ventolin Hfa Inhaler) 2 puffs Q6H PRN INH 06/19/17 13:45 07/19/17 13:44 Alprazolam (Xanax Tab) 0.5 mg BID PO 06/19/17 21:00 07/19/17 20:59 07/08/17 20:26 0.5 MG Aspirin (Ecotrin Tab) 81 mg DAILY PO 06/20/17 09:00 07/20/17 08:59 07/08/17 08:21 81 MG Atorvastatin Calcium (Lipitor Tab) 40 mg DAILY PO 06/20/17 09:00 07/20/17 08:59 07/08/17 08:23 40 MG Baclofen (Lioresal Tab) 10 mg TID PRN PO 06/19/17 13:45 07/19/17 13:44 06/20/17 07:59 10 MG Levetiracetam (Keppra Tab) 1,500 mg BID PO 06/19/17 21:00 07/19/17 20:59 07/08/17 21:06 1,500 MG Ranitidine HCl (zANTac TAB) 150 mg BID PO 06/19/17 21:00 07/19/17 20:59 07/08/17 21:06 150 MG Glucose (Glucose 40% Gel) 15-30 GRAMS 15 GRAMS... UD PRN PO 06/19/17 14:30 07/19/17 14:29 Glucose (Glucose Chew Tab) 4-8 Tablets 4 Tabl... UD PRN PO 06/19/17 14:30 07/19/17 14:29 Dextrose (Dextrose 50% 50ML Syringe) 25-50ML OF 50% DW IV FOR... UD PRN IV 06/19/17 14:30 07/19/17 14:29 Glucagon (Glucagon Inj) 1 mg UD PRN SQ 06/19/17 14:30 07/19/17 14:29 Diltiazem HCl (Cardizem Cd Cap) 120 mg QAM PO 06/21/17 09:00 07/21/17 08:59 07/08/17 08:21 120 MG Ondansetron HCl (Zofran Inj) 4 mg Q4H PRN IV 06/20/17 17:15 07/20/17 17:14 Daptomycin 450 mg/ Syringe 9 ml @ 4.5 mls/min Q24H IV 06/21/17 12:00 08/02/17 11:59 07/08/17 12:14 4.5 MLS/MIN Sertraline HCl (Zoloft Tab) 200 mg QAM PO 06/21/17 14:15 07/21/17 14:14 07/08/17 08:30 200 MG Apixaban (Eliquis Tab) 5 mg BID PO 06/27/17 21:00 07/27/17 20:59 07/08/17 21:07 5 MG Magnesium Oxide (Mag-Ox Tab) 400 mg BID PO 06/29/17 21:00 07/29/17 20:59 07/08/17 21:07 400 MG Insulin Aspart (novoLOG ASPART) SLIDING SCALE ACHS SC 06/30/17 11:00 07/20/17 16:14 07/08/17 18:33 23 UNITS Thiamine HCl (Vitamin B-1 Tab) 100 mg QAM PO 07/01/17 08:00 07/31/17 08:59 07/08/17 08:26 100 MG Multivitamins/ Minerals (Multivitamin W/ Minerals Tab) 1 tab QAM PO 07/01/17 08:00 07/31/17 08:59 07/08/17 08:24 1 TAB Heparin Sodium (Porcine) (Heparin 10 Unit/ ml 5 ml Flush) 5 ml PRN PRN FLUSH 07/01/17 08:30 07/31/17 08:29 07/07/17 12:35 5 ML Sodium Chloride 1,000 ml @ 75 mls/hr [id number] IV 07/03/17 14:15 3/9/18 14:14 07/09/17 06:32 75 MLS/HR Insulin Glargine (Lantus Solostar Pen) 50 units HS SC 07/07/17 21:00 08/06/17 20:59 07/08/17 21:09 50 UNITS Metoprolol Succinate (Toprol Xl Tab) 25 mg QAM PO 07/09/17 08:00 07/25/17 08:59 Metoprolol Tartrate (Lopressor Iv) 2.5 mg Q6 PRN IV 07/08/17 14:15 08/07/17 14:14
[2017-07-09] MEDS: SERTRALINE HCL 100 MG TAB PO SCH (08:12)
[2017-07-09] MEDS: LEVETIRACETAM 500 MG TAB PO SCH ×2 (08:12→20:51)
[2017-07-09] MEDS: THIAMINE HCL 100 MG TAB PO SCH (08:13)
[2017-07-09] MEDS: ATORVASTATIN 40 MG TAB PO SCH (08:13)
[2017-07-09] MEDS: ALPRAZOLAM 0.5 MG TAB PO SCH ×2 (08:13→21:00)
[2017-07-09] MEDS: APIXABAN 2.5 MG TAB PO SCH ×2 (08:13→20:52)
[2017-07-09] MEDS: RANITIDINE HCL 150 MG TAB PO SCH ×2 (08:13→20:50)
[2017-07-09] MEDS: CEROVITE ADV FORMULA TAB PO SCH (08:14)
[2017-07-09] MEDS: METOPROLOL SUCC 25MG EXT REL TAB PO SCH (08:14)
[2017-07-09] MEDS: ASPIRIN 81 MG ECTAB PO SCH (08:14)
--- NOTE | 2017-07-09 09:42 | Progress Note ---
Internal Med Progress Note Date of Service: Jul 09, 2017. Provider Documentation: SUBJECTIVE: Seen and examined at bedside Denies chest pain, SOB, dizziness, abd pain Prefers to be discharged home rather than SNF No other complaints OBJECTIVE: Vital Signs-as noted below Physical Exam: General Appearance:Moderately built and nourished, no apparent distress Head: normocephalic, Atraumatic Eyes: normal inspection, EOMI, PERRL Neck: supple, Trachea midline Respiratory/Chest: Normal breath sounds, CTA Cardiovascular: Irregularly irregular, No murmur Abdomen/GI:Soft, Non tender, Bowel sounds present Extremities/Musculoskelatal:normal inspection, no edema, Right LE +wound Vac, Left AKA Neurologic/Psych:grossly no focal neurological deficits Skin: normal color, warm Lab data as noted below. ASSESSMENT & PLAN: CVA H/O head injury/stroke in the past Brain MRI (06/20/17):Left frontal and parietal lobe acute/subacute infarcts Carotid Ultrasound (06/20/17):unremarkable Echocardiogram (06/21/17): unremarkable No new Neurological symptoms Continue ASA and Eliquis Needs to be transitioned to inpatient Rehab, not safe to go home A fib Initially IV diltiazem, also had been on IV heparin for anticoagulation Echocardiogram(06/21/17): unremarkable Continue metoprolol and Diltiazem for rate control On Eliquis for anticoagulation (Patient agreed given risks Vs benefits) Metoprolol XL [id number] to 25mg po daily monitor Asthma stable Right foot cellulitis and abscess and osteomyelitis MRSA Bacteremia s/p picc line Continue IV Dapto for 6 weeks and followup with wound care wound care Left elbow pain: XR with small joint effusion Orthopedics recommending elbow pad DM II Pharmacy Glycemic control consulted on Lantus and ISS Depression Psychiatry consulted 06/21/17: Increased Zoloft to 200 mg daily mood stable Palliative Care following patient Code Status: Level 5 (DNR/DNI) Disposition: OT indicates rehab is needed. PT not safe to return home and requires rehab/ SNF. Social service for d/c planning patient declines placement to SNF/Rehab Case being discussed with Director of Case Mgt Guerita Correa Visual C Developer on board Vital Signs: Date Time Temp Pulse Resp B/P (MAP) Pulse Ox O2 Delivery O2 Flow Rate FiO2 2/13/18 08:29 37.0 112 20 105/62 (76) 95 07/09/17 04:00 Room Air 07/09/17 03:50 36.7 90 20 101/72 (82) 97 Room Air 07/08/17 23:59 98 Room Air 07/08/17 23:50 37.2 90 20 101/62 (75) 98 Room Air 07/08/17 20:00 Room Air 07/08/17 19:54 36.9 109 18 106/74 (85) 97 Room Air 07/08/17 16:00 Room Air 07/08/17 15:14 37.0 114 22 120/79 (93) 99 Room Air 07/08/17 14:37 133 114/88 07/08/17 13:04 36.6 130 18 100 07/08/17 12:08 36.6 130 18 122/85 (97) 100 Room Air Lab Results: Results Past 24 Hours Test 07/08/17 11:16 07/08/17 12:46 07/08/17 16:31 07/08/17 20:54 Range/Units Bedside Glucose 204 89 86 70-99 mg/dl White Blood Count 9.56 4.8-10.8 K/uL Red Blood Count 3.67 4.7-6.1 M/uL Hemoglobin 11.1 14.0-18.0 g/dL Hematocrit 34.2 42-52 % Mean Corpuscular Volume 93.2 80-100 fL Mean Corpuscular Hemoglobin 30.2 25-34 pg Mean Corpuscular Hemoglobin Concent 32.5 32-36 g/dl Platelet Count 253 130-400 K/uL Mean Platelet Volume 9.2 7.4-10.4 fL Neutrophils (%) (Auto) 77.3 % Lymphocytes (%) (Auto) 12.6 % Monocytes (%) (Auto) 7.3 % Eosinophils (%) (Auto) 2.4 % Basophils (%) (Auto) 0.2 % Neutrophils # (Auto) 7.39 1.4-6.5 K/uL Lymphocytes # (Auto) 1.20 1.2-3.4 K/uL Monocytes # (Auto) 0.70 0.11-0.59 K/uL Eosinophils # (Auto) 0.23 0-0.5 K/uL Basophils # (Auto) 0.02 0-0.2 K/uL RDW Standard Deviation 46.9 36.4-46.3 fL RDW Coefficient of Variation 13.8 11.5-14.5 % Immature Granulocyte % (Auto) 0.2 % Immature Granulocyte # (Auto) 0.02 0.00-0.02 K/uL Sodium Level 135 136-145 mmol/L Potassium Level 3.7 3.5-5.1 mmol/L Chloride Level 98 98-107 mmol/L Carbon Dioxide Level 28 21-32 mmol/L Anion Gap 8.0 3-11 mmol/L Blood Urea Nitrogen 9 7-18 mg/dl Creatinine 0.68 0.60-1.40 mg/dl Est Creatinine Clear Calc Drug Dose 121.5 ml/min Estimated GFR () 126.4 Estimated GFR (Non- 109.0 BUN/Creatinine Ratio 13.7 10-20 Random Glucose 198 70-99 mg/dl Calcium Level 8.8 8.5-10.1 mg/dl Magnesium Level 1.8 1.8-2.4 mg/dl Test 07/09/17 06:50 Range/Units Bedside Glucose 137 70-99 mg/dl
--- NOTE | 2017-07-09 10:35 | Pharmacy Progress Note ---
Pharmacy Glycemic Sign Off Nt Date of Service Jul 09, 2017. Assessment & Plan ASSESSMENT: * Pharmacy was consulted by Caty Carbajal PA-C on 06/19/17 for glycemic control and to write orders per [facility] inpatient glycemic control protocol. * Major changes made by pharmacy to antidiabetic regimen include: * Adjusting NovoLog bolus insulin/SSI from outpatient fixed dosing to dosing per CF/CR while admitted * Current basal insulin/Lantus is the same as outpatient dosing * Patient has been receiving/requiring ~120 units of insulin per day for adequate glycemic control * BSGs ranging 86 - 242 mg/dl * Regimen has only required minor adjustments over the past 48hrs to achieve this level of control * Do not anticipate further changes in patient status that would quickly deteriorate glycemic control (i.e. patient to be NPO for upcoming procedure, steroids tapering, starting tube feedings, etc). PLAN FOR INPATIENT GLYCEMIC CONTROL: No changes needed to current regimen. * Continue basal insulin with Lantus 50 units SQ HS * Continue NovoLog per scale ACHS/Q6hrs while NPO * Goal range = 120 - 140 mg/dl * CF = 15 mg/dl/unit * CR = 1 unit for ever 4 g CHO consumed * MAX dose of 25 units to prevent hypoglycemia * Pharmacy is signing off of glycemic consult and will no longer be making adjustments to inpatient regimen. Please feel free to re-consult if needed. Thank you.
[2017-07-09] MEDS: MAGNESIUM OXIDE 400 MG TAB PO SCH ×2 (10:37→20:52)
[2017-07-09] MEDS: DILTIAZEM HCL 120 MG CAPCR PO SCH (10:37)
--- NOTE | 2017-07-09 11:34 | Psychiatric Progress Notes ---
Psychiatric Progress Note Date of Service Jul 09, 2017. Notes 52-year-old gentleman with multiple chronic medical conditions who presented to the emergency room by EMS due to complaints of persistent elbow pain. Psychiatry was consulted to evaluate depression and refusal of treatment, and initial consult was performed by JUSTICE Wyman, on 06/21/2017. He is being seen today in follow-up. Chief complaint: "I'm doing all right, but I be doing a lot better if they let me go home." Interval history: At the time of the initial consult, the patient reported feeling alone, that nobody cares about him, and had some odd beliefs about medications, fearing that he would become addicted to sertraline if his dose was increased. After some discussion and education, he agreed to increase the dose to 200 mg daily. At the time, he was agreeable to placement in a personal fdc. Since that time, he has had continued problems with arrhythmia, right leg cellulitis and ulcers, osteomyelitis, had I&D of 2 of his toes, has been placed on IV antibiotics for 6 weeks and has a wound VAC, and multiple services have been consulted, including neurology, palliative care, OT and PT, orthopedic surgery, cardiology, infectious disease, diabetic pharmacist, and wound care. The recommendations have been for him to go to a care home or rehabilitation, but he has consistently declined this, stating he prefers to return home. Case management has been following, and multiple discussions have been held about possible rehabilitation facilities. He became upset when speaking to the wound care nurse yesterday, stating that he was frustrated and wanted to go home, would not come back to the hospital and would "take a gun to himself or slit his throat with a knife." He spoke to the psychiatric liaison nurse afterwards, stated that he was not suicidal, and made the statements out of frustration. He said he was tired of having to rely on other people to take care of him, and wanted to be allowed to go home so that he could eat what he wanted and watch what he wanted on TV. He denied concerns that he would try to harm himself, and apologized for "causing trouble," stating that he was just sick and tired of being in the hospital. He completed a PHQ 9 depression scale , and scored a 5 (indicative of mild depression). He continued to state states his unwillingness to go to a care home or rehabilitation facility, stating that he had a bad experience with Sande[facility] Lim and that other family members had had bad experiences as well. He did say that he would still consider the recommendations to go to rehabilitation, but preferred to go back home. Case management has involved his sister, who apparently helped care for him in the past, and she agrees with discharge to home. My assessment today, the patient states that he remains frustrated with his prolonged hospitalization and multiple medical problems, stating he is bored, doesn't like being "bothered" by staff, having his sleep disrupted at night by the noises of the hospital, and is hopeful that he will be discharged home. He is able to review his various medical problems, expresses a good understanding of the potential outcomes of the various conditions, including , and is aware of the recommendations that he go to a care home or rehabilitation facility, which she continues to decline. He was under the impression that his sister was going to be talking to his primary attending about the option of him going home with in-home services, but states he does not know what the outcome of this discussion was. He admits to irritable mood, but feels that his mood would improve if he were at home where he is more comfortable. He denies suicidal thoughts, stating that he was just frustrated when he made those comments yesterday, and denies that he has any plan or intent to harm himself. He denies any history of suicide attempts, does not have access to guns, and endorses hopefulness future. ROS: + Wound with wound VAC, weakness, denies AVH, anxiety. Elderly white male, appearing significantly older than his stated age. Wearing a hospital gown, and lying on his side in bed in no acute distress, chewing tobacco and spitting in a bottle. Irritable but cooperative. Fair eye contact and decreased movements. Speech is normal rate, volume, and tone. Mood is "frustrated," and affect is irritable, stable and congruent. Thoughts are goal directed. The patient denied suicidal and homicidal ideation. No paranoia, delusions, or hallucinations, and did not appear to be responding to internal stimuli. Cognition was grossly intact. Alert and oriented to person, place and time. Intelligence is consistent with level of education. Insight and and judgment are fair. Assessment and plan: 1. Major depressive disorder: Continue sertraline 200 mg daily, which was increased about 2 weeks ago. Sodium levels have been followed, and hyponatremia has improved. He willing to follow-up with his outpatient physician after discharge. 2. Suicidal statements: The patient made statements about going home and shooting himself or cutting his throat with a knife yesterday in the context of frustration over ongoing hospitalization. He denies any plan or intent to harm himself, and has been encouraged to discuss his frustration with staff, to direct his questions about discharge options to his primary team, and involve his supports (sister) as needed. He denies access to guns at home, and has no history of suicide attempts. 3. Refusal of treatment recommendations for care home/rehabilitation facility: The patient has capacity at this time to refuse recommendations for rehabilitation/care home placement, as he understands the recommendations, understands his medical conditions and the potential risks of noncompliance with treatment, and is able to explain his choice, which has been consistent throughout his hospital stay. Would encourage a family meeting including the patient and his sister to discuss other potential options, such as home with home health, or other facilities that he may be willing to consider.
[2017-07-09] MEDS: DAPTOmycin IV 450 MG in SYRINGE 0 ML IV SCH (12:11)
[2017-07-09] MEDS: INSULIN GLARGINE SOLOSTAR 100 UNITS/ML 3 ML PEN SC SCH (21:00)
[2017-07-10] VITALS (8 sets, daily range): BP systolic 103–118; BP diastolic 62–88; PULSE 112–140; TEMP 36.6–37.1; O2SAT 94–98
[2017-07-10] MEDS: SODIUM CHLORIDE 0.9% 1000ML 1,000 ML IV SCH (01:00)
[2017-07-10] MEDS: METOPROLOL TARTRATE 1 MG/ML VIAL IV PRN ×2 (03:33→12:01)
[2017-07-10 04:54] LABS: CALCIUM 8.4 mg/dl (8.5-10.1); CREATININE 0.64 mg/dl (0.60-1.40)
[2017-07-10] MEDS: CEROVITE ADV FORMULA TAB PO SCH (08:50)
[2017-07-10] MEDS: SERTRALINE HCL 100 MG TAB PO SCH (08:51)
[2017-07-10] MEDS: RANITIDINE HCL 150 MG TAB PO SCH ×2 (08:51→21:25)
[2017-07-10] MEDS: THIAMINE HCL 100 MG TAB PO SCH (08:51)
[2017-07-10] MEDS: APIXABAN 2.5 MG TAB PO SCH ×2 (08:51→21:24)
[2017-07-10] MEDS: ATORVASTATIN 40 MG TAB PO SCH (08:51)
[2017-07-10] MEDS: ASPIRIN 81 MG ECTAB PO SCH (08:51)
[2017-07-10] MEDS: LEVETIRACETAM 500 MG TAB PO SCH ×2 (08:52→21:24)
[2017-07-10] MEDS: METOPROLOL SUCC 25MG EXT REL TAB PO SCH (08:52)
[2017-07-10] MEDS: DILTIAZEM HCL 120 MG CAPCR PO SCH (08:52)
[2017-07-10] MEDS: ALPRAZOLAM 0.5 MG TAB PO SCH ×2 (08:52→21:29)
[2017-07-10] MEDS: MAGNESIUM OXIDE 400 MG TAB PO SCH ×2 (08:52→21:25)
[2017-07-10] MEDS: INSULIN ASPART 100 UNITS/ML 3 ML PEN SC SCH ×4 (08:58→21:00)
--- NOTE | 2017-07-10 09:14 | Progress Note ---
Internal Med Progress Note Date of Service: Jul 10, 2017. Provider Documentation: SUBJECTIVE: Seen and examined at bedside Reports palpitations Denies chest pain, SOB, dizziness, abd pain States he is frustrated with prolonged hospitalization Offered to talk to his sister but patient not interested currently No other complaints Had wound Vac changed yesterday Heart rate in 110s, has not received his morning meds yet OBJECTIVE: Vital Signs-as noted below Physical Exam: General Appearance:Moderately built and nourished, no apparent distress Head: normocephalic, Atraumatic Eyes: normal inspection, EOMI, PERRL Neck: supple, Trachea midline Respiratory/Chest: Decreased breath sounds, CTA Cardiovascular: Irregularly irregular, No murmur Abdomen/GI:Soft, Non tender, Bowel sounds present Extremities/Musculoskelatal:normal inspection, no edema, Right LE +wound Vac, Left AKA Neurologic/Psych:grossly no focal neurological deficits Skin: normal color, warm Lab data as noted below. ASSESSMENT & PLAN: CVA H/O head injury/stroke in the past Brain MRI (06/20/17):Left frontal and parietal lobe acute/subacute infarcts Carotid Ultrasound (06/20/17):unremarkable Echocardiogram (06/21/17): unremarkable No new Neurological symptoms Continue ASA and Eliquis Needs to be transitioned to inpatient Rehab, not safe to go home A fib Initially IV diltiazem, also had been on IV heparin for anticoagulation Echocardiogram(06/21/17): unremarkable Continue metoprolol and Diltiazem for rate control On Eliquis for anticoagulation (Patient agreed given risks Vs benefits) Metoprolol XL increased to 25mg po daily monitor Will request cardiology to re-evaluate for medication adjustment Asthma stable Right foot cellulitis and abscess and osteomyelitis MRSA Bacteremia s/p PICC line Continue IV Dapto for 6 weeks and followup with wound care continue wound care Left elbow pain: XR with small joint effusion Orthopedics recommending elbow pad DM II Pharmacy Glycemic control consulted on Lantus and ISS Depression Psychiatry consulted 06/21/17: Increased Zoloft to 200 mg daily mood stable Palliative Care following patient States he is frustrated with prolonged hospitalization Reports making statements to harm himself only out of frustration from prolonged hospitalization Offered to talk to his sister but patient not interested currently Psychiatry following Code Status: Level 5 (DNR/DNI) Disposition: OT indicates rehab is needed. PT not safe to return home and requires rehab/ SNF. Social service for d/c planning patient currently agreeable to go to [facility] if approved Case being discussed with Director of Case Mgt Guerita Correa Bioinformatics Team Member 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 * Normal LV systolic function, EF 55-60%. * No segmental left ventricular wall motion abnormalities are noted. * Trace mitral regurgitation. * Mild left atrial enlargement. Vital Signs: Date Time Temp Pulse Resp B/P (MAP) Pulse Ox O2 Delivery O2 Flow Rate FiO2 07/10/17 08:21 36.6 112 18 111/62 (78) 97 07/10/17 04:00 98 Room Air 07/10/17 03:33 116 110/69 07/10/17 03:27 37.0 116 19 110/69 (83) 95 Room Air 07/09/17 23:59 96 Room Air 07/09/17 23:50 36.6 95 24 99/65 (76) 96 Room Air 07/09/17 20:00 98 Room Air 07/09/17 18:46 36.7 95 19 93/60 (71) 98 Room Air 07/09/17 16:08 36.7 92 23 100/72 (81) 93 Room Air 07/09/17 16:00 Room Air 07/09/17 15:30 Room Air 07/09/17 12:36 36.8 114 19 91/69 (76) 99 Room Air 07/09/17 11:30 Room Air 07/09/17 10:23 95 Room Air Lab Results: Results Past 24 Hours Test 07/09/17 16:06 07/09/17 20:45 07/10/17 04:21 07/10/17 06:47 Range/Units Bedside Glucose 83 132 161 70-99 mg/dl Sodium Level 138 136-145 mmol/L Potassium Level 4.0 3.5-5.1 mmol/L Chloride Level 104 98-107 mmol/L Carbon Dioxide Level 29 21-32 mmol/L Anion Gap 5.0 3-11 mmol/L Blood Urea Nitrogen 16 7-18 mg/dl Creatinine 0.64 0.60-1.40 mg/dl Est Creatinine Clear Calc Drug Dose 129.1 ml/min Estimated GFR () 129.6 Estimated GFR (Non- 111.8 BUN/Creatinine Ratio 24.7 10-20 Random Glucose 175 70-99 mg/dl Calcium Level 8.4 8.5-10.1 mg/dl Magnesium Level 2.0 1.8-2.4 mg/dl
--- NOTE | 2017-07-10 10:18 | PROGRESS NOTE ---
DATE: 07/10/2017 REFERRING PHYSICIAN: Larry Duenas MD. INDICATIONS: Atrial fibrillation with elevated ventricular response rate. SUBJECTIVE: The patient denies any complaints today other than pain in association with wound VAC and cellulitis, chronic arthritis complaints. He is not aware of tachypalpitations and notes a prior history of asthma. Notes no chest pains. Notes no dizziness or lightheadedness. He is appropriately anticoagulated with Eliquis due to prior history of stroke and elevated CHADS2-VASc score. EXAMINATION: VITAL SIGNS: Heart rate is 112, blood pressure is 111/62. NECK: Thin. There is no jugular venous distention. LUNGS: Reveal diminished breath sounds but are predominantly clear. CARDIOVASCULAR: Irregularly irregular. There is no S3 gallop. ABDOMEN: Soft. EXTREMITIES: Without edema. LABORATORY DATA: Reviewed, telemetry reveals atrial fibrillation with elevated ventricular response rate. No bradyarrhythmias. Echocardiogram done earlier this admission revealed preserved LV systolic function, trace mitral insufficiency. MEDICATIONS: Reviewed. For rate control, the patient is currently on low dose metoprolol succinate at 25 mg per day and low dose diltiazem at 120 mg per day. IMPRESSION: A 52-year-old male admitted with complex history as well outlined in the chart with course notable for atrial fibrillation with rapid ventricular response. He is appropriately anticoagulated. He is asymptomatic from a cardiac standpoint. Notes no sense of tachypalpitations though rates are poorly controlled. Currently no indications for proceeding with synchronized cardioversion. RECOMMENDATIONS: Titration of beta tang and diltiazem for rate control. Does note history of asthma, diltiazem may be optimal as initial titration dose.
[2017-07-10] MEDS: DAPTOmycin IV 450 MG in SYRINGE 0 ML IV SCH (12:01)
[2017-07-10] MEDS ORDERED: METOPROLOL SUCC 25MG EXT REL TAB PO SCH (21:00)
[2017-07-10] MEDS: INSULIN GLARGINE SOLOSTAR 100 UNITS/ML 3 ML PEN SC SCH (21:34)
[2017-07-11] MEDS ORDERED: DIGOXIN IV 250 MCG in SYRINGE 9 ML IV ONE (01:00)
[2017-07-11] MEDS ORDERED: SODIUM CHLORIDE 0.9% 500ML 500 ML IV ONE (01:00)
[2017-07-11 01:15] LABS: BASO % 0.3 %; BASO ABS # 0.02 K/uL (0-0.2); EOS % 5.8 %; EOS ABS # 0.43 K/uL (0-0.5); HEMATOCRIT 30.2 % (42-52); HEMOGLOBIN 9.6 g/dL (14.0-18.0); IG# 0.01 K/uL (0.00-0.02); LYMPH % 20.5 %; LYMPH ABS # 1.51 K/uL (1.2-3.4); MEAN CELL VOLUME 93.2 fL (80-100); MEAN CORPUSCULAR HEMOGLOBIN 29.6 pg (25-34); MEAN CORPUSCULAR HGB CONC 31.8 g/dl (32-36); MEAN PLATELET VOLUME 9.2 fL (7.4-10.4); MONO ABS # 0.52 K/uL (0.11-0.59); NEUT % 66.3 %; NEUT ABS # 4.89 K/uL (1.4-6.5); PLATELET COUNT 239 K/uL (130-400); RED CELL DISTRIBUTION WIDTH CV 13.8 % (11.5-14.5); RED CELL DISTRIBUTION WIDTH SD 47.3 fL (36.4-46.3); WHITE BLOOD COUNT 7.38 K/uL (4.8-10.8)
[2017-07-11 01:36] LABS: CALCIUM 8.7 mg/dl (8.5-10.1); CREATININE 0.64 mg/dl (0.60-1.40); POTASSIUM 3.7 mmol/L (3.5-5.1)
[2017-07-11] MEDS ORDERED: DILTIAZEM HCL 180 MG CAPCR PO ONE (02:00)
[2017-07-11] MEDS ORDERED: POTASSIUM CHLORIDE 20 MEQ TABCR PO STA (02:07)
[2017-07-11] MEDS ORDERED: MAGNESIUM SULFATE 1GM / D5W 1 GM in PREMIXED IN D5W 100 ML IV ONE (02:45)
[2017-07-11 04:18] VITALS: PULSE 121; TEMP 36.7; O2SAT 95
[2017-07-11 04:41] VITALS: BP 101/78
[2017-07-11] MEDS ORDERED: METOPROLOL SUCC 25MG EXT REL TAB PO ONE (06:30)
[2017-07-11 07:15] VITALS: BP 99/74; PULSE 105; TEMP 36.8; O2SAT 94
[2017-07-11] MEDS: ALPRAZOLAM 0.5 MG TAB PO SCH ×2 (07:21→21:48)
[2017-07-11] MEDS: RANITIDINE HCL 150 MG TAB PO SCH ×2 (07:21→21:36)
[2017-07-11] MEDS: ATORVASTATIN 40 MG TAB PO SCH (07:22)
[2017-07-11] MEDS: SERTRALINE HCL 100 MG TAB PO SCH (07:22)
[2017-07-11] MEDS: ASPIRIN 81 MG ECTAB PO SCH (07:22)
[2017-07-11] MEDS: THIAMINE HCL 100 MG TAB PO SCH (07:22)
[2017-07-11] MEDS: CEROVITE ADV FORMULA TAB PO SCH (07:22)
[2017-07-11] MEDS: APIXABAN 2.5 MG TAB PO SCH ×2 (07:23→21:37)
[2017-07-11] MEDS: MAGNESIUM OXIDE 400 MG TAB PO SCH ×2 (07:23→21:38)
[2017-07-11] MEDS: LEVETIRACETAM 500 MG TAB PO SCH ×2 (07:23→21:37)
[2017-07-11] MEDS: INSULIN ASPART 100 UNITS/ML 3 ML PEN SC SCH ×4 (08:39→21:00)
--- NOTE | 2017-07-11 09:40 | Progress Note ---
Internal Med Progress Note Date of Service: Jul 11, 2017. Provider Documentation: SUBJECTIVE: Seen and examined at bedside States feeling tired Denies chest pain, SOB, dizziness, abd pain He is agreeable to go to [facility] if accepted No other complaints OBJECTIVE: Vital Signs-as noted below Physical Exam: General Appearance:Moderately built and nourished, no apparent distress Head: normocephalic, Atraumatic Eyes: normal inspection, EOMI, PERRL Neck: supple, Trachea midline Respiratory/Chest: Decreased breath sounds, CTA Cardiovascular: Irregularly irregular, No murmur Abdomen/GI:Soft, Non tender, Bowel sounds present Extremities/Musculoskelatal:normal inspection, no edema, Right LE +wound Vac, Left AKA Neurologic/Psych:grossly no focal neurological deficits Skin: normal color, warm Lab data as noted below. ASSESSMENT & PLAN: CVA H/O head injury/stroke in the past Brain MRI (06/20/17):Left frontal and parietal lobe acute/subacute infarcts Carotid Ultrasound (06/20/17):unremarkable Echocardiogram (06/21/17): unremarkable No new Neurological symptoms Continue ASA and Eliquis Needs to be transitioned to inpatient Rehab, not safe to go home A fib Initially IV diltiazem, also had been on IV heparin for anticoagulation Echocardiogram(06/21/17): unremarkable Continue metoprolol and Diltiazem for rate control (Metoprolol increased to 25mg BID, Diltiazem increased to 180mg) On Eliquis for anticoagulation (Patient agreed given risks Vs benefits) monitor Appreciate cardiology Input Asthma stable Right foot cellulitis and abscess and osteomyelitis MRSA Bacteremia s/p PICC line Continue IV Dapto for 6 weeks and followup with wound care continue wound care Left elbow pain: XR with small joint effusion Orthopedics recommending elbow pad DM II Pharmacy Glycemic control consulted on Lantus and ISS Depression Psychiatry consulted 06/21/17: Increased Zoloft to 200 mg daily mood stable Palliative Care following patient States he is frustrated with prolonged hospitalization Reports making statements to harm himself only out of frustration from prolonged hospitalization Offered to talk to his sister but patient not interested currently Psychiatry following Code Status: Level 5 (DNR/DNI) Disposition: Needs rehab placement Plan to discharge to [facility] if approved Oil Filters Inspector 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 * Normal LV systolic function, EF 55-60%. * No segmental left ventricular wall motion abnormalities are noted. * Trace mitral regurgitation. * Mild left atrial enlargement. Vital Signs: Date Time Temp Pulse Resp B/P (MAP) Pulse Ox O2 Delivery O2 Flow Rate FiO2 07/11/17 07:15 36.8 105 16 99/74 (82) 94 Room Air 07/11/17 04:41 101/78 (86) 07/11/17 04:18 36.7 121 14 95 Room Air 07/11/17 04:00 Room Air 07/11/17 01:09 116 07/11/17 00:01 Room Air 07/10/17 23:58 37.1 128 22 106/84 (91) 97 Room Air 07/10/17 20:00 Room Air 07/10/17 19:01 36.7 128 24 113/88 (96) 98 Room Air 07/10/17 16:11 36.9 127 21 103/72 (82) 96 Room Air 07/10/17 16:00 Room Air 07/10/17 12:01 140 118/68 07/10/17 12:00 Room Air 07/10/17 11:52 36.8 140 22 118/68 (85) 96 07/10/17 10:33 94 Room Air Lab Results: Results Past 24 Hours Test 07/10/17 11:21 07/10/17 16:37 07/10/17 19:51 07/11/17 00:45 Range/Units Bedside Glucose 145 291 136 108 70-99 mg/dl Test 07/11/17 01:02 07/11/17 06:39 Range/Units White Blood Count 7.38 4.8-10.8 K/uL Red Blood Count 3.24 4.7-6.1 M/uL Hemoglobin 9.6 14.0-18.0 g/dL Hematocrit 30.2 42-52 % Mean Corpuscular Volume 93.2 80-100 fL Mean Corpuscular Hemoglobin 29.6 25-34 pg Mean Corpuscular Hemoglobin Concent 31.8 32-36 g/dl Platelet Count 239 130-400 K/uL Mean Platelet Volume 9.2 7.4-10.4 fL Neutrophils (%) (Auto) 66.3 % Lymphocytes (%) (Auto) 20.5 % Monocytes (%) (Auto) 7.0 % Eosinophils (%) (Auto) 5.8 % Basophils (%) (Auto) 0.3 % Neutrophils # (Auto) 4.89 1.4-6.5 K/uL Lymphocytes # (Auto) 1.51 1.2-3.4 K/uL Monocytes # (Auto) 0.52 0.11-0.59 K/uL Eosinophils # (Auto) 0.43 0-0.5 K/uL Basophils # (Auto) 0.02 0-0.2 K/uL RDW Standard Deviation 47.3 36.4-46.3 fL RDW Coefficient of Variation 13.8 11.5-14.5 % Immature Granulocyte % (Auto) 0.1 % Immature Granulocyte # (Auto) 0.01 0.00-0.02 K/uL Sodium Level 137 136-145 mmol/L Potassium Level 3.7 3.5-5.1 mmol/L Chloride Level 101 98-107 mmol/L Carbon Dioxide Level 31 21-32 mmol/L Anion Gap 5.0 3-11 mmol/L Blood Urea Nitrogen 15 7-18 mg/dl Creatinine 0.64 0.60-1.40 mg/dl Est Creatinine Clear Calc Drug Dose 129.1 ml/min Estimated GFR () 129.6 Estimated GFR (Non- 111.8 BUN/Creatinine Ratio 22.7 10-20 Random Glucose 93 70-99 mg/dl Calcium Level 8.7 8.5-10.1 mg/dl Magnesium Level 1.8 1.8-2.4 mg/dl Bedside Glucose 90 70-99 mg/dl
[2017-07-11 12:13] VITALS: BP 99/69; PULSE 99; TEMP 36.5; O2SAT 94
[2017-07-11] MEDS: DAPTOmycin IV 450 MG in SYRINGE 0 ML IV SCH (12:26)
[2017-07-11 15:56] VITALS: BP 92/59; PULSE 74; TEMP 36.9; O2SAT 97
[2017-07-11 20:30] VITALS: BP 106/64; PULSE 89; TEMP 36.7; O2SAT 98
[2017-07-11] MEDS: METOPROLOL SUCC 25MG EXT REL TAB PO SCH (21:36)
[2017-07-11] MEDS: INSULIN GLARGINE SOLOSTAR 100 UNITS/ML 3 ML PEN SC SCH (21:47)
[2017-07-12 00:26] VITALS: BP 101/65; PULSE 89; TEMP 36.5; O2SAT 94
[2017-07-12 04:16] VITALS: BP 100/75; PULSE 99; TEMP 36.8; O2SAT 96
[2017-07-12] MEDS: MAGNESIUM OXIDE 400 MG TAB PO SCH ×2 (07:44→21:30)
[2017-07-12] MEDS: LEVETIRACETAM 500 MG TAB PO SCH ×2 (07:44→21:31)
[2017-07-12] MEDS: ALPRAZOLAM 0.5 MG TAB PO SCH ×2 (07:44→21:30)
[2017-07-12] MEDS: THIAMINE HCL 100 MG TAB PO SCH (07:45)
[2017-07-12] MEDS: RANITIDINE HCL 150 MG TAB PO SCH ×2 (07:45→21:32)
[2017-07-12] MEDS: ASPIRIN 81 MG ECTAB PO SCH (07:45)
[2017-07-12] MEDS: METOPROLOL SUCC 25MG EXT REL TAB PO SCH (07:45)
[2017-07-12] MEDS: APIXABAN 2.5 MG TAB PO SCH ×2 (07:45→21:30)
[2017-07-12] MEDS: CEROVITE ADV FORMULA TAB PO SCH (07:45)
[2017-07-12] MEDS: ATORVASTATIN 40 MG TAB PO SCH (07:45)
[2017-07-12] MEDS: SERTRALINE HCL 100 MG TAB PO SCH (07:46)
[2017-07-12] MEDS: INSULIN ASPART 100 UNITS/ML 3 ML PEN SC SCH ×4 (07:48→21:35)
[2017-07-12 07:54] VITALS: BP 105/68; PULSE 118; TEMP 36.9; O2SAT 96
--- NOTE | 2017-07-12 08:19 | Progress Note ---
Internal Med Progress Note Date of Service: Jul 12, 2017. Provider Documentation: SUBJECTIVE: Seen and examined at bedside Heart rate still high but patient asymptomatic Denies chest pain, SOB, dizziness, abd pain Eager to get discharged No other complaints OBJECTIVE: Vital Signs-as noted below Physical Exam: General Appearance:Moderately built and nourished, no apparent distress Head: normocephalic, Atraumatic Eyes: normal inspection, EOMI, PERRL Neck: supple, Trachea midline Respiratory/Chest: Decreased breath sounds, CTA Cardiovascular: Irregularly irregular, No murmur Abdomen/GI:Soft, Non tender, Bowel sounds present Extremities/Musculoskelatal:normal inspection, no edema, Right LE +wound Vac, Left AKA Neurologic/Psych:grossly no focal neurological deficits Skin: normal color, warm Lab data as noted below. ASSESSMENT & PLAN: CVA H/O head injury/stroke in the past Brain MRI (06/20/17):Left frontal and parietal lobe acute/subacute infarcts Carotid Ultrasound (06/20/17):unremarkable Echocardiogram (06/21/17): unremarkable No new Neurological symptoms Continue ASA and Eliquis Needs to be transitioned to inpatient Rehab, not safe to go home A fib Initially IV diltiazem, also had been on IV heparin for anticoagulation Echocardiogram(06/21/17): unremarkable Will increase Cardizem to 240mg for better rate control Continue metoprolol and Diltiazem for rate control (Metoprolol increased to 25mg BID, Diltiazem increased to 240mg) On Eliquis for anticoagulation (Patient agreed given risks Vs benefits) monitor Appreciate cardiology Input Asthma Usually well controlled per patient stable No wheezes on exam Right foot cellulitis and abscess and osteomyelitis MRSA Bacteremia s/p PICC line Continue IV Dapto for 6 weeks and followup with wound care continue wound care Left elbow pain: XR with small joint effusion Orthopedics recommended elbow pad DM II Pharmacy Glycemic control consulted on Lantus and ISS Depression Psychiatry consulted 06/21/17: Increased Zoloft to 200 mg daily mood stable Palliative Care following patient States he is frustrated with prolonged hospitalization Reports making statements to harm himself only out of frustration from prolonged hospitalization Offered to talk to his sister but patient not interested currently Psychiatry following Code Status: Level 5 (DNR/DNI) Disposition: Needs rehab placement Plan to discharge to [facility] when if approved Equipment Installer 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 * Normal LV systolic function, EF 55-60%. * No segmental left ventricular wall motion abnormalities are noted. * Trace mitral regurgitation. * Mild left atrial enlargement. Vital Signs: Date Time Temp Pulse Resp B/P (MAP) Pulse Ox O2 Delivery O2 Flow Rate FiO2 07/13/17 08:00 37.0 89 18 99/68 (78) 96 07/13/17 04:17 37.0 65 17 95/65 (75) 94 Room Air 07/13/17 04:00 Room Air 07/13/17 00:28 37.1 65 17 101/66 (78) 97 Room Air 07/12/17 23:59 Room Air 07/12/17 20:00 Room Air 07/12/17 19:47 36.6 67 29 89/61 (70) 95 Room Air 07/12/17 15:50 Room Air 07/12/17 15:44 36.8 100 22 107/75 (86) 97 Room Air 07/12/17 12:00 Room Air 07/12/17 11:55 36.6 108 18 99/60 (73) 98 Lab Results: Results Past 24 Hours Test 07/12/17 11:31 07/12/17 16:24 07/12/17 20:25 07/13/17 04:27 Range/Units Bedside Glucose 213 95 203 70-99 mg/dl White Blood Count 7.90 4.8-10.8 K/uL Red Blood Count 3.28 4.7-6.1 M/uL Hemoglobin 9.8 14.0-18.0 g/dL Hematocrit 30.5 42-52 % Mean Corpuscular Volume 93.0 80-100 fL Mean Corpuscular Hemoglobin 29.9 25-34 pg Mean Corpuscular Hemoglobin Concent 32.1 32-36 g/dl RDW Standard Deviation 48.0 36.4-46.3 fL RDW Coefficient of Variation 14.1 11.5-14.5 % Platelet Count 246 130-400 K/uL Mean Platelet Volume 9.1 7.4-10.4 fL Sodium Level 136 136-145 mmol/L Potassium Level 4.3 3.5-5.1 mmol/L Chloride Level 102 98-107 mmol/L Carbon Dioxide Level 27 21-32 mmol/L Anion Gap 7.0 3-11 mmol/L Blood Urea Nitrogen 19 7-18 mg/dl Creatinine 0.73 0.60-1.40 mg/dl Est Creatinine Clear Calc Drug Dose 113.2 ml/min Estimated GFR () 122.7 Estimated GFR (Non- 105.9 BUN/Creatinine Ratio 26.5 10-20 Random Glucose 200 70-99 mg/dl Calcium Level 8.6 8.5-10.1 mg/dl Magnesium Level 2.1 1.8-2.4 mg/dl Total Creatine Kinase 35 39-308 U/L Test 07/13/17 07:11 Range/Units Bedside Glucose 177 70-99 mg/dl
[2017-07-12] MEDS ORDERED: METOPROLOL SUCC 25MG EXT REL TAB PO ONE (08:45)
[2017-07-12] MEDS ORDERED: DILTIAZEM HCL 180 MG CAPCR PO SCH (09:00)
[2017-07-12] MEDS ORDERED: DILTIAZEM SR 60 MG CAP PO ONE (09:00)
[2017-07-12] MEDS: DAPTOmycin IV 450 MG in SYRINGE 0 ML IV SCH (11:48)
[2017-07-12 11:55] VITALS: BP 99/60; PULSE 108; TEMP 36.6; O2SAT 98
[2017-07-12 15:44] VITALS: BP 107/75; PULSE 100; TEMP 36.8; O2SAT 97
[2017-07-12] MEDS ORDERED: NURSING VERBAL MED ORDER ONE (18:30)
[2017-07-12 19:47] VITALS: BP 89/61; PULSE 67; TEMP 36.6; O2SAT 95
[2017-07-12] MEDS ORDERED: METOPROLOL SUCC 25MG EXT REL TAB PO SCH (21:00)
[2017-07-12] MEDS ORDERED: METOPROLOL SUCC 50MG EXT REL TAB PO SCH (21:00)
[2017-07-12] MEDS: INSULIN GLARGINE SOLOSTAR 100 UNITS/ML 3 ML PEN SC SCH (21:36)
[2017-07-13 00:28] VITALS: BP 101/66; PULSE 65; TEMP 37.1; O2SAT 97
[2017-07-13 04:17] VITALS: BP 95/65; PULSE 65; TEMP 37; O2SAT 94
[2017-07-13 04:47] LABS: HEMATOCRIT 30.5 % (42-52); HEMOGLOBIN 9.8 g/dL (14.0-18.0); MEAN CORPUSCULAR HEMOGLOBIN 29.9 pg (25-34); MEAN CORPUSCULAR HGB CONC 32.1 g/dl (32-36); MEAN PLATELET VOLUME 9.1 fL (7.4-10.4); PLATELET COUNT 246 K/uL (130-400); RED CELL DISTRIBUTION WIDTH CV 14.1 % (11.5-14.5)
[2017-07-13 05:10] LABS: CALCIUM 8.6 mg/dl (8.5-10.1); CREATININE 0.73 mg/dl (0.60-1.40); POTASSIUM 4.3 mmol/L (3.5-5.1)
[2017-07-13 08:00] VITALS: BP 99/68; PULSE 89; TEMP 37; O2SAT 96
[2017-07-13] MEDS: RANITIDINE HCL 150 MG TAB PO SCH (08:44)
[2017-07-13] MEDS: THIAMINE HCL 100 MG TAB PO SCH (08:44)
[2017-07-13] MEDS: ASPIRIN 81 MG ECTAB PO SCH (08:44)
[2017-07-13] MEDS: SERTRALINE HCL 100 MG TAB PO SCH (08:44)
[2017-07-13] MEDS: CEROVITE ADV FORMULA TAB PO SCH (08:44)
[2017-07-13] MEDS: ATORVASTATIN 40 MG TAB PO SCH (08:44)
[2017-07-13] MEDS: MAGNESIUM OXIDE 400 MG TAB PO SCH (08:47)
[2017-07-13] MEDS: LEVETIRACETAM 500 MG TAB PO SCH (08:47)
[2017-07-13] MEDS: APIXABAN 2.5 MG TAB PO SCH (08:47)
[2017-07-13] MEDS: INSULIN ASPART 100 UNITS/ML 3 ML PEN SC SCH ×2 (08:49→13:00)
--- NOTE | 2017-07-13 08:56 | Progress Note ---
Internal Med Progress Note Date of Service: Jul 13, 2017. Provider Documentation: SUBJECTIVE: Seen and examined at bedside Doing well today and feels frustrated waiting for discharge Heart rate controlled with medications Reports chronic arthritic pain Denies chest pain, SOB, dizziness, abd pain Eager to get discharged No other complaints OBJECTIVE: Vital Signs-as noted below Physical Exam: General Appearance:Moderately built and nourished, no apparent distress Head: normocephalic, Atraumatic Eyes: normal inspection, EOMI, PERRL Neck: supple, Trachea midline Respiratory/Chest: Decreased breath sounds, CTA Cardiovascular: Irregularly irregular, No murmur Abdomen/GI:Soft, Non tender, Bowel sounds present Extremities/Musculoskelatal:normal inspection, no edema, Right LE +wound Vac, Left AKA Neurologic/Psych:grossly no focal neurological deficits Skin: normal color, warm Lab data as noted below. ASSESSMENT & PLAN: CVA H/O head injury/stroke in the past Brain MRI (06/20/17):Left frontal and parietal lobe acute/subacute infarcts Carotid Ultrasound (06/20/17):unremarkable Echocardiogram (06/21/17): unremarkable No new Neurological symptoms Continue ASA and Eliquis Needs to be transitioned to inpatient Rehab, not safe to go home A fib Initially IV diltiazem, also had been on IV heparin for anticoagulation Echocardiogram(06/21/17): unremarkable Continue metoprolol and Diltiazem for rate control (Metoprolol 25mg daily, Diltiazem 240mg daily) On Eliquis for anticoagulation (Patient agreed given risks Vs benefits) monitor Appreciate cardiology Input Asthma Usually well controlled per patient stable No wheezes on exam Right foot cellulitis and abscess and osteomyelitis MRSA Bacteremia s/p PICC line Continue IV Dapto for 6 weeks and followup with wound care continue wound care, Wound Vac Left elbow pain: XR with small joint effusion Orthopedics recommended elbow pad DM II Pharmacy Glycemic control consulted on Lantus and ISS Patient is on 14 units Aspart TID and 50 units lantus QHS at home Monitor Depression Psychiatry consulted 06/21/17: Increased Zoloft to 200 mg daily mood stable Palliative Care following patient States he is frustrated with prolonged hospitalization Reports making statements to harm himself only out of frustration from prolonged hospitalization Offered to talk to his sister but patient not interested currently Psychiatry following Code Status: Level 5 (DNR/DNI) Disposition: Plan to discharge to [facility] Follow up with your PCP in 1 week after being discharged from Rehab facility Follow up with your Orthopedic surgeon in 1 week Follow up with your Psychiatrist in 2 weeks as outpatient Follow up with your Head Of Housekeeping in 2-4 weeks Follow up with your Infectious disease in 2 weeks Follow up with wound clinic in 2 weeks Follow up with your Neurologist as needed Complete the antibiotic course as prescribed to complete 6 weeks course (20 days more) Get weekly CBC, CMP, ESR, CPK levels checked weekly while on Daptomycin Seek immediate medical attention if your symptoms reoccur or worsen [employer] Recommendations Date of Service Jun 28, 2017. [employer] Recommendations ACTIVITY RECOMMENDATIONS: Limitations: Heel weight bearing only if able to tolerate. SPECIAL CARE INSTRUCTIONS: * Some drainage onto the dressing is normal and is no cause for alarm. * Some swelling is natural especially after walking. * When resting, keep your foot elevated above the level of your heart. * Call [facility] if you notice: -Increased drainage -Fever over 101 degrees F -Severe constant pain BANDAGE: * Daily dressing changes with adaptic cut to the size of the wounds. Gauze and kerlix wrap. * Keep bandage/cast dry at all times. FOLLOW UP VISIT WITH DR. MATSON If appointment is not already scheduled: Please call [facility] after you get home today to schedule a follow-up appointment for [address] Matson at . PROCEDURES: ECHO: * Normal LV chamber size with mild concentric LVH. * Normal LV systolic function, EF 55-60%. * No segmental left ventricular wall motion abnormalities are noted. * Trace mitral regurgitation. * Mild left atrial enlargement. Vital Signs: Date Time Temp Pulse Resp B/P (MAP) Pulse Ox O2 Delivery O2 Flow Rate FiO2 07/13/17 08:00 Room Air 07/13/17 08:00 37.0 89 18 99/68 (78) 96 07/13/17 04:17 37.0 65 17 95/65 (75) 94 Room Air 07/13/17 04:00 Room Air 07/13/17 00:28 37.1 65 17 101/66 (78) 97 Room Air 07/12/17 23:59 Room Air 07/12/17 20:00 Room Air 07/12/17 19:47 36.6 67 29 89/61 (70) 95 Room Air 07/12/17 15:50 Room Air 07/12/17 15:44 36.8 100 22 107/75 (86) 97 Room Air 07/12/17 12:00 Room Air 07/12/17 11:55 36.6 108 18 99/60 (73) 98 Lab Results: Results Past 24 Hours Test 07/12/17 11:31 07/12/17 16:24 07/12/17 20:25 07/13/17 04:27 Range/Units Bedside Glucose 213 95 203 70-99 mg/dl White Blood Count 7.90 4.8-10.8 K/uL Red Blood Count 3.28 4.7-6.1 M/uL Hemoglobin 9.8 14.0-18.0 g/dL Hematocrit 30.5 42-52 % Mean Corpuscular Volume 93.0 80-100 fL Mean Corpuscular Hemoglobin 29.9 25-34 pg Mean Corpuscular Hemoglobin Concent 32.1 32-36 g/dl RDW Standard Deviation 48.0 36.4-46.3 fL RDW Coefficient of Variation 14.1 11.5-14.5 % Platelet Count 246 130-400 K/uL Mean Platelet Volume 9.1 7.4-10.4 fL Sodium Level 136 136-145 mmol/L Potassium Level 4.3 3.5-5.1 mmol/L Chloride Level 102 98-107 mmol/L Carbon Dioxide Level 27 21-32 mmol/L Anion Gap 7.0 3-11 mmol/L Blood Urea Nitrogen 19 7-18 mg/dl Creatinine 0.73 0.60-1.40 mg/dl Est Creatinine Clear Calc Drug Dose 113.2 ml/min Estimated GFR () 122.7 Estimated GFR (Non- 105.9 BUN/Creatinine Ratio 26.5 10-20 Random Glucose 200 70-99 mg/dl Calcium Level 8.6 8.5-10.1 mg/dl Magnesium Level 2.1 1.8-2.4 mg/dl Total Creatine Kinase 35 39-308 U/L Test 07/13/17 07:11 Range/Units Bedside Glucose 177 70-99 mg/dl
[2017-07-13] MEDS ORDERED: METOPROLOL SUCC 25MG EXT REL TAB PO SCH (09:00)
[2017-07-13] MEDS: ALPRAZOLAM 0.5 MG TAB PO SCH (09:00)
[2017-07-13] MEDS ORDERED: DILTIAZEM HCL 240 MG CAPCR PO SCH (09:00)
[2017-07-13 10:40] VITALS: BP 120/74; PULSE 100; TEMP 36.6; O2SAT 97
[2017-07-13] MEDS ORDERED: INSDGIPEN SC (10:40)
[2017-07-13] MEDS ORDERED: CNT PO (10:40)
[2017-07-13] MEDS ORDERED: MGNO400 PO (10:40)
[2017-07-13] MEDS ORDERED: TPRSR25 PO (10:40)
[2017-07-13] MEDS ORDERED: ELQ25 PO (10:40)
[2017-07-13] MEDS ORDERED: INSU100I SC (10:40)
[2017-07-13] MEDS ORDERED: DLTCD/240 PO (10:40)
[2017-07-13] MEDS ORDERED: SERT-234 PO (10:40)
[2017-07-13] MEDS ORDERED: THM100 PO (10:40)
--- NOTE | 2017-07-13 10:44 | Discharge Summary ---
Discharge Summary Date of Service Jul 13, 2017. Discharge Summary Admission Date: Jun 19, 2017 at 08:50 Discharge Date: Jul 13, 2017 Discharge Disposition: Rehab Principal Diagnosis: Atrial Fibrillation, CVA, Right foot cellulitis, osteomyelitis, MRSA bacteremia Procedures: MRI brain: 1. There are punctate foci of restricted diffusion identified in the left frontal and left parietal lobes consistent with acute to subacute infarcts. 2. No additional foci of acute ischemia are identified. There is no hemorrhage or mass effect. 3. Senescent changes and remote infarcts as above. CTA: 1. Streak and motion degraded examination. 2. There is no evidence of central pulmonary embolus in the main, lobar, or proximal segmental pulmonary arteries. Evaluation of the peripheral branches is degraded by streak and motion artifact. 3. There is no airspace consolidation or pleural effusion. 4. Cardiomegaly with evidence of pulmonary artery hypertension. 5. Additional findings as above. Carotid USD: 1. Mild right and moderate left atherosclerotic plaquing of the carotid bulbs and proximal internal carotid arteries without hemodynamically significant stenosis identified. 2. Normal antegrade vertebral flow bilaterally. Consultations: Neurology, Psychiatry, Orthopedics, Cardiology, Wound Pending Studies/Follow-Up: Follow up with your PCP in 1 week after being discharged from Rehab facility Follow up with your Orthopedic surgeon in 1 week Follow up with your Psychiatrist in 2 weeks as outpatient Follow up with your Acupuncturist in 2-4 weeks Follow up with your Infectious disease in 2 weeks Follow up with wound clinic in 2 weeks Follow up with your Neurologist as needed Complete the antibiotic course(Daptomycin IV 450mg daily) as prescribed to complete 6 weeks course (20 days more) Get weekly CBC, CMP, ESR, CPK levels checked weekly while on Daptomycin Seek immediate medical attention if your symptoms reoccur or worsen Supervisor Powdered Sugar Recommendations Date of Service Jun 28, 2017. Supervisor Powdered Sugar Recommendations ACTIVITY RECOMMENDATIONS: Limitations: Heel weight bearing only if able to tolerate. SPECIAL CARE INSTRUCTIONS: * Some drainage onto the dressing is normal and is no cause for alarm. * Some swelling is natural especially after walking. * When resting, keep your foot elevated above the level of your heart. * Call [facility] if you notice: -Increased drainage -Fever over 101 degrees F -Severe constant pain BANDAGE: * Daily dressing changes with adaptic cut to the size of the wounds. Gauze and kerlix wrap. * Keep bandage/cast dry at all times. FOLLOW UP VISIT WITH DR. MATSON If appointment is not already scheduled: Please call [facility] after you get home today to schedule a follow-up appointment for [address] Matson at . Medication Reconciliation New Medications: Apixaban (Eliquis) 2.5 Mg Tab 5 MG PO BID for 30 Days, #120 TAB Diltiazem Hcl (Diltiazem Cd) 240 Mg Capcr 240 MG PO QAM for 30 Days, #30 EA Insulin Glargine (Lantus Solostar) 100 Unit/Ml Inj 50 UNITS SC HS for 30 Days Magnesium Oxide (Magnesium-Oxide) 400 Mg Tab 400 MG PO DAILY for 30 Days, #30 TAB Metoprolol Succinate (Metoprolol Succinate ER) 25 Mg Tabcr 25 MG PO DAILY for 30 Days, #30 EA Multivitamins/Minerals (Certavite/Antioxidants) 1 Tab Tab 1 TAB PO QAM for 30 Days, #30 TAB Thiamine HCl (Vitamin B-1) 100 Mg Tab 100 MG PO QAM for 30 Days, #30 TAB Changed Medications: Insulin Lispro (Human) (Humalog) 100 Unit/Ml Inj 14 UNITS SC TID for 30 Days (Medication details modified) sliding scale Sertraline (Zoloft) 100 Mg Tab 200 MG PO QAM for 30 Days, #60 TAB (Changed from: 1.5 TAB) Continued Medications: Albuterol Hfa (Ventolin Hfa) 200 Puffs/47299 Mcg Aers 2 PUFFS INH Q6H PRN for SOB/Wheezing, #1 INHALER Alprazolam (Xanax) 0.5 Mg Tab 0.5 MG PO BID, TAB Aspirin (Aspirin EC Low Dose) 81 Mg Ectab 81 MG PO DAILY Atorvastatin (Lipitor) 40 Mg Tab 40 MG PO DAILY Baclofen (Lioresal) 10 Mg Tab 10 MG PO TID PRN for Pain, TAB Cyanocobalamin (Cyanocobalamin) 1,000 Mcg/Ml Inj 1000 MCG INJ q 3 months Levetiracetam (Keppra) 750 Mg Tab 2 TAB PO BID, TAB Ranitidine Hcl (Zantac) 150 Mg Tab 150 MG PO BID, TAB Discontinued Medications: Insulin Glargine (Basaglar Kwikpen) 100 Unit/Ml Inj 1 DOSE SQ DAILY Admission Information HPI (per Admitting provider): This is a 52yo M with uncontrolled DM II (hgb a1c of 13), CAD, ICH following injury in 2014, R hemiparesis 2/2 remote CVAs, 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 Patient states that he was lying on elbow watching football and believes to have injured it. States that pain is improved but that ROM is reduced 2/2 pain. Also has pain in R hip 2/2 chronic wound for which he has followed with [place] wound care in the past. Also has presence of chronic wounds on R foot but denies any pain 2/2 diabetic neuropathy. Patient is a poor historian and it is unclear whether or not he is still receiving wound care. Was found to be in rapid A Flutter by EMS en route to hospital and was given cardizem prior to arrival. Patient is asymptomatic and denies any history of arrhythmias. Denies any lightheadedness, chest pain, palpitations or SOB. Per chart review, patient had fall in 2011 resulting in a TBI and hemorrhagic stroke with residual R leg weakness. Was on coumadin at that time and it was discontinued until 2014 when he was restarted on it for treatment of an upper DVT. Fell a few months later, while on coumadin, and had an ICH following and was hospitalized at [facility] but no additional intervention was required. Coumadin was stopped at this time. Had a CT head performed in 2016 that was normal, without evidence of bleeding. Patient lives alone but sister checks on him. States that he did have a home health service recently but due to insurance changes, they are no longer providing services. Is able to ambulate by wheelchair and has improved ability to transfer in recent months following L BKA 2/[address] Matson in 2016. Admits to using insulin infrequently. Physical Exam (per Admitting): General Appearance: no apparent distress, + pertinent finding ( Appears older than stated age. ) Head: normocephalic, atraumatic Eyes: normal inspection, PERRL, sclerae normal ENT: normal ENT inspection, hearing grossly normal, pharynx normal (moist mucous membranes ) Neck: supple, thyroid normal, trachea midline Respiratory/Chest: chest non-tender, lungs clear, normal breath sounds, no respiratory distress, no accessory muscle use Cardiovascular: no murmur, normal peripheral pulses, + tachycardia Abdomen/GI: non tender, soft, no organomegaly Extremities/Musculoskelatal: + pertinent finding (+ chronic wound on lateral R hip. + chronic R foot wound on great toe with erythema and edema extending to ankle. Limited sensation 2/2 neuropathy. Limited mobility 2/2 remote CVA deficits. L BKA ) Neurologic/Psych: no motor/sensory deficits (no acute changes), alert, normal mood/affect, oriented x 3, + pertinent finding (poor insight/judgement ) Skin: normal color, warm/dry Hospital Course CVA H/O head injury/stroke in the past Brain MRI (06/20/17):Left frontal and parietal lobe acute/subacute infarcts Carotid Ultrasound (06/20/17):unremarkable Echocardiogram (06/21/17): unremarkable No new Neurological symptoms Continue ASA and Eliquis Needs to be transitioned to inpatient Rehab, not safe to go home A fib Initially IV diltiazem, also had been on IV heparin for anticoagulation Echocardiogram(06/21/17): unremarkable Continue metoprolol and Diltiazem for rate control (Metoprolol 25mg daily, Diltiazem 240mg daily) On Eliquis for anticoagulation (Patient agreed given risks Vs benefits) monitor Appreciate cardiology Input Asthma Usually well controlled per patient stable No wheezes on exam Right foot cellulitis and abscess and osteomyelitis MRSA Bacteremia s/p PICC line Continue IV Dapto for 6 weeks and followup with wound care continue wound care, Wound Vac Left elbow pain: XR with small joint effusion Orthopedics recommended elbow pad DM II Pharmacy Glycemic control consulted on Lantus and ISS Patient is on 14 units Aspart TID and 50 units lantus QHS at home Monitor Depression Psychiatry consulted 06/21/17: Increased Zoloft to 200 mg daily mood stable Palliative Care following patient States he is frustrated with prolonged hospitalization Reports making statements to harm himself only out of frustration from prolonged hospitalization Offered to talk to his sister but patient not interested currently Psychiatry following Code Status: Level 5 (DNR/DNI) Disposition: Plan to discharge to [facility] Follow up with your PCP in 1 week after being discharged from Rehab facility Follow up with your Orthopedic surgeon in 1 week Follow up with your Psychiatrist in 2 weeks as outpatient Follow up with your Acupuncturist in 2-4 weeks Follow up with your Infectious disease in 2 weeks Follow up with wound clinic in 2 weeks Follow up with your Neurologist as needed Complete the antibiotic course as prescribed to complete 6 weeks course (20 days more) Get weekly CBC, CMP, ESR, CPK levels checked weekly while on Daptomycin Seek immediate medical attention if your symptoms reoccur or worsen Supervisor Powdered Sugar Recommendations Date of Service Jun 28, 2017. Supervisor Powdered Sugar Recommendations ACTIVITY RECOMMENDATIONS: Limitations: Heel weight bearing only if able to tolerate. SPECIAL CARE INSTRUCTIONS: * Some drainage onto the dressing is normal and is no cause for alarm. * Some swelling is natural especially after walking. * When resting, keep your foot elevated above the level of your heart. * Call [facility] if you notice: -Increased drainage -Fever over 101 degrees F -Severe constant pain BANDAGE: * Daily dressing changes with adaptic cut to the size of the wounds. Gauze and kerlix wrap. * Keep bandage/cast dry at all times. FOLLOW UP VISIT WITH DR. MATSON If appointment is not already scheduled: Please call [facility] after you get home today to schedule a follow-up appointment for [address] Matson at . PROCEDURES: ECHO: * Normal LV chamber size with mild concentric LVH. * Normal LV systolic function, EF 55-60%. * No segmental left ventricular wall motion abnormalities are noted. * Trace mitral regurgitation. * Mild left atrial enlargement. Total time spent on discharge = 45 minutes This includes examination of the patient, discharge planning, medication reconciliation, and communication with other providers. Discharge Instructions Discharge Instructions Date of Service Jul 13, 2017. Admission Reason for Admission: Atrial Fibrillation With Rvr, Cellulitis R Foot Discharge Discharge Diagnosis / Problem: Atrial Fibrillation, CVA, Right foot cellulitis , osteomyelitis, MRSA bacter Discharge Goals Goal(s): Decrease discomfort, Improve function Activity Recommendations Activity Limitations: resume your previous activity Exercise/Sports Limitations: as tolerated . Instructions / Follow-Up Instructions / Follow-Up Follow up with your PCP in 1 week after being discharged from Rehab facility Follow up with your Orthopedic surgeon in 1 week Follow up with your Psychiatrist in 2 weeks as outpatient Follow up with your Acupuncturist in 2-4 weeks Follow up with your Infectious disease in 2 weeks Follow up with wound clinic in 2 weeks Follow up with your Neurologist as needed Complete the antibiotic course(Daptomycin IV 450mg daily) as prescribed to complete 6 weeks course (20 days more) Get weekly CBC, CMP, ESR, CPK levels checked weekly while on Daptomycin Seek immediate medical attention if your symptoms reoccur or worsen Supervisor Powdered Sugar Recommendations Date of Service Jun 28, 2017. Supervisor Powdered Sugar Recommendations ACTIVITY RECOMMENDATIONS: Limitations: Heel weight bearing only if able to tolerate. SPECIAL CARE INSTRUCTIONS: * Some drainage onto the dressing is normal and is no cause for alarm. * Some swelling is natural especially after walking. * When resting, keep your foot elevated above the level of your heart. * Call [facility] if you notice: -Increased drainage -Fever over 101 degrees F -Severe constant pain BANDAGE: * Daily dressing changes with adaptic cut to the size of the wounds. Gauze and kerlix wrap. * Keep bandage/cast dry at all times. FOLLOW UP VISIT WITH DR. MATSON If appointment is not already scheduled: Please call [facility] after you get home today to schedule a follow-up appointment for [address] Matson at . Current Hospital Diet Patient's current hospital diet: Diabetes Type 2 Diet Discharge Diet Recommended Diet: Diabetes Type 2 Diet Procedures Procedures Performed: 1. Right foot Evacuation abscesses first metatarsophalangeal and fifth toe. 2. Right foot Debridement Extensor Tendon Right Fifth Toe, 3. Right foot Debridement Ischemic Ulcers: Fisrt, Third and Fifth Toes, 4. Right foot Debridement/ Excision Osteomyelitis of Bone Fifth Proximal Phalanx Pending Studies Studies pending at discharge: no Laboratory Results Hemoglobin A1c Test 06/21/17 04:45 Range/Units Estimated Average Glucose 369 mg/dl Hemoglobin A1c 14.5 H 4.5-5.6 % Medical Emergencies . Who to Call and When: Medical Emergencies: If at any time you feel your situation is an emergency, please call 911 immediately. . Non-Emergent Contact Non-Emergency issues call your: Primary Care Provider, Acupuncturist, Surgeon, Specialist (Infectious disease, Wound Care) Call Non-Emergent contact if: you have a fever, your pain is not controlled, your pain is worsening, your pain is unusual for you, your pain is concerning you, you have any medication questions Seek immediate medical attention if your symptoms reoccur or worsen . . "Provider Documentation" section prepared by Larry Duenas. . Supervisor Powdered Sugar Recommendations Supervisor Powdered Sugar Recommendations: ACTIVITY RECOMMENDATIONS: Limitations: Heel weight bearing only if able to tolerate. SPECIAL CARE INSTRUCTIONS: * Some drainage onto the dressing is normal and is no cause for alarm. * Some swelling is natural especially after walking. * When resting, keep your foot elevated above the level of your heart. * Call [facility] if you notice: -Increased drainage -Fever over 101 degrees F -Severe constant pain BANDAGE: * Daily dressing changes with adaptic cut to the size of the wounds. Gauze and kerlix wrap. * Keep bandage/cast dry at all times. FOLLOW UP VISIT WITH DR. MATSON If appointment is not already scheduled: Please call [facility] after you get home today to schedule a follow-up appointment for [address] Matson at . VTE Core Measure Inpt VTE Proph given/why not?: Other Anticoagulation <Electronically signed by Larry Duenas MD> Signed: 07/13/17 1044 Signed: The status of this report is Signed * If report status is Draft, the document has not been finalized by the responsible provider.
[2017-07-13 11:09] VITALS: BP 120/74; PULSE 100; TEMP 36.6; O2SAT 97
[2017-07-13] MEDS: DAPTOmycin IV 450 MG in SYRINGE 0 ML IV SCH (11:29)
--- NOTE | 2017-07-17 08:48 | EDITING REQUIRED CODING QUERY ---
SEPSIS To promote full compliance with coding requirements relating to patient care, physician participation is requested in all cases of major sales associate uncertainty. Please assist us with the question(s) below: In responding to this query, please exercise your independent professional judgement. The fact that a question is asked does not imply that any particular answer is desired or expected. We appreciate your clarification on this issue. Throughout the medical record, you have clearly documented a localized infection and your patient has clinical evidence of a generalized sepsis or severe sepsis. The term urosepsis is a nonspecific entity and is coded as an UTI. If the patient has sepsis, severe sepsis, from an urinary source or some other source, please clarify in your response below. The medical record reflects the following clinical findings: Diabetic patient admitted with osteomyelitis,multiple abscesses. Progress notes document both bacteremia and Sepsis. Please check below the diagnosis you were treating. Thank you ! JOCELYNE Rosales CCS ( X)Bacteremia (Nonspecific laboratory finding of bacteria in the blood) Specify Organism MRSA ( X) Present on Admission ( ) Not present on admission ( ) Unable to clinically determine ( X) Septicemia (Systemic disease associated with the presence of pathogenic microorganisms in the blood): Specify Organism MRSA (x ) Present on Admission ( ) Not present on admission ( ) Unable to clinically determine ( ) Sepsis Specify Organism Specify Associated Condition/Diagnosis ( ) Present on Admission ( ) Not present on admission ( ) Unable to clinically determine ( ) Severe Sepsis (Sepsis associated with acute organ dysfunction) Specify Organism Specify Associated Condition/Diagnosis ( ) Present on Admission ( ) Not present on admission ( ) Unable to clinically determine ( ) Septic Shock (Severe sepsis with acute circulatory failure, unexplained by other causes) ( ) Present on Admission ( ) Not present on admission ( ) Unable to clinically determine (,) Other/ Pt has:
[2017-08-05] MEDS ORDERED: DXY100 PO (13:24)
== END 2017-07-13 17:00 | DRG 853 ==
LOC: EDBD 06:31 → C.EDA 06:33 → C.2E 08:50 → UNDOADMIN 08:50 → EDBEDREQ 08:56 → ENRESERV 11:30 → C.4E 06-30 15:40 → CANRESERV 07-08 13:29 → ENRESERV 07-08 13:29 → C.2E 07-08 14:34 → ENRESERV 07-13 10:03 → C.4E 07-13 10:36
PROVIDERS: ADMIT Hospitalist; ATTEND Internal Medicine
PROC: 0QBQ0ZZ Excision of Right Toe Phalanx, Open Approach (ICD-10-PCS; principal; 2017-06-22 07:30)
PROC: 0JDQ0ZZ Extraction of Right Foot Subcutaneous Tissue and Fascia, Open Approach (ICD-10-PCS; principal; 2017-06-22 07:30)
PROC: 02HV33Z Insertion of Infusion Device into Superior Vena Cava, Percutaneous Approach (ICD-10-PCS; 2017-06-25)
PROC: 0JBN0ZZ Excision of Right Lower Leg Subcutaneous Tissue and Fascia, Open Approach (ICD-10-PCS; 2017-06-27)
PROC: 0J9N0ZZ Drainage of Right Lower Leg Subcutaneous Tissue and Fascia, Open Approach (ICD-10-PCS; 2017-06-27)
DX: A41.01 Sepsis due to Methicillin susceptible Staphylococcus aureus (principal); I63.9 Cerebral infarction, unspecified; I69.351 Hemiplegia and hemiparesis following cerebral infarction affecting right dominant side; I48.92 Unspecified atrial flutter; L03.115 Cellulitis of right lower limb; E87.1 Hypo-osmolality and hyponatremia; M86.8X7 Other osteomyelitis, ankle and foot; L02.416 Cutaneous abscess of left lower limb; F32.1 Major depressive disorder, single episode, moderate; I25.10 Atherosclerotic heart disease of native coronary artery without angina pectoris; I48.91 Unspecified atrial fibrillation; E11.69 Type 2 diabetes mellitus with other specified complication; Z86.718 Personal history of other venous thrombosis and embolism; G40.909 Epilepsy, unspecified, not intractable, without status epilepticus; M70.32 Other bursitis of elbow, left elbow; M65.171 Other infective (teno)synovitis, right ankle and foot; E11.621 Type 2 diabetes mellitus with foot ulcer; Z87.891 Personal history of nicotine dependence; Z79.4 Long term (current) use of insulin; L89.219 Pressure ulcer of right hip, unspecified stage; Z79.82 Long term (current) use of aspirin; S06.33 Contusion and laceration of cerebrum, unspecified; E11.65 Type 2 diabetes mellitus with hyperglycemia; E11.40 Type 2 diabetes mellitus with diabetic neuropathy, unspecified; B95.62 Methicillin resistant Staphylococcus aureus infection as the cause of diseases classified elsewhere; Z83.3 Family history of diabetes mellitus; Z91.19 Patient's noncompliance with other medical treatment and regimen; Z89.512 Acquired absence of left leg below knee; E86.0 Dehydration; R29.703 NIHSS score 3; E87.6 Hypokalemia; Z66 Do not resuscitate; W19.XXXS Unspecified fall, sequela

== ENCOUNTER → 2017-12-12 | Outpatient (CLI) | payer OTHER ==
[~2017-12-12] MED LIST changes: +ALBU18002 INH; -ALBUAER2 INH; +AMIO400T3 PO; +APIX1TAB3 PO; +ASPI-320 PO; -ATOR-22 PO; +CYNI1000 INJ; +DOXY100C76 PO; +FOLI1TAB8 PO; +GADAVIST IV PRN; -INSDGI SC; -INSU100I SC; +INSU100I23 SC; -KPP/750 PO; +LEVE500T PO; -LISI-725 PO; +LISI-726 PO; +LPT40 PO; +MAGN400T6 PO; +METO100T7 PO; +NVLG SC; +POLY335019 PO; +SILV1CRE73 TOP; +THIA100T10 PO; -VITAMIN B12 SC
--- NOTE | 2017-12-12 13:26 | DIAGNOSTIC IMAGING REPORT ---
R LOWER EXT NONJOINT COMBO CLINICAL HISTORY: 52 years-old Male presenting with R FT/TOES, right foot burn, history of diabetes, bleeding second toe. TECHNIQUE: Multisequence, multiplanar MR imaging of the right forefoot was performed before and after the administration of intravenous contrast. IV contrast: 8.5 mL of Gadavist. COMPARISON: 06/21/2017. FINDINGS: Localizer images: Unremarkable. Redemonstration of diffuse T2 hyperintense, T1 hyperintense signal within the proximal phalanx of the fifth toe. This is limited to the proximal metaphysis of the proximal phalanx. No abnormal bone marrow signal intensity of the fifth metatarsal head. Extensive erosive changes of the distal portion of the proximal phalanx which is not identified. The proximal interphalangeal joint of the fifth toe is not apparent as a result. The base of the middle phalanx of the fifth toe is altered in configuration though the bone marrow signal intensity of the middle and distal phalanx of the fifth toe is preserved. Hyperenhancement of the fifth toe on postcontrast imaging. Mild T2 hyperintensity evident in the mid to distal portion of the proximal phalanx of the second toe as well as the proximal to midportion of the middle phalanx of the second toe. There is no significant fluid in the proximal interphalangeal joint of the second toe. There is only mild loss of normal T1 hyperintensity of the head of the proximal phalanx of the second toe. T1 hyperintense bone marrow signal of the middle phalanx of the second toe is largely preserved. The second toe demonstrates hyperenhancement on postcontrast imaging. No evidence of abscess. Mild diffuse edema of the musculature of the forefoot, nonspecific. IMPRESSION: 1. Findings may suggest osteomyelitis at the base of the proximal phalanx of the fifth toe. These findings have overall improved since the prior exam. 2. Interval development of bone marrow signal changes in the second toe without overwhelming evidence of osteomyelitis at this time. Early osteomyelitis specifically at the head of the proximal phalanx of the second toe is difficult to exclude. Electronically signed by: Nilson Alamo M.D. 12/12/2017 1:25 PM Dictated Date/Time: 12/12/2017 1:15 PM
== END | disposition home or self-care (01) ==
LOC: C.MRI 10:26
PROVIDERS: ATTEND Emergency Medicine
DX: L97.519 Non-pressure chronic ulcer of other part of right foot with unspecified severity (principal)